=== PATIENT | male | born 1955 | race Caucasian/White ===

== ENCOUNTER 2017-12-06 13:31 | Emergency (ER) | payer OTHER ==
[~2017-12-06] VITALS: Ht 193 cm; Wt 115.0 kg
[2017-12-06 13:33] VITALS: BP 158/78; PULSE 86; RESP 16; TEMP 98.6; O2SAT 96
[2017-12-06] MEDS ORDERED: SODIUM CHLOR 0.9% 1000 ML INJ 1,000 ML IV ONE (14:57)
[2017-12-06] MEDS ORDERED: diphenhydrAMINE HCL 50 MG/ML VIAL IVP ONE (15:00)
[2017-12-06] MEDS ORDERED: SODIUM CHLORIDE 0.9% FLUSH 10 ML FLUSH IVF PRN (15:00)
[2017-12-06] MEDS ORDERED: PROCHLORPERAZINE INJ 10 MG/2 ML VIAL IVP ONE (15:00)
[2017-12-06] MEDS ORDERED: KETOROLAC TROMETHAMINE 30 MG/ML (IVP) VIAL IVP ONE (15:00)
--- NOTE | 2017-12-06 15:38 | RADRPT ---
EXAM DATE/TIME: 12/06/2017 15:30 [facility] COMPARISON: No previous studies available for comparison. INDICATIONS : Fall onto head today. RADIATION DOSE: 37.86 CTDIvol (mGy) MEDICAL HISTORY : None SURGICAL HISTORY : None. ENCOUNTER: Initial ACUITY: 1 day PAIN SCALE: 7/10 LOCATION: Bilateral head TECHNIQUE: Multiple contiguous axial images were obtained of the head. Using automated exposure control and adj ustment of the mA and/or kV according to patient size, radiation dose was kept as low as reasonably a chievable to obtain optimal diagnostic quality images. DICOM format image data is available electro nically for review and comparison. FINDINGS: CEREBRUM: The ventricles are normal for age. No evidence of midline shift, mass lesion, hemorrhage or acute in farction. No extra-axial fluid collections are seen. POSTERIOR FOSSA: The cerebellum and brainstem are intact. The 4th ventricle is midline. The cerebellopontine angle i s unremarkable. EXTRACRANIAL: The visualized portion of the orbits is intact. SKULL: The calvaria is intact. No evidence of skull fracture. CONCLUSION: Negative noncontrast CT Bruce Augustin MD on December 06, 2017 at 15:35 Board Certified Radiologist. This report was verified electronically.
[2017-12-06] MEDS ORDERED: ROBA750T PO (16:15)
--- NOTE | 2017-12-06 16:15 | PD ---
HPI Chief Complaint: Fall Time Seen by Provider: 14:54 Travel History International Travel<30 days: No Contact w/Intl Traveler<30days: No Traveled to known affect area: No History of Present Illness HPI 61 yo M who 3 days prior the patient had a fall at work landing on the back of his head with his feet upright. Since then he has had a headache predominantly in the frontal area with some pain radiating down the right cervical distribution. No numbness tingling weakness. No nausea vomiting. No visual change. Zxrd-ixr-[id number] analgesics have been somewhat beneficial. The pain comes and goes. Severity is moderate at worst. PFSH Past Medical History Medical History: Denies Significant Hx Past Surgical History Abdominal Surgery: Yes Social History Alcohol Use: Yes (occ) Tobacco Use: No Substance Use: No Allergies-Medications (Allergen,Severity, Reaction): Coded Allergies: No Known Allergies (Unverified , 12/06/17) Reported Meds & Prescriptions Reported Meds & Active Scripts Active No Active Prescriptions or Reported Medications Review of Systems Except as stated in HPI: all other systems reviewed are Neg General / Constitutional: No: Fever Physical Exam Narrative GENERAL: Well-nourished well-developed 61-year-old male pleasant no acute distress SKIN: Warm and dry. HEAD: Atraumatic. Normocephalic. EYES: Pupils equal and round. No scleral icterus. No injection or drainage. ENT: No nasal bleeding or discharge. Mucous membranes pink and moist. NECK: Trachea midline. No JVD. No tenderness about the cervical spine or paracervical musculature. CARDIOVASCULAR: Regular rate and rhythm. RESPIRATORY: No accessory muscle use. Clear to auscultation. Breath sounds equal bilaterally. GASTROINTESTINAL: Abdomen soft, non-tender, nondistended. Hepatic and splenic margins not palpable. MUSCULOSKELETAL: Extremities without clubbing, cyanosis, or edema. No obvious deformities. NEUROLOGICAL: Awake and alert. No obvious cranial nerve deficits. Motor grossly within normal limits. Five out of 5 muscle strength in the arms and legs. Normal speech. PSYCHIATRIC: Appropriate mood and affect; insight and judgment normal. Data Data Last Documented VS Vital Signs Date Time Temp Pulse Resp B/P (MAP) Pulse Ox O2 Delivery O2 Flow Rate FiO2 12/06/17 13:33 98.6 86 16 158/78 (104) 96 Room Air . Signs reviewed Orders Orders Ct Brain W/O Iv Contrast(Rout) (12/06/17 14:57) Ecg Monitoring (12/06/17 14:57) Iv Access Insert/Monitor (12/06/17 14:57) Oximetry (12/06/17 14:57) Sodium Chloride 0.9% Flush (Ns Flush) (12/06/17 15:00) Ketorolac Inj (Toradol Inj) (12/06/17 15:00) Prochlorperazine Inj (Compazine Inj) (12/06/17 15:00) Diphenhydramine Inj (Benadryl Inj) (12/06/17 15:00) Sodium Chlor 0.9% 1000 Ml Inj (Ns 1000 M (12/06/17 14:57) MDM Medical Decision Making Medical Screen Exam Complete: Yes Emergency Medical Condition: Yes Medical Record Reviewed: Yes Differential Diagnosis Intracranial hemorrhage, contusion, tension headache, cervicalgia Narrative Course Last Impressions Head CT 12/06/17 1457 Signed Impressions: Service Date/Time: Wednesday, December 06, 2017 15:30 - CONCLUSION: Negative noncontrast CT Bruce Augustin MD Patient received abortive therapy with excellent effect. He is ready for discharge. Robitussin as needed with precautions discussed at bedside. Diagnosis Primary Impression: Cervicalgia of epbgwmrs-badlpgy-huitm region Additional Impressions: Migraine Qualified Codes: G43.909 - Migraine, unspecified, not intractable, without status migrainosus Fall Qualified Codes: W19.XXXA - Unspecified fall, initial encounter Referrals: Primary Care Physician Med/Other Pt SpecificInfo: Prescription(s) given Scripts Methocarbamol (Robaxin) 750 Mg Tab 1500 MG PO BID for Muscle Spasm, #30 TAB 0 Refills Prov: Isael Garcia MD 12/06/17 Disposition: 01 DISCHARGE HOME Condition: Stable Isael Garcia MD Dec 06, 2017 16:15
== END 2017-12-06 16:27 | disposition home or self-care (01) ==
LOC: NEPD 13:31
DX: M54.2 Cervicalgia (principal); G43.909 Migraine, unspecified, not intractable, without status migrainosus; W19.XXXA Unspecified fall, initial encounter; Y99.0 Civilian activity done for income or pay
CPT/HCPCS: 70450; 96361; 96374; 96375; 99285; J0780; J1200; J1885; J7030

== ENCOUNTER 2018-01-10 18:57 | Inpatient (IN) | payer OTHER ==
[~2018-01-10] VITALS: Ht 193 cm; Wt 120.1 kg
[~2018-01-10 18:57] MED LIST: ROBA750T PO
[2018-01-10 19:09] VITALS: BP 191/103; PULSE 99; RESP 18; TEMP 98; O2SAT 99
--- NOTE | 2018-01-10 19:14 | PD ---
HPI Chief Complaint: Bite or Sting Time Seen by Provider: 19:13 Travel History International Travel<30 days: No Contact w/Intl Traveler<30days: No Traveled to known affect area: No History of Present Illness HPI 62-year-old male came to the emergency room with history of a dog bite that happened one week ago. This was his neighbor's dog. Patient says that he never came to the emergency room or see any doctor for it. He has been applying peroxide but today his leg has been hurting. Meanwhile as I'm talking to him there is an intense foul odor coming from him. Vital signs are relatively stable. Patient claims to be otherwise healthy. He is not on any medications. The dog is still alive. [facility] Past Medical History Narrative Medical List of his past medical, surgical, social and family history is reviewed from the nursing note. ?: Not Past Surgical History Abdominal Surgery: Yes Social History Alcohol Use: Yes (occ) Tobacco Use: No Substance Use: No Allergies-Medications (Allergen,Severity, Reaction): Coded Allergies: No Known Allergies (Unverified , 01/10/18) Comments No known drug allergies. Reported Meds & Prescriptions Reported Meds & Active Scripts Active No Active Prescriptions or Reported Medications Narrative Medication List of his home medications reviewed from the nursing note. Review of Systems Except as stated in HPI: all other systems reviewed are Neg Physical Exam Narrative GENERAL: Awake, alert, moderate distress SKIN: Focused skin assessment warm/dry. Large gangrene his wound on the left leg mid calf posteriorly. The muscle belly is partially exposed in the overlying skin is black and necrotic in color. Intense foul odor from the wound. There are few other scabs on the rest of the leg posteriorly and proximally to this plan. The calf wound is 5 x 7 cm. HEAD: Atraumatic. Normocephalic. EYES: Pupils equal and round. No scleral icterus. No injection or drainage. ENT: No nasal bleeding or discharge. Mucous membranes pink and moist. NECK: Trachea midline. No JVD. CARDIOVASCULAR: Regular rate and rhythm. No murmur appreciated. RESPIRATORY: No accessory muscle use. Clear to auscultation. Breath sounds equal bilaterally. GASTROINTESTINAL: Abdomen soft, non-tender, nondistended. Hepatic and splenic margins not palpable. MUSCULOSKELETAL: No obvious deformities. No clubbing. No cyanosis. No edema. NEUROLOGICAL: Awake and alert. No obvious cranial nerve deficits. Motor grossly within normal limits. Normal speech. PSYCHIATRIC: Appropriate mood and affect; insight and judgment normal. Data Data Last Documented VS Vital Signs Date Time Temp Pulse Resp B/P (MAP) Pulse Ox O2 Delivery O2 Flow Rate FiO2 01/10/18 20:44 82 18 158/100 (119) 99 Room Air 01/10/18 19:09 98.0 Orders Orders Sepsis Workup Initiated (01/10/18 ) Complete Blood Count With Diff (01/10/18 19:25) Comprehensive Metabolic Panel (01/10/18:25) Prothrombin Time / Inr (Pt) (01/10/18 19:25) Lactic Acid Sepsis Protocol (01/10/18 19:25) Urinalysis - C+S If Indicated (01/10/18 19:25) Blood Culture (01/10/18 19:25) Wound Culture And Gram Stain (01/10/18 19:25) Blood Glucose (01/10/18:25) Ecg Monitoring (01/10/18:25) Iv Access Insert/Monitor (01/10/18 19:25) Oximetry (01/10/18 19:25) Oxygen Administration (01/10/18:25) Piperacil-Tazo 4.5 Gm Premix (Zosyn 4.5 (01/10/18 19:25) Vancomycin Inj (Vancomycin Inj) (01/10/18 19:25) Tibia/Fibula (Ap/Lat) (01/10/18 ) Sodium Chlor 0.9% 1000 Ml Inj (Ns 1000 M (01/10/18 19:30) Vancomycin Consult Pharmacy (Vancomycin (01/10/18 20:45) Piperacil-Tazo 4.5 Gm Premix (Zosyn 4.5 (01/11/18 02:00) Admit To Inpatient (01/10/18 ) Vital Signs (Adult) Q4H (01/10/18 20:45) Activity Oob With Assistance (01/10/18 20:45) Intake + Output LEE.QSHIFT (01/10/18 20:45) Sodium Chlor 0.9% 1000 Ml Inj (Ns 1000 M (01/10/18 20:45) Sodium Chloride 0.9% Flush (Ns Flush) (01/10/18 20:45) Sodium Chloride 0.9% Flush (Ns Flush) (01/10/18 21:00) Ondansetron Inj (Zofran Inj) (01/10/18 20:45) Comprehensive Metabolic Panel (01/11/18 06:00) Complete Blood Count With Diff (01/11/18 06:00) Mechanical Contraindication (01/10/18 20:45) Acetaminophen (Tylenol) (01/10/18 20:45) Acetamin-Hydrocod 325-5 Mg ([place] 5-325 (01/10/18 20:45) Morphine Inj (Morphine Inj) (01/10/18 20:45) Docusate Sodium-Senna (Dang-Colace) (01/10/18 21:00) Magnesium Hydroxide Liq (Milk Of Magnesi (01/10/18 20:45) Sennosides (Senokot) (01/10/18 20:45) Bisacodyl Supp (Dulcolax Supp) (01/10/18 20:45) Lactulose Liq (Lactulose Liq) (01/10/18 20:45) Inpatient Certification (01/10/18 ) Consult Wound / Ostomy Nurse (01/10/18 ) Admit Order (Ed Use Only) (01/10/18 21:14) Npo After Midnight W/ Po Meds (01/11/18 Breakfast) Labs Laboratory Tests Test 01/10/18 19:37 01/10/18 20:05 White Blood Count 6.4 TH/MM3 Red Blood Count 4.56 MIL/MM3 Hemoglobin 13.8 GM/DL Hematocrit 41.7 % Mean Corpuscular Volume 91.4 FL Mean Corpuscular Hemoglobin 30.2 PG Mean Corpuscular Hemoglobin Concent 33.0 % Red Cell Distribution Width 13.3 % Platelet Count 154 TH/MM3 Mean Platelet Volume 9.5 FL Neutrophils (%) (Auto) 74.9 % Lymphocytes (%) (Auto) 14.1 % Monocytes (%) (Auto) 6.5 % Eosinophils (%) (Auto) 3.9 % Basophils (%) (Auto) 0.6 % Neutrophils # (Auto) 4.9 TH/MM3 Lymphocytes # (Auto) 0.9 TH/MM3 Monocytes # (Auto) 0.4 TH/MM3 Eosinophils # (Auto) 0.2 TH/MM3 Basophils # (Auto) 0.0 TH/MM3 CBC Comment DIFF FINAL Differential Comment Prothrombin Time 10.0 SEC Prothromb Time International Ratio 1.0 RATIO Blood Urea Nitrogen 16 MG/DL Creatinine 1.50 MG/DL Random Glucose 98 MG/DL Total Protein 7.3 GM/DL Albumin 3.3 GM/DL Calcium Level 8.0 MG/DL Alkaline Phosphatase 60 U/L Aspartate Amino Transf (AST/SGOT) 15 U/L Alanine Aminotransferase (ALT/SGPT) 13 U/L Total Bilirubin 0.5 MG/DL Sodium Level 140 MEQ/L Potassium Level 4.3 MEQ/L Chloride Level 108 MEQ/L Carbon Dioxide Level 25.5 MEQ/L Anion Gap 7 MEQ/L Estimat Glomerular Filtration Rate 48 ML/MIN Lactic Acid Level 1.5 mmol/L Urine Color YELLOW Urine Turbidity CLEAR Urine pH 6.0 Urine Specific [place] 1.010 Urine Protein NEG mg/dL Urine Glucose (UA) NEG mg/dL Urine Ketones NEG mg/dL Urine Occult Blood NEG Urine Nitrite NEG Urine Bilirubin NEG Urine Leukocyte Esterase NEG Urine RBC 0-2 /hpf Urine WBC 0-2 /hpf Urine Squamous Epithelial Cells 0-5 /hpf Urine Bacteria NONE /hpf Microscopic Urinalysis Comment CULT NOT INDICATED MDM Medical Decision Making Medical Screen Exam Complete: Yes Emergency Medical Condition: Yes Medical Record Reviewed: Yes Differential Diagnosis Dog Bite, wound gangrene Narrative Course 8:20 PM blood test results of back and within acceptable limits. Patient is getting IV Zosyn and vancomycin. Given the clinical appearance of the wound I' m really concerned for gangrene. Patient needs to be admitted so that he can be seen by a surgeon. The wound will require extensive debridement. 9:16 PM case was discussed with general surgeon Dr. Flores who will take the patient to the OR for debridement at 8 in the morning tomorrow. He wants the patient nothing by mouth after midnight. Patient will be admitted to [facility] since the surgery can be performed in [place] OR. Procedures EKG Prior to Arrival: No Physician Communication Physician Communication Dr. Flores Diagnosis Primary Impression: Infected dog bite of lower leg Qualified Codes: S81.852A - Open bite, left lower leg, initial encounter; L08.9 - Local infection of the skin and subcutaneous tissue, unspecified; W54.0XXA - Bitten by dog, initial encounter Additional Impressions: Gangrene Renal insufficiency Admitting Information Admitting Physician Requests: Admit Scripts No Active Prescriptions or Reported Meds Shantel Marley MD Jan 10, 2018 19:14
[2018-01-10] MEDS ORDERED: PIPERACIL-TAZO 4.5 GM PREMIX 100 ML IV STA (19:25)
[2018-01-10] MEDS ORDERED: VANCOMYCIN INJ 1,000 MG in SODIUM CHLOR 0.9% 250 ML INJ 250 ML IV STA (19:25)
[2018-01-10] MEDS ORDERED: SODIUM CHLOR 0.9% 1000 ML INJ 1,000 ML IV ONE (19:30)
[2018-01-10 19:50] VITALS: O2SAT 99
[2018-01-10 19:58] LABS: AUTOMATED NEUTROPHIL # 4.9 TH/MM3 (1.8-7.7); BASOPHIL % 0.6 % (0.0-2.0); EOSINOPHIL # 0.2 TH/MM3 (0-0.4); EOSINOPHIL % 3.9 % (0.0-4.0); HEMATOCRIT 41.7 % (39.0-51.0); HEMOGLOBIN 13.8 GM/DL (13.0-17.0); LYMPH % 14.1 % (9.0-44.0); LYMPHOCYTE # 0.9 TH/MM3 (1.0-4.8); MEAN CELL VOLUME 91.4 FL (80.0-100.0); MEAN CORPUSCULAR HEMOGLOBIN 30.2 PG (27.0-34.0); MEAN PLATELET VOLUME 9.5 FL (7.0-11.0); MONO % 6.5 % (0.0-8.0); MONOCYTE # 0.4 TH/MM3 (0-0.9); NEUT % 74.9 % (16.0-70.0); PLATELET COUNT 154 TH/MM3 (150-450); RED BLOOD COUNT 4.56 MIL/MM3 (4.50-5.90); RED CELL DISTRIBUTION WIDTH 13.3 % (11.6-17.2); WHITE BLOOD COUNT 6.4 TH/MM3 (4.0-11.0)
[2018-01-10 20:04] LABS: CHLORIDE 108 MEQ/L (98-107); SODIUM (NA) 140 MEQ/L (136-145)
[2018-01-10 20:09] LABS: ALBUMIN 3.3 GM/DL (3.4-5.0); BICARBONATE 25.5 MEQ/L (21.0-32.0); BLOOD UREA NITROGEN 16 MG/DL (7-18); GLUCOSE,RANDOM 98 MG/DL (74-106)
[2018-01-10 20:12] LABS: ALT (GPT) 13 U/L (12-78); AST (GOT) 15 U/L (15-37); GLOMERULAR FILTRATION RATE 48 ML/MIN (>89)
[2018-01-10 20:14] LABS: TOTAL BILIRUBIN ADULT 0.5 MG/DL (0.2-1.0); TOTAL PROTEIN 7.3 GM/DL (6.4-8.2)
[2018-01-10 20:15] LABS: ALKALINE PHOSPHATASE 60 U/L (45-117)
[2018-01-10 20:18] LABS: BILIRUBIN, URINE NEG (NEG); BLOOD, URINE NEG (NEG); GLUCOSE,URINE NEG (NEG); KETONE, URINE NEG (NEG); NITRITE,URINE NEG (NEG); URINE LEUKOCYTE ESTERASE NEG (NEG)
[2018-01-10 20:28] LABS: URINE COLOR YELLOW (YELLW/STRAW)
[2018-01-10 20:29] LABS: RBC, URINE 0-2 /hpf (0-3); SQUAMOUS EPITHELIAL CELL URINE 0-5 /hpf (0-5); WBC, URINE 0-2 /hpf (0-5)
--- NOTE | 2018-01-10 20:38 | RADRPT ---
EXAM DATE/TIME: 01/10/2018 20:11 [facility] COMPARISON: No previous studies available for comparison. INDICATIONS : Dog bite one week ago- Gangrene. MEDICAL HISTORY : None. SURGICAL HISTORY : None. ENCOUNTER: Initial ACUITY: 1 week PAIN SCORE: 10/10 LOCATION: Left Lower leg. FINDINGS: 4 views of the left leg demonstrate a wound on the posterior slightly medial mid calf region. There i s subcutaneous edema. The tibia and fibula demonstrate no abnormality. No radiopaque foreign body is identified. There is mild osteoarthritis at the knee joint. CONCLUSION: There is an open wound on the posterior medial aspect of the mid calf region with subcutaneous edema in the adjacent tissue. No radiopaque foreign body is identified. Christian Kay MD on January 10, 2018 at 20:35 Board Certified Radiologist. This report was verified electronically.
[2018-01-10 20:44] VITALS: BP 158/100; PULSE 82; RESP 18; O2SAT 99
[2018-01-10] MEDS ORDERED: LACTULOSE SYRUP 20 GM/30 ML CUP PO PRN (20:45)
[2018-01-10] MEDS ORDERED: Vancomycin Consult Pharmacy 1 EA OTHER SCH (20:45)
[2018-01-10] MEDS ORDERED: ONDANSETRON HCL 4 MG/2 ML VIAL IVP PRN (20:45)
[2018-01-10] MEDS ORDERED: BISACODYL 10 MG SUPP RECTAL PRN (20:45)
[2018-01-10] MEDS ORDERED: ACETAMINOPHEN 325 MG TAB PO PRN (20:45)
[2018-01-10] MEDS ORDERED: SENNOSIDES 8.6 MG TAB PO PRN (20:45)
[2018-01-10] MEDS ORDERED: ACETAMINOPHEN/HYDROcodone 325 MG/5 MG TAB PO PRN (20:45)
[2018-01-10] MEDS ORDERED: MAGNESIUM HYDROXIDE SUSP 30 ML CUP PO PRN (20:45)
[2018-01-10] MEDS: SODIUM CHLORIDE 0.9% FLUSH 10 ML FLUSH IV FLUSH SCH (21:47)
[2018-01-10] MEDS: SODIUM CHLOR 0.9% 1000 ML INJ 1,000 ML IV SCH (21:48)
[2018-01-10] MEDS: DOCUSATE SODIUM 50 MG/SENNA 8.6 MG TAB PO SCH (21:48)
[2018-01-10] MEDS: MORPHINE SULFATE 2 MG/ML INJ IV PUSH PRN (21:52)
[2018-01-10 22:01] VITALS: BP 160/100; PULSE 76; RESP 18; O2SAT 97
[2018-01-10 23:13] VITALS: BP 152/94
[2018-01-11] MEDS: MORPHINE SULFATE 2 MG/ML INJ IV PUSH PRN ×5 (00:25→20:18)
[2018-01-11 00:44] VITALS: BP 141/86; PULSE 76; RESP 18; TEMP 98.9; O2SAT 95
[2018-01-11] MEDS: PIPERACIL-TAZO 4.5 GM PREMIX 100 ML IV SCH ×4 (02:20→20:08)
[2018-01-11] MEDS ORDERED: BUPIVACAINE HCL PF 0.5% 30 ML VIAL ONE (06:41)
[2018-01-11] MEDS: VANCOMYCIN 1,000 MG/NS 250 ML IV SCH ×4 (07:24→21:54)
[2018-01-11] MEDS: DOCUSATE SODIUM 50 MG/SENNA 8.6 MG TAB PO SCH ×2 (07:25→20:09)
[2018-01-11] MEDS: SODIUM CHLORIDE 0.9% FLUSH 10 ML FLUSH IV FLUSH SCH ×2 (07:25→20:09)
--- NOTE | 2018-01-11 07:29 | PD.CONS ---
HPI Service General Surgery Consult Requested By Dr. Marley Reason for Consult necrotic wound left leg Primary Care Physician No Primary Care Physician History of Present Illness 62 yo M s/p dog bite about one week ago to left leg. He has undergone no treatment and seen no physician regarding it. It has been increasingly painful and he has been putting peroxide on it. Yesterday he came to the ED and it was noted to be foul smelling. His vitals and WBC are normal. He received vancomycin and zosyn in the ED. I have been requested to evaluate for debridement. Review of Systems Constitutional: DENIES: Fever, Chills Eyes: DENIES: Eye inflammation, Eye pain Ears, nose, mouth, throat: DENIES: Oral lesions, Throat pain Respiratory: DENIES: Cough Cardiovascular: DENIES: Chest pain, Palpitations Gastrointestinal: DENIES: Abdominal pain, Nausea Musculoskeletal: DENIES: Muscle aches, Back pain Integumentary: DENIES: Pruritus, Rash Neurologic: DENIES: Paresthesias, Seizures Past Family Social History Past Medical History None- goes [facility] Past Surgical History Right knee surgery Inguinal hernia repair Reported Medications Reported Meds & Active Scripts Active No Active Prescriptions or Reported Medications Allergies: Coded Allergies: No Known Allergies (Unverified , 01/10/18) Active Ordered Medications Current Medications Medications (Trade) Dose Ordered Sig/Jenni Route Start Time Stop Time Status Last Admin Pharmacy Profile Note 0 ml @ 0 mls/hr UNSCH OTHER 01/10/18 20:45 Piperacillin Sod/ Tazobactam Sod 100 ml @ 200 mls/hr Q6H IV 01/11/18 02:00 01/11/18 02:20 Sodium Chloride 1,000 ml @ 100 mls/hr Q10H IV 01/10/18 20:45 01/10/18 21:48 (NS Flush) 2 ml UNSCH PRN IV FLUSH 01/10/18 20:45 (NS Flush) 2 ml BID IV FLUSH 01/10/18 21:00 01/10/18 21:47 (Zofran Inj) 4 mg Q6H PRN IVP 01/10/18 20:45 01/10/18 21:51 (Tylenol) 650 mg Q6H PRN PO 01/10/18 20:45 ([place] 5-325 Mg) 1 tab Q4H PRN PO 01/10/18 20:45 (Morphine Inj) 2 mg Q3H PRN IV PUSH 01/10/18 20:45 01/11/18 05:36 (Dang-Colace) 1 tab BID PO 01/10/18 21:00 01/10/18 21:48 (Milk Of Magnesia Liq) 30 ml Q12H PRN PO 01/10/18 20:45 (Senokot) 17.2 mg Q12H PRN PO 01/10/18 20:45 (Dulcolax Supp) 10 mg DAILY PRN RECTAL 01/10/18 20:45 (Lactulose Liq) 30 ml DAILY PRN PO 01/10/18 20:45 Vancomycin HCl 1000 mg/Sodium Chloride 250 ml @ 250 mls/hr Q12H IV 01/11/18 09:00 Miscellaneous Information SPECIFIC LAB TO BE ... ONCE ONCE .XX 01/12/18 08:45 01/12/18 08:46 Family History Noncontributory Social History Occ ETOH. He had two beers yesterday afternoon. No tobacco or drug use. Physical Exam Vital Signs Vital Signs Date Time Temp Pulse Resp B/P (MAP) Pulse Ox O2 Delivery O2 Flow Rate FiO2 01/11/18 04:52 01/11/18 00:44 98.9 76 18 141/86 (104) 95 01/10/18 23:13 73 16 152/94 (113) 97 01/10/18 22:01 76 18 160/100 (120) 97 Room Air 01/10/18 20:44 82 18 158/100 (119) 99 Room Air 01/10/18 19:50 99 Room Air 01/10/18 19:50 99 Room Air 01/10/18 19:13 99 18 01/10/18 19:09 98.0 99 18 191/103 (132) 99 Physical Exam General: alert and oriented, cooperative, no distress HEENT: PERRL, no scleral icterus Lungs: CTAB, nonlabored respirations CV: RRR Ext: left lower extremity edema Skin: mild erythema left lower left and above knee, approx 8x10 cm necrotic foul smelling wound posterior calf; smaller scabbed wounds upper calf and lower thigh with surrounding ecchymoses Laboratory Laboratory Tests Test 01/10/18 19:37 01/10/18 20:05 White Blood Count 6.4 Red Blood Count 4.56 Hemoglobin 13.8 Hematocrit 41.7 Mean Corpuscular Volume 91.4 Mean Corpuscular Hemoglobin 30.2 Mean Corpuscular Hemoglobin Concent 33.0 Red Cell Distribution Width 13.3 Platelet Count 154 Mean Platelet Volume 9.5 Neutrophils (%) (Auto) 74.9 Lymphocytes (%) (Auto) 14.1 Monocytes (%) (Auto) 6.5 Eosinophils (%) (Auto) 3.9 Basophils (%) (Auto) 0.6 Neutrophils # (Auto) 4.9 Lymphocytes # (Auto) 0.9 Monocytes # (Auto) 0.4 Eosinophils # (Auto) 0.2 Basophils # (Auto) 0.0 CBC Comment DIFF FINAL Differential Comment Prothrombin Time 10.0 Prothromb Time International Ratio 1.0 Blood Urea Nitrogen 16 Creatinine 1.50 Random Glucose 98 Total Protein 7.3 Albumin 3.3 Calcium Level 8.0 Alkaline Phosphatase 60 Aspartate Amino Transf (AST/SGOT) 15 Alanine Aminotransferase (ALT/SGPT) 13 Total Bilirubin 0.5 Sodium Level 140 Potassium Level 4.3 Chloride Level 108 Carbon Dioxide Level 25.5 Anion Gap 7 Estimat Glomerular Filtration Rate 48 Lactic Acid Level 1.5 Urine Color YELLOW Urine Turbidity CLEAR Urine pH 6.0 Urine Specific [place] 1.010 Urine Protein NEG Urine Glucose (UA) NEG Urine Ketones NEG Urine Occult Blood NEG Urine Nitrite NEG Urine Bilirubin NEG Urine Leukocyte Esterase NEG Urine RBC 0-2 Urine WBC 0-2 Urine Squamous Epithelial Cells 0-5 Urine Bacteria NONE Microscopic Urinalysis Comment CULT NOT INDICATED Date/Time Source Procedure Growth Status 01/10/18 19:43 Blood Peripheral Aerobic Blood Culture Pending Received 01/10/18 19:43 Blood Peripheral Anaerobic Blood Culture Pending Received 01/10/18 20:09 Wound Leg Gram Stain Pending Received 01/10/18 20:09 Wound Leg Wound Culture Pending Received Result Diagram: 01/10/18193601/10/181936 Assessment and Plan Assessment and Plan 62 yo M necrotic left lower extremity calf wound after dog bite one week ago. Proceed to OR this morning for debridement of left lower extremity wound, possible wound vac placement. Romulo Flores MD Jan 11, 2018 07:29
[2018-01-11 07:51] LABS: BASOPHIL % 0.8 % (0.0-2.0); EOSINOPHIL # 0.2 TH/MM3 (0-0.4); EOSINOPHIL % 4.5 % (0.0-4.0); HEMATOCRIT 38.7 % (39.0-51.0); HEMOGLOBIN 13.2 GM/DL (13.0-17.0); LYMPH % 16.3 % (9.0-44.0); LYMPHOCYTE # 0.9 TH/MM3 (1.0-4.8); MEAN CELL VOLUME 90.4 FL (80.0-100.0); MEAN CORPUSCULAR HEMOGLOBIN 30.9 PG (27.0-34.0); MEAN CORPUSCULAR HGB CONC 34.2 % (32.0-36.0); MEAN PLATELET VOLUME 9.8 FL (7.0-11.0); MONO % 8.7 % (0.0-8.0); MONOCYTE # 0.5 TH/MM3 (0-0.9); NEUT % 69.7 % (16.0-70.0); PLATELET COUNT 132 TH/MM3 (150-450); RED BLOOD COUNT 4.28 MIL/MM3 (4.50-5.90); RED CELL DISTRIBUTION WIDTH 13.2 % (11.6-17.2); WHITE BLOOD COUNT 5.6 TH/MM3 (4.0-11.0)
[2018-01-11 07:58] LABS: CHLORIDE 108 MEQ/L (98-107); SODIUM (NA) 140 MEQ/L (136-145)
[2018-01-11 08:01] LABS: CALCIUM 7.9 MG/DL (8.5-10.1)
[2018-01-11 08:02] LABS: ALBUMIN 2.9 GM/DL (3.4-5.0); BICARBONATE 27.9 MEQ/L (21.0-32.0); BLOOD UREA NITROGEN 13 MG/DL (7-18); GLUCOSE,RANDOM 89 MG/DL (74-106)
[2018-01-11 08:05] LABS: ALT (GPT) 12 U/L (12-78); AST (GOT) 13 U/L (15-37); GLOMERULAR FILTRATION RATE 56 ML/MIN (>89)
[2018-01-11 08:07] LABS: TOTAL BILIRUBIN ADULT 0.8 MG/DL (0.2-1.0); TOTAL PROTEIN 6.5 GM/DL (6.4-8.2)
[2018-01-11 08:08] LABS: ALKALINE PHOSPHATASE 52 U/L (45-117)
[2018-01-11] MEDS ORDERED: LACTATED RINGER'S 1000 ML INJ 1,000 ML ONE (08:11)
--- NOTE | 2018-01-11 08:45 | PD.OP ---
cc: Romulo Flores MD Operative Report Date of Surgery: Jan 11, 2018 Preoperative Diagnosis: (1) Infected dog bite of lower leg Postoperative Diagnosis: (1) Wound of left lower extremity (2) Infected dog bite of lower leg Procedure: Debridement skin and subcutaneous tissue 6x7 cm left posterior calf wound Wound vac placement Anesthesia: Gen Surgeon: Romulo Flores Second Crusher(s): Mateus Chakraborty Operation and Findings: EBL: 10cc Operative findings: Necrotic skin and subcutaneous tissue in left posterior calf wound 6x7 cm Procedure in detail: The patient was taken to the operating room placed in supine position. Gen. anesthesia was induced. He was then placed in the lateral position using a beanbag. Surgical timeout was performed to verify correct patient procedure and site. The left lower extremity was prepped and draped in usual sterile fashion. The patient had an approximately 6 x 7 cm area of necrotic skin and subcutaneous tissue. This was sharply debrided and all of the skin in this area was necrotic and was removed. The subcutaneous tissue was debrided sharply and with a curette until healthy fat was present. Hemostasis was achieved. The wound was irrigated. A small wound VAC sponge was cut to size and placed to -125 mm continuous medium intensity suction. There was good seal. The patient tolerated the procedure well was extubated and taken to PACU in stable condition. Romulo Flores MD Jan 11, 2018 08:45
[2018-01-11 08:53] VITALS: PULSE 71
[2018-01-11] MEDS ORDERED: *MEPERIDINE 25 MG INJ VIAL PERIprocedural Use ONLY ONE (08:57)
[2018-01-11] MEDS ORDERED: *HYDROmorphone PF 1 MG VIAL PERIprocedural Use ONLY ONE (09:25)
[2018-01-11] MEDS ORDERED: *Lactated Ringer's INJ 1,000 ML ONE (09:34)
[2018-01-11 09:45] VITALS: PULSE 63
[2018-01-11 12:00] VITALS: BP 126/82; PULSE 70; RESP 18; TEMP 97.2; O2SAT 95
--- NOTE | 2018-01-11 12:33 | HHI.HP ---
[facility] No Primary Care Physician Admission Diagnosis infected dog bite wound, gangrenous wound Diagnoses: (1) Wound of left lower extremity Diagnosis: Principal (2) Infected dog bite of lower leg Diagnosis: Principal (3) Renal insufficiency Diagnosis: Principal Chief Complaint: Dog bite left lower extremity Travel History International Travel<30 Days: No Contact w/Intl Traveler <30 Da: No Traveled to Known Affected Are: No History of Present Illness This is a 62 year-old male with no chronic medical illnesses who presented to the hospital because of a infected dog bite of his left lower extremity. Patient states that he was attacked by his landlord's pitbull on 09/10. Patient did not know that it was effective at time. He cannot see it that well because on the posterior aspect of his calf. He states that he try to keep it clean with peroxide and applying triple antibiotic cream. However because the leg at significantly swollen and painful he came to the emergency department for evaluation. Because of the extensive soft tissue abnormality which was concerning for gangrene the ER physician recommended that the patient be admitted for surgical consultation. ER physician did consult surgery who indicated that he would perform debridement in the morning. Patient was admitted with empirical antibiotics and surgery consult. Patient denied any fever, chills, any signs of sepsis. Review of Systems Cardiovascular: COMPLAINS OF: Lower Extremity Edema Except as stated in HPI: all other systems reviewed are Neg Past Family Social History Past Medical History No chronic medical illnesses Past Surgical History Right knee surgery Ventral hernia repair Vein stripping of his left lower extremity Reported Medications Reported Meds & Active Scripts Active No Active Prescriptions or Reported Medications Allergies: Coded Allergies: No Known Allergies (Unverified , 01/10/18) Family History Reviewed and unremarkable Social History Patient denies any tobacco or illicit drug use. Does use alcohol occasionally Physical Exam Vital Signs Vital Signs Date Time Temp Pulse Resp B/P (MAP) Pulse Ox O2 Delivery O2 Flow Rate FiO2 01/11/18 09:45 97.7 63 14 111/70 (84) 93 Room Air 01/11/18 09:45 63 01/11/18 09:30 64 14 115/71 (86) 93 Room Air 01/11/18 09:15 65 14 120/72 (88) 94 Room Air 01/11/18 09:00 68 14 127/83 (98) 93 Room Air 01/11/18 08:53 97.8 71 14 139/81 (100) 97 Room Air 01/11/18 08:53 71 01/11/18 04:52 01/11/18 00:44 98.9 76 18 141/86 (104) 95 01/10/18 23:13 73 16 152/94 (113) 97 01/10/18 22:01 76 18 160/100 (120) 97 Room Air 01/10/18 20:44 82 18 158/100 (119) 99 Room Air 01/10/18 19:50 99 Room Air 01/10/18 19:50 99 Room Air 01/10/18 19:13 99 18 01/10/18 19:09 98.0 99 18 191/103 (132) 99 Physical Exam GENERAL: Well-developed, well-nourished, in no acute distress. alert and orientated HEENT: Head is normocephalic without any lesions or masses noted. Facial features are symmetric. Eyes: Pupils equal round reactive to light. Extraocular muscles are intact. Conjunctivae were clear. Oropharyngeal: Pharynx without any erythema edema. Tongue is midline without deviation. Buccal mucosa is moist without any masses or lesions NECK: Supple without any masses. Trachea midline no deviation. No JVD, no bruits are appreciated CARDIAC: Regular rhythm, regular rate. S1/S2 are heard. No murmurs gallops or rubs. LUNGS: Clear to auscultation bilaterally. No wheeze, rhonchi or rales. No use of accessory muscles on inspiration or expiration. ABDOMEN: Soft, nontender. Nondistended. Bowel sounds heard in all 4 quadrants. No organomegaly or masses. Negative rebound, negative guarding EXTREMITIES: No edema, pulses are equal bilaterally. No cyanosis or clubbing NEUROLOGY: Mood and affect appear appropriate. Cranial nerves II through XII grossly intact. Muscle strength 5/5 in upper and lower extremities bilaterally. Deep tendon reflexes are 2+ in upper and lower extremities bilaterally. LEFT LOWER EXTREMITY: Patient does have wound noted on the posterior aspect of his left calf. Wound VAC is in place. Laboratory Laboratory Tests Test 01/10/18 19:37 01/10/18 20:05 01/11/18 07:15 White Blood Count 6.4 5.6 Red Blood Count 4.56 4.28 Hemoglobin 13.8 13.2 Hematocrit 41.7 38.7 Mean Corpuscular Volume 91.4 90.4 Mean Corpuscular Hemoglobin 30.2 30.9 Mean Corpuscular Hemoglobin Concent 33.0 34.2 Red Cell Distribution Width 13.3 13.2 Platelet Count 154 132 Mean Platelet Volume 9.5 9.8 Neutrophils (%) (Auto) 74.9 69.7 Lymphocytes (%) (Auto) 14.1 16.3 Monocytes (%) (Auto) 6.5 8.7 Eosinophils (%) (Auto) 3.9 4.5 Basophils (%) (Auto) 0.6 0.8 Neutrophils # (Auto) 4.9 4.0 Lymphocytes # (Auto) 0.9 0.9 Monocytes # (Auto) 0.4 0.5 Eosinophils # (Auto) 0.2 0.2 Basophils # (Auto) 0.0 0.0 CBC Comment DIFF FINAL DIFF FINAL Differential Comment Prothrombin Time 10.0 Prothromb Time International Ratio 1.0 Blood Urea Nitrogen 16 13 Creatinine 1.50 1.30 Random Glucose 98 89 Total Protein 7.3 6.5 Albumin 3.3 2.9 Calcium Level 8.0 7.9 Alkaline Phosphatase 60 52 Aspartate Amino Transf (AST/SGOT) 15 13 Alanine Aminotransferase (ALT/SGPT) 13 12 Total Bilirubin 0.5 0.8 Sodium Level 140 140 Potassium Level 4.3 4.3 Chloride Level 108 108 Carbon Dioxide Level 25.5 27.9 Anion Gap 7 4 Estimat Glomerular Filtration Rate 48 56 Lactic Acid Level 1.5 Urine Color YELLOW Urine Turbidity CLEAR Urine pH 6.0 Urine Specific [place] 1.010 Urine Protein NEG Urine Glucose (UA) NEG Urine Ketones NEG Urine Occult Blood NEG Urine Nitrite NEG Urine Bilirubin NEG Urine Leukocyte Esterase NEG Urine RBC 0-2 Urine WBC 0-2 Urine Squamous Epithelial Cells 0-5 Urine Bacteria NONE Microscopic Urinalysis Comment CULT NOT INDICATED Date/Time Source Procedure Growth Status 01/10/18 19:43 Blood Peripheral Aerobic Blood Culture - Preliminary NO GROWTH IN 1 DAY Resulted 01/10/18 19:43 Blood Peripheral Anaerobic Blood Culture - Preliminary NO GROWTH IN 1 DAY Resulted 01/10/18 20:09 Wound Leg Gram Stain - Final Resulted 01/10/18 20:09 Wound Leg Wound Culture Pending Resulted Result Diagram: 01/11/18 0715 01/11/18 0715 Imaging Last Impressions Tibia/Fibula X-Ray 01/10/18 0000 Signed Impressions: Service Date/Time: Wednesday, January 10, 2018 20:11 - CONCLUSION: There is an open wound on the posterior medial aspect of the mid calf region with subcutaneous edema in the adjacent tissue. No radiopaque foreign body is identified. MD Roberto Alexandra VTE Risk Assessment [place] VTE Risk Assessment: Mod/High Risk (score >= 2) Caprini Risk Assessment Model Point Value = 1 Point Value = 2 Point Value = 3 Point Value = 5 Age 41-60 Minor surgery BMI > 25 kg/m2 Swollen legs Varicose veins or History of unexplained or recurrent spontaneous Oral contraceptives or hormone replacement Sepsis (< 1 month) Serious lung disease, including pneumonia (< 1 month) Abnormal pulmonary function Acute myocardial infarction Congestive heart failure (< 1 month) History of inflammatory bowel disease Medical patient at bed rest Age 61-74 Arthroscopic surgery Major open surgery (> 45 min) Laparoscopic surgery (> 45 min) Malignancy Confined to bed (> 72 hours) Immobilizing plaster cast Central venous access Age >= 75 History of VTE Family history of VTE Factor V Leiden Prothrombin [id number] Lupus anticoagulant Anticardiolipin antibodies Elevated serum homocysteine Heparin-induced thrombocytopenia Other congenital or acquired thrombophilia Stroke (< 1 month) Elective arthroplasty Hip, pelvis, or leg fracture Acute spinal cord injury (< 1 month) Prophylaxis Regimen Total Risk Factor Score Risk Level Prophylaxis Regimen 0-1 Low Early ambulation 2 Moderate Order ONE of the following: *Sequential Compression Device (SCD) *Heparin 5000 units SQ BID 3-4 Higher Order ONE of the following medications: *Heparin 5000 units SQ TID *Enoxaparin/Lovenox 40 mg SQ daily (WT < 150 kg, CrCl > 30 mL/min) *Enoxaparin/Lovenox 30 mg SQ daily (WT < 150 kg, CrCl > 10-29 mL/min) *Enoxaparin/Lovenox 30 mg SQ BID (WT < 150 kg, CrCl > 30 mL/min) AND/OR *Sequential Compression Device (SCD) 5 or more Highest Order ONE of the following medications: *Heparin 5000 units SQ TID (Preferred with Epidurals) *Enoxaparin/Lovenox 40 mg SQ daily (WT < 150 kg, CrCl > 30 mL/min) *Enoxaparin/Lovenox 30 mg SQ daily (WT < 150 kg, CrCl > 10-29 mL/min) *Enoxaparin/Lovenox 30 mg SQ BID (WT < 150 kg, CrCl > 30 mL/min) AND *Sequential Compression Device (SCD) Assessment and Plan Assessment and Plan Left lower extremity wound secondary to dogbite Patient has been started on empirical antibiotics to include vancomycin, Zosyn Gen. surgery has been consulted and has taken to the OR for debridement and wound VAC placement Follow cultures for appropriate antibiotics Continue pain management Azotemia Unknown whether chronic versus acute Continue IV fluids Monitor renal function DVT prevention Subcutaneous heparin Physician Certification 2 Midnight Certification Type: Admission for Inpatient Services Order for Inpatient Services The services are ordered in accordance with Medicare regulations or non- Medicare payer requirements, as applicable. In the case of services not specified as inpatient-only, they are appropriately provided as inpatient services in accordance with the 2-midnight benchmark. Estimated LOS (days): 3 days is the estimated time the patient will need to remain in the hospital, assuming treatment plan goals are met and no additional complications. Post-Hospital Plan: Not yet determined Problem Qualifiers (1) Infected dog bite of lower leg: Qualified Codes: S81.852A - Open bite, left lower leg, initial encounter; L08.9 - Local infection of the skin and subcutaneous tissue, unspecified; W54.0XXA - Bitten by dog, initial encounter Rl Cruz Jan 11, 2018 12:33
[2018-01-11] MEDS: ACETAMINOPHEN/HYDROcodone 325 MG/5 MG TAB PO PRN ×2 (13:13→17:19)
[2018-01-11] MEDS: SODIUM CHLOR 0.9% 1000 ML INJ 1,000 ML IV SCH (13:14)
--- NOTE | 2018-01-11 14:37 | EKG ---
Date Performed: 01/10/2018 Time Performed: 23:55:14 PTAGE: 62 years EKG: Sinus rhythm MODERATE VOLTAGE CRITERIA FOR LVH, CONSIDER NORMAL VARIANT BORDERLINE ECG NO PREVIOUS TRACING DOCTOR: Aguilar Castillo Interpretating Date/Time 01/11/2018 14:36:14
[2018-01-11 16:00] VITALS: BP 109/68; PULSE 58; RESP 20; TEMP 97.4; O2SAT 96
[2018-01-11] MEDS: HEPARIN SODIUM - SQ 10,000 UNITS/ML VIAL SQ SCH (20:10)
[2018-01-11 20:33] VITALS: BP 113/73; PULSE 61; RESP 20; TEMP 97.3; O2SAT 96
[2018-01-12 00:35] VITALS: BP 132/89; PULSE 68; RESP 20; TEMP 96.6; O2SAT 96
[2018-01-12] MEDS: ACETAMINOPHEN/HYDROcodone 325 MG/5 MG TAB PO PRN ×5 (01:25→20:31)
[2018-01-12] MEDS: PIPERACIL-TAZO 4.5 GM PREMIX 100 ML IV SCH ×4 (01:25→20:34)
[2018-01-12] MEDS: SODIUM CHLOR 0.9% 1000 ML INJ 1,000 ML IV SCH ×3 (01:26→21:03)
[2018-01-12 07:34] LABS: AUTOMATED NEUTROPHIL # 4.4 TH/MM3 (1.8-7.7); BASOPHIL # 0.1 TH/MM3 (0-0.2); BASOPHIL % 0.8 % (0.0-2.0); EOSINOPHIL # 0.3 TH/MM3 (0-0.4); EOSINOPHIL % 4.1 % (0.0-4.0); HEMATOCRIT 39.6 % (39.0-51.0); HEMOGLOBIN 13.4 GM/DL (13.0-17.0); LYMPH % 15.5 % (9.0-44.0); MEAN CELL VOLUME 92.5 FL (80.0-100.0); MEAN CORPUSCULAR HEMOGLOBIN 31.3 PG (27.0-34.0); MEAN CORPUSCULAR HGB CONC 33.8 % (32.0-36.0); MEAN PLATELET VOLUME 10.1 FL (7.0-11.0); MONO % 7.8 % (0.0-8.0); MONOCYTE # 0.5 TH/MM3 (0-0.9); NEUT % 71.8 % (16.0-70.0); PLATELET COUNT 134 TH/MM3 (150-450); RED BLOOD COUNT 4.28 MIL/MM3 (4.50-5.90); RED CELL DISTRIBUTION WIDTH 13.2 % (11.6-17.2); WHITE BLOOD COUNT 6.3 TH/MM3 (4.0-11.0)
[2018-01-12 07:44] LABS: CALCIUM 7.8 MG/DL (8.5-10.1)
[2018-01-12 07:45] LABS: BICARBONATE 26.8 MEQ/L (21.0-32.0); MAGNESIUM 2.3 MG/DL (1.5-2.5)
[2018-01-12 07:48] LABS: CREATININE 1.6 MG/DL (0.60-1.30)
[2018-01-12 08:00] VITALS: BP 157/102; PULSE 73; RESP 16; TEMP 97.8; O2SAT 94
--- NOTE | 2018-01-12 08:07 | HHI.PR ---
Subjective Remarks Patient seen and examined today for follow up on left leg wound. Patient doing well, States pain meds are not covering pain completely. Vitals are stable, remains afebrile Objective Vitals Vital Signs Date Time Temp Pulse Resp B/P (MAP) Pulse Ox O2 Delivery O2 Flow Rate FiO2 01/12/18 00:35 96.6 68 20 132/89 (103) 96 01/11/18 20:33 97.3 61 20 113/73 (86) 96 01/11/18 16:00 97.4 58 20 109/68 (82) 96 01/11/18 12:00 97.2 70 18 126/82 (97) 95 01/11/18 09:45 97.7 63 14 111/70 (84) 93 Room Air 01/11/18 09:45 63 01/11/18 09:30 64 14 115/71 (86) 93 Room Air 01/11/18 09:15 65 14 120/72 (88) 94 Room Air 01/11/18 09:00 68 14 127/83 (98) 93 Room Air 01/11/18 08:53 97.8 71 14 139/81 (100) 97 Room Air 01/11/18 08:53 71 I/O 01/11/18 01/11/18 01/11/18 01/12/18 01/12/18 01/12/18 07:00 15:00 23:00 07:00 15:00 23:00 Intake Total 217 ml 3100 ml 100 ml Output Total 300 ml Balance -83 ml 3100 ml 100 ml Intake Oral 650 ml IV Total 217 ml 2450 ml 100 ml Output Urine Total 300 ml # Voids 1 4 1 1 Result Diagram: 01/12/18 0655 01/12/18 0655 Objective Remarks GENERAL: Well-developed, well-nourished, in no acute distress. alert and orientated HEENT: Head is normocephalic without any lesions or masses noted. Facial features are symmetric. Eyes: Extraocular muscles are intact. Conjunctivae were clear. NECK: Supple without any masses. Trachea midline no deviation. No JVD, CARDIAC: Regular rhythm, regular rate. S1/S2 are heard. No murmurs gallops or rubs. LUNGS: Clear to auscultation bilaterally. No wheeze, rhonchi or rales. No use of accessory muscles on inspiration or expiration. ABDOMEN: Soft, nontender. Nondistended. Bowel sounds heard in all 4 quadrants. No organomegaly or masses. Negative rebound, negative guarding EXTREMITIES: No edema, pulses are equal bilaterally. No cyanosis or clubbing NEUROLOGY: Mood and affect appear appropriate. Cranial nerves II through XII grossly intact. Moving all extremities, Speech is clear LEFT LOWER EXTREMITY: Patient does have wound noted on the posterior aspect of his left calf. Wound VAC is in place. Urinary Catheter: No Vascular Central Line Catheter: No A/P Assessment and Plan Left lower extremity wound secondary to dogbite Patient has been started on empirical antibiotics to include vancomycin, Zosyn Gen. surgery has been consulted and has taken to the OR for debridement and wound VAC placement Wound culture showing Heavy growth with mixed priyank and gram negative rods Blood cultures are negative for 1 day Continue pain management Azotemia Unknown whether chronic versus acute Continue IV fluids Monitor renal function DVT prevention Subcutaneous heparin Rl Cruz Jan 12, 2018 08:07
[2018-01-12] MEDS: MORPHINE SULFATE 2 MG/ML INJ IV PUSH PRN ×4 (08:24→21:24)
[2018-01-12] MEDS: DOCUSATE SODIUM 50 MG/SENNA 8.6 MG TAB PO SCH ×2 (08:24→20:29)
[2018-01-12] MEDS: SODIUM CHLORIDE 0.9% FLUSH 10 ML FLUSH IV FLUSH SCH ×2 (08:25→20:28)
[2018-01-12] MEDS: HEPARIN SODIUM - SQ 10,000 UNITS/ML VIAL SQ SCH ×2 (08:25→20:29)
[2018-01-12] MEDS ORDERED: PHARMACY ORDERED LAB ONE (08:45)
[2018-01-12] MEDS: VANCOMYCIN 1,000 MG/NS 250 ML IV SCH ×4 (09:57→20:35)
[2018-01-12] MEDS ORDERED: MIDAZOLAM HCL 2 MG/2 ML VIAL IV ONE (12:00)
[2018-01-12] MEDS ORDERED: SUCCINYLCHOLINE CHLORIDE 200 MG/10 ML VIAL IV ONE (12:00)
[2018-01-12] MEDS ORDERED: LIDOCAINE HCL 1% PF 5 ML SYRINGE OTHER ONE (12:00)
[2018-01-12] MEDS ORDERED: KETOROLAC TROMETHAMINE 30 MG/ML (IVP) VIAL IV PUSH ONE (12:00)
[2018-01-12] MEDS ORDERED: PROPOFOL 200 MG/20 ML AMP IV ONE (12:00)
[2018-01-12] MEDS ORDERED: ONDANSETRON HCL 4 MG/2 ML VIAL IV PUSH ONE (12:00)
[2018-01-12 13:00] VITALS: BP 153/100; PULSE 82; TEMP 98; O2SAT 93
[2018-01-12 16:00] VITALS: BP 168/99; PULSE 85; RESP 18; TEMP 95.4; O2SAT 95
[2018-01-12 21:00] VITALS: BP 157/96; PULSE 85; RESP 18; TEMP 97.8; O2SAT 91
[2018-01-13] VITALS: BP 146/86; PULSE 76; RESP 16; TEMP 97.2; O2SAT 91
[2018-01-13] MEDS: ACETAMINOPHEN/HYDROcodone 325 MG/5 MG TAB PO PRN ×6 (00:43→23:48)
[2018-01-13 00:48] VITALS: TEMP 97.5
[2018-01-13] MEDS: MORPHINE SULFATE 2 MG/ML INJ IV PUSH PRN ×5 (01:48→20:27)
[2018-01-13] MEDS: PIPERACIL-TAZO 4.5 GM PREMIX 100 ML IV SCH ×3 (02:17→14:04)
[2018-01-13 07:04] LABS: BICARBONATE 24.8 MEQ/L (21.0-32.0); CREATININE 1.5 MG/DL (0.60-1.30)
[2018-01-13] MEDS: SODIUM CHLOR 0.9% 1000 ML INJ 1,000 ML IV SCH (07:43)
[2018-01-13] MEDS: SODIUM CHLORIDE 0.9% FLUSH 10 ML FLUSH IV FLUSH SCH ×2 (07:45→20:26)
[2018-01-13] MEDS: VANCOMYCIN 1,000 MG/NS 250 ML IV SCH ×2 (07:45)
[2018-01-13] MEDS: HEPARIN SODIUM - SQ 10,000 UNITS/ML VIAL SQ SCH ×2 (07:48→20:26)
[2018-01-13] MEDS: DOCUSATE SODIUM 50 MG/SENNA 8.6 MG TAB PO SCH ×2 (07:48→20:26)
[2018-01-13 08:00] VITALS: BP_SYST 174; BP_SYST 175; BP_SYST 201; BP_DIAS 114; BP_DIAS 116; PULSE 73; RESP 20; TEMP 96.6; O2SAT 94
[2018-01-13] MEDS: cloNIDine HCL 0.1 MG TAB PO PRN ×2 (10:12→18:24)
--- NOTE | 2018-01-13 10:39 | HHI.PR ---
Subjective Remarks Follow-up left leg wound. Patient seen and examined, lying in bed comfortably. Pain is well-controlled. Wound VAC placement yesterday. Tolerated well. Vital signs are stable. Afebrile. Eating well, denies any abdominal pain, nausea or vomiting. Denies any diarrhea. Objective Vitals Vital Signs Date Time Temp Pulse Resp B/P (MAP) Pulse Ox O2 Delivery O2 Flow Rate FiO2 01/13/18 08:00 96.6 73 20 201/116 (144) 94 174/116 (135) 175/114 (134) 01/13/18 00:48 97.5 01/13/18 00:00 97.2 76 16 146/86 (106) 91 01/12/18 21:31 18 01/12/18 21:31 18 01/12/18 21:00 97.8 85 18 157/96 (116) 91 01/12/18 16:00 95.4 85 18 168/99 (122) 95 01/12/18 13:00 98.0 82 153/100 (117) 93 I/O 01/12/18 01/12/18 01/12/18 01/13/18 01/13/18 01/13/18 07:00 15:00 23:00 07:00 15:00 23:00 Intake Total 830 ml 550 ml 640 ml Output Total 600 ml 200 ml Balance 230 ml 350 ml 640 ml Intake Oral 480 ml 640 ml IV Total 350 ml 550 ml Output Urine Total 600 ml 200 ml # Voids 1 1 3 # Bowel Movements 0 Result Diagram: 01/12/18 0655 01/13/18 0615 Imaging Last Impressions Tibia/Fibula X-Ray 01/10/18 0000 Signed Impressions: Service Date/Time: Wednesday, January 10, 2018 20:11 - CONCLUSION: There is an open wound on the posterior medial aspect of the mid calf region with subcutaneous edema in the adjacent tissue. No radiopaque foreign body is identified. Christian Kay MD Objective Remarks GENERAL: Well-nourished, well-developed patient in NAD. SKIN: Warm and dry. No rash. Left leg wound with wound VAC. HEAD: Normocephalic. Atraumatic. EYES: Pupils equal and round. No scleral icterus. No injection or drainage. ENT: No nasal bleeding or discharge. Mucous membranes pink and moist. NECK: Supple. Trachea midline. CARDIOVASCULAR: Regular rate and rhythm. S1, S2 noted. No murmur appreciated. RESPIRATORY: No accessory muscle use. Clear to auscultation. Breath sounds equal bilaterally. GASTROINTESTINAL: Abdomen soft, non-tender, nondistended. Normoactive bowel sounds x4. MUSCULOSKELETAL: No obvious deformities. Extremities without clubbing, cyanosis , or edema. NEUROLOGICAL: Awake and alert. No obvious cranial nerve deficits. Motor grossly within normal limits. 5/5 muscle strength in bilateral upper and lower extremities. Normal speech. PSYCHIATRIC: Appropriate mood and affect; insight and judgment normal. A/P Problem List: (1) Wound of left lower extremity ICD Code: S81.802A - Unspecified open wound, left lower leg, initial encounter (2) Infected dog bite of lower leg ICD Code: S81.859A - Open bite, unspecified lower leg, initial encounter; L08.9 - Local infection of the skin and subcutaneous tissue, unspecified; W54.0XXA - Bitten by dog, initial encounter Status: Acute (3) Renal insufficiency ICD Code: N28.9 - Disorder of kidney and ureter, unspecified; L08.9 - Local infection of the skin and subcutaneous tissue, unspecified; W54.0XXA - Bitten by dog, initial encounter Status: Acute Assessment and Plan Left lower extremity wound secondary to dog-bite Patient has been started on empirical antibiotics to include vancomycin, Zosyn. Wound culture growing group B beta strep, vancomycin discontinued. Continue Zosyn. Gen. surgery has been consulted and has taken to the OR for debridement and wound VAC placement. Awaiting further surgical recommendations. Blood cultures negative to date. Continue to follow. Continue pain management Azotemia, improving. Unknown whether chronic versus acute Creatinine 1.5 today. Check labs in a.m. Continue IV fluids Monitor renal function Hypertension suspect secondary to pain versus IV hydration Clonidine when necessary as needed. Continue to monitor BP trends. DVT prevention Subcutaneous heparin Problem Qualifiers (1) Infected dog bite of lower leg: Qualified Codes: S81.852A - Open bite, left lower leg, initial encounter; L08.9 - Local infection of the skin and subcutaneous tissue, unspecified; W54.0XXA - Bitten by dog, initial encounter Iris Tavarez Jan 13, 2018 10:39
[2018-01-13] MEDS ORDERED: HYDROmorphone HCL PF 2 MG/ML VIAL IV PUSH ONE (11:00)
[2018-01-13 12:00] VITALS: BP 144/99; PULSE 72; RESP 14; TEMP 97; O2SAT 93
--- NOTE | 2018-01-13 15:29 | HHI.PR ---
Subjective Subjective Notes No complaints. Objective Vitals/I&O Vital Signs Date Time Temp Pulse Resp B/P (MAP) Pulse Ox O2 Delivery O2 Flow Rate FiO2 01/13/18 12:00 97.0 72 14 144/99 (114) 93 01/11/18 09:45 Room Air Labs Laboratory Tests Test 01/13/18 06:15 Blood Urea Nitrogen 12 Creatinine 1.50 Random Glucose 83 Calcium Level 8.0 Sodium Level 140 Potassium Level 4.1 Chloride Level 108 Carbon Dioxide Level 24.8 Anion Gap 7 Estimat Glomerular Filtration Rate 48 Date/Time Source Procedure Growth Status 01/10/18 19:43 Blood Peripheral Aerobic Blood Culture - Preliminary NO GROWTH IN 3 DAYS Resulted 01/10/18 19:43 Blood Peripheral Anaerobic Blood Culture - Preliminary NO GROWTH IN 3 DAYS Resulted 01/10/18 20:09 Wound Leg Gram Stain - Final Complete 01/10/18 20:09 Wound Culture - Final Group B Beta Strep Complete Narrative Exam NAD Ian LE edema Left lower ext wound vac changed- 6x7 cm wound beginning to granulate, kellogg and pink wound bed, new vac placed with good seal, no surrounding cellulitis A/P Assessment and Plan 62 yo M POD 2 s/p LLE wound debridement. WIll need continued vac changes. Eventually likely benefit from plastic surgery consult and possible split thickness skin graft. Romulo Flores MD Jan 13, 2018 15:29
[2018-01-13 16:00] VITALS: BP 168/104; PULSE 87; RESP 14; TEMP 96.5; O2SAT 93
[2018-01-13] MEDS: AMPICILLIN-SULBACTAM INJ 1,500 MG in SODIUM CHLORIDE 0.9% INJ 100 ML IV SCH ×2 (17:21→23:37)
[2018-01-13 20:00] VITALS: BP 153/106; PULSE 84; RESP 20; TEMP 97.3; O2SAT 93
[2018-01-13] MEDS: SODIUM CHLORIDE 0.9% FLUSH 10 ML FLUSH IV FLUSH PRN (23:38)
[2018-01-14] VITALS: BP 155/91; PULSE 80; RESP 20; TEMP 98.5; O2SAT 91
[2018-01-14] MEDS: MORPHINE SULFATE 2 MG/ML INJ IV PUSH PRN ×3 (03:38→20:33)
[2018-01-14] MEDS: SODIUM CHLORIDE 0.9% FLUSH 10 ML FLUSH IV FLUSH PRN ×2 (03:38→05:38)
[2018-01-14] MEDS: AMPICILLIN-SULBACTAM INJ 1,500 MG in SODIUM CHLORIDE 0.9% INJ 100 ML IV SCH ×4 (05:38→18:44)
[2018-01-14 06:45] LABS: CALCIUM 8.1 MG/DL (8.5-10.1)
[2018-01-14 06:46] LABS: BICARBONATE 23.4 MEQ/L (21.0-32.0)
[2018-01-14 06:49] LABS: CREATININE 1.2 MG/DL (0.60-1.30)
[2018-01-14 08:31] VITALS: BP 178/116; PULSE 96; RESP 22; TEMP 97.6; O2SAT 96
[2018-01-14] MEDS: ACETAMINOPHEN/HYDROcodone 325 MG/5 MG TAB PO PRN ×3 (08:36→17:54)
[2018-01-14] MEDS: HEPARIN SODIUM - SQ 10,000 UNITS/ML VIAL SQ SCH ×2 (08:36→20:33)
[2018-01-14] MEDS: cloNIDine HCL 0.1 MG TAB PO PRN (08:36)
[2018-01-14] MEDS: DOCUSATE SODIUM 50 MG/SENNA 8.6 MG TAB PO SCH ×2 (08:36→20:33)
[2018-01-14] MEDS: SODIUM CHLORIDE 0.9% FLUSH 10 ML FLUSH IV FLUSH SCH ×2 (08:37→20:14)
--- NOTE | 2018-01-14 09:29 | HHI.PR ---
Subjective Remarks Follow-up left leg wound. Patient seen and examined, states he slept well. Denies any new acute complaints overnight. Pain well controlled. Wound vac changed yesterday, general surgery following. Eating and drinking well. Afebrile. BP elevated today, PRN medications given. Will monitor. Continued IV antibiotics for now. Objective Vitals Vital Signs Date Time Temp Pulse Resp B/P (MAP) Pulse Ox O2 Delivery O2 Flow Rate FiO2 01/14/18 08:31 97.6 96 22 178/116 (136) 96 01/14/18 04:38 20 01/14/18 00:00 98.5 80 20 155/91 (112) 91 01/13/18 20:24 20 01/13/18 20:00 97.3 84 20 153/106 (122) 93 01/13/18 16:00 96.5 87 14 168/104 (125) 93 01/13/18 12:00 97.0 72 14 144/99 (114) 93 I/O 01/13/18 01/13/18 01/13/18 01/14/18 01/14/18 01/14/18 07:00 15:00 23:00 07:00 15:00 23:00 Intake Total 640 ml 1250 ml 450 ml 240 ml Output Total 500 ml Balance 640 ml 1250 ml 450 ml -260 ml Intake Oral 640 ml 240 ml IV Total 1250 ml 450 ml Output Urine Total 500 ml # Voids 3 3 # Bowel Movements 0 1 Result Diagram: 01/12/18 0655 01/14/18 0605 Imaging Last Impressions Tibia/Fibula X-Ray 01/10/18 0000 Signed Impressions: Service Date/Time: Wednesday, January 10, 2018 20:11 - CONCLUSION: There is an open wound on the posterior medial aspect of the mid calf region with subcutaneous edema in the adjacent tissue. No radiopaque foreign body is identified. Christian Kay MD Objective Remarks GENERAL: Well-nourished, well-developed patient in NAD. SKIN: Warm and dry. No rash. Left leg wound with wound VAC. HEAD: Normocephalic. Atraumatic. EYES: Pupils equal and round. No scleral icterus. No injection or drainage. ENT: No nasal bleeding or discharge. Mucous membranes pink and moist. NECK: Supple. Trachea midline. CARDIOVASCULAR: Regular rate and rhythm. S1, S2 noted. No murmur appreciated. RESPIRATORY: No accessory muscle use. Clear to auscultation. Breath sounds equal bilaterally. GASTROINTESTINAL: Abdomen soft, non-tender, nondistended. Normoactive bowel sounds x4. MUSCULOSKELETAL: No obvious deformities. Extremities without clubbing, cyanosis , or edema. NEUROLOGICAL: Awake and alert. No obvious cranial nerve deficits. Motor grossly within normal limits. 5/5 muscle strength in bilateral upper and lower extremities. Normal speech. PSYCHIATRIC: Appropriate mood and affect; insight and judgment normal. A/P Problem List: (1) Wound of left lower extremity ICD Code: S81.802A - Unspecified open wound, left lower leg, initial encounter (2) Infected dog bite of lower leg ICD Code: S81.859A - Open bite, unspecified lower leg, initial encounter; L08.9 - Local infection of the skin and subcutaneous tissue, unspecified; W54.0XXA - Bitten by dog, initial encounter Status: Acute (3) Renal insufficiency ICD Code: N28.9 - Disorder of kidney and ureter, unspecified; L08.9 - Local infection of the skin and subcutaneous tissue, unspecified; W54.0XXA - Bitten by dog, initial encounter Status: Acute Assessment and Plan Left lower extremity wound secondary to dog-bite Patient has been started on empirical antibiotics to include vancomycin, Zosyn. Wound culture growing group B beta strep, vancomycin and Zosyn discontinued. Started Unasyn. Gen. surgery has been consulted and has taken to the OR for debridement and wound VAC placement. Wound vac changed 01/13, will assess on . Possible need for skin graft and consult to plastic surgery. Recs to follow. Blood cultures negative to date. Continue to follow. Continue pain management, Morphine IV available. Azotemia, improving. Unknown whether chronic versus acute Creatinine 1.2 today. DC IVF. Tolerating PO intake. Monitor renal function. Hypertension suspect secondary to pain versus IV hydration Clonidine when necessary as needed. Still elevated today, possibly 2/2 IVF and pain. IVF DCd. Given PRN clonidine. May need to start scheduled BP medication. Continue to monitor BP trends. DVT prevention Subcutaneous heparin Problem Qualifiers (1) Infected dog bite of lower leg: Qualified Codes: S81.852A - Open bite, left lower leg, initial encounter; L08.9 - Local infection of the skin and subcutaneous tissue, unspecified; W54.0XXA - Bitten by dog, initial encounter Iris Tavarez Jan 14, 2018 09:28
[2018-01-14 10:00] VITALS: BP 158/84; PULSE 95
[2018-01-14 11:50] VITALS: BP 147/87; PULSE 77; RESP 20; TEMP 96.6; O2SAT 95
[2018-01-14 15:50] VITALS: BP 152/88; PULSE 75; RESP 20; TEMP 97.3; O2SAT 94
[2018-01-14 20:00] VITALS: BP 159/96; PULSE 84; RESP 20; TEMP 98.9; O2SAT 92
[2018-01-15] VITALS: BP 172/93; PULSE 90; RESP 20; TEMP 97.5; O2SAT 93
[2018-01-15] MEDS: AMPICILLIN-SULBACTAM INJ 1,500 MG in SODIUM CHLORIDE 0.9% INJ 100 ML IV SCH ×4 (00:21→18:04)
[2018-01-15] MEDS: cloNIDine HCL 0.1 MG TAB PO PRN ×2 (00:24→10:00)
[2018-01-15] MEDS: ACETAMINOPHEN/HYDROcodone 325 MG/5 MG TAB PO PRN ×5 (00:24→18:03)
[2018-01-15 07:50] VITALS: BP 179/105; PULSE 84; RESP 20; TEMP 97.6; O2SAT 90
[2018-01-15] MEDS ORDERED: HYDROmorphone HCL PF 2 MG/ML VIAL IV PUSH ONE (08:45)
[2018-01-15] MEDS: DOCUSATE SODIUM 50 MG/SENNA 8.6 MG TAB PO SCH ×2 (10:00→20:51)
[2018-01-15] MEDS: HEPARIN SODIUM - SQ 10,000 UNITS/ML VIAL SQ SCH ×2 (10:00→20:51)
[2018-01-15] MEDS: SODIUM CHLORIDE 0.9% FLUSH 10 ML FLUSH IV FLUSH SCH ×2 (10:05→20:51)
--- NOTE | 2018-01-15 10:49 | HHI.PR ---
Subjective Remarks Follow-up left leg wound. Patient seen and examined, lying comfortably in bed. General surgery at bedside to change wound VAC. Tolerated well. Plastic surgery consulted awaiting further recommendations. JAIDA improved. BP still elevated, start medications. Eating well, denies any abdominal pain, nausea or vomiting. Vital signs are stable. Afebrile. Objective Vitals Vital Signs Date Time Temp Pulse Resp B/P (MAP) Pulse Ox O2 Delivery O2 Flow Rate FiO2 01/15/18 07:50 97.6 84 20 179/105 (129) 90 01/15/18 00:00 97.5 90 20 172/93 (119) 93 01/14/18 20:00 98.9 84 20 159/96 (117) 92 01/14/18 15:50 97.3 75 20 152/88 (109) 94 01/14/18 11:50 96.6 77 20 147/87 (107) 95 I/O 01/14/18 01/14/18 01/14/18 01/15/18 01/15/18 01/15/18 06:59 14:59 22:59 06:59 14:59 22:59 Intake Total 240 ml 1000 ml Output Total 500 ml 1300 ml Balance -260 ml -300 ml Intake Oral 240 ml 1000 ml Output Urine Total 500 ml 1300 ml # Voids 3 # Bowel Movements 0 Result Diagram: 01/12/18 0655 01/14/18 0605 Imaging Last Impressions Tibia/Fibula X-Ray 01/10/18 0000 Signed Impressions: Service Date/Time: Wednesday, January 10, 2018 20:11 - CONCLUSION: There is an open wound on the posterior medial aspect of the mid calf region with subcutaneous edema in the adjacent tissue. No radiopaque foreign body is identified. Christian Kay MD Objective Remarks GENERAL: Well-nourished, well-developed patient in NAD. SKIN: Warm and dry. No rash. Left leg wound with wound VAC. HEAD: Normocephalic. Atraumatic. EYES: Pupils equal and round. No scleral icterus. No injection or drainage. ENT: No nasal bleeding or discharge. Mucous membranes pink and moist. NECK: Supple. Trachea midline. CARDIOVASCULAR: Regular rate and rhythm. S1, S2 noted. No murmur appreciated. RESPIRATORY: No accessory muscle use. Clear to auscultation. Breath sounds equal bilaterally. GASTROINTESTINAL: Abdomen soft, non-tender, nondistended. Normoactive bowel sounds x4. MUSCULOSKELETAL: No obvious deformities. Extremities without clubbing, cyanosis , or edema. NEUROLOGICAL: Awake and alert. No obvious cranial nerve deficits. Motor grossly within normal limits. 5/5 muscle strength in bilateral upper and lower extremities. Normal speech. PSYCHIATRIC: Appropriate mood and affect; insight and judgment normal. A/P Problem List: (1) Wound of left lower extremity ICD Code: S81.802A - Unspecified open wound, left lower leg, initial encounter (2) Infected dog bite of lower leg ICD Code: S81.859A - Open bite, unspecified lower leg, initial encounter; L08.9 - Local infection of the skin and subcutaneous tissue, unspecified; W54.0XXA - Bitten by dog, initial encounter Status: Acute (3) Renal insufficiency ICD Code: N28.9 - Disorder of kidney and ureter, unspecified; L08.9 - Local infection of the skin and subcutaneous tissue, unspecified; W54.0XXA - Bitten by dog, initial encounter Status: Acute Assessment and Plan Left lower extremity wound secondary to dog-bite Patient has been started on empirical antibiotics to include vancomycin, Zosyn. Wound culture growing group B beta strep, vancomycin and Zosyn discontinued. Continue Unasyn. Gen. surgery has been consulted and has taken to the OR for debridement and wound VAC placement. Wound vac changed today by general surgery, plastic surgery to see patient today. Recs to follow. Blood cultures negative to date. Continue to follow. Continue pain management, Morphine IV available. Azotemia, improved. Creatinine 1.2. DC IVF. Will give dose of Lasix. Blood pressure elevated. Tolerating PO intake. Monitor renal function. Hypertension suspect secondary to pain versus IV hydration Clonidine when necessary as needed. BP still elevated today, start on amlodipine. Will give IV Lasix 1. Monitor response. IVF DCd. Given PRN clonidine. Continue to monitor BP trends. DVT prevention Subcutaneous heparin Problem Qualifiers (1) Infected dog bite of lower leg: Qualified Codes: S81.852A - Open bite, left lower leg, initial encounter; L08.9 - Local infection of the skin and subcutaneous tissue, unspecified; W54.0XXA - Bitten by dog, initial encounter Iris Tavarez Jan 15, 2018 10:49
[2018-01-15 11:00] VITALS: BP 159/99; PULSE 105; RESP 20; TEMP 97.8; O2SAT 90
--- NOTE | 2018-01-15 11:58 | HHI.PR ---
Subjective Subjective Notes Persistent lower ext swelling. Objective Vitals/I&O Vital Signs Date Time Temp Pulse Resp B/P (MAP) Pulse Ox O2 Delivery O2 Flow Rate FiO2 01/15/18 07:50 97.6 84 20 179/105 (129) 90 01/11/18 09:45 Room Air Labs Date/Time Source Procedure Growth Status 01/10/18 19:43 Blood Peripheral Aerobic Blood Culture - Final NO GROWTH IN 5 DAYS Complete 01/10/18 19:43 Blood Peripheral Anaerobic Blood Culture - Final NO GROWTH IN 5 DAYS Complete 01/10/18 20:09 Wound Leg Gram Stain - Final Complete 01/10/18 20:09 Wound Culture - Final Group B Beta Strep Complete Narrative Exam NAD Ian LE edema Left lower ext wound vac changed- 6x7 cm wound granulating well, pink wound bed A/P Assessment and Plan 62 yo M POD 3 s/p LLE wound debridement. Wound vac changed at bedside by me. Granulating well now. Not infected at this point. Consult plastic surgery to consider STSG. D/w Dr. Bishop. MarkRomulo MD Jan 15, 2018 11:58
[2018-01-15] MEDS ORDERED: FUROSEMIDE 40 MG/4 ML VIAL IV PUSH ONE (13:00)
[2018-01-15] MEDS: amLODIPine BESYLATE 5 MG TAB PO SCH (13:34)
[2018-01-15] MEDS: MORPHINE SULFATE 2 MG/ML INJ IV PUSH PRN ×2 (14:40→20:52)
[2018-01-15 16:39] VITALS: BP 148/90; PULSE 95; RESP 16; TEMP 97.3; O2SAT 92
[2018-01-15 20:00] VITALS: BP 152/92; PULSE 71; RESP 20; TEMP 98.9; O2SAT 94
[2018-01-16] VITALS: BP 147/82; PULSE 90; RESP 18; TEMP 97.6; O2SAT 94
[2018-01-16] MEDS: AMPICILLIN-SULBACTAM INJ 1,500 MG in SODIUM CHLORIDE 0.9% INJ 100 ML IV SCH ×4 (00:36→17:31)
[2018-01-16] MEDS: ACETAMINOPHEN/HYDROcodone 325 MG/5 MG TAB PO PRN ×4 (00:37→17:36)
[2018-01-16 08:00] VITALS: BP 158/88; PULSE 77; RESP 18; TEMP 96.8; O2SAT 96
[2018-01-16] MEDS: DOCUSATE SODIUM 50 MG/SENNA 8.6 MG TAB PO SCH ×2 (08:36→21:04)
[2018-01-16] MEDS: amLODIPine BESYLATE 5 MG TAB PO SCH (08:36)
[2018-01-16] MEDS: SODIUM CHLORIDE 0.9% FLUSH 10 ML FLUSH IV FLUSH SCH ×2 (08:37→21:07)
[2018-01-16] MEDS: HEPARIN SODIUM - SQ 10,000 UNITS/ML VIAL SQ SCH ×2 (08:38→21:08)
--- NOTE | 2018-01-16 11:24 | HHI.PR ---
Subjective Remarks Follow-up left leg wound. Patient seen and examined, lying awake in bed. Denies any pain. Well controlled. Denies any acute complaints. Awaiting plastic surgery recommendations for skin graft. Has been eating well denies any chest pain, abdominal pain, nausea or vomiting. Vital signs are stable. Objective Vitals Vital Signs Date Time Temp Pulse Resp B/P (MAP) Pulse Ox O2 Delivery O2 Flow Rate FiO2 01/16/18 08:00 96.8 77 18 158/88 (111) 96 01/16/18 00:00 97.6 90 18 147/82 (103) 94 01/15/18 20:00 98.9 71 20 152/92 (112) 94 01/15/18 16:39 97.3 95 16 148/90 (109) 92 I/O 01/15/18 01/15/18 01/15/18 01/16/18 01/16/18 01/16/18 07:00 15:00 23:00 07:00 15:00 23:00 Intake Total 100 ml 782 ml 780 ml Output Total 3300 ml 1950 ml Balance 100 ml -2518 ml -1170 ml Intake Oral 682 ml 580 ml IV Total 100 ml 100 ml 200 ml Output Urine Total 3300 ml 1950 ml # Bowel Movements 1 0 Result Diagram: 01/12/18 0655 01/14/18 0605 Imaging Last Impressions Tibia/Fibula X-Ray 01/10/18 0000 Signed Impressions: Service Date/Time: Wednesday, January 10, 2018 20:11 - CONCLUSION: There is an open wound on the posterior medial aspect of the mid calf region with subcutaneous edema in the adjacent tissue. No radiopaque foreign body is identified. Christian Kay MD Objective Remarks GENERAL: Well-nourished, well-developed patient in [facility]. SKIN: Warm and dry. No rash. Left leg wound with wound VAC. HEAD: Normocephalic. Atraumatic. EYES: Pupils equal and round. No scleral icterus. No injection or drainage. ENT: No nasal bleeding or discharge. Mucous membranes pink and moist. NECK: Supple. Trachea midline. CARDIOVASCULAR: Regular rate and rhythm. S1, S2 noted. No murmur appreciated. RESPIRATORY: No accessory muscle use. Clear to auscultation. Breath sounds equal bilaterally. GASTROINTESTINAL: Abdomen soft, non-tender, nondistended. Normoactive bowel sounds x4. MUSCULOSKELETAL: No obvious deformities. Extremities without clubbing, cyanosis , or edema. NEUROLOGICAL: Awake and alert. No obvious cranial nerve deficits. Motor grossly within normal limits. 5/5 muscle strength in bilateral upper and lower extremities. Normal speech. PSYCHIATRIC: Appropriate mood and affect; insight and judgment normal. A/P Problem List: (1) Wound of left lower extremity ICD Code: S81.802A - Unspecified open wound, left lower leg, initial encounter (2) Infected dog bite of lower leg ICD Code: S81.859A - Open bite, unspecified lower leg, initial encounter; L08.9 - Local infection of the skin and subcutaneous tissue, unspecified; W54.0XXA - Bitten by dog, initial encounter Status: Acute (3) Renal insufficiency ICD Code: N28.9 - Disorder of kidney and ureter, unspecified; L08.9 - Local infection of the skin and subcutaneous tissue, unspecified; W54.0XXA - Bitten by dog, initial encounter Status: Acute Assessment and Plan Left lower extremity wound secondary to dog-bite Patient has been started on empirical antibiotics to include vancomycin, Zosyn. Wound culture growing group B beta strep, vancomycin and Zosyn discontinued. Continue Unasyn while in the hospital. Gen. surgery has been consulted and has taken to the OR for debridement and wound VAC placement. Wound vac changed 01/15 by general surgery, plan is for plastic surgery to perform skin graft. Awaiting final date for surgery. Blood cultures negative 5 days. Continue pain management, Morphine IV available. [place] available p.o. per pain scale. Azotemia, improved. Creatinine 1.2. DC IVF. Will give dose of Lasix. Blood pressure elevated. Tolerating PO intake. Monitor renal function. Hypertension, new onset Also suspect secondary to IV fluid hydration Started on amlodipine. Diuresed well after IV Lasix 1. Monitor response. IVF DCd. Given PRN clonidine. Continue to monitor BP trends. DVT prevention Subcutaneous heparin. Problem Qualifiers (1) Infected dog bite of lower leg: Qualified Codes: S81.852A - Open bite, left lower leg, initial encounter; L08.9 - Local infection of the skin and subcutaneous tissue, unspecified; W54.0XXA - Bitten by dog, initial encounter Iris Tavarez Jan 16, 2018 11:24
[2018-01-16 12:00] VITALS: BP 157/90; PULSE 80; RESP 18; TEMP 98.8; O2SAT 92
[2018-01-16] MEDS: MORPHINE SULFATE 2 MG/ML INJ IV PUSH PRN (14:12)
[2018-01-16 16:00] VITALS: BP 167/100; PULSE 87; RESP 18; TEMP 98.9; O2SAT 96
--- NOTE | 2018-01-16 16:26 | PD.CONS ---
History of Present Illness Service Plastic surgery Consult Requested By Gen. surgery Reason for Consult Left posterior calf dog bite wound, requesting skin graft Primary Care Physician No Primary Care Physician Diagnoses: History of Present Illness 62-year-old male came to the emergency room with history of a dog bite that happened over one week ago by his landlords dog, which he lives with. Pt was trying to treat the wound by himself until it became necrotic/infected. During his hospital admission patient has been undergoing serial debridements and wound Vac'ing by general surgery. At his last debridement, the wound bed looked clean per general surgery, and it was felt ready for skin grafting PSH/PMH denies except for inguinal hernia Outpt Meds denies SH occ EtOH NKDA Review of Systems Review of systems otherwise noncontributory to presenting complaint Past Family Social History Allergies: Coded Allergies: No Known Allergies (Unverified , 01/10/18) Physical Exam Vital Signs Vital Signs Date Time Temp Pulse Resp B/P (MAP) Pulse Ox O2 Delivery O2 Flow Rate FiO2 01/16/18 12:00 98.8 80 18 157/90 (112) 92 01/16/18 08:00 96.8 77 18 158/88 (111) 96 01/16/18 00:00 97.6 90 18 147/82 (103) 94 01/15/18 20:00 98.9 71 20 152/92 (112) 94 01/15/18 16:39 97.3 95 16 148/90 (109) 92 Physical Exam No acute distress alert and oriented 3 moist mucous membranes PERRLA skin without rash respirations nonlabored no gross neurologic deficits Left posterior calf with roughly 8 cm wound with overlying VAC dressing with good suction No surrounding erythema Palpable DP PT distally Sensation intact light touch distally Laboratory Date/Time Source Procedure Growth Status 01/10/18 19:43 Blood Peripheral Aerobic Blood Culture - Final NO GROWTH IN 5 DAYS Complete 01/10/18 19:43 Blood Peripheral Anaerobic Blood Culture - Final NO GROWTH IN 5 DAYS Complete 01/10/18 20:09 Wound Leg Gram Stain - Final Complete 01/10/18 20:09 Wound Culture - Final Group B Beta Strep Complete Result Diagram: 01/12/18 0655 01/14/18 0605 Assessment and Plan Problem List: (1) Wound of left lower extremity ICD Codes: S81.802A - Unspecified open wound, left lower leg, initial encounter Assessment and Plan From 01/15/18 ~1800, 62-year-old male who presents status post serial debridement of left posterior calf wound by general surgery, now deemed ready for skin grafting, currently being vac'd by general surgery Discussed the risks benefits and alternative treatments with the patient All questions answered Patient expresses understanding Patient elects to assume the risks of split-thickness skin graft to close his left posterior calf wound The patient expresses understanding that he will need to remain inpatient for 5 days while the skin graft is taking and that afterwards he must be very careful with the skin graft for several months as it is vulnerable to shearing/ excessive dependency Because there is no OR availability at [place], please have the patient transferred to a medicine service at [facility] Please have the patient undergo a VAC change this Friday, which may be done by bedside nurses, either at [facility] if he is still there, or at [facility] Please continue Unasyn Patient is on OR schedule for this Friday at [facility] Doni Macedo MD Jan 16, 2018 16:26
[2018-01-16 20:00] VITALS: BP 154/92; PULSE 88; RESP 22; TEMP 99.3; O2SAT 96
[2018-01-17] VITALS: BP 166/99; PULSE 89; RESP 22; TEMP 96.9; O2SAT 94
[2018-01-17] MEDS: AMPICILLIN-SULBACTAM INJ 1,500 MG in SODIUM CHLORIDE 0.9% INJ 100 ML IV SCH ×5 (00:15→22:48)
[2018-01-17] MEDS: MORPHINE SULFATE 2 MG/ML INJ IV PUSH PRN ×3 (00:16→17:48)
[2018-01-17] MEDS: ACETAMINOPHEN/HYDROcodone 325 MG/5 MG TAB PO PRN ×4 (06:22→22:47)
[2018-01-17 08:00] VITALS: BP 164/95; PULSE 89; RESP 18; TEMP 98.3; O2SAT 93
[2018-01-17 08:37] LABS: AUTOMATED NEUTROPHIL # 6.1 TH/MM3 (1.8-7.7); BASOPHIL % 0.3 % (0.0-2.0); EOSINOPHIL # 0.3 TH/MM3 (0-0.4); EOSINOPHIL % 4.1 % (0.0-4.0); HEMATOCRIT 42.3 % (39.0-51.0); HEMOGLOBIN 14.5 GM/DL (13.0-17.0); LYMPH % 7.3 % (9.0-44.0); LYMPHOCYTE # 0.6 TH/MM3 (1.0-4.8); MEAN CELL VOLUME 90.1 FL (80.0-100.0); MEAN CORPUSCULAR HGB CONC 34.4 % (32.0-36.0); MEAN PLATELET VOLUME 8.8 FL (7.0-11.0); MONO % 9.3 % (0.0-8.0); MONOCYTE # 0.7 TH/MM3 (0-0.9); PLATELET COUNT 194 TH/MM3 (150-450); RED BLOOD COUNT 4.69 MIL/MM3 (4.50-5.90); RED CELL DISTRIBUTION WIDTH 13.5 % (11.6-17.2); WHITE BLOOD COUNT 7.7 TH/MM3 (4.0-11.0)
[2018-01-17] MEDS: DOCUSATE SODIUM 50 MG/SENNA 8.6 MG TAB PO SCH ×2 (08:56→21:00)
[2018-01-17] MEDS: HEPARIN SODIUM - SQ 10,000 UNITS/ML VIAL SQ SCH ×2 (08:57→21:00)
[2018-01-17] MEDS: SODIUM CHLORIDE 0.9% FLUSH 10 ML FLUSH IV FLUSH SCH ×2 (08:57→22:46)
[2018-01-17 09:02] LABS: BICARBONATE 26.3 MEQ/L (21.0-32.0); CALCIUM 8.7 MG/DL (8.5-10.1); CREATININE 1.1 MG/DL (0.60-1.30)
[2018-01-17 12:00] VITALS: BP 146/93; PULSE 92; PULSE 95; RESP 18; TEMP 98; TEMP 98.5; O2SAT 92
--- NOTE | 2018-01-17 12:36 | HHI.PR ---
Subjective Remarks Follow-up left leg wound. Patient seen and examined, lying up in bed comfortably. States he slept well. No acute events overnight. Pain is well controlled. Eating well. Ambulating. Patient does state that he feels his legs are more swollen today, states he felt better after diuretic yesterday. Positive bowel movement. Urinating well. Vital signs stable. Plan for wound VAC change today by bedside RN. Objective Vitals Vital Signs Date Time Temp Pulse Resp B/P (MAP) Pulse Ox O2 Delivery O2 Flow Rate FiO2 01/17/18 08:00 98.3 89 18 164/95 (118) 93 01/17/18 00:00 96.9 89 22 166/99 (121) 94 01/16/18 20:00 99.3 88 22 154/92 (112) 96 01/16/18 16:00 98.9 87 18 167/100 (122) 96 I/O 01/16/18 01/16/18 01/16/18 01/17/18 01/17/18 01/17/18 07:00 15:00 23:00 07:00 15:00 23:00 Intake Total 780 ml 100 ml 100 ml 340 ml Output Total 1950 ml 600 ml Balance -1170 ml 100 ml 100 ml -260 ml Intake Oral 580 ml 240 ml IV Total 200 ml 100 ml 100 ml 100 ml Output Urine Total 1950 ml 600 ml # Bowel Movements 0 Result Diagram: 01/17/18 0805 01/17/18 0805 Imaging Last Impressions Tibia/Fibula X-Ray 01/10/18 0000 Signed Impressions: Service Date/Time: Wednesday, January 10, 2018 20:11 - CONCLUSION: There is an open wound on the posterior medial aspect of the mid calf region with subcutaneous edema in the adjacent tissue. No radiopaque foreign body is identified. Christian Kay MD Objective Remarks GENERAL: Well-nourished, well-developed patient in NAD. SKIN: Warm and dry. No rash. Left leg wound with wound VAC. HEAD: Normocephalic. Atraumatic. EYES: Pupils equal and round. No scleral icterus. No injection or drainage. ENT: No nasal bleeding or discharge. Mucous membranes pink and moist. NECK: Supple. Trachea midline. CARDIOVASCULAR: Regular rate and rhythm. S1, S2 noted. No murmur appreciated. RESPIRATORY: No accessory muscle use. Clear to auscultation. Breath sounds equal bilaterally. GASTROINTESTINAL: Abdomen soft, non-tender, nondistended. Normoactive bowel sounds x4. MUSCULOSKELETAL: No obvious deformities. Extremities without clubbing, cyanosis , or edema. NEUROLOGICAL: Awake and alert. No obvious cranial nerve deficits. Motor grossly within normal limits. 5/5 muscle strength in bilateral upper and lower extremities. Normal speech. PSYCHIATRIC: Appropriate mood and affect; insight and judgment normal. A/P Problem List: (1) Wound of left lower extremity ICD Code: S81.802A - Unspecified open wound, left lower leg, initial encounter (2) Infected dog bite of lower leg ICD Code: S81.859A - Open bite, unspecified lower leg, initial encounter; L08.9 - Local infection of the skin and subcutaneous tissue, unspecified; W54.0XXA - Bitten by dog, initial encounter Status: Acute (3) Renal insufficiency ICD Code: N28.9 - Disorder of kidney and ureter, unspecified; L08.9 - Local infection of the skin and subcutaneous tissue, unspecified; W54.0XXA - Bitten by dog, initial encounter Status: Acute Assessment and Plan Left lower extremity wound secondary to dog-bite Wound culture growing group B beta strep, vancomycin and Zosyn discontinued. Continue Unasyn while in the hospital. Gen. surgery has been consulted and has taken to the OR for debridement and wound VAC placement. Wound vac due for change today 01/17 by bedside RN. Plan is for plastic surgery to perform skin graft on Friday at [facility] 01/19/18. Order placed for transfer. Awaiting bed placement. Blood cultures negative 5 days. Continue pain management, Morphine IV available. [place] available p.o. per pain scale. Azotemia, improved. Creatinine 1.1. Continue to monitor renal function. Hypertension, new onset Started on amlodipine initially, will change to Lisinopril/HCTZ due to improvement seen after diuretic yesterday, will need diuretic at home. Lasix IV x 1 today. Assess response. PRN clonidine. Continue to monitor BP trends. DVT prevention Subcutaneous heparin. Problem Qualifiers (1) Infected dog bite of lower leg: Qualified Codes: S81.852A - Open bite, left lower leg, initial encounter; L08.9 - Local infection of the skin and subcutaneous tissue, unspecified; W54.0XXA - Bitten by dog, initial encounter Iris Tavarez Jan 17, 2018 12:36
[2018-01-17] MEDS ORDERED: HYDROmorphone HCL PF 1 MG/ML VIAL IV PUSH ONE (13:00)
[2018-01-17] MEDS ORDERED: POTASSIUM CHLORIDE 20 MEQ CONTROLLED RELEASE TAB PO ONE (13:30)
[2018-01-17] MEDS ORDERED: FUROSEMIDE 40 MG/4 ML VIAL IV PUSH ONE (13:30)
[2018-01-17] MEDS: HYDROCHLOROTHIAZIDE 12.5 MG CAP PO SCH (14:38)
[2018-01-17] MEDS: LISINOPRIL 10 MG TAB PO SCH (14:39)
[2018-01-17] MEDS ORDERED: HYDROmorphone HCL PF 2 MG/ML VIAL IV PUSH ONE (16:45)
[2018-01-17 18:00] VITALS: BP 157/92; PULSE 107; RESP 18; TEMP 99.9; O2SAT 95
[2018-01-17 20:00] VITALS: BP 147/84; PULSE 108; RESP 20; TEMP 98.7; O2SAT 94
[2018-01-18] VITALS: BP 144/92; PULSE 111; RESP 20; TEMP 100; O2SAT 93
[2018-01-18] MEDS: ACETAMINOPHEN/HYDROcodone 325 MG/5 MG TAB PO PRN ×5 (03:00→20:01)
[2018-01-18 04:00] VITALS: PULSE 96; RESP 20; TEMP 98; O2SAT 93
[2018-01-18] MEDS: SODIUM CHLORIDE 0.9% FLUSH 10 ML FLUSH IV FLUSH PRN ×2 (06:18→22:06)
[2018-01-18] MEDS: AMPICILLIN-SULBACTAM INJ 1,500 MG in SODIUM CHLORIDE 0.9% INJ 100 ML IV SCH ×3 (06:18→18:26)
[2018-01-18] MEDS: MORPHINE SULFATE 2 MG/ML INJ IV PUSH PRN ×4 (06:18→22:06)
[2018-01-18] MEDS: DOCUSATE SODIUM 50 MG/SENNA 8.6 MG TAB PO SCH ×2 (07:19→20:01)
[2018-01-18] MEDS: LISINOPRIL 10 MG TAB PO SCH (07:20)
[2018-01-18] MEDS: HYDROCHLOROTHIAZIDE 12.5 MG CAP PO SCH (07:20)
[2018-01-18] MEDS: SODIUM CHLORIDE 0.9% FLUSH 10 ML FLUSH IV FLUSH SCH ×2 (07:21→20:01)
[2018-01-18 08:00] VITALS: BP 137/81; PULSE 94; RESP 18; TEMP 98.6; O2SAT 94
[2018-01-18 09:00] LABS: BICARBONATE 29.4 MEQ/L (21.0-32.0)
[2018-01-18 09:04] LABS: CREATININE 1.2 MG/DL (0.60-1.30)
[2018-01-18 11:58] LABS: BASOPHIL % 0.6 % (0.0-2.0); EOSINOPHIL # 0.3 TH/MM3 (0-0.4); EOSINOPHIL % 4.3 % (0.0-4.0); HEMATOCRIT 45.8 % (39.0-51.0); HEMOGLOBIN 16.2 GM/DL (13.0-17.0); LYMPH % 10.4 % (9.0-44.0); LYMPHOCYTE # 0.8 TH/MM3 (1.0-4.8); MEAN CELL VOLUME 91.1 FL (80.0-100.0); MEAN CORPUSCULAR HEMOGLOBIN 32.2 PG (27.0-34.0); MEAN CORPUSCULAR HGB CONC 35.4 % (32.0-36.0); MEAN PLATELET VOLUME 8.5 FL (7.0-11.0); MONO % 9.2 % (0.0-8.0); MONOCYTE # 0.7 TH/MM3 (0-0.9); NEUT % 75.5 % (16.0-70.0); PLATELET COUNT 172 TH/MM3 (150-450); RED BLOOD COUNT 5.02 MIL/MM3 (4.50-5.90); RED CELL DISTRIBUTION WIDTH 13.7 % (11.6-17.2); WHITE BLOOD COUNT 7.8 TH/MM3 (4.0-11.0)
--- NOTE | 2018-01-18 11:59 | HHI.PR ---
Subjective Remarks Follow-up left leg wound. Patient seen and examined, denies any new acute events overnight. Slept well. Awaiting skin graft tomorrow afternoon with plastic surgery. Patient did have a temperature of 100.0 overnight. Labs pending. Continue to follow. Objective Vitals Vital Signs Date Time Temp Pulse Resp B/P (MAP) Pulse Ox O2 Delivery O2 Flow Rate FiO2 01/18/18 08:00 98.6 94 18 137/81 (99) 94 01/18/18 04:00 98.0 96 20 93 01/18/18 00:00 100.0 111 20 144/92 (109) 93 01/17/18 20:00 98.7 108 20 147/84 (105) 94 01/17/18 18:00 99.9 107 18 157/92 (113) 95 01/17/18 12:00 98.0 92 18 146/93 (110) 92 01/17/18 12:00 98.5 95 18 146/93 (110) 92 I/O 01/17/18 01/17/18 01/17/18 01/18/18 01/18/18 01/18/18 07:00 15:00 23:00 07:00 15:00 23:00 Intake Total 340 ml 200 ml 100 ml 240 ml Output Total 600 ml 1800 ml 250 ml Balance -260 ml 200 ml -1700 ml -10 ml Intake Oral 240 ml 240 ml IV Total 100 ml 200 ml 100 ml Output Urine Total 600 ml 1800 ml 250 ml # Bowel Movements 1 Result Diagram: 01/17/18 0805 01/18/18 0749 Imaging Last Impressions Tibia/Fibula X-Ray 01/10/18 0000 Signed Impressions: Service Date/Time: Wednesday, January 10, 2018 20:11 - CONCLUSION: There is an open wound on the posterior medial aspect of the mid calf region with subcutaneous edema in the adjacent tissue. No radiopaque foreign body is identified. Christian Kay MD Objective Remarks GENERAL: Well-nourished, well-developed patient in NAD. SKIN: Warm and dry. No rash. Left leg wound with wound VAC. HEAD: Normocephalic. Atraumatic. EYES: Pupils equal and round. No scleral icterus. No injection or drainage. ENT: No nasal bleeding or discharge. Mucous membranes pink and moist. NECK: Supple. Trachea midline. CARDIOVASCULAR: Regular rate and rhythm. S1, S2 noted. No murmur appreciated. RESPIRATORY: No accessory muscle use. Clear to auscultation. Breath sounds equal bilaterally. GASTROINTESTINAL: Abdomen soft, non-tender, nondistended. Normoactive bowel sounds x4. MUSCULOSKELETAL: No obvious deformities. Extremities without clubbing, cyanosis , or edema. NEUROLOGICAL: Awake and alert. No obvious cranial nerve deficits. Motor grossly within normal limits. 5/5 muscle strength in bilateral upper and lower extremities. Normal speech. PSYCHIATRIC: Appropriate mood and affect; insight and judgment normal. A/P Problem List: (1) Wound of left lower extremity ICD Code: S81.802A - Unspecified open wound, left lower leg, initial encounter (2) Infected dog bite of lower leg ICD Code: S81.859A - Open bite, unspecified lower leg, initial encounter; L08.9 - Local infection of the skin and subcutaneous tissue, unspecified; W54.0XXA - Bitten by dog, initial encounter Status: Acute (3) Renal insufficiency ICD Code: N28.9 - Disorder of kidney and ureter, unspecified; L08.9 - Local infection of the skin and subcutaneous tissue, unspecified; W54.0XXA - Bitten by dog, initial encounter Status: Acute Assessment and Plan Left lower extremity wound secondary to dog-bite Wound culture growing group B beta strep, vancomycin and Zosyn discontinued. Continue Unasyn while in the hospital. Gen. surgery has been consulted and has taken to the OR for debridement and wound VAC placement. Wound vac due for changed 01/17 by bedside RN. Plan is for plastic surgery to perform skin graft on Friday [facility] . Order placed for transfer. Awaiting bed placement. Blood cultures negative to date. Continue pain management, Morphine IV available. [place] available p.o. per pain scale. Azotemia, improved. Creatinine 1.1. Continue to monitor renal function. Hypertension, new onset Started on amlodipine initially, will change to Lisinopril/HCTZ, will need diuretic at home. PRN clonidine. Continue to monitor BP trends. DVT prevention Subcutaneous heparin. Problem Qualifiers (1) Infected dog bite of lower leg: Qualified Codes: S81.852A - Open bite, left lower leg, initial encounter; L08.9 - Local infection of the skin and subcutaneous tissue, unspecified; W54.0XXA - Bitten by dog, initial encounter Iris Tavarez Jan 18, 2018 11:59
[2018-01-18 12:00] VITALS: BP 138/74; PULSE 89; RESP 18; TEMP 99.6; O2SAT 96
[2018-01-18] MEDS ORDERED: POTASSIUM CHLORIDE 10 MEQ CONTROLLED RELEASE TAB PO ONE (13:30)
[2018-01-18 16:00] VITALS: BP 145/85; PULSE 101; RESP 18; TEMP 97.8; O2SAT 96
[2018-01-18 20:00] VITALS: BP 149/85; PULSE 98; RESP 20; TEMP 99.9; O2SAT 94
[2018-01-18] MEDS ORDERED: LACTATED RINGER'S 1000 ML IV PRN (23:30)
[2018-01-18] MEDS ORDERED: METOPROLOL TARTRATE 25 MG TAB PO PRN (23:30)
[2018-01-18] MEDS ORDERED: CHLORHEXIDINE GLUCONATE 2 % 1 PACK (2 CLOTHS) TOPICAL PRN (23:30)
[2018-01-18] MEDS ORDERED: POVIDONE IODINE 5% (ANTISEPSIS KIT) 4 APPLICATIONS EACH NARE PRN (23:30)
[2018-01-19] VITALS: BP 138/83; PULSE 94; RESP 20; TEMP 99.9; O2SAT 93
[2018-01-19] MEDS: SODIUM CHLORIDE 0.9% FLUSH 10 ML FLUSH IV FLUSH PRN ×5 (00:39→10:00)
[2018-01-19] MEDS: AMPICILLIN-SULBACTAM INJ 1,500 MG in SODIUM CHLORIDE 0.9% INJ 100 ML IV SCH ×5 (00:39→23:19)
[2018-01-19] MEDS: ACETAMINOPHEN/HYDROcodone 325 MG/5 MG TAB PO PRN ×3 (00:56→08:49)
[2018-01-19] MEDS: MORPHINE SULFATE 2 MG/ML INJ IV PUSH PRN ×4 (01:51→20:06)
[2018-01-19 08:00] VITALS: BP 129/77; PULSE 84; RESP 17; TEMP 97.2; O2SAT 96
[2018-01-19] MEDS: LISINOPRIL 10 MG TAB PO SCH (08:32)
[2018-01-19] MEDS: HYDROCHLOROTHIAZIDE 12.5 MG CAP PO SCH (08:32)
[2018-01-19] MEDS: DOCUSATE SODIUM 50 MG/SENNA 8.6 MG TAB PO SCH ×2 (08:32→20:05)
[2018-01-19] MEDS: SODIUM CHLORIDE 0.9% FLUSH 10 ML FLUSH IV FLUSH SCH ×2 (08:32→20:05)
--- NOTE | 2018-01-19 08:56 | HHI.PR ---
Subjective Remarks in no acute distress. complaining of moderate to severe pain to the left leg. wound vac in place. low grade fever earlier. for skin graft today. d/w the RN. Objective Vitals Vital Signs Date Time Temp Pulse Resp B/P (MAP) Pulse Ox O2 Delivery O2 Flow Rate FiO2 01/19/18 00:00 99.9 94 20 138/83 (101) 93 01/18/18 20:00 99.9 98 20 149/85 (106) 94 01/18/18 16:47 18 01/18/18 16:00 97.8 101 18 145/85 (105) 96 01/18/18 12:00 99.6 89 18 138/74 (95) 96 I/O 01/18/18 01/18/18 01/18/18 01/19/18 01/19/18 01/19/18 07:00 15:00 23:00 07:00 15:00 23:00 Intake Total 240 ml 100 ml 100 ml Output Total 250 ml 50 ml 0 ml Balance -10 ml 100 ml -50 ml 100 ml Intake Oral 240 ml IV Total 100 ml 100 ml Output Urine Total 250 ml Drainage Total 50 ml 0 ml # Voids 6 Result Diagram: 01/18/18 1140 01/18/18 0749 Imaging Last Impressions Tibia/Fibula X-Ray 01/10/18 0000 Signed Impressions: Service Date/Time: Wednesday, January 10, 2018 20:11 - CONCLUSION: There is an open wound on the posterior medial aspect of the mid calf region with subcutaneous edema in the adjacent tissue. No radiopaque foreign body is identified. Christian Kay MD Objective Remarks GENERAL: This is a well-nourished, well-developed patient, in no apparent distress. CARDIOVASCULAR: Regular rate and regular rhythm without murmurs, gallops, or rubs. RESPIRATORY: Clear to auscultation. Breath sounds equal bilaterally. No wheezes , rales, or rhonchi. GASTROINTESTINAL: Abdomen soft, non-tender, nondistended. Normal, active bowel sounds MUSCULOSKELETAL: wound vac in place - left leg. NEURO: Alert & Oriented x4 to person, place, time, situation. Moves all ext x4 Procedures debridement of left posterior calf and wound vac placement. Medications and IVs Inpatient Medications Acetaminophen (Tylenol) 650 mg Q6H PRN PO FEVER/PAIN SCALE 1 TO 2; Start at 20:45 Acetaminophen/ Hydrocodone Bitart ([place] 5-325 Mg) 2 tab Q4H PRN PO PAIN SCALE 6 TO 10 Last administered on 01/19/18at 05:08; Start 01/11/18 at 08:45 Amlodipine Besylate (Norvasc) 10 mg DAILY PO Last administered on 01/17/18at 08: 56; Start 01/17/18 at 09:00; Stop 01/17/18 at 13:19; Status DC Ampicillin Sodium/ Sulbactam Sodium 1500 mg/Sodium Chloride 100 ml @ 200 mls/ hr Q6H IV Last administered on 01/19/18at 05:07; Start 01/13/18 at 18:00 Bisacodyl (Dulcolax Supp) 10 mg DAILY PRN RECTAL SEVERE CONSITIPATION; Start at 20:45 Chlorhexidine Gluconate (Chlorhexidine 2% Cloth) 3 pack CHOIR TEACHER PRN TOPICAL SEE LABEL COMMENTS; Start 01/18/18 at 23:30; Stop 01/21/18 at 23:29 Clonidine (Catapres) 0.1 mg Q6H PRN PO sys >160 or carlos >90 Last administered on 01/15/18at 10:00; Start 01/13/18 at 10:00 Furosemide (Lasix Inj) 40 mg ONCE ONCE IV PUSH Last administered on 01/17/18at 14:42; Start 01/17/18 at 13:30; Stop 01/17/18 at 13:35; Status DC Heparin Sodium (Porcine) (Heparin Inj) 5,000 units Q12HR SQ Last administered on 01/17/18at 08:57; Start 01/11/18 at 21:00; Status Future Hold Hydrochlorothiazide (Microzide) 12.5 mg DAILY PO Last administered on at 08:32; Start 01/17/18 at 13:30 Hydromorphone HCl (Dilaudid Pf Inj) 1 mg ONCE ONCE IV PUSH Last administered on 01/17/18at 17:22; Start 01/17/18 at 16:45; Stop 01/17/18 at 16:46; Status DC Lactated Ringer's 1,000 ml @ 30 mls/hr Q24H PRN IV SEE LABEL COMMENTS Last administered on 01/19/18at 08:33; Start 01/18/18 at 23:30; Stop 01/21/18 at 23:29 Lactulose (Lactulose Liq) 30 ml DAILY PRN PO SEVERE CONSITIPATION; Start at 20:45 Lisinopril (Prinivil) 10 mg DAILY PO Last administered on 01/19/18at 08:32; Start 01/17/18 at 13:30 Magnesium Hydroxide (Milk Of Magnesia Liq) 30 ml Q12H PRN PO Mild constipation ; Start 01/10/18 at 20:45 Metoprolol Tartrate (Lopressor) 25 mg CHOIR TEACHER PRN PO SEE LABEL COMMENTS; Start 01/18/18 at 23:30; Stop 01/21/18 at 23:29 Miscellaneous Information SPECIFIC LAB TO BE ... ONCE ONCE .XX Last administered on 01/12/18at 08:45; Start 01/12/18 at 08:45; Stop 01/12/18 at 08:46 ; Status DC Morphine Sulfate (Morphine Inj) 2 mg Q3H PRN IV PUSH BREAKTHROUGH PAIN Last administered on 01/19/18at 06:11; Start 01/10/18 at 20:45 Ondansetron HCl (Zofran Inj) 4 mg Q6H PRN IVP NAUSEA OR VOMITING Last administered on 01/10/18at 21:51; Start 01/10/18 at 20:45 Pharmacy Profile Note 0 ml @ 0 mls/hr UNSCH OTHER ; Start 01/10/18 at 20:45; Stop 01/13/18 at 12:28; Status DC Piperacillin Sod/ Tazobactam Sod 100 ml @ 200 mls/hr Q6H IV Last administered on 01/13/18at 14:04; Start 01/11/18 at 02:00; Stop 01/13/18 at 15:55; Status DC Potassium Chloride (KCl) 30 meq ONCE ONCE PO Last administered on 01/18/18at 14 :10; Start 01/18/18 at 13:30; Stop 01/18/18 at 13:31; Status DC Povidone Iodine (Betadine 5% Antisepsis Kit) 1 applic CHOIR TEACHER PRN EACH NARE SEE LABEL COMMENTS; Start 01/18/18 at 23:30; Stop 01/21/18 at 23:29 Senna/Docusate Sodium (Dnag-Colace) 1 tab BID PO Last administered on at 08:32; Start 01/10/18 at 21:00 Sennosides (Senokot) 17.2 mg Q12H PRN PO Moderate constipation; Start 01/10/18 at 20:45 Sodium Chloride (NS Flush) 2 ml BID IV FLUSH Last administered on 01/19/18at 08: 32; Start 01/10/18 at 21:00 Vancomycin HCl 1000 mg/Sodium Chloride 250 ml @ 250 mls/hr Q12H IV Last administered on 01/13/18at 07:45; Start 01/11/18 at 09:00; Stop 01/13/18 at 12:28 ; Status DC A/P Problem List: (1) Wound of left lower extremity ICD Code: S81.802A - Unspecified open wound, left lower leg, initial encounter (2) Infected dog bite of lower leg ICD Code: S81.859A - Open bite, unspecified lower leg, initial encounter; L08.9 - Local infection of the skin and subcutaneous tissue, unspecified; W54.0XXA - Bitten by dog, initial encounter Status: Acute (3) Renal insufficiency ICD Code: N28.9 - Disorder of kidney and ureter, unspecified; L08.9 - Local infection of the skin and subcutaneous tissue, unspecified; W54.0XXA - Bitten by dog, initial encounter Status: Acute Assessment and Plan Left lower extremity wound secondary to dog-bite Wound culture growing group B beta strep, vancomycin and Zosyn discontinued. Continue Unasyn while in the hospital. Gen. surgery has been consulted and has taken to the OR for debridement and wound VAC placement. Wound vac due for changed 01/17 by bedside RN. Plan is for plastic surgery to perform skin graft today. Blood cultures negative to date. Continue pain management, Morphine IV available. [place] available p.o. per pain scale. acute kidney injury; resolved. Continue to monitor renal function. Hypertension, new onset continue Lisinopril/HCTZ. PRN clonidine. Continue to monitor BP trends. DVT prevention Subcutaneous heparin ( on hold for planned procedure). Problem Qualifiers (1) Infected dog bite of lower leg: Qualified Codes: S81.852A - Open bite, left lower leg, initial encounter; L08.9 - Local infection of the skin and subcutaneous tissue, unspecified; W54.0XXA - Bitten by dog, initial encounter Ivone Mccabe MD Jan 19, 2018 08:56
[2018-01-19] MEDS ORDERED: SODIUM CHLOR 0.9% 1000 ML INJ 1,000 ML IV ONE (09:00)
[2018-01-19] MEDS ORDERED: ACETAMINOPHEN/HYDROcodone 325 MG/7.5 MG TAB PO PRN (10:00)
--- NOTE | 2018-01-19 10:02 | RADRPT ---
EXAM DATE/TIME: 01/19/2018 09:09 [place] COMPARISON: No previous studies available for comparison. INDICATIONS : Right leg pain. MEDICAL HISTORY : Hearing problem. SURGICAL HISTORY : Hernia repair. Meniscus right knee repair. Vein stripping to left leg. Skin graft. ENCOUNTER: Initial ACUITY: 1 day PAIN SCORE: 5/10 LOCATION: Right Leg. TECHNIQUE: Venous ultrasound of the leg was performed from the inguinal ligament to the proximal calf. Real-shania e, color Doppler and spectral tracing, compression and augmentation techniques were used. FINDINGS: There is normal compressibility of the deep venous system from the inguinal region to the proximal ca lf. No echogenic clot is seen in the lumen of the common femoral, femoral, popliteal, and posterior tibial veins. There is a normal response of the venous system to proximal and distal augmentation an d respiration. CONCLUSION: Negative for deep venous thrombosis. Jesse Casey MD FACR on January 19, 2018 at 10:01 Board Certified Radiologist. This report was verified electronically.
[2018-01-19] MEDS ORDERED: MORPHINE SULFATE 2 MG/ML INJ IV PUSH PRN (11:45)
[2018-01-19 12:00] VITALS: BP 143/77; PULSE 82; RESP 19; TEMP 96.8; O2SAT 95
[2018-01-19] MEDS ORDERED: PROPOFOL 200 MG/20 ML AMP IV ONE (12:00)
[2018-01-19] MEDS ORDERED: PHENYLEPH/NS 1000 MCG/10 ML SYR IV ONE (12:00)
[2018-01-19] MEDS ORDERED: GLYCOPYRROLATE 1 MG/5 ML SYRINGE IV PUSH ONE (12:00)
[2018-01-19] MEDS ORDERED: ROCURONIUM INJ 50 MG/5 ML SYRINGE IV PUSH ONE (12:00)
[2018-01-19] MEDS ORDERED: NEOSTIGMINE 5 MG/5 ML SYRINGE IV PUSH ONE (12:00)
[2018-01-19] MEDS ORDERED: LIDOCAINE HCL 1% PF 5 ML SYRINGE OTHER ONE (12:00)
[2018-01-19] MEDS ORDERED: MINERAL OIL 10 ML VIAL ONE ×2 (13:58→15:34)
[2018-01-19] MEDS ORDERED: BUPIVACAINE/EPINEPHRINE 0.25% 50 ML VIAL ONE (13:58)
[2018-01-19] MEDS ORDERED: EPINEPHrine HCL (1:1000) 1 MG/ML VIAL ONE (13:58)
[2018-01-19] MEDS ORDERED: SODIUM CHLOR 0.9% 250 ML INJ 250 ML ONE (13:59)
[2018-01-19] MEDS ORDERED: MIDAZOLAM HCL 2 MG/2 ML VIAL ONE (16:29)
[2018-01-19] MEDS ORDERED: *MEPERIDINE 25 MG INJ VIAL PERIprocedural Use ONLY ONE (16:31)
[2018-01-19] MEDS ORDERED: *morphine SULFATE 8 MG/ML PERIprocedure ONLY ONE (16:32)
[2018-01-19] MEDS ORDERED: DO NOT ADM ANY ANTICOAGULANT DRUGS PRN (17:00)
[2018-01-19 17:21] VITALS: BP 118/81; PULSE 91; RESP 19; TEMP 98.1; O2SAT 96
[2018-01-19] MEDS: ACETAMINOPHEN/HYDROcodone 325 MG/7.5 MG TAB PO PRN ×2 (18:40→23:19)
[2018-01-19 20:54] VITALS: BP 125/78; PULSE 102; RESP 20; TEMP 100; O2SAT 95
[2018-01-19] MEDS: HEPARIN SODIUM - SQ 10,000 UNITS/ML VIAL SQ SCH (22:28)
[2018-01-20] VITALS: BP 127/69; PULSE 105; RESP 22; TEMP 99.8; O2SAT 95
[2018-01-20] MEDS: MORPHINE SULFATE 2 MG/ML INJ IV PUSH PRN ×6 (00:32→21:09)
[2018-01-20] MEDS: ACETAMINOPHEN/HYDROcodone 325 MG/7.5 MG TAB PO PRN ×5 (03:10→19:55)
[2018-01-20 04:00] VITALS: BP 129/78; PULSE 89; RESP 20; TEMP 99.3; O2SAT 94
[2018-01-20] MEDS: HEPARIN SODIUM - SQ 10,000 UNITS/ML VIAL SQ SCH ×3 (05:33→19:56)
[2018-01-20] MEDS: AMPICILLIN-SULBACTAM INJ 1,500 MG in SODIUM CHLORIDE 0.9% INJ 100 ML IV SCH ×3 (05:34→17:12)
[2018-01-20 08:00] VITALS: BP 114/68; PULSE 75; RESP 19; TEMP 97.4; O2SAT 94
[2018-01-20] MEDS: SODIUM CHLORIDE 0.9% FLUSH 10 ML FLUSH IV FLUSH SCH ×2 (08:34→19:56)
[2018-01-20] MEDS: LISINOPRIL 10 MG TAB PO SCH (08:34)
[2018-01-20] MEDS: DOCUSATE SODIUM 50 MG/SENNA 8.6 MG TAB PO SCH ×2 (08:34→19:56)
[2018-01-20] MEDS: HYDROCHLOROTHIAZIDE 12.5 MG CAP PO SCH (08:34)
[2018-01-20 12:00] VITALS: BP 105/57; PULSE 77; RESP 19; TEMP 97; O2SAT 94
--- NOTE | 2018-01-20 14:37 | HHI.PR ---
Subjective Remarks Follow-up left lower extremity wound 01/20/18-patient seen and examined, as any significant left lower extremity pain. Status post skin graft 01/19/18. Currently afebrile. Objective Vitals Vital Signs Date Time Temp Pulse Resp B/P (MAP) Pulse Ox O2 Delivery O2 Flow Rate FiO2 01/20/18 12:00 97.0 77 19 105/57 (73) 94 01/20/18 08:00 97.4 75 19 114/68 (83) 94 01/20/18 04:34 20 01/20/18 04:10 20 01/20/18 04:00 99.3 89 20 129/78 (95) 94 01/20/18 00:00 99.8 105 22 127/69 (88) 95 01/19/18 20:54 100.0 102 20 125/78 (94) 95 01/19/18 17:21 98.1 91 19 118/81 (93) 96 01/19/18 17:00 92 18 127/71 (89) 95 Nasal Cannula 2 01/19/18 16:45 91 18 136/74 (94) 95 Nasal Cannula 2 01/19/18 16:30 108 16 130/64 (86) 97 Nasal Cannula 2 01/19/18 16:22 97.5 99 16 129/79 (96) 98 Nasal Cannula 2 01/19/18 14:46 91 119/72 I/O 01/19/18 01/19/18 01/19/18 01/20/18 01/20/18 01/20/18 07:00 15:00 23:00 07:00 15:00 23:00 Intake Total 200 ml 300 ml 1640 ml 820 ml Output Total 0 ml 910 ml 1200 ml Balance 200 ml 300 ml 730 ml -380 ml Intake Oral 240 ml 720 ml IV Total 200 ml 300 ml 1400 ml 100 ml Output Urine Total 850 ml 1200 ml Drainage Total 0 ml 50 ml 0 ml Estimated Blood Loss 10 ml Result Diagram: 01/18/18 1140 01/18/18 0749 Imaging Last Impressions Lower Extremity Ultrasound 01/19/18 0000 Signed Impressions: Service Date/Time: Friday, January 19, 2018 09:09 - CONCLUSION: Negative for deep venous thrombosis. Jesse Casey MD FACR Tibia/Fibula X-Ray 01/10/18 0000 Signed Impressions: Service Date/Time: Wednesday, January 10, 2018 20:11 - CONCLUSION: There is an open wound on the posterior medial aspect of the mid calf region with subcutaneous edema in the adjacent tissue. No radiopaque foreign body is identified. Christian Kay MD Objective Remarks GENERAL: NAD SKIN: Warm and dry. HEAD: Normocephalic. EYES: No scleral icterus. No injection or drainage. NECK: Supple, trachea midline. No JVD or lymphadenopathy. CARDIOVASCULAR: Regular rate and rhythm without murmurs, gallops, or rubs. RESPIRATORY: Breath sounds equal bilaterally. No accessory muscle use. GASTROINTESTINAL: Abdomen soft, non-tender, nondistended. MUSCULOSKELETAL: No cyanosis, or edema. dressing over left posterior leg with wound vac in place BACK: Nontender without obvious deformity. No CVA tenderness. Procedures debridement of left posterior calf and wound vac placement. A/P Problem List: (1) Wound of left lower extremity ICD Code: S81.802A - Unspecified open wound, left lower leg, initial encounter (2) Infected dog bite of lower leg ICD Code: S81.859A - Open bite, unspecified lower leg, initial encounter; L08.9 - Local infection of the skin and subcutaneous tissue, unspecified; W54.0XXA - Bitten by dog, initial encounter Status: Acute (3) Renal insufficiency ICD Code: N28.9 - Disorder of kidney and ureter, unspecified; L08.9 - Local infection of the skin and subcutaneous tissue, unspecified; W54.0XXA - Bitten by dog, initial encounter Status: Acute Assessment and Plan 62-year-old man with Left lower extremity wound secondary to dog-bite Wound culture positive for group B strep s/p debridement and wound VAC placement. s/p Skin graft 01/19/18 Currently on Unasyn Acute kidney injury; resolved. Hypertension continue Lisinopril/HCTZ. PRN clonidine. DVT prevention Subcutaneous heparin Problem Qualifiers (1) Infected dog bite of lower leg: Qualified Codes: S81.852A - Open bite, left lower leg, initial encounter; L08.9 - Local infection of the skin and subcutaneous tissue, unspecified; W54.0XXA - Bitten by dog, initial encounter Trent Dowell MD Jan 20, 2018 14:37
[2018-01-20 16:00] VITALS: BP 118/63; PULSE 85; RESP 19; TEMP 98.5; O2SAT 95
[2018-01-20 20:00] VITALS: BP 136/77; PULSE 91; RESP 18; TEMP 99.6; O2SAT 96
[2018-01-21] VITALS: BP 136/77; PULSE 88; RESP 18; TEMP 101.2; O2SAT 95
[2018-01-21] MEDS: ACETAMINOPHEN/HYDROcodone 325 MG/7.5 MG TAB PO PRN ×6 (00:12→21:44)
[2018-01-21] MEDS: AMPICILLIN-SULBACTAM INJ 1,500 MG in SODIUM CHLORIDE 0.9% INJ 100 ML IV SCH ×4 (00:16→17:50)
[2018-01-21] MEDS: MORPHINE SULFATE 2 MG/ML INJ IV PUSH PRN ×6 (01:17→23:07)
[2018-01-21 04:00] VITALS: TEMP 97.7
[2018-01-21] MEDS: HEPARIN SODIUM - SQ 10,000 UNITS/ML VIAL SQ SCH ×3 (06:28→21:45)
[2018-01-21 08:00] VITALS: BP 136/83; PULSE 72; RESP 18; TEMP 99.2; O2SAT 96
[2018-01-21] MEDS: DOCUSATE SODIUM 50 MG/SENNA 8.6 MG TAB PO SCH ×2 (09:19→21:00)
[2018-01-21] MEDS: SODIUM CHLORIDE 0.9% FLUSH 10 ML FLUSH IV FLUSH SCH ×2 (09:20→21:00)
[2018-01-21] MEDS: HYDROCHLOROTHIAZIDE 12.5 MG CAP PO SCH (09:20)
[2018-01-21] MEDS: LISINOPRIL 10 MG TAB PO SCH (09:20)
[2018-01-21 12:00] VITALS: BP 125/72; PULSE 84; RESP 17; TEMP 100; O2SAT 95
--- NOTE | 2018-01-21 13:57 | HHI.PR ---
Subjective Remarks Follow-up left lower extremity wound 01/20/18-patient seen and examined, as any significant left lower extremity pain. Status post skin graft 01/19/18. Currently afebrile. 01/21/18-patient seen and examined, spiking fevers, denies any significant LLE pain. No acute event overnight. Objective Vitals Vital Signs Date Time Temp Pulse Resp B/P (MAP) Pulse Ox O2 Delivery O2 Flow Rate FiO2 01/21/18 12:00 100.0 84 17 125/72 (89) 95 01/21/18 08:00 99.2 72 18 136/83 (100) 96 01/21/18 04:00 97.7 01/21/18 00:00 101.2 88 18 136/77 (96) 95 01/20/18 20:00 99.6 91 18 136/77 (96) 96 01/20/18 16:00 98.5 85 19 118/63 (81) 95 I/O 01/20/18 01/20/18 01/20/18 01/21/18 01/21/18 01/21/18 07:00 15:00 23:00 07:00 15:00 23:00 Intake Total 820 ml 100 ml 860 ml 460 ml Output Total 1200 ml 725 ml Balance -380 ml 100 ml 860 ml -265 ml Intake Oral 720 ml 760 ml 360 ml IV Total 100 ml 100 ml 100 ml 100 ml Output Urine Total 1200 ml 725 ml Drainage Total 0 ml # Voids 5 # Bowel Movements 1 0 Result Diagram: 01/18/18 1140 01/18/18 0749 Objective Remarks GENERAL: NAD SKIN: Warm and dry. HEAD: Normocephalic. EYES: No scleral icterus. No injection or drainage. NECK: Supple, trachea midline. No JVD or lymphadenopathy. CARDIOVASCULAR: Regular rate and rhythm without murmurs, gallops, or rubs. RESPIRATORY: Breath sounds equal bilaterally. No accessory muscle use. GASTROINTESTINAL: Abdomen soft, non-tender, nondistended. MUSCULOSKELETAL: No cyanosis, or edema. dressing over left posterior leg with wound vac in place BACK: Nontender without obvious deformity. No CVA tenderness. Procedures debridement of left posterior calf and wound vac placement. A/P Problem List: (1) Wound of left lower extremity ICD Code: S81.802A - Unspecified open wound, left lower leg, initial encounter (2) Infected dog bite of lower leg ICD Code: S81.859A - Open bite, unspecified lower leg, initial encounter; L08.9 - Local infection of the skin and subcutaneous tissue, unspecified; W54.0XXA - Bitten by dog, initial encounter Status: Acute (3) Renal insufficiency ICD Code: N28.9 - Disorder of kidney and ureter, unspecified; L08.9 - Local infection of the skin and subcutaneous tissue, unspecified; W54.0XXA - Bitten by dog, initial encounter Status: Acute Assessment and Plan 62-year-old man with Left lower extremity wound secondary to dog-bite Wound culture positive for group B strep s/p debridement and wound VAC placement. Wound VAC change per protocol s/p Skin graft 01/19/18 Currently on Unasyn. Patient may need to 7 days of IV antibiotic Acute kidney injury; resolved. Hypertension continue Lisinopril/HCTZ. PRN clonidine. DVT prevention Subcutaneous heparin Problem Qualifiers (1) Infected dog bite of lower leg: Qualified Codes: S81.852A - Open bite, left lower leg, initial encounter; L08.9 - Local infection of the skin and subcutaneous tissue, unspecified; W54.0XXA - Bitten by dog, initial encounter Trent Dowell MD Jan 21, 2018 13:57
[2018-01-21 16:00] VITALS: BP 106/55; PULSE 81; RESP 16; TEMP 98.2; O2SAT 93
--- NOTE | 2018-01-21 17:53 | HHI.PR ---
Subjective Remarks Feels well. Pain controlled. No new complaints. Fever to 101.2 last night at midnight Objective Vital Signs Date Time Temp Pulse Resp B/P (MAP) Pulse Ox O2 Delivery O2 Flow Rate FiO2 01/21/18 16:00 98.2 81 16 106/55 (72) 93 01/21/18 12:00 100.0 84 17 125/72 (89) 95 01/21/18 08:00 99.2 72 18 136/83 (100) 96 01/21/18 04:00 97.7 01/21/18 00:00 101.2 88 18 136/77 (96) 95 01/20/18 20:00 99.6 91 18 136/77 (96) 96 I/O 01/20/18 01/20/18 01/20/18 01/21/18 01/21/18 01/21/18 07:00 15:00 23:00 07:00 15:00 23:00 Intake Total 820 ml 100 ml 860 ml 460 ml Output Total 1200 ml 725 ml Balance -380 ml 100 ml 860 ml -265 ml Intake Oral 720 ml 760 ml 360 ml IV Total 100 ml 100 ml 100 ml 100 ml Output Urine Total 1200 ml 725 ml Drainage Total 0 ml # Voids 5 # Bowel Movements 1 0 Result Diagram: 01/18/18 1140 01/18/18 0749 Objective Remarks VAC w/ good sxn SILT distally No surrounding erythema of donor or recipient site Assessment and Plan Problem List: (1) Wound of left lower extremity ICD Codes: S81.802A - Unspecified open wound, left lower leg, initial encounter Assessment and Plan Doing well Unasyn VAC change on Friday Strict bedrest Heparin SQ tid Doni Macedo MD Jan 21, 2018 17:53
[2018-01-21 20:00] VITALS: BP 121/65; PULSE 81; RESP 20; TEMP 99.2; O2SAT 95
[2018-01-21] MEDS: SODIUM CHLORIDE 0.9% FLUSH 10 ML FLUSH IV FLUSH PRN (23:08)
[2018-01-22] VITALS: BP_SYST 122; BP_SYST 137; BP_DIAS 56; BP_DIAS 78; PULSE 77; PULSE 92; RESP 18; RESP 20; TEMP 101.9; TEMP 97.1; O2SAT 95; O2SAT 98
[2018-01-22] MEDS: AMPICILLIN-SULBACTAM INJ 1,500 MG in SODIUM CHLORIDE 0.9% INJ 100 ML IV SCH ×5 (00:03→23:22)
[2018-01-22] MEDS: ACETAMINOPHEN/HYDROcodone 325 MG/7.5 MG TAB PO PRN ×5 (02:07→21:50)
[2018-01-22] MEDS: SODIUM CHLORIDE 0.9% FLUSH 10 ML FLUSH IV FLUSH PRN ×2 (03:09→23:23)
[2018-01-22] MEDS: MORPHINE SULFATE 2 MG/ML INJ IV PUSH PRN ×5 (03:09→23:23)
[2018-01-22 04:00] VITALS: BP 125/69; PULSE 73; RESP 20; TEMP 98.2; O2SAT 93
[2018-01-22] MEDS: HEPARIN SODIUM - SQ 10,000 UNITS/ML VIAL SQ SCH ×3 (05:29→21:48)
[2018-01-22 08:00] VITALS: BP 124/79; PULSE 74; RESP 17; TEMP 97.1; O2SAT 95
[2018-01-22] MEDS: SODIUM CHLORIDE 0.9% FLUSH 10 ML FLUSH IV FLUSH SCH ×2 (08:09→21:48)
[2018-01-22] MEDS: HYDROCHLOROTHIAZIDE 12.5 MG CAP PO SCH (08:09)
[2018-01-22] MEDS: DOCUSATE SODIUM 50 MG/SENNA 8.6 MG TAB PO SCH ×2 (08:09→21:00)
[2018-01-22] MEDS: LISINOPRIL 10 MG TAB PO SCH (08:09)
--- NOTE | 2018-01-22 10:47 | HHI.PR ---
Subjective Remarks Follow-up left lower extremity wound 01/20/18-patient seen and examined, as any significant left lower extremity pain. Status post skin graft 01/19/18. Currently afebrile. 01/21/18-patient seen and examined, spiking fevers, denies any significant LLE pain. No acute event overnight. 01/22/18-patient seen and examined, Tmax 101.9 over currently afebrile. No other issues Objective Vitals Vital Signs Date Time Temp Pulse Resp B/P (MAP) Pulse Ox O2 Delivery O2 Flow Rate FiO2 01/22/18 08:00 97.1 74 17 124/79 (94) 95 01/22/18 04:00 98.2 73 20 125/69 (87) 93 01/22/18 00:00 101.9 92 20 137/78 (97) 95 01/21/18 20:00 99.2 81 20 121/65 (83) 95 01/21/18 16:00 98.2 81 16 106/55 (72) 93 01/21/18 12:00 100.0 84 17 125/72 (89) 95 I/O 01/21/18 01/21/18 01/21/18 01/22/18 01/22/18 01/22/18 07:00 15:00 23:00 07:00 15:00 23:00 Intake Total 460 ml 800 ml 560 ml Output Total 725 ml 800 ml 2550 ml Balance -265 ml 0 ml -1990 ml Intake Oral 360 ml 800 ml 360 ml IV Total 100 ml 200 ml Output Urine Total 725 ml 800 ml 2550 ml Drainage Total 0 ml # Bowel Movements 0 0 0 Result Diagram: 01/18/18 1140 01/18/18 0749 Objective Remarks GENERAL: NAD SKIN: Warm and dry. HEAD: Normocephalic. EYES: No scleral icterus. No injection or drainage. NECK: Supple, trachea midline. No JVD or lymphadenopathy. CARDIOVASCULAR: Regular rate and rhythm without murmurs, gallops, or rubs. RESPIRATORY: Breath sounds equal bilaterally. No accessory muscle use. GASTROINTESTINAL: Abdomen soft, non-tender, nondistended. MUSCULOSKELETAL: No cyanosis, or edema. dressing over left posterior leg with wound vac in place BACK: Nontender without obvious deformity. No CVA tenderness. Procedures debridement of left posterior calf and wound vac placement. A/P Problem List: (1) Wound of left lower extremity ICD Code: S81.802A - Unspecified open wound, left lower leg, initial encounter (2) Infected dog bite of lower leg ICD Code: S81.859A - Open bite, unspecified lower leg, initial encounter; L08.9 - Local infection of the skin and subcutaneous tissue, unspecified; W54.0XXA - Bitten by dog, initial encounter Status: Acute (3) Renal insufficiency ICD Code: N28.9 - Disorder of kidney and ureter, unspecified; L08.9 - Local infection of the skin and subcutaneous tissue, unspecified; W54.0XXA - Bitten by dog, initial encounter Status: Acute Assessment and Plan 62-year-old man with Left lower extremity wound secondary to dog-bite Wound culture positive for group B strep s/p debridement and wound VAC placement. Wound VAC change per protocol 01/26 s/p Skin graft 01/19/18 Currently on Unasyn. Acute kidney injury; resolved. Hypertension continue Lisinopril/HCTZ. PRN clonidine. DVT prevention Subcutaneous heparin Problem Qualifiers (1) Infected dog bite of lower leg: Qualified Codes: S81.852A - Open bite, left lower leg, initial encounter; L08.9 - Local infection of the skin and subcutaneous tissue, unspecified; W54.0XXA - Bitten by dog, initial encounter Trent Dowell MD Jan 22, 2018 10:47
[2018-01-22 12:00] VITALS: BP 114/65; PULSE 73; RESP 16; TEMP 97.6; O2SAT 98
[2018-01-22 16:00] VITALS: BP 118/68; PULSE 74; RESP 16; TEMP 97.9; O2SAT 96
[2018-01-22 20:00] VITALS: BP 143/73; PULSE 75; RESP 18; TEMP 98; O2SAT 95
[2018-01-23] VITALS: BP 138/78; PULSE 75; RESP 18; TEMP 97.7; O2SAT 94
[2018-01-23] MEDS: ACETAMINOPHEN/HYDROcodone 325 MG/7.5 MG TAB PO PRN ×5 (02:03→20:30)
[2018-01-23] MEDS: SODIUM CHLORIDE 0.9% FLUSH 10 ML FLUSH IV FLUSH PRN (03:51)
[2018-01-23] MEDS: MORPHINE SULFATE 2 MG/ML INJ IV PUSH PRN ×5 (03:52→21:38)
[2018-01-23 05:06] LABS: AUTOMATED NEUTROPHIL # 2.1 TH/MM3 (1.8-7.7); BASOPHIL # 0.1 TH/MM3 (0-0.2); BASOPHIL % 2.1 % (0.0-2.0); EOSINOPHIL # 0.3 TH/MM3 (0-0.4); EOSINOPHIL % 7.3 % (0.0-4.0); HEMATOCRIT 36.2 % (39.0-51.0); HEMOGLOBIN 12.6 GM/DL (13.0-17.0); LYMPH % 22.4 % (9.0-44.0); LYMPHOCYTE # 0.9 TH/MM3 (1.0-4.8); MEAN CELL VOLUME 89.4 FL (80.0-100.0); MEAN CORPUSCULAR HEMOGLOBIN 31.2 PG (27.0-34.0); MEAN CORPUSCULAR HGB CONC 34.8 % (32.0-36.0); MEAN PLATELET VOLUME 9.6 FL (7.0-11.0); MONO % 16.9 % (0.0-8.0); MONOCYTE # 0.7 TH/MM3 (0-0.9); NEUT % 51.3 % (16.0-70.0); PLATELET COUNT 229 TH/MM3 (150-450); RED BLOOD COUNT 4.04 MIL/MM3 (4.50-5.90); RED CELL DISTRIBUTION WIDTH 13.4 % (11.6-17.2); WHITE BLOOD COUNT 4.1 TH/MM3 (4.0-11.0)
[2018-01-23 05:17] LABS: BICARBONATE 26.9 MEQ/L (21.0-32.0); CALCIUM 8.7 MG/DL (8.5-10.1); CREATININE 1.15 MG/DL (0.60-1.30)
[2018-01-23] MEDS: AMPICILLIN-SULBACTAM INJ 1,500 MG in SODIUM CHLORIDE 0.9% INJ 100 ML IV SCH ×4 (06:07→23:47)
[2018-01-23] MEDS: HEPARIN SODIUM - SQ 10,000 UNITS/ML VIAL SQ SCH ×3 (06:08→21:43)
[2018-01-23 08:00] VITALS: BP 126/74; PULSE 65; RESP 17; TEMP 96.5; O2SAT 93
[2018-01-23] MEDS: DOCUSATE SODIUM 50 MG/SENNA 8.6 MG TAB PO SCH ×2 (08:20→20:30)
[2018-01-23] MEDS: SODIUM CHLORIDE 0.9% FLUSH 10 ML FLUSH IV FLUSH SCH ×2 (08:20→20:32)
[2018-01-23] MEDS: HYDROCHLOROTHIAZIDE 12.5 MG CAP PO SCH (08:20)
[2018-01-23] MEDS: LISINOPRIL 10 MG TAB PO SCH (08:20)
--- NOTE | 2018-01-23 10:17 | HHI.PR ---
Subjective Remarks Follow-up left lower extremity wound 01/20/18-patient seen and examined, as any significant left lower extremity pain. Status post skin graft 01/19/18. Currently afebrile. 01/21/18-patient seen and examined, spiking fevers, denies any significant LLE pain. No acute event overnight. 01/22/18-patient seen and examined, Tmax 101.9 over currently afebrile. No other issues 01/23/18-patient seen and examined, Afebrile and no complaint. Stable Objective Vitals Vital Signs Date Time Temp Pulse Resp B/P (MAP) Pulse Ox O2 Delivery O2 Flow Rate FiO2 01/23/18 08:00 96.5 65 17 126/74 (91) 93 01/23/18 00:00 97.7 75 18 138/78 (98) 94 01/22/18 20:00 98.0 75 18 143/73 (96) 95 01/22/18 16:00 97.9 74 16 118/68 (85) 96 01/22/18 12:00 97.6 73 16 114/65 (81) 98 I/O 01/22/18 01/22/18 01/22/18 01/23/18 01/23/18 01/23/18 07:00 15:00 23:00 07:00 15:00 23:00 Intake Total 560 ml 100 ml 1000 ml 200 ml Output Total 2550 ml 1200 ml 1100 ml Balance -1990 ml 100 ml -200 ml -900 ml Intake Oral 360 ml 900 ml IV Total 200 ml 100 ml 100 ml 200 ml Output Urine Total 2550 ml 1200 ml 1100 ml Drainage Total 0 ml 0 ml 0 ml # Bowel Movements 0 0 1 Result Diagram: 01/23/18 0340 01/23/18 0340 Objective Remarks GENERAL: NAD SKIN: Warm and dry. HEAD: Normocephalic. EYES: No scleral icterus. No injection or drainage. NECK: Supple, trachea midline. No JVD or lymphadenopathy. CARDIOVASCULAR: Regular rate and rhythm without murmurs, gallops, or rubs. RESPIRATORY: Breath sounds equal bilaterally. No accessory muscle use. GASTROINTESTINAL: Abdomen soft, non-tender, nondistended. MUSCULOSKELETAL: No cyanosis, or edema. dressing over left posterior leg with wound vac in place BACK: Nontender without obvious deformity. No CVA tenderness. Procedures debridement of left posterior calf and wound vac placement. A/P Problem List: (1) Wound of left lower extremity ICD Code: S81.802A - Unspecified open wound, left lower leg, initial encounter (2) Infected dog bite of lower leg ICD Code: S81.859A - Open bite, unspecified lower leg, initial encounter; L08.9 - Local infection of the skin and subcutaneous tissue, unspecified; W54.0XXA - Bitten by dog, initial encounter Status: Acute (3) Renal insufficiency ICD Code: N28.9 - Disorder of kidney and ureter, unspecified; L08.9 - Local infection of the skin and subcutaneous tissue, unspecified; W54.0XXA - Bitten by dog, initial encounter Status: Acute Assessment and Plan 62-year-old man with Left lower extremity wound secondary to dog-bite Wound culture positive for group B strep s/p debridement and wound VAC placement. Wound VAC change per protocol 01/26 s/p Skin graft 01/19/18 Currently on Unasyn. Acute kidney injury; resolved. Hypertension continue Lisinopril/HCTZ. PRN clonidine. DVT prevention Subcutaneous heparin Problem Qualifiers (1) Infected dog bite of lower leg: Qualified Codes: S81.852A - Open bite, left lower leg, initial encounter; L08.9 - Local infection of the skin and subcutaneous tissue, unspecified; W54.0XXA - Bitten by dog, initial encounter Trent Dowell MD Jan 23, 2018 10:17
[2018-01-23 12:00] VITALS: BP 118/68; PULSE 75; RESP 18; TEMP 97.1; O2SAT 95
[2018-01-23 16:00] VITALS: BP 127/81; PULSE 73; RESP 19; TEMP 97.4; O2SAT 96
--- NOTE | 2018-01-23 17:52 | HHI.PR ---
Subjective Remarks Feels well. Pain controlled. No new complaints. Objective Vital Signs Date Time Temp Pulse Resp B/P (MAP) Pulse Ox O2 Delivery O2 Flow Rate FiO2 01/23/18 16:00 97.4 73 19 127/81 (96) 96 01/23/18 12:00 97.1 75 18 118/68 (85) 95 01/23/18 08:00 96.5 65 17 126/74 (91) 93 01/23/18 00:00 97.7 75 18 138/78 (98) 94 01/22/18 20:00 98.0 75 18 143/73 (96) 95 I/O 01/22/18 01/22/18 01/22/18 01/23/18 01/23/18 01/23/18 06:59 14:59 22:59 06:59 14:59 22:59 Intake Total 560 ml 100 ml 1000 ml 200 ml Output Total 2550 ml 1200 ml 1100 ml Balance -1990 ml 100 ml -200 ml -900 ml Intake Oral 360 ml 900 ml IV Total 200 ml 100 ml 100 ml 200 ml Output Urine Total 2550 ml 1200 ml 1100 ml Drainage Total 0 ml 0 ml 0 ml # Bowel Movements 0 0 1 Result Diagram: 01/23/18 0340 01/23/18 0340 Objective Remarks VAC w/ good sxn SILT distally No surrounding erythema of donor or recipient site Assessment and Plan Problem List: (1) Wound of left lower extremity ICD Codes: S81.802A - Unspecified open wound, left lower leg, initial encounter Assessment and Plan Doing well Unasyn VAC change on Friday Strict bedrest Heparin SQ tid Doni Macedo MD Jan 23, 2018 17:52
[2018-01-23 20:00] VITALS: BP 128/79; PULSE 70; RESP 21; TEMP 97.6; O2SAT 96
--- NOTE | 2018-01-23 20:21 | PD.OP ---
Operative Report Date of Surgery: Jan 19, 2018 Preoperative Diagnosis: (1) Wound of left lower extremity Postoperative Diagnosis: (1) Wound of left lower extremity Procedure: Split thickness skin graft from left posterior thigh to left posterior calf wound ([id number]) Surgeon: Doni Bishop Piece Hand(s): . Operation and Findings: The patient is a 62-year-old male who sustained a dog bite to the posterior calf. He presented in a delayed fashion, and had been undergoing serial debridements by the general surgery team, who now felt that the wound bed was ready for closure. Risks benefits and alternative treatments were discussed with the patient. All questions answered. Patient expressed understanding. Patient elected to assume the risks of a split-thickness skin graft for closure of this wound. Informed consent was obtained. The patient had already been on antibiotics. The surgical site was marked preoperatively. The patient was taken to the operating room. All pressure points were padded. A surgical timeout was performed. After the smooth induction of general anesthesia, the wound VAC was removed. The donor and recipient sites were instilled with quarter percent Marcaine with epinephrine. The wound bed was gently debrided using a Bovie scratch pad. The wound was then pulse lavaged using 3 L of antibiotic irrigation. Hemostasis was ensured. Telfa soaked in 1-100,000 epinephrine was placed over the wound bed. Attention was then turned to the donor site. A skin graft measuring roughly 9 x 9 cm was excised at a thickness of 20 one thousandths of an inch. Telfa soaked in 1-100,000 epinephrine was placed over the donor site. The recipient site was again examined and hemostasis ensured. The skin graft was sutured in place using a running 4-0 chromic. Xeroform gauze was placed over the skin graft. A VAC dressing was applied. Lastly the recipient site was examined and hemostasis was excellent. This was dressed with Tegaderms. The VAC was placed to -125 mmHg continuous. The patient was awoken from anesthesia and arrived stable doing well to the PACU. All needle sponge and spent counts were correct 2. Doni Bishop MD Jan 23, 2018 20:21
[2018-01-24 00:19] VITALS: BP 125/67; PULSE 81; RESP 21; TEMP 98.7; O2SAT 93
[2018-01-24] MEDS: ACETAMINOPHEN/HYDROcodone 325 MG/7.5 MG TAB PO PRN ×6 (00:33→20:46)
[2018-01-24] MEDS: AMPICILLIN-SULBACTAM INJ 1,500 MG in SODIUM CHLORIDE 0.9% INJ 100 ML IV SCH ×4 (06:18→22:27)
[2018-01-24] MEDS: HEPARIN SODIUM - SQ 10,000 UNITS/ML VIAL SQ SCH ×3 (06:18→22:27)
[2018-01-24] MEDS: MORPHINE SULFATE 2 MG/ML INJ IV PUSH PRN ×4 (06:18→22:27)
[2018-01-24 08:00] VITALS: BP 150/88; PULSE 68; RESP 19; TEMP 95.9; O2SAT 97
[2018-01-24] MEDS: SODIUM CHLORIDE 0.9% FLUSH 10 ML FLUSH IV FLUSH SCH ×2 (08:15→19:26)
[2018-01-24] MEDS: DOCUSATE SODIUM 50 MG/SENNA 8.6 MG TAB PO SCH ×2 (08:16→19:25)
[2018-01-24] MEDS: HYDROCHLOROTHIAZIDE 12.5 MG CAP PO SCH (08:16)
[2018-01-24] MEDS: LISINOPRIL 10 MG TAB PO SCH (08:17)
--- NOTE | 2018-01-24 11:17 | HHI.PR ---
Subjective Remarks Follow-up left lower extremity wound 01/20/18-patient seen and examined, as any significant left lower extremity pain. Status post skin graft 01/19/18. Currently afebrile. 01/21/18-patient seen and examined, spiking fevers, denies any significant LLE pain. No acute event overnight. 01/22/18-patient seen and examined, Tmax 101.9 over currently afebrile. No other issues 01/23/18-patient seen and examined, Afebrile and no complaint. Stable 01/24/18-patient seen and examined, no complaint and when well. Vitals stable Objective Vitals Vital Signs Date Time Temp Pulse Resp B/P (MAP) Pulse Ox O2 Delivery O2 Flow Rate FiO2 01/24/18 08:00 95.9 68 19 150/88 (108) 97 01/24/18 00:19 98.7 81 21 125/67 (86) 93 01/23/18 20:00 97.6 70 21 128/79 (95) 96 01/23/18 16:00 97.4 73 19 127/81 (96) 96 01/23/18 12:00 97.1 75 18 118/68 (85) 95 I/O 01/23/18 01/23/18 01/23/18 01/24/18 01/24/18 01/24/18 07:00 15:00 23:00 07:00 15:00 23:00 Intake Total 200 ml 1300 ml 1100 ml Output Total 1100 ml 1500 ml 650 ml Balance -900 ml -200 ml 450 ml Intake Oral 1200 ml 1000 ml IV Total 200 ml 100 ml 100 ml Output Urine Total 1100 ml 1500 ml 650 ml Drainage Total 0 ml # Bowel Movements 1 1 Result Diagram: 01/23/18 0340 01/23/18 0340 Objective Remarks GENERAL: NAD SKIN: Warm and dry. HEAD: Normocephalic. EYES: No scleral icterus. No injection or drainage. NECK: Supple, trachea midline. No JVD or lymphadenopathy. CARDIOVASCULAR: Regular rate and rhythm without murmurs, gallops, or rubs. RESPIRATORY: Breath sounds equal bilaterally. No accessory muscle use. GASTROINTESTINAL: Abdomen soft, non-tender, nondistended. MUSCULOSKELETAL: No cyanosis, or edema. dressing over left posterior leg with wound vac in place BACK: Nontender without obvious deformity. No CVA tenderness. Procedures debridement of left posterior calf and wound vac placement. A/P Problem List: (1) Wound of left lower extremity ICD Code: S81.802A - Unspecified open wound, left lower leg, initial encounter (2) Infected dog bite of lower leg ICD Code: S81.859A - Open bite, unspecified lower leg, initial encounter; L08.9 - Local infection of the skin and subcutaneous tissue, unspecified; W54.0XXA - Bitten by dog, initial encounter Status: Acute (3) Renal insufficiency ICD Code: N28.9 - Disorder of kidney and ureter, unspecified; L08.9 - Local infection of the skin and subcutaneous tissue, unspecified; W54.0XXA - Bitten by dog, initial encounter Status: Acute Assessment and Plan 62-year-old man with Left lower extremity wound secondary to dog-bite Doing well Wound culture positive for group B strep s/p debridement and wound VAC placement. Wound VAC change per protocol 01/26 s/p Skin graft 01/19/18 Currently on Unasyn. Acute kidney injury; resolved. Hypertension continue Lisinopril/HCTZ. PRN clonidine. DVT prevention Subcutaneous heparin Problem Qualifiers (1) Infected dog bite of lower leg: Qualified Codes: S81.852A - Open bite, left lower leg, initial encounter; L08.9 - Local infection of the skin and subcutaneous tissue, unspecified; W54.0XXA - Bitten by dog, initial encounter Trent Dowell MD Jan 24, 2018 11:17
[2018-01-24 12:00] VITALS: BP 138/75; PULSE 68; RESP 19; TEMP 96.9; O2SAT 98
[2018-01-24 16:00] VITALS: BP 146/74; PULSE 86; RESP 20; TEMP 97; O2SAT 94
[2018-01-24 20:00] VITALS: BP 134/65; PULSE 75; RESP 20; TEMP 97.3; O2SAT 94
[2018-01-25] VITALS: BP 145/86; PULSE 72; RESP 17; TEMP 96.7; O2SAT 96
[2018-01-25] MEDS: ACETAMINOPHEN/HYDROcodone 325 MG/7.5 MG TAB PO PRN ×6 (00:45→22:39)
[2018-01-25] MEDS: MORPHINE SULFATE 2 MG/ML INJ IV PUSH PRN ×6 (03:36→23:51)
[2018-01-25] MEDS: HEPARIN SODIUM - SQ 10,000 UNITS/ML VIAL SQ SCH ×3 (04:31→22:50)
[2018-01-25] MEDS: AMPICILLIN-SULBACTAM INJ 1,500 MG in SODIUM CHLORIDE 0.9% INJ 100 ML IV SCH ×4 (04:32→23:50)
[2018-01-25 08:00] VITALS: BP 152/89; PULSE 66; RESP 16; TEMP 96.8; O2SAT 96
[2018-01-25] MEDS: SODIUM CHLORIDE 0.9% FLUSH 10 ML FLUSH IV FLUSH SCH ×2 (08:02→19:35)
[2018-01-25] MEDS: LISINOPRIL 10 MG TAB PO SCH (08:02)
[2018-01-25] MEDS: DOCUSATE SODIUM 50 MG/SENNA 8.6 MG TAB PO SCH ×2 (08:03→19:35)
[2018-01-25] MEDS: HYDROCHLOROTHIAZIDE 12.5 MG CAP PO SCH (08:03)
--- NOTE | 2018-01-25 10:22 | HHI.PR ---
Subjective Remarks Follow-up left lower extremity wound 01/20/18-patient seen and examined, as any significant left lower extremity pain. Status post skin graft 01/19/18. Currently afebrile. 01/21/18-patient seen and examined, spiking fevers, denies any significant LLE pain. No acute event overnight. 01/22/18-patient seen and examined, Tmax 101.9 over currently afebrile. No other issues 01/23/18-patient seen and examined, Afebrile and no complaint. Stable 01/24/18-patient seen and examined, no complaint and when well. Vitals stable 01/25/18-patient seen and examined, doing well and afebrile. Pain control and denies any significant LLE swelling Objective Vitals Vital Signs Date Time Temp Pulse Resp B/P (MAP) Pulse Ox O2 Delivery O2 Flow Rate FiO2 01/25/18 08:00 96.8 66 16 152/89 (110) 96 01/25/18 05:34 18 01/25/18 03:41 18 01/25/18 00:00 96.7 72 17 145/86 (105) 96 01/24/18 20:00 97.3 75 20 134/65 (88) 94 01/24/18 16:00 97.0 86 20 146/74 (98) 94 01/24/18 12:00 96.9 68 19 138/75 (96) 98 I/O 01/24/18 01/24/18 01/24/18 01/25/18 01/25/18 01/25/18 07:00 15:00 23:00 07:00 15:00 23:00 Intake Total 1200 ml 100 ml 1400 ml 600 ml Output Total 650 ml 1925 ml 150 ml Balance 550 ml 100 ml -525 ml 450 ml Intake Oral 1000 ml 1200 ml 500 ml IV Total 200 ml 100 ml 200 ml 100 ml Output Urine Total 650 ml 1925 ml 150 ml Drainage Total 0 ml 0 ml # Bowel Movements 1 Result Diagram: 01/23/18 0340 01/23/18 0340 Objective Remarks GENERAL: NAD SKIN: Warm and dry. HEAD: Normocephalic. EYES: No scleral icterus. No injection or drainage. NECK: Supple, trachea midline. No JVD or lymphadenopathy. CARDIOVASCULAR: Regular rate and rhythm without murmurs, gallops, or rubs. RESPIRATORY: Breath sounds equal bilaterally. No accessory muscle use. GASTROINTESTINAL: Abdomen soft, non-tender, nondistended. MUSCULOSKELETAL: No cyanosis, or edema. dressing over left posterior leg with wound vac in place BACK: Nontender without obvious deformity. No CVA tenderness. Procedures debridement of left posterior calf and wound vac placement. A/P Problem List: (1) Wound of left lower extremity ICD Code: S81.802A - Unspecified open wound, left lower leg, initial encounter (2) Infected dog bite of lower leg ICD Code: S81.859A - Open bite, unspecified lower leg, initial encounter; L08.9 - Local infection of the skin and subcutaneous tissue, unspecified; W54.0XXA - Bitten by dog, initial encounter Status: Acute (3) Renal insufficiency ICD Code: N28.9 - Disorder of kidney and ureter, unspecified; L08.9 - Local infection of the skin and subcutaneous tissue, unspecified; W54.0XXA - Bitten by dog, initial encounter Status: Acute Assessment and Plan 62-year-old man with Left lower extremity wound secondary to dog-bite Doing well Wound culture positive for group B strep s/p debridement and wound VAC placement. Wound VAC change per protocol tomorrow 01/26/18 s/p Skin graft 01/19/18 Currently on Unasyn. Acute kidney injury; resolved. Hypertension continue Lisinopril/HCTZ. PRN clonidine. DVT prevention Subcutaneous heparin Problem Qualifiers (1) Infected dog bite of lower leg: Qualified Codes: S81.852A - Open bite, left lower leg, initial encounter; L08.9 - Local infection of the skin and subcutaneous tissue, unspecified; W54.0XXA - Bitten by dog, initial encounter Trent Dowell MD Jan 25, 2018 10:22
[2018-01-25] MEDS ORDERED: BACITRACIN TOP OINT 15 GM TUBE TOPICAL PRN (11:30)
[2018-01-25 12:00] VITALS: BP 127/72; PULSE 69; RESP 18; TEMP 97.1; O2SAT 95
[2018-01-25 16:00] VITALS: BP 143/76; PULSE 70; RESP 18; TEMP 96.2; O2SAT 96
[2018-01-25 20:00] VITALS: BP 142/77; PULSE 72; RESP 18; TEMP 97.7; O2SAT 97
[2018-01-26] VITALS: BP 148/78; PULSE 89; RESP 18; TEMP 97.5; O2SAT 92
[2018-01-26] MEDS: ACETAMINOPHEN/HYDROcodone 325 MG/7.5 MG TAB PO PRN ×5 (02:34→23:21)
[2018-01-26] MEDS: MORPHINE SULFATE 2 MG/ML INJ IV PUSH PRN ×3 (05:20→15:30)
[2018-01-26] MEDS: AMPICILLIN-SULBACTAM INJ 1,500 MG in SODIUM CHLORIDE 0.9% INJ 100 ML IV SCH ×4 (05:20→23:21)
[2018-01-26] MEDS: HEPARIN SODIUM - SQ 10,000 UNITS/ML VIAL SQ SCH ×3 (05:24→23:00)
[2018-01-26 08:00] VITALS: BP 176/97; PULSE 79; RESP 18; TEMP 97.1; O2SAT 94
[2018-01-26] MEDS: cloNIDine HCL 0.1 MG TAB PO PRN (08:18)
[2018-01-26] MEDS: LISINOPRIL 10 MG TAB PO SCH (09:15)
[2018-01-26] MEDS: HYDROCHLOROTHIAZIDE 12.5 MG CAP PO SCH (09:15)
[2018-01-26] MEDS: DOCUSATE SODIUM 50 MG/SENNA 8.6 MG TAB PO SCH ×2 (09:15→21:34)
--- NOTE | 2018-01-26 10:47 | HHI.PR ---
Subjective Remarks Follow-up left lower extremity wound 01/20/18-patient seen and examined, as any significant left lower extremity pain. Status post skin graft 01/19/18. Currently afebrile. 01/21/18-patient seen and examined, spiking fevers, denies any significant LLE pain. No acute event overnight. 01/22/18-patient seen and examined, Tmax 101.9 over currently afebrile. No other issues 01/23/18-patient seen and examined, Afebrile and no complaint. Stable 01/24/18-patient seen and examined, no complaint and when well. Vitals stable 01/25/18-patient seen and examined, doing well and afebrile. Pain control and denies any significant LLE swelling 01/26/18-patient seen and examined, PLan for wound vac changed today. Afebrile and no other issue Objective Vitals Vital Signs Date Time Temp Pulse Resp B/P (MAP) Pulse Ox O2 Delivery O2 Flow Rate FiO2 01/26/18 05:25 18 01/26/18 03:34 18 01/26/18 00:00 97.5 89 18 148/78 (101) 92 01/25/18 20:00 97.7 72 18 142/77 (98) 97 01/25/18 16:00 96.2 70 18 143/76 (98) 96 01/25/18 12:00 97.1 69 18 127/72 (90) 95 I/O 01/25/18 01/25/18 01/25/18 01/26/18 01/26/18 01/26/18 07:00 15:00 23:00 07:00 15:00 23:00 Intake Total 600 ml 100 ml 1900 ml 440 ml Output Total 150 ml 1800 ml 0 ml Balance 450 ml 100 ml 100 ml 440 ml Intake Oral 500 ml 1800 ml 240 ml IV Total 100 ml 100 ml 100 ml 200 ml Output Urine Total 150 ml 1800 ml Drainage Total 0 ml 0 ml # Voids 2 # Bowel Movements 1 0 Result Diagram: 01/23/18 0340 01/23/18 0340 Objective Remarks GENERAL: NAD SKIN: Warm and dry. HEAD: Normocephalic. EYES: No scleral icterus. No injection or drainage. NECK: Supple, trachea midline. No JVD or lymphadenopathy. CARDIOVASCULAR: Regular rate and rhythm without murmurs, gallops, or rubs. RESPIRATORY: Breath sounds equal bilaterally. No accessory muscle use. GASTROINTESTINAL: Abdomen soft, non-tender, nondistended. MUSCULOSKELETAL: No cyanosis, or edema. dressing over left posterior leg with wound vac in place BACK: Nontender without obvious deformity. No CVA tenderness. Procedures debridement of left posterior calf and wound vac placement. A/P Problem List: (1) Wound of left lower extremity ICD Code: S81.802A - Unspecified open wound, left lower leg, initial encounter (2) Infected dog bite of lower leg ICD Code: S81.859A - Open bite, unspecified lower leg, initial encounter; L08.9 - Local infection of the skin and subcutaneous tissue, unspecified; W54.0XXA - Bitten by dog, initial encounter Status: Acute (3) Renal insufficiency ICD Code: N28.9 - Disorder of kidney and ureter, unspecified; L08.9 - Local infection of the skin and subcutaneous tissue, unspecified; W54.0XXA - Bitten by dog, initial encounter Status: Acute Assessment and Plan 62-year-old man with Left lower extremity wound secondary to dog-bite Doing well Wound culture positive for group B strep s/p debridement and wound VAC placement. Wound VAC change per protocol today 01/26/18 s/p Skin graft 01/19/18 Currently on Unasyn. Acute kidney injury; resolved. Hypertension continue Lisinopril/HCTZ. PRN clonidine. DVT prevention Subcutaneous heparin Problem Qualifiers (1) Infected dog bite of lower leg: Qualified Codes: S81.852A - Open bite, left lower leg, initial encounter; L08.9 - Local infection of the skin and subcutaneous tissue, unspecified; W54.0XXA - Bitten by dog, initial encounter Trent Dowell MD Jan 26, 2018 10:47
[2018-01-26 12:00] VITALS: BP 128/75; PULSE 67; RESP 16; TEMP 96.8; O2SAT 95
[2018-01-26 16:00] VITALS: BP 132/72; PULSE 56; RESP 18; TEMP 97.2; O2SAT 93
[2018-01-26] MEDS: SODIUM CHLORIDE 0.9% FLUSH 10 ML FLUSH IV FLUSH SCH ×2 (17:24→21:35)
--- NOTE | 2018-01-26 18:16 | HHI.PR ---
Subjective Remarks Feels well. Pain controlled. No new complaints. Objective Vital Signs Date Time Temp Pulse Resp B/P (MAP) Pulse Ox O2 Delivery O2 Flow Rate FiO2 01/26/18 16:00 97.2 56 18 132/72 (92) 93 01/26/18 12:00 96.8 67 16 128/75 (92) 95 01/26/18 08:00 97.1 79 18 176/97 (123) 94 01/26/18 05:25 18 01/26/18 03:34 18 01/26/18 00:00 97.5 89 18 148/78 (101) 92 01/25/18 20:00 97.7 72 18 142/77 (98) 97 I/O 01/25/18 01/25/18 01/25/18 01/26/18 01/26/18 01/26/18 07:00 15:00 23:00 07:00 15:00 23:00 Intake Total 600 ml 100 ml 1900 ml 440 ml 840 ml Output Total 150 ml 1800 ml 0 ml 800 ml 1000 ml Balance 450 ml 100 ml 100 ml 440 ml -800 ml -160 ml Intake Oral 500 ml 1800 ml 240 ml 840 ml IV Total 100 ml 100 ml 100 ml 200 ml Output Urine Total 150 ml 1800 ml 800 ml 1000 ml Drainage Total 0 ml 0 ml # Voids 2 # Bowel Movements 1 0 1 Result Diagram: 01/23/18 0340 01/23/18 0340 Objective Remarks VAC removed Skin graft with 100%take No signs lower leg infection donor site tegaderm dressing removed as buttock and area around donor site appears to have a fungal infection Assessment and Plan Problem List: (1) Wound of left lower extremity ICD Codes: S81.802A - Unspecified open wound, left lower leg, initial encounter Assessment and Plan Doing well Unasyn per primary Heparin SQ tid Bacitracin/xeroform/gauze/abd pad/deuce/silvia wrap to left thigh and calf bid Miconazole antifungal cream to buttocks bid PT eval in am Pt may be off bedrest and ambulate but only less than 20 minutes per time, up to 3xs daily Pt should immediately return to bed and elevate L foot above heart if the LLE becomes cyanotic/feels heavy/tingling/swollen. If this occurs, pt may attempt ambulation again after 3 hours of L foot elevation Doni Macedo MD Jan 26, 2018 18:16
[2018-01-26 20:00] VITALS: BP 140/84; PULSE 69; RESP 20; TEMP 96.8; O2SAT 98
[2018-01-26] MEDS: BACITRACIN TOP OINT 15 GM TUBE TOPICAL SCH (21:00)
[2018-01-26] MEDS: MORPHINE SULFATE 4 MG/ML INJ IV PUSH PRN (21:35)
[2018-01-26] MEDS: MICONAZOLE NITRATE 2% OINT 5 OZ TUBE TOPICAL SCH (23:20)
[2018-01-27] VITALS: BP 134/72; PULSE 72; RESP 20; TEMP 97.4; O2SAT 97
[2018-01-27] MEDS: ACETAMINOPHEN/HYDROcodone 325 MG/7.5 MG TAB PO PRN ×4 (04:15→21:14)
[2018-01-27] MEDS: HEPARIN SODIUM - SQ 10,000 UNITS/ML VIAL SQ SCH ×3 (05:18→23:00)
[2018-01-27] MEDS: AMPICILLIN-SULBACTAM INJ 1,500 MG in SODIUM CHLORIDE 0.9% INJ 100 ML IV SCH ×3 (05:18→17:53)
[2018-01-27] MEDS: MORPHINE SULFATE 4 MG/ML INJ IV PUSH PRN ×3 (05:19→17:53)
[2018-01-27 08:00] VITALS: BP 140/82; PULSE 65; RESP 18; TEMP 97.2; O2SAT 95
[2018-01-27] MEDS: BACITRACIN TOP OINT 15 GM TUBE TOPICAL SCH ×2 (09:00→21:31)
[2018-01-27] MEDS: HYDROCHLOROTHIAZIDE 12.5 MG CAP PO SCH (09:24)
[2018-01-27] MEDS: LISINOPRIL 10 MG TAB PO SCH (09:24)
[2018-01-27] MEDS: DOCUSATE SODIUM 50 MG/SENNA 8.6 MG TAB PO SCH ×2 (09:25→21:14)
[2018-01-27] MEDS: SODIUM CHLORIDE 0.9% FLUSH 10 ML FLUSH IV FLUSH SCH ×2 (09:25→21:31)
[2018-01-27] MEDS: MICONAZOLE NITRATE 2% OINT 5 OZ TUBE TOPICAL SCH ×2 (09:25→21:31)
--- NOTE | 2018-01-27 10:25 | HHI.PR ---
Subjective Remarks Follow-up left lower extremity wound 01/20/18-patient seen and examined, as any significant left lower extremity pain. Status post skin graft 01/19/18. Currently afebrile. 01/21/18-patient seen and examined, spiking fevers, denies any significant LLE pain. No acute event overnight. 01/22/18-patient seen and examined, Tmax 101.9 over currently afebrile. No other issues 01/23/18-patient seen and examined, Afebrile and no complaint. Stable 01/24/18-patient seen and examined, no complaint and when well. Vitals stable 01/25/18-patient seen and examined, doing well and afebrile. Pain control and denies any significant LLE swelling 01/26/18-patient seen and examined, PLan for wound vac changed today. Afebrile and no other issue 01/27/18-patient seen and examined, Wound vac was removed yesterday. No acute event overnight. Afebrile Objective Vitals Vital Signs Date Time Temp Pulse Resp B/P (MAP) Pulse Ox O2 Delivery O2 Flow Rate FiO2 01/27/18 08:00 97.2 65 18 140/82 (101) 95 01/27/18 00:00 97.4 72 20 134/72 (92) 97 01/26/18 20:00 96.8 69 20 140/84 (102) 98 01/26/18 16:00 97.2 56 18 132/72 (92) 93 01/26/18 12:00 96.8 67 16 128/75 (92) 95 I/O 01/26/18 01/26/18 01/26/18 01/27/18 01/27/18 01/27/18 07:00 15:00 23:00 07:00 15:00 23:00 Intake Total 440 ml 100 ml 940 ml 440 ml Output Total 0 ml 800 ml 1000 ml 1300 ml Balance 440 ml -700 ml -60 ml -860 ml Intake Oral 240 ml 840 ml 240 ml IV Total 200 ml 100 ml 100 ml 200 ml Output Urine Total 800 ml 1000 ml 1300 ml Drainage Total 0 ml # Voids 2 # Bowel Movements 0 1 Result Diagram: 01/23/18 0340 01/23/18 0340 Imaging Last Impressions Lower Extremity Ultrasound 2/26/18 0000 Signed Impressions: Service Date/Time: Friday, January 19, 2018 09:09 - CONCLUSION: Negative for deep venous thrombosis. Jesse Casey MD FA[facility] Tibia/Fibula X-Ray 01/10/18 0000 Signed Impressions: Service Date/Time: Wednesday, January 10, 2018 20:11 - CONCLUSION: There is an open wound on the posterior medial aspect of the mid calf region with subcutaneous edema in the adjacent tissue. No radiopaque foreign body is identified. Christian Kay MD Objective Remarks GENERAL: NAD SKIN: Warm and dry. HEAD: Normocephalic. EYES: No scleral icterus. No injection or drainage. NECK: Supple, trachea midline. No JVD or lymphadenopathy. CARDIOVASCULAR: Regular rate and rhythm without murmurs, gallops, or rubs. RESPIRATORY: Breath sounds equal bilaterally. No accessory muscle use. GASTROINTESTINAL: Abdomen soft, non-tender, nondistended. MUSCULOSKELETAL: No cyanosis, or edema. dressing over left posterior leg BACK: Nontender without obvious deformity. No CVA tenderness. Procedures debridement of left posterior calf and wound vac placement. A/P Problem List: (1) Wound of left lower extremity ICD Code: S81.802A - Unspecified open wound, left lower leg, initial encounter (2) Infected dog bite of lower leg ICD Code: S81.859A - Open bite, unspecified lower leg, initial encounter; L08.9 - Local infection of the skin and subcutaneous tissue, unspecified; W54.0XXA - Bitten by dog, initial encounter Status: Acute (3) Renal insufficiency ICD Code: N28.9 - Disorder of kidney and ureter, unspecified; L08.9 - Local infection of the skin and subcutaneous tissue, unspecified; W54.0XXA - Bitten by dog, initial encounter Status: Acute Assessment and Plan 62-year-old man with Left lower extremity wound secondary to dog-bite Wound culture positive for group B strep s/p debridement and wound VAC placement. Wound VAC removed 01/26/18 s/p Skin graft 01/19/18 Currently on Unasyn. Likely discharge on PO Augmentin Activity per Plastic surgery's instruction Acute kidney injury; resolved. Hypertension continue Lisinopril/HCTZ. PRN clonidine. DVT prevention Subcutaneous heparin Discharge Planning Likely discharge on 01/30/16 Problem Qualifiers (1) Infected dog bite of lower leg: Qualified Codes: S81.852A - Open bite, left lower leg, initial encounter; L08.9 - Local infection of the skin and subcutaneous tissue, unspecified; W54.0XXA - Bitten by dog, initial encounter Trent Dowell MD Jan 27, 2018 10:25
--- NOTE | 2018-01-27 10:28 | HHI.FF ---
Face to Face Verification Diagnosis: (1) Wound of left lower extremity (2) Infected dog bite of lower leg Home Health Nursing Order: Wound care and dressing changes I have seen patient Reginald Ceron on 01/27/18. My clinical findings support the need for the requested home health care services because: Deconditioned w/ increased weakness I certify that my clinical findings support that this patient is homebound because: Unsteady gait/balance Trent Dowell MD Jan 27, 2018 10:28
[2018-01-27 12:00] VITALS: BP 119/62; PULSE 80; RESP 16; TEMP 97.7; O2SAT 96
[2018-01-27 16:00] VITALS: BP 124/67; PULSE 75; RESP 16; TEMP 97.3; O2SAT 96
[2018-01-27 20:00] VITALS: BP 147/80; PULSE 71; RESP 17; TEMP 96.8; O2SAT 96
[2018-01-27] MEDS ORDERED: BACITRACIN TOP OINT 15 GM TUBE TOPICAL PRN (20:00)
[2018-01-28] VITALS: BP 124/71; PULSE 70; RESP 17; TEMP 96.2; O2SAT 96
[2018-01-28] MEDS: MORPHINE SULFATE 4 MG/ML INJ IV PUSH PRN ×4 (00:31→21:05)
[2018-01-28] MEDS: AMPICILLIN-SULBACTAM INJ 1,500 MG in SODIUM CHLORIDE 0.9% INJ 100 ML IV SCH ×4 (00:31→17:45)
[2018-01-28] MEDS: ACETAMINOPHEN/HYDROcodone 325 MG/7.5 MG TAB PO PRN ×5 (05:19→18:05)
[2018-01-28] MEDS: HEPARIN SODIUM - SQ 10,000 UNITS/ML VIAL SQ SCH ×3 (05:20→21:07)
[2018-01-28 08:00] VITALS: BP 151/92; PULSE 79; RESP 17; TEMP 96.9; O2SAT 98
[2018-01-28] MEDS: HYDROCHLOROTHIAZIDE 12.5 MG CAP PO SCH (08:56)
[2018-01-28] MEDS: LISINOPRIL 10 MG TAB PO SCH (08:56)
[2018-01-28] MEDS: DOCUSATE SODIUM 50 MG/SENNA 8.6 MG TAB PO SCH ×2 (08:56→21:06)
[2018-01-28] MEDS: BACITRACIN TOP OINT 15 GM TUBE TOPICAL SCH ×2 (08:57→21:00)
[2018-01-28] MEDS: SODIUM CHLORIDE 0.9% FLUSH 10 ML FLUSH IV FLUSH SCH ×2 (08:57→21:00)
[2018-01-28] MEDS: MICONAZOLE NITRATE 2% OINT 5 OZ TUBE TOPICAL SCH ×2 (08:57→21:06)
--- NOTE | 2018-01-28 11:25 | HHI.PR ---
Subjective Remarks Follow-up left lower extremity wound 01/20/18-patient seen and examined, as any significant left lower extremity pain. Status post skin graft 01/19/18. Currently afebrile. 01/21/18-patient seen and examined, spiking fevers, denies any significant LLE pain. No acute event overnight. 01/22/18-patient seen and examined, Tmax 101.9 over currently afebrile. No other issues 01/23/18-patient seen and examined, Afebrile and no complaint. Stable 01/24/18-patient seen and examined, no complaint and when well. Vitals stable 01/25/18-patient seen and examined, doing well and afebrile. Pain control and denies any significant LLE swelling 01/26/18-patient seen and examined, PLan for wound vac changed today. Afebrile and no other issue 01/27/18-patient seen and examined, Wound vac was removed yesterday. No acute event overnight. Afebrile 01/28/18-patient seen and examined, complains of pain to his left ankle and knee ;states he is having difficulty putting weight on the LLE. otherwise afebrile Objective Vitals Vital Signs Date Time Temp Pulse Resp B/P (MAP) Pulse Ox O2 Delivery O2 Flow Rate FiO2 01/28/18 08:00 96.9 79 17 151/92 (111) 98 01/28/18 00:00 96.2 70 17 124/71 (88) 96 01/27/18 20:00 96.8 71 17 147/80 (102) 96 01/27/18 16:00 97.3 75 16 124/67 (86) 96 01/27/18 12:00 97.7 80 16 119/62 (81) 96 I/O 01/27/18 01/27/18 01/27/18 01/28/18 01/28/18 01/28/18 07:00 15:00 23:00 07:00 15:00 23:00 Intake Total 440 ml 100 ml 1100 ml 340 ml 100 ml Output Total 1300 ml 1250 ml 1200 ml Balance -860 ml 100 ml -150 ml -860 ml 100 ml Intake Oral 240 ml 1000 ml 240 ml IV Total 200 ml 100 ml 100 ml 100 ml 100 ml Output Urine Total 1300 ml 1250 ml 1200 ml # Bowel Movements 1 Objective Remarks GENERAL: NAD SKIN: Warm and dry. HEAD: Normocephalic. EYES: No scleral icterus. No injection or drainage. NECK: Supple, trachea midline. No JVD or lymphadenopathy. CARDIOVASCULAR: Regular rate and rhythm without murmurs, gallops, or rubs. RESPIRATORY: Breath sounds equal bilaterally. No accessory muscle use. GASTROINTESTINAL: Abdomen soft, non-tender, nondistended. MUSCULOSKELETAL: No cyanosis, or edema. dressing over left posterior leg BACK: Nontender without obvious deformity. No CVA tenderness. Procedures debridement of left posterior calf and wound vac placement. A/P Problem List: (1) Wound of left lower extremity ICD Code: S81.802A - Unspecified open wound, left lower leg, initial encounter (2) Infected dog bite of lower leg ICD Code: S81.859A - Open bite, unspecified lower leg, initial encounter; L08.9 - Local infection of the skin and subcutaneous tissue, unspecified; W54.0XXA - Bitten by dog, initial encounter Status: Acute (3) Renal insufficiency ICD Code: N28.9 - Disorder of kidney and ureter, unspecified; L08.9 - Local infection of the skin and subcutaneous tissue, unspecified; W54.0XXA - Bitten by dog, initial encounter Status: Acute Assessment and Plan 62-year-old man with Left lower extremity wound secondary to dog-bite Wound culture positive for group B strep s/p debridement and wound VAC placement. Wound VAC removed 01/26/18 s/p Skin graft 01/19/18 Currently on Unasyn. Likely discharge on PO Augmentin tomorrow 01/29/18 Activity per Plastic surgery's instruction Acute kidney injury; resolved. Hypertension continue Lisinopril/HCTZ. PRN clonidine. DVT prevention Subcutaneous heparin Discharge Planning Likely discharge on 01/30/16 Problem Qualifiers (1) Infected dog bite of lower leg: Qualified Codes: S81.852A - Open bite, left lower leg, initial encounter; L08.9 - Local infection of the skin and subcutaneous tissue, unspecified; W54.0XXA - Bitten by dog, initial encounter Trent Dowell MD Jan 28, 2018 11:25
[2018-01-28 12:00] VITALS: BP 130/71; PULSE 68; RESP 17; TEMP 96.9; O2SAT 94
[2018-01-28 16:00] VITALS: BP 109/65; PULSE 78; RESP 17; TEMP 97.8; O2SAT 94
[2018-01-28 20:00] VITALS: BP 120/69; PULSE 71; RESP 18; TEMP 97.9; O2SAT 97
[2018-01-28 23:58] VITALS: BP 143/77; PULSE 72; RESP 18; TEMP 97.3; O2SAT 96
[2018-01-29] MEDS: AMPICILLIN-SULBACTAM INJ 1,500 MG in SODIUM CHLORIDE 0.9% INJ 100 ML IV SCH ×2 (00:09→05:57)
[2018-01-29] MEDS: ACETAMINOPHEN/HYDROcodone 325 MG/7.5 MG TAB PO PRN ×4 (04:31→20:21)
[2018-01-29] MEDS: MORPHINE SULFATE 4 MG/ML INJ IV PUSH PRN ×3 (05:56→17:52)
[2018-01-29] MEDS: HEPARIN SODIUM - SQ 10,000 UNITS/ML VIAL SQ SCH ×3 (05:57→21:24)
[2018-01-29 08:00] VITALS: BP 153/83; PULSE 77; RESP 16; TEMP 96.9; O2SAT 97
[2018-01-29] MEDS: AMOXICILLIN/CLAVULANATE K 875 MG TAB PO SCH ×2 (09:00→20:17)
[2018-01-29] MEDS: MICONAZOLE NITRATE 2% OINT 5 OZ TUBE TOPICAL SCH ×2 (09:00→20:17)
[2018-01-29] MEDS: HYDROCHLOROTHIAZIDE 12.5 MG CAP PO SCH (09:52)
[2018-01-29] MEDS: LISINOPRIL 10 MG TAB PO SCH (09:52)
[2018-01-29] MEDS: DOCUSATE SODIUM 50 MG/SENNA 8.6 MG TAB PO SCH ×2 (09:52→20:17)
[2018-01-29] MEDS: BACITRACIN TOP OINT 15 GM TUBE TOPICAL SCH ×2 (09:53→20:17)
[2018-01-29] MEDS: SODIUM CHLORIDE 0.9% FLUSH 10 ML FLUSH IV FLUSH SCH ×2 (09:53→20:16)
--- NOTE | 2018-01-29 11:09 | HHI.PR ---
Subjective Remarks Follow-up left lower extremity wound 01/20/18-patient seen and examined, as any significant left lower extremity pain. Status post skin graft 01/19/18. Currently afebrile. 01/21/18-patient seen and examined, spiking fevers, denies any significant LLE pain. No acute event overnight. 01/22/18-patient seen and examined, Tmax 101.9 over currently afebrile. No other issues 01/23/18-patient seen and examined, Afebrile and no complaint. Stable 01/24/18-patient seen and examined, no complaint and when well. Vitals stable 01/25/18-patient seen and examined, doing well and afebrile. Pain control and denies any significant LLE swelling 01/26/18-patient seen and examined, PLan for wound vac changed today. Afebrile and no other issue 01/27/18-patient seen and examined, Wound vac was removed yesterday. No acute event overnight. Afebrile 01/28/18-patient seen and examined, complains of pain to his left ankle and knee ;states he is having difficulty putting weight on the LLE. otherwise afebrile 01/29/18-patient seen and examined, still with pain to the left ankle and knee but no swelling. Afebrile Objective Vitals Vital Signs Date Time Temp Pulse Resp B/P (MAP) Pulse Ox O2 Delivery O2 Flow Rate FiO2 01/29/18 08:00 96.9 77 16 153/83 (106) 97 01/28/18 23:58 97.3 72 18 143/77 (99) 96 01/28/18 20:00 97.9 71 18 120/69 (86) 97 01/28/18 16:00 97.8 78 17 109/65 (80) 94 01/28/18 12:00 96.9 68 17 130/71 (90) 94 I/O 01/28/18 01/28/18 01/28/18 01/29/18 01/29/18 01/29/18 07:00 15:00 23:00 07:00 15:00 23:00 Intake Total 340 ml 100 ml 2084 ml 720 ml Output Total 1200 ml 1050 ml 1450 ml Balance -860 ml 100 ml 1034 ml -730 ml Intake Oral 240 ml 1884 ml 720 ml IV Total 100 ml 100 ml 200 ml Output Urine Total 1200 ml 1050 ml 1450 ml # Bowel Movements 0 0 Imaging Last Impressions Lower Extremity Ultrasound 01/19/18 0000 Signed Impressions: Service Date/Time: Friday, January 19, 2018 09:09 - CONCLUSION: Negative for deep venous thrombosis. Jesse Casey MD FACR Tibia/Fibula X-Ray 01/10/18 0000 Signed Impressions: Service Date/Time: Wednesday, January 10, 2018 20:11 - CONCLUSION: There is an open wound on the posterior medial aspect of the mid calf region with subcutaneous edema in the adjacent tissue. No radiopaque foreign body is identified. Christian Kay MD Objective Remarks GENERAL: NAD SKIN: Warm and dry. HEAD: Normocephalic. EYES: No scleral icterus. No injection or drainage. NECK: Supple, trachea midline. No JVD or lymphadenopathy. CARDIOVASCULAR: Regular rate and rhythm without murmurs, gallops, or rubs. RESPIRATORY: Breath sounds equal bilaterally. No accessory muscle use. GASTROINTESTINAL: Abdomen soft, non-tender, nondistended. MUSCULOSKELETAL: No cyanosis, or edema. dressing over left posterior leg BACK: Nontender without obvious deformity. No CVA tenderness. Procedures debridement of left posterior calf and wound vac placement. A/P Problem List: (1) Wound of left lower extremity ICD Code: S81.802A - Unspecified open wound, left lower leg, initial encounter (2) Infected dog bite of lower leg ICD Code: S81.859A - Open bite, unspecified lower leg, initial encounter; L08.9 - Local infection of the skin and subcutaneous tissue, unspecified; W54.0XXA - Bitten by dog, initial encounter Status: Acute (3) Renal insufficiency ICD Code: N28.9 - Disorder of kidney and ureter, unspecified; L08.9 - Local infection of the skin and subcutaneous tissue, unspecified; W54.0XXA - Bitten by dog, initial encounter Status: Acute Assessment and Plan 62-year-old man with Left lower extremity wound secondary to dog-bite Wound culture positive for group B strep s/p debridement and wound VAC placement. Wound VAC removed 01/26/18 s/p Skin graft 01/19/18 s/p Unasyn. Discharge on PO Augmentin Activity as well as wound care per Plastic surgery's instruction Acute kidney injury; resolved. Hypertension continue Lisinopril/HCTZ. PRN clonidine. DVT prevention Subcutaneous heparin Discharge Planning Likely discharge on 01/30/16 Problem Qualifiers (1) Infected dog bite of lower leg: Qualified Codes: S81.852A - Open bite, left lower leg, initial encounter; L08.9 - Local infection of the skin and subcutaneous tissue, unspecified; W54.0XXA - Bitten by dog, initial encounter Trent Dowell MD Jan 29, 2018 11:09
[2018-01-29] MEDS ORDERED: AMOX875T2 PO (11:13)
[2018-01-29] MEDS ORDERED: PERI PO (11:13)
[2018-01-29] MEDS ORDERED: LISI10TA3 PO (11:13)
[2018-01-29] MEDS ORDERED: [UNRECOGNIZED DRUG - CODE] TOPICAL (11:13)
[2018-01-29] MEDS ORDERED: HYDR-3580 PO (11:13)
[2018-01-29] MEDS ORDERED: QC B500O TOPICAL ×2 (11:13)
[2018-01-29] MEDS ORDERED: HYDR12.57 PO (11:13)
--- NOTE | 2018-01-29 11:16 | HHI.DS ---
Discharge Summary Admission Date Jan 10, 2018 at 21:17 Discharge Date: Jan 29, 2018 Admitting Diagnosis infected dog bite wound, gangrenous wound (1) Wound of left lower extremity ICD Code: S81.802A - Unspecified open wound, left lower leg, initial encounter Diagnosis: Principal (2) Infected dog bite of lower leg ICD Code: S81.859A - Open bite, unspecified lower leg, initial encounter; L08.9 - Local infection of the skin and subcutaneous tissue, unspecified; W54.0XXA - Bitten by dog, initial encounter Diagnosis: Principal Status: Acute (3) Renal insufficiency ICD Code: N28.9 - Disorder of kidney and ureter, unspecified; L08.9 - Local infection of the skin and subcutaneous tissue, unspecified; W54.0XXA - Bitten by dog, initial encounter Diagnosis: Principal Status: Acute Procedures debridement of left posterior calf and wound vac placement. Brief History - From Admission This is a 62 year-old male with no chronic medical illnesses who presented to the hospital because of a infected dog bite of his left lower extremity. Patient states that he was attacked by his landlord's pitbull on 09/10. Patient did not know that it was effective at time. He cannot see it that well because on the posterior aspect of his calf. He states that he try to keep it clean with peroxide and applying triple antibiotic cream. However because the leg at significantly swollen and painful he came to the emergency department for evaluation. Because of the extensive soft tissue abnormality which was concerning for gangrene the ER physician recommended that the patient be admitted for surgical consultation. ER physician did consult surgery who indicated that he would perform debridement in the morning. Patient was admitted with empirical antibiotics and surgery consult. Patient denied any fever, chills, any signs of sepsis. Imaging Last Impressions Lower Extremity Ultrasound 01/19/18 0000 Signed Impressions: Service Date/Time: Friday, January 19, 2018 09:09 - CONCLUSION: Negative for deep venous thrombosis. Jesse Casey MD FACR Tibia/Fibula X-Ray 01/10/18 0000 Signed Impressions: Service Date/Time: Wednesday, January 10, 2018 20:11 - CONCLUSION: There is an open wound on the posterior medial aspect of the mid calf region with subcutaneous edema in the adjacent tissue. No radiopaque foreign body is identified. Christian Kay MD PE at Discharge GENERAL: NAD SKIN: Warm and dry. HEAD: Normocephalic. EYES: No scleral icterus. No injection or drainage. NECK: Supple, trachea midline. No JVD or lymphadenopathy. CARDIOVASCULAR: Regular rate and rhythm without murmurs, gallops, or rubs. RESPIRATORY: Breath sounds equal bilaterally. No accessory muscle use. GASTROINTESTINAL: Abdomen soft, non-tender, nondistended. MUSCULOSKELETAL: No cyanosis, or edema. dressing over left posterior leg BACK: Nontender without obvious deformity. No CVA tenderness. Hospital Course While in the hospital, patient was treated for: Left lower extremity wound secondary to dog-bite Wound culture positive for group B strep s/p debridement and wound VAC placement. Wound VAC removed 01/26/18 s/p Skin graft 01/19/18 s/p Unasyn. Discharge on PO Augmentin Activity as well as wound care per Plastic surgery's instruction Acute kidney injury; resolved post IVF hydration. Hypertension Treated with Lisinopril/HCTZ. PRN clonidine. DVT prevention Subcutaneous heparin Pt Condition on Discharge: Good Discharge Disposition: Discharge to SNF Discharge Time: > 30 minutes Discharge Instructions DIET: Follow Instructions for: Heart Healthy Diet Activities you can perform: Weight Bearing as [place] Follow up Referrals: PCP Follow-up - 2-3 Days Plastic Surgery - 2 Weeks with Doni Macedo MD New Medications: Amoxicillin-Clavulanate (Amoxicillin-Clavulanate) 875-125 mg Tab 875 MG PO Q12HR for Infection, #10 TAB not for use in CrCl <30 mL/minute Bacitracin (Topical) (Qc Bacitracin) 500 Unit/Gram Oin 7.5 APPLIC TOPICAL UNSCH PRN for DRESSING CHANGE, #1 TUBE Bacitracin (Topical) (Qc Bacitracin) 500 Unit/Gram Oin 1 APPLIC TOPICAL Q12HR for Infection, #1 TUBE Hydrochlorothiazide (Hydrochlorothiazide) 12.5 Mg Cap 12.5 MG PO DAILY for Blood Pressure Management, #30 CAP Hydrocodone/Acetaminophen (Hydrocodone-Acetamin 7.5-325) 7.5 Mg-325 Mg Tablet 1 TAB PO Q4H PRN for PAIN <5, #10 TAB Lisinopril (Lisinopril) 10 Mg Tab 10 MG PO DAILY for Blood Pressure Management, #30 TAB 11 Refills Miconazole Nitrate (Topical) (Critic-Aid Clear AF) 2 % Oin 1 APPLIC TOPICAL BID for Infection, #1 TUBE Sennosides-Docusate Sodium (Gnp Senna Plus 8.6-50 mg) 8.6 Mg-50 Mg Tab 1 TAB PO BID for Bowel Management, #20 TAB Trent Dowell MD Jan 29, 2018 11:16
[2018-01-29 12:00] VITALS: BP 132/81; PULSE 85; RESP 17; TEMP 97.9; O2SAT 94
[2018-01-29 16:00] VITALS: BP 121/64; PULSE 74; RESP 18; TEMP 97.6; O2SAT 97
[2018-01-29 20:00] VITALS: BP 134/68; PULSE 85; RESP 22; TEMP 98.6; O2SAT 97
[2018-01-30] VITALS: BP 140/73; PULSE 78; RESP 20; TEMP 96.9; O2SAT 97
[2018-01-30] MEDS: ACETAMINOPHEN/HYDROcodone 325 MG/7.5 MG TAB PO PRN ×4 (00:28→16:58)
[2018-01-30] MEDS: MORPHINE SULFATE 4 MG/ML INJ IV PUSH PRN ×2 (04:15→14:24)
[2018-01-30] MEDS: HEPARIN SODIUM - SQ 10,000 UNITS/ML VIAL SQ SCH ×2 (05:05→17:00)
[2018-01-30 08:00] VITALS: BP 133/74; PULSE 69; RESP 18; TEMP 96.3; O2SAT 96
[2018-01-30] MEDS: SODIUM CHLORIDE 0.9% FLUSH 10 ML FLUSH IV FLUSH SCH (09:56)
[2018-01-30] MEDS: AMOXICILLIN/CLAVULANATE K 875 MG TAB PO SCH (09:57)
[2018-01-30] MEDS: HYDROCHLOROTHIAZIDE 12.5 MG CAP PO SCH (09:57)
[2018-01-30] MEDS: DOCUSATE SODIUM 50 MG/SENNA 8.6 MG TAB PO SCH (09:57)
[2018-01-30] MEDS: BACITRACIN TOP OINT 15 GM TUBE TOPICAL SCH (09:58)
[2018-01-30] MEDS: MICONAZOLE NITRATE 2% OINT 5 OZ TUBE TOPICAL SCH (09:58)
[2018-01-30] MEDS: LISINOPRIL 10 MG TAB PO SCH (09:58)
--- NOTE | 2018-01-30 10:57 | HHI.PR ---
Subjective Remarks Follow-up left lower extremity wound 01/20/18-patient seen and examined, as any significant left lower extremity pain. Status post skin graft 01/19/18. Currently afebrile. 01/21/18-patient seen and examined, spiking fevers, denies any significant LLE pain. No acute event overnight. 01/22/18-patient seen and examined, Tmax 101.9 over currently afebrile. No other issues 01/23/18-patient seen and examined, Afebrile and no complaint. Stable 01/24/18-patient seen and examined, no complaint and when well. Vitals stable 01/25/18-patient seen and examined, doing well and afebrile. Pain control and denies any significant LLE swelling 01/26/18-patient seen and examined, PLan for wound vac changed today. Afebrile and no other issue 01/27/18-patient seen and examined, Wound vac was removed yesterday. No acute event overnight. Afebrile 01/28/18-patient seen and examined, complains of pain to his left ankle and knee ;states he is having difficulty putting weight on the LLE. otherwise afebrile 01/29/18-patient seen and examined, still with pain to the left ankle and knee but no swelling. Afebrile 03/02/18-patient seen and examined, still complained of pain to left ankle and knee and states Aleve works better for him. no other issues Objective Vitals Vital Signs Date Time Temp Pulse Resp B/P (MAP) Pulse Ox O2 Delivery O2 Flow Rate FiO2 01/30/18 08:00 96.3 69 18 133/74 (93) 96 01/30/18 00:00 96.9 78 20 140/73 (95) 97 01/29/18 20:00 98.6 85 22 134/68 (90) 97 01/29/18 16:00 97.6 74 18 121/64 (83) 97 01/29/18 12:00 97.9 85 17 132/81 (98) 94 I/O 01/29/18 01/29/18 01/29/18 01/30/18 01/30/18 01/30/18 07:00 15:00 23:00 07:00 15:00 23:00 Intake Total 820 ml 575 ml 720 ml Output Total 1450 ml 750 ml 800 ml Balance -630 ml -175 ml -80 ml Intake Oral 720 ml 575 ml 720 ml IV Total 100 ml Output Urine Total 1450 ml 750 ml 800 ml # Bowel Movements 0 1 0 Objective Remarks GENERAL: NAD SKIN: Warm and dry. HEAD: Normocephalic. EYES: No scleral icterus. No injection or drainage. NECK: Supple, trachea midline. No JVD or lymphadenopathy. CARDIOVASCULAR: Regular rate and rhythm without murmurs, gallops, or rubs. RESPIRATORY: Breath sounds equal bilaterally. No accessory muscle use. GASTROINTESTINAL: Abdomen soft, non-tender, nondistended. MUSCULOSKELETAL: No cyanosis, or edema. dressing over left posterior leg BACK: Nontender without obvious deformity. No CVA tenderness. Procedures debridement of left posterior calf and wound vac placement. A/P Problem List: (1) Wound of left lower extremity ICD Code: S81.802A - Unspecified open wound, left lower leg, initial encounter (2) Infected dog bite of lower leg ICD Code: S81.859A - Open bite, unspecified lower leg, initial encounter; L08.9 - Local infection of the skin and subcutaneous tissue, unspecified; W54.0XXA - Bitten by dog, initial encounter Status: Acute (3) Renal insufficiency ICD Code: N28.9 - Disorder of kidney and ureter, unspecified; L08.9 - Local infection of the skin and subcutaneous tissue, unspecified; W54.0XXA - Bitten by dog, initial encounter Status: Acute Assessment and Plan 62-year-old man with Left lower extremity wound secondary to dog-bite Wound culture positive for group B strep s/p debridement and wound VAC placement. Wound VAC removed 01/26/18 s/p Skin graft 01/19/18 s/p Unasyn. Discharge on PO Augmentin Activity as well as wound care per Plastic surgery's instruction Add Aleve for pain Acute kidney injury; resolved. Hypertension continue Lisinopril/HCTZ. PRN clonidine. DVT prevention Subcutaneous heparin Discharge Planning Likely discharge on 01/30/16 Problem Qualifiers (1) Wound of left lower extremity: Qualified Codes: S81.802A - Unspecified open wound, left lower leg, initial encounter (2) Infected dog bite of lower leg: Qualified Codes: S81.852A - Open bite, left lower leg, initial encounter; L08.9 - Local infection of the skin and subcutaneous tissue, unspecified; W54.0XXA - Bitten by dog, initial encounter Trent Dowell MD Jan 30, 2018 10:57
[2018-01-30] MEDS ORDERED: NAPR5TAB5 PO (10:58)
[2018-01-30] MEDS ORDERED: NAPROXEN SODIUM 550 MG TAB PO SCH (11:15)
[2018-01-30 12:00] VITALS: BP 115/61; PULSE 77; RESP 19; TEMP 96.4; O2SAT 95
--- NOTE | 2018-01-30 13:52 | HHI.PR ---
Subjective Remarks Feels well. Pain controlled. No new complaints. Objective Vital Signs Date Time Temp Pulse Resp B/P (MAP) Pulse Ox O2 Delivery O2 Flow Rate FiO2 01/30/18 12:00 96.4 77 19 115/61 (79) 95 01/30/18 08:00 96.3 69 18 133/74 (93) 96 01/30/18 00:00 96.9 78 20 140/73 (95) 97 01/29/18 20:00 98.6 85 22 134/68 (90) 97 01/29/18 16:00 97.6 74 18 121/64 (83) 97 I/O 01/29/18 01/29/18 01/29/18 01/30/18 01/30/18 01/30/18 07:00 15:00 23:00 07:00 15:00 23:00 Intake Total 820 ml 575 ml 720 ml Output Total 1450 ml 750 ml 800 ml Balance -630 ml -175 ml -80 ml Intake Oral 720 ml 575 ml 720 ml IV Total 100 ml Output Urine Total 1450 ml 750 ml 800 ml # Bowel Movements 0 1 0 Objective Remarks Dressing removed Skin graft still with 100% take No signs lower leg infection donor site erythema improved Assessment and Plan Problem List: (1) Wound of left lower extremity ICD Codes: S81.802A - Unspecified open wound, left lower leg, initial encounter Assessment and Plan Doing well Bacitracin/xeroform/gauze/abd pad/deuce/silvia wrap to left thigh and calf bid Miconazole antifungal cream to buttocks bid Pt may be off bedrest and ambulate but only less than 20 minutes per time, up to 3xs daily Pt should immediately return to bed and elevate L foot above heart if the LLE becomes cyanotic/feels heavy/tingling/swollen. If this occurs, pt may attempt ambulation again after 3 hours of L foot elevation Transfer to rehab facility per primary Please have patient return to my plastic surgery clinic Patient was given my card Problem Qualifiers (1) Wound of left lower extremity: Qualified Codes: S81.802A - Unspecified open wound, left lower leg, initial encounter Doni Macedo MD Jan 30, 2018 13:52
[2018-01-30 16:00] VITALS: BP 115/65; PULSE 71; RESP 16; TEMP 96.9; O2SAT 97
== END 2018-01-30 19:17 | DRG 264 ==
LOC: PHED 18:57 → PHEDA 21:17 → PH3A 23:21 → N07A 01-18 16:51
PROVIDERS: ADMIT Hospitalist; ATTEND Hospitalist
PROC: 0JBP0ZZ Excision of Left Lower Leg Subcutaneous Tissue and Fascia, Open Approach (ICD-10-PCS; 2018-01-11)
PROC: 0HBJXZZ Excision of Left Upper Leg Skin, External Approach (ICD-10-PCS; 2018-01-19)
PROC: 0HRLX74 Replacement of Left Lower Leg Skin with Autologous Tissue Substitute, Partial Thickness, External Approach (ICD-10-PCS; principal; 2018-01-19 14:16)
DX: I96 Gangrene, not elsewhere classified (principal); N17.9 Acute kidney failure, unspecified; S81.852A Open bite, left lower leg, initial encounter; I10 Essential (primary) hypertension; B95.1 Streptococcus, group B, as the cause of diseases classified elsewhere; M25.572 Pain in left ankle and joints of left foot; R50.9 Fever, unspecified; W54.0XXA Bitten by dog, initial encounter
CPT/HCPCS: 73590; 76937; 80048; 80053; 80202; 81001; 83605; 83735; 85025; 85610; 87040; 87070; 87205; 93005; 93971; 94150; 96365; 96367; J0171; J0295; J0330; J1170; J1644; J1885; J1940; J2175; J2250; J2270; J2370; J2405; J2543; J2710; J3010; J3370; J7030; J7050; J7120

== ENCOUNTER 2018-10-07 09:16 | Inpatient (IN) ==
[2018-10-07 09:59] LABS: Baso # (Auto) 0.1 th/mm3 (0.0-0.2); Eos # (Auto) 0.2 th/mm3 (0.0-0.4); Eos % (Auto) 1.7 % (0.0-4.0); Hematocrit 47.7 % (39.0-51.0); Hemoglobin 16.9 gm/dL (13.0-17.0); Lymph # (Auto) 1.1 th/mm3 (1.0-4.8); Lymph % (Auto) 11.8 % (9.0-44.0); Mean Corpuscular HGB Conc 35.4 % (32.0-36.0); Mean Corpuscular Hemoglobin 33.4 pg (27.0-34.0); Mean Corpuscular Volume 94.4 fL (80.0-100.0); Mean Platelet Volume 9.6 fL (7.0-11.0); Mono # (Auto) 0.8 th/mm3 (0.0-0.9); Mono % (Auto) 8.2 % (0.0-8.0); Neut # (Auto) 7.2 th/mm3 (1.8-7.7); Neut % (Auto) 77.3 % (16.0-70.0); Platelet Count 195 th/mm3 (150-450); Red Blood Count 5.05 mil/mm3 (4.50-5.90); Red Cell Distribution Width 14.5 % (11.6-17.2); White Blood Count 9.3 th/mm3 (4.0-11.0)
[2018-10-07 10:19] LABS: Alanine Aminotransferase 22 U/L (12-78); Albumin 4.1 g/dL (3.4-5.0); Anion Gap 7 meq/L (5-15); Aspartate Aminotransferase 18 U/L (15-37); Blood Urea Nitrogen 25 mg/dL (7-18); Calcium 9.2 mg/dL (8.5-10.1); Carbon Dioxide 31.7 meq/L (21.0-32.0); Chloride 101 meq/L (98-107); Glomerular Filtration Rate 41 mL/min (>89); Glucose,Random 93 mg/dL (74-106); Potassium 3.5 meq/L (3.5-5.1); Sodium 140 meq/L (136-145)
[2018-10-07 10:23] LABS: Alkaline Phosphatase 80 U/L (45-117); Total Protein 8.6 g/dL (6.4-8.2)
[2018-10-07 10:24] LABS: Activated Partial Thrombo Time 29.9 sec (23.4-31.7)
[2018-10-07 10:25] LABS: D-Dimer 4.92 mg/L FEU (0.00-0.50)
[2018-10-07] MEDS ORDERED: Sod Chloride 0.9% Inj 1,000 ML IV.SIG SCH (10:30)
--- NOTE | 2018-10-07 10:32 | ED ---
HPI General Chief complaint: Arrhythmia / Palpitations Stated complaint: cardiac complaint Time Seen by Provider: 10/07/18 09:29 History of Present Illness HPI narrative: Patient is a 8-year-old male presents emergency department for and taking his vital signs and noticed that his heart rate was elevated in the EMS was called to transport him here for further evaluation. On transport here the patient was sinus rhythm with a rate of 80, he is having intermittent regular rhythm narrow complex tachycardia could be SVT or atrial flutter. Patient states he is just been having some intermittent palpitations as well as some numbness and tingling down his left arm without any chest pain but does endorse some mild shortness of breath. Patient has significant history of being admitted for a dog bite on the left leg in January which did have some gangrene component. He also thinks that he tore his ACL and has been having some mild decreased activity and is wearing a knee brace on the right knee. No fevers no cough no congestion, no history of ACS no stenting no cardiac catheterization or stress testing in the past. No history of long periods of stasis. Related Data Home Medications Medication Instructions Recorded Confirmed Bp Med PO DAILY NEB 10/07/18 Previous Rx's Medication Instructions Recorded aspirin 81 mg PO DAILY #30 tab 10/07/18 metoprolol tartrate 25 mg PO BID #60 tab 10/07/18 Allergies Allergy/AdvReac Type Severity Reaction Status Date / Time No Known Allergies Allergy Verified 10/07/18 09:29 Review of Systems ROS: all other systems reviewed are [facility] Social History Social History Substance History: No History of Abuse Second Hand Smoke Exposure: No Smoking Status: Never smoker How Often Do You Have a Drink Containing Alcohol: Never Recent Travel in [facility] within the Last 8 Weeks: No Recent Out of Country Travel within the Last 8 Weeks: No Immunization History Tetanus Immunization: <5 Years Course Initial Documented Vital Signs Temperature 97.8 F 10/07/18 09:20 Pulse Rate 122 H 10/07/18 09:20 Respiratory Rate 24 10/07/18 09:20 Blood Pressure 142/83 H 10/07/18 09:20 Pulse Oximetry 100 10/07/18 09:20 Last Documented Vital Signs Temperature 98 F 10/11/18 16:00 Pulse Rate 60 10/11/18 16:00 Respiratory Rate 20 10/11/18 16:00 Blood Pressure 115/70 10/11/18 16:00 Pulse Oximetry 96 10/11/18 16:00 Medical Decision Making MDM Narrative Medical decision making narrative: Differential diagnosis includes sick sinus syndrome, tachydysrhythmia, tachybradycardia syndrome, SVT, atrial fibrillation , atrial flutter. What his chest patient continues to have tachycardic episodes some sinus tach with clear P waves at the rate of about 120 and then has rates much higher in the high 150s with no obvious P wave was still narrow complex. Patient remains a symptomatic during these episodes. Initial workup including CT PE protocol, DVT extremity studies of both lower extremities negative, troponin negative, elect lites within normal limits. Added a dose of Cardizem, TSH. Discussed the patient with [facility] for further cardiac workup as an inpatient. Medical Screen Exam Complete: Yes Emergency Medical Condition: Yes Lab Data Result diagrams: 10/07/18 09:40 10/11/18 08:45 Lab Results 10/07/18 10/07/18 10/07/18 Range/Units 09:40 09:40 09:40 WBC 9.3 (4.0-11.0) th/mm3 RBC 5.05 (4.50-5.90) mil/mm3 Hgb 16.9 (13.0-17.0) gm/dL Hct 47.7 (39.0-51.0) % MCV 94.4 (80.0-100.0) fL MCH 33.4 (27.0-34.0) pg MCHC 35.4 (32.0-36.0) % RDW 14.5 (11.6-17.2) % Plt Count 195 (150-450) th/mm3 MPV 9.6 (7.0-11.0) fL Neut % (Auto) 77.3 H (16.0-70.0) % Lymph % (Auto) 11.8 (9.0-44.0) % [place] % (Auto) 8.2 H (0.0-8.0) % Eos % (Auto) 1.7 (0.0-4.0) % Baso % (Auto) 1.0 (0.0-2.0) % Neut # (Auto) 7.2 (1.8-7.7) th/mm3 Lymph # (Auto) 1.1 (1.0-4.8) th/mm3 [place] # (Auto) 0.8 (0.0-0.9) th/mm3 Eos # (Auto) 0.2 (0.0-0.4) th/mm3 Baso # (Auto) 0.1 (0.0-0.2) th/mm3 WBC Differential . Differential Comment Auto diff final ESR (0-20) mm/hr PT 10.0 (9.8-11.6) sec INR 1.0 Ratio APTT 29.9 (23.4-31.7) sec D-Dimer Quant (PE/DVT) 4.92 H (0.00-0.50) mg/L FEU Sodium 140 (136-145) meq/L Potassium 3.5 (3.5-5.1) meq/L Chloride 101 (98-107) meq/L Carbon Dioxide 31.7 (21.0-32.0) meq/L Anion Gap 7 (5-15) meq/L BUN 25 H (7-18) mg/dL Creatinine 1.71 H (0.60-1.30) mg/dL Estimated GFR 41 L (>89) mL/min Random Glucose 93 (74-106) mg/dL Uric Acid (2.6-7.2) mg/dl Calcium 9.2 (8.5-10.1) mg/dL Total Bilirubin 1.0 (0.2-1.0) mg/dL AST 18 (15-37) U/L ALT 22 (12-78) U/L Alkaline Phosphatase 80 (45-117) U/L Total Creatine Kinase (39-308) U/L Troponin I Less than 0.02 L (0.02-0.05) ng/mL C-Reactive Protein (0.00-0.30) mg/dL Total Protein 8.6 H (6.4-8.2) g/dL Albumin 4.1 (3.4-5.0) g/dL Triglycerides (42-150) mg/dL Cholesterol (120-200) mg/dL LDL Cholesterol, Calc (0-99) mg/dL HDL Cholesterol (40.0-60.0) mg/dL Cholesterol/HDL Ratio Ratio TSH (0.358-3.740) uIU/mL Urine Color (Yellw/Straw) Urine Clarity (Clear) Urine pH (5.0-8.5) Ur Specific [place] (1.002-1.035) Urine Protein (Neg-Trace) mg/dL Urine Glucose (UA) (Negative) mg/dL Urine Ketones (Negative) mg/dL Urine Occult Blood (Negative) Urine Nitrate (Negative) Urine Bilirubin (Negative) Urine Urobilinogen (Less than 2) mg/dL Ur Leukocyte Esterase (Negative) Urine RBC (0-3) /hpf Urine WBC (0-5) /hpf Urine Mucus (Occasional) /lpf Micro UA Comment Ur Microscopic Review Urine Culture Comments Synovial Color (Straw) Synovial Appearance (Clear) Synovial RBC (0-0) /mm3 Synovial Nuc Cells (0-200) /mm3 Synovial Neutrophils (0-25) % Synovial Lymphocytes % Synovial Crystals (None) Synovial Glucose mg/dL Synovial Total Protein (1.0-3.0) g/dL Urine Opiates Screen (Neg) Ur Barbiturates Screen (Neg) Ur Amphetamines Screen (Neg) U Benzodiazepines Scrn (Neg) Urine Cocaine Screen (Neg) U Cannabinoids Screen (Neg) Rheumatoid Factor Scrn (Negative) Rheumatoid Factor Titer (0.0-14.9) IU/mL CHARLES Screen (Neg) 10/07/18 10/07/18 10/07/18 Range/Units 09:40 09:40 21:53 WBC (4.0-11.0) th/mm3 RBC (4.50-5.90) mil/mm3 Hgb (13.0-17.0) gm/dL Hct (39.0-51.0) % MCV (80.0-100.0) fL MCH (27.0-34.0) pg MCHC (32.0-36.0) % RDW (11.6-17.2) % Plt Count (150-450) th/mm3 MPV (7.0-11.0) fL Neut % (Auto) (16.0-70.0) % Lymph % (Auto) (9.0-44.0) % [place] % (Auto) (0.0-8.0) % Eos % (Auto) (0.0-4.0) % Baso % (Auto) (0.0-2.0) % Neut # (Auto) (1.8-7.7) th/mm3 Lymph # (Auto) (1.0-4.8) th/mm3 [place] # (Auto) (0.0-0.9) th/mm3 Eos # (Auto) (0.0-0.4) th/mm3 Baso # (Auto) (0.0-0.2) th/mm3 WBC Differential Differential Comment ESR (0-20) mm/hr PT (9.8-11.6) sec INR Ratio APTT (23.4-31.7) sec D-Dimer Quant (PE/DVT) (0.00-0.50) mg/L FEU Sodium (136-145) meq/L Potassium (3.5-5.1) meq/L Chloride (98-107) meq/L Carbon Dioxide (21.0-32.0) meq/L Anion Gap (5-15) meq/L BUN (7-18) mg/dL Creatinine (0.60-1.30) mg/dL Estimated GFR (>89) mL/min Random Glucose (74-106) mg/dL Uric Acid (2.6-7.2) mg/dl Calcium (8.5-10.1) mg/dL Total Bilirubin (0.2-1.0) mg/dL AST (15-37) U/L ALT (12-78) U/L Alkaline Phosphatase (45-117) U/L Total Creatine Kinase 46 (39-308) U/L Troponin I (0.02-0.05) ng/mL C-Reactive Protein (0.00-0.30) mg/dL Total Protein (6.4-8.2) g/dL Albumin (3.4-5.0) g/dL Triglycerides (42-150) mg/dL Cholesterol (120-200) mg/dL LDL Cholesterol, Calc (0-99) mg/dL HDL Cholesterol (40.0-60.0) mg/dL Cholesterol/HDL Ratio Ratio TSH 0.986 (0.358-3.740) uIU/mL Urine Color (Yellw/Straw) Urine Clarity (Clear) Urine pH (5.0-8.5) Ur Specific [place] (1.002-1.035) Urine Protein (Neg-Trace) mg/dL Urine Glucose (UA) (Negative) mg/dL Urine Ketones (Negative) mg/dL Urine Occult Blood (Negative) Urine Nitrate (Negative) Urine Bilirubin (Negative) Urine Urobilinogen (Less than 2) mg/dL Ur Leukocyte Esterase (Negative) Urine RBC (0-3) /hpf Urine WBC (0-5) /hpf Urine Mucus (Occasional) /lpf Micro UA Comment Ur Microscopic Review Urine Culture Comments Synovial Color (Straw) Synovial Appearance (Clear) Synovial RBC (0-0) /mm3 Synovial Nuc Cells (0-200) /mm3 Synovial Neutrophils (0-25) % Synovial Lymphocytes % Synovial Crystals (None) Synovial Glucose mg/dL Synovial Total Protein (1.0-3.0) g/dL Urine Opiates Screen Neg (Neg) Ur Barbiturates Screen Neg (Neg) Ur Amphetamines Screen Neg (Neg) U Benzodiazepines Scrn Neg (Neg) Urine Cocaine Screen Neg (Neg) U Cannabinoids Screen Neg (Neg) Rheumatoid Factor Scrn (Negative) Rheumatoid Factor Titer (0.0-14.9) IU/mL CHARLES Screen (Neg) 10/07/18 10/08/18 10/08/18 Range/Units 21:53 10:47 10:47 WBC (4.0-11.0) th/mm3 RBC (4.50-5.90) mil/mm3 Hgb (13.0-17.0) gm/dL Hct (39.0-51.0) % MCV (80.0-100.0) fL MCH (27.0-34.0) pg MCHC (32.0-36.0) % RDW (11.6-17.2) % Plt Count (150-450) th/mm3 MPV (7.0-11.0) fL Neut % (Auto) (16.0-70.0) % Lymph % (Auto) (9.0-44.0) % [place] % (Auto) (0.0-8.0) % Eos % (Auto) (0.0-4.0) % Baso % (Auto) (0.0-2.0) % Neut # (Auto) (1.8-7.7) th/mm3 Lymph # (Auto) (1.0-4.8) th/mm3 [place] # (Auto) (0.0-0.9) th/mm3 Eos # (Auto) (0.0-0.4) th/mm3 Baso # (Auto) (0.0-0.2) th/mm3 WBC Differential Differential Comment ESR 10 (0-20) mm/hr PT (9.8-11.6) sec INR Ratio APTT (23.4-31.7) sec D-Dimer Quant (PE/DVT) (0.00-0.50) mg/L FEU Sodium 139 (136-145) meq/L Potassium 3.6 (3.5-5.1) meq/L Chloride 101 (98-107) meq/L Carbon Dioxide 30.7 (21.0-32.0) meq/L Anion Gap 7 (5-15) meq/L BUN 18 (7-18) mg/dL Creatinine 1.29 (0.60-1.30) mg/dL Estimated GFR 57 L (>89) mL/min Random Glucose 105 (74-106) mg/dL Uric Acid (2.6-7.2) mg/dl Calcium 8.6 (8.5-10.1) mg/dL Total Bilirubin (0.2-1.0) mg/dL AST (15-37) U/L ALT (12-78) U/L Alkaline Phosphatase (45-117) U/L Total Creatine Kinase (39-308) U/L Troponin I (0.02-0.05) ng/mL C-Reactive Protein (0.00-0.30) mg/dL Total Protein (6.4-8.2) g/dL Albumin (3.4-5.0) g/dL Triglycerides 78 (42-150) mg/dL Cholesterol 125 (120-200) mg/dL LDL Cholesterol, Calc 62 (0-99) mg/dL HDL Cholesterol 47.4 (40.0-60.0) mg/dL Cholesterol/HDL Ratio 2.63 Ratio TSH (0.358-3.740) uIU/mL Urine Color Yellow (Yellw/Straw) Urine Clarity Clear (Clear) Urine pH 6.0 (5.0-8.5) Ur Specific [place] 1.042 H (1.002-1.035) Urine Protein Negative (Neg-Trace) mg/dL Urine Glucose (UA) Negative (Negative) mg/dL Urine Ketones Negative (Negative) mg/dL Urine Occult Blood Negative (Negative) Urine Nitrate Negative (Negative) Urine Bilirubin Negative (Negative) Urine Urobilinogen 2.0 H (Less than 2) mg/dL Ur Leukocyte Esterase Negative (Negative) Urine RBC 2 (0-3) /hpf Urine WBC 1 (0-5) /hpf Urine Mucus Few H (Occasional) /lpf Micro UA Comment Culture not ind Ur Microscopic Review Not Reportable Urine Culture Comments Culture not ind Synovial Color (Straw) Synovial Appearance (Clear) Synovial RBC (0-0) /mm3 Synovial Nuc Cells (0-200) /mm3 Synovial Neutrophils (0-25) % Synovial Lymphocytes % Synovial Crystals (None) Synovial Glucose mg/dL Synovial Total Protein (1.0-3.0) g/dL Urine Opiates Screen (Neg) Ur Barbiturates Screen (Neg) Ur Amphetamines Screen (Neg) U Benzodiazepines Scrn (Neg) Urine Cocaine Screen (Neg) U Cannabinoids Screen (Neg) Rheumatoid Factor Scrn (Negative) Rheumatoid Factor Titer (0.0-14.9) IU/mL CHARLES Screen (Neg) 10/08/18 10/08/18 10/08/18 Range/Units 10:47 10:47 10:47 WBC (4.0-11.0) th/mm3 RBC (4.50-5.90) mil/mm3 Hgb (13.0-17.0) gm/dL Hct (39.0-51.0) % MCV (80.0-100.0) fL MCH (27.0-34.0) pg MCHC (32.0-36.0) % RDW (11.6-17.2) % Plt Count (150-450) th/mm3 MPV (7.0-11.0) fL Neut % (Auto) (16.0-70.0) % Lymph % (Auto) (9.0-44.0) % [place] % (Auto) (0.0-8.0) % Eos % (Auto) (0.0-4.0) % Baso % (Auto) (0.0-2.0) % Neut # (Auto) (1.8-7.7) th/mm3 Lymph # (Auto) (1.0-4.8) th/mm3 [place] # (Auto) (0.0-0.9) th/mm3 Eos # (Auto) (0.0-0.4) th/mm3 Baso # (Auto) (0.0-0.2) th/mm3 WBC Differential Differential Comment ESR (0-20) mm/hr PT (9.8-11.6) sec INR Ratio APTT (23.4-31.7) sec D-Dimer Quant (PE/DVT) (0.00-0.50) mg/L FEU Sodium (136-145) meq/L Potassium (3.5-5.1) meq/L Chloride (98-107) meq/L Carbon Dioxide (21.0-32.0) meq/L Anion Gap (5-15) meq/L BUN (7-18) mg/dL Creatinine (0.60-1.30) mg/dL Estimated GFR (>89) mL/min Random Glucose (74-106) mg/dL Uric Acid (2.6-7.2) mg/dl Calcium (8.5-10.1) mg/dL Total Bilirubin (0.2-1.0) mg/dL AST (15-37) U/L ALT (12-78) U/L Alkaline Phosphatase (45-117) U/L Total Creatine Kinase (39-308) U/L Troponin I Less than 0.02 L (0.02-0.05) ng/mL C-Reactive Protein 5.39 H (0.00-0.30) mg/dL Total Protein (6.4-8.2) g/dL Albumin (3.4-5.0) g/dL Triglycerides (42-150) mg/dL Cholesterol (120-200) mg/dL LDL Cholesterol, Calc (0-99) mg/dL HDL Cholesterol (40.0-60.0) mg/dL Cholesterol/HDL Ratio Ratio TSH (0.358-3.740) uIU/mL Urine Color (Yellw/Straw) Urine Clarity (Clear) Urine pH (5.0-8.5) Ur Specific [place] (1.002-1.035) Urine Protein (Neg-Trace) mg/dL Urine Glucose (UA) (Negative) mg/dL Urine Ketones (Negative) mg/dL Urine Occult Blood (Negative) Urine Nitrate (Negative) Urine Bilirubin (Negative) Urine Urobilinogen (Less than 2) mg/dL Ur Leukocyte Esterase (Negative) Urine RBC (0-3) /hpf Urine WBC (0-5) /hpf Urine Mucus (Occasional) /lpf Micro UA Comment Ur Microscopic Review Urine Culture Comments Synovial Color (Straw) Synovial Appearance (Clear) Synovial RBC (0-0) /mm3 Synovial Nuc Cells (0-200) /mm3 Synovial Neutrophils (0-25) % Synovial Lymphocytes % Synovial Crystals (None) Synovial Glucose mg/dL Synovial Total Protein (1.0-3.0) g/dL Urine Opiates Screen (Neg) Ur Barbiturates Screen (Neg) Ur Amphetamines Screen (Neg) U Benzodiazepines Scrn (Neg) Urine Cocaine Screen (Neg) U Cannabinoids Screen (Neg) Rheumatoid Factor Scrn Positive H (Negative) Rheumatoid Factor Titer 16.6 H (0.0-14.9) IU/mL CHARLES Screen Neg (Neg) 10/09/18 10/09/18 10/09/18 Range/Units 08:10 08:10 09:08 WBC (4.0-11.0) th/mm3 RBC (4.50-5.90) mil/mm3 Hgb (13.0-17.0) gm/dL Hct (39.0-51.0) % MCV (80.0-100.0) fL MCH (27.0-34.0) pg MCHC (32.0-36.0) % RDW (11.6-17.2) % Plt Count (150-450) th/mm3 MPV (7.0-11.0) fL Neut % (Auto) (16.0-70.0) % Lymph % (Auto) (9.0-44.0) % [place] % (Auto) (0.0-8.0) % Eos % (Auto) (0.0-4.0) % Baso % (Auto) (0.0-2.0) % Neut # (Auto) (1.8-7.7) th/mm3 Lymph # (Auto) (1.0-4.8) th/mm3 [place] # (Auto) (0.0-0.9) th/mm3 Eos # (Auto) (0.0-0.4) th/mm3 Baso # (Auto) (0.0-0.2) th/mm3 WBC Differential Differential Comment ESR (0-20) mm/hr PT (9.8-11.6) sec INR Ratio APTT (23.4-31.7) sec D-Dimer Quant (PE/DVT) (0.00-0.50) mg/L FEU Sodium 137 (136-145) meq/L Potassium 3.5 (3.5-5.1) meq/L Chloride 99 (98-107) meq/L Carbon Dioxide 31.6 (21.0-32.0) meq/L Anion Gap 6 (5-15) meq/L BUN 15 (7-18) mg/dL Creatinine 1.43 H (0.60-1.30) mg/dL Estimated GFR 50 L (>89) mL/min Random Glucose 97 (74-106) mg/dL Uric Acid 9.5 H (2.6-7.2) mg/dl Calcium 8.2 L (8.5-10.1) mg/dL Total Bilirubin (0.2-1.0) mg/dL AST (15-37) U/L ALT (12-78) U/L Alkaline Phosphatase (45-117) U/L Total Creatine Kinase (39-308) U/L Troponin I (0.02-0.05) ng/mL C-Reactive Protein (0.00-0.30) mg/dL Total Protein (6.4-8.2) g/dL Albumin (3.4-5.0) g/dL Triglycerides (42-150) mg/dL Cholesterol (120-200) mg/dL LDL Cholesterol, Calc (0-99) mg/dL HDL Cholesterol (40.0-60.0) mg/dL Cholesterol/HDL Ratio Ratio TSH (0.358-3.740) uIU/mL Urine Color (Yellw/Straw) Urine Clarity (Clear) Urine pH (5.0-8.5) Ur Specific [place] (1.002-1.035) Urine Protein (Neg-Trace) mg/dL Urine Glucose (UA) (Negative) mg/dL Urine Ketones (Negative) mg/dL Urine Occult Blood (Negative) Urine Nitrate (Negative) Urine Bilirubin (Negative) Urine Urobilinogen (Less than 2) mg/dL Ur Leukocyte Esterase (Negative) Urine RBC (0-3) /hpf Urine WBC (0-5) /hpf Urine Mucus (Occasional) /lpf Micro UA Comment Ur Microscopic Review Urine Culture Comments Synovial Color Straw (Straw) Synovial Appearance Moderate H (Clear) Synovial RBC 500 H (0-0) /mm3 Synovial Nuc Cells 21649 H (0-200) /mm3 Synovial Neutrophils 99 H (0-25) % Synovial Lymphocytes 1 % Synovial Crystals (None) Synovial Glucose mg/dL Synovial Total Protein (1.0-3.0) g/dL Urine Opiates Screen (Neg) Ur Barbiturates Screen (Neg) Ur Amphetamines Screen (Neg) U Benzodiazepines Scrn (Neg) Urine Cocaine Screen (Neg) U Cannabinoids Screen (Neg) Rheumatoid Factor Scrn (Negative) Rheumatoid Factor Titer (0.0-14.9) IU/mL CHARLES Screen (Neg) 10/09/18 10/09/18 10/09/18 Range/Units 09:08 09:08 09:08 WBC (4.0-11.0) th/mm3 RBC (4.50-5.90) mil/mm3 Hgb (13.0-17.0) gm/dL Hct (39.0-51.0) % MCV (80.0-100.0) fL MCH (27.0-34.0) pg MCHC (32.0-36.0) % RDW (11.6-17.2) % Plt Count (150-450) th/mm3 MPV (7.0-11.0) fL Neut % (Auto) (16.0-70.0) % Lymph % (Auto) (9.0-44.0) % [place] % (Auto) (0.0-8.0) % Eos % (Auto) (0.0-4.0) % Baso % (Auto) (0.0-2.0) % Neut # (Auto) (1.8-7.7) th/mm3 Lymph # (Auto) (1.0-4.8) th/mm3 [place] # (Auto) (0.0-0.9) th/mm3 Eos # (Auto) (0.0-0.4) th/mm3 Baso # (Auto) (0.0-0.2) th/mm3 WBC Differential Differential Comment ESR (0-20) mm/hr PT (9.8-11.6) sec INR Ratio APTT (23.4-31.7) sec D-Dimer Quant (PE/DVT) (0.00-0.50) mg/L FEU Sodium (136-145) meq/L Potassium (3.5-5.1) meq/L Chloride (98-107) meq/L Carbon Dioxide (21.0-32.0) meq/L Anion Gap (5-15) meq/L BUN (7-18) mg/dL Creatinine (0.60-1.30) mg/dL Estimated GFR (>89) mL/min Random Glucose (74-106) mg/dL Uric Acid (2.6-7.2) mg/dl Calcium (8.5-10.1) mg/dL Total Bilirubin (0.2-1.0) mg/dL AST (15-37) U/L ALT (12-78) U/L Alkaline Phosphatase (45-117) U/L Total Creatine Kinase (39-308) U/L Troponin I (0.02-0.05) ng/mL C-Reactive Protein (0.00-0.30) mg/dL Total Protein (6.4-8.2) g/dL Albumin (3.4-5.0) g/dL Triglycerides (42-150) mg/dL Cholesterol (120-200) mg/dL LDL Cholesterol, Calc (0-99) mg/dL HDL Cholesterol (40.0-60.0) mg/dL Cholesterol/HDL Ratio Ratio TSH (0.358-3.740) uIU/mL Urine Color (Yellw/Straw) Urine Clarity (Clear) Urine pH (5.0-8.5) Ur Specific [place] (1.002-1.035) Urine Protein (Neg-Trace) mg/dL Urine Glucose (UA) (Negative) mg/dL Urine Ketones (Negative) mg/dL Urine Occult Blood (Negative) Urine Nitrate (Negative) Urine Bilirubin (Negative) Urine Urobilinogen (Less than 2) mg/dL Ur Leukocyte Esterase (Negative) Urine RBC (0-3) /hpf Urine WBC (0-5) /hpf Urine Mucus (Occasional) /lpf Micro UA Comment Ur Microscopic Review Urine Culture Comments Synovial Color (Straw) Synovial Appearance (Clear) Synovial RBC (0-0) /mm3 Synovial Nuc Cells (0-200) /mm3 Synovial Neutrophils (0-25) % Synovial Lymphocytes % Synovial Crystals Pos-uric acid (None) Synovial Glucose 64 mg/dL Synovial Total Protein 4.0 H (1.0-3.0) g/dL Urine Opiates Screen (Neg) Ur Barbiturates Screen (Neg) Ur Amphetamines Screen (Neg) U Benzodiazepines Scrn (Neg) Urine Cocaine Screen (Neg) U Cannabinoids Screen (Neg) Rheumatoid Factor Scrn (Negative) Rheumatoid Factor Titer (0.0-14.9) IU/mL CHARLES Screen (Neg) 10/11/18 Range/Units 08:45 WBC (4.0-11.0) th/mm3 RBC (4.50-5.90) mil/mm3 Hgb (13.0-17.0) gm/dL Hct (39.0-51.0) % MCV (80.0-100.0) fL MCH (27.0-34.0) pg MCHC (32.0-36.0) % RDW (11.6-17.2) % Plt Count (150-450) th/mm3 MPV (7.0-11.0) fL Neut % (Auto) (16.0-70.0) % Lymph % (Auto) (9.0-44.0) % [place] % (Auto) (0.0-8.0) % Eos % (Auto) (0.0-4.0) % Baso % (Auto) (0.0-2.0) % Neut # (Auto) (1.8-7.7) th/mm3 Lymph # (Auto) (1.0-4.8) th/mm3 [place] # (Auto) (0.0-0.9) th/mm3 Eos # (Auto) (0.0-0.4) th/mm3 Baso # (Auto) (0.0-0.2) th/mm3 WBC Differential Differential Comment ESR (0-20) mm/hr PT (9.8-11.6) sec INR Ratio APTT (23.4-31.7) sec D-Dimer Quant (PE/DVT) (0.00-0.50) mg/L FEU Sodium 136 (136-145) meq/L Potassium 4.1 (3.5-5.1) meq/L Chloride 99 (98-107) meq/L Carbon Dioxide 29.7 (21.0-32.0) meq/L Anion Gap 7 (5-15) meq/L BUN 25 H (7-18) mg/dL Creatinine 1.40 H (0.60-1.30) mg/dL Estimated GFR 52 L (>89) mL/min Random Glucose 124 H (74-106) mg/dL Uric Acid (2.6-7.2) mg/dl Calcium 8.7 (8.5-10.1) mg/dL Total Bilirubin (0.2-1.0) mg/dL AST (15-37) U/L ALT (12-78) U/L Alkaline Phosphatase (45-117) U/L Total Creatine Kinase (39-308) U/L Troponin I (0.02-0.05) ng/mL C-Reactive Protein (0.00-0.30) mg/dL Total Protein (6.4-8.2) g/dL Albumin (3.4-5.0) g/dL Triglycerides (42-150) mg/dL Cholesterol (120-200) mg/dL LDL Cholesterol, Calc (0-99) mg/dL HDL Cholesterol (40.0-60.0) mg/dL Cholesterol/HDL Ratio Ratio TSH (0.358-3.740) uIU/mL Urine Color (Yellw/Straw) Urine Clarity (Clear) Urine pH (5.0-8.5) Ur Specific [place] (1.002-1.035) Urine Protein (Neg-Trace) mg/dL Urine Glucose (UA) (Negative) mg/dL Urine Ketones (Negative) mg/dL Urine Occult Blood (Negative) Urine Nitrate (Negative) Urine Bilirubin (Negative) Urine Urobilinogen (Less than 2) mg/dL Ur Leukocyte Esterase (Negative) Urine RBC (0-3) /hpf Urine WBC (0-5) /hpf Urine Mucus (Occasional) /lpf Micro UA Comment Ur Microscopic Review Urine Culture Comments Synovial Color (Straw) Synovial Appearance (Clear) Synovial RBC (0-0) /mm3 Synovial Nuc Cells (0-200) /mm3 Synovial Neutrophils (0-25) % Synovial Lymphocytes % Synovial Crystals (None) Synovial Glucose mg/dL Synovial Total Protein (1.0-3.0) g/dL Urine Opiates Screen (Neg) Ur Barbiturates Screen (Neg) Ur Amphetamines Screen (Neg) U Benzodiazepines Scrn (Neg) Urine Cocaine Screen (Neg) U Cannabinoids Screen (Neg) Rheumatoid Factor Scrn (Negative) Rheumatoid Factor Titer (0.0-14.9) IU/mL CHARLES Screen (Neg) Imaging Data Radiologist's impression: Head CT 10/07/18 00:00 CONCLUSION: 1. No acute intracranial abnormality. 2. 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 . Knee X-Ray 10/07/18 00:00 CONCLUSION: 1. The osseous structures of the knee are grossly intact. 2. Possible knee effusion. Chest X-Ray 10/07/18 09:47 CONCLUSION: Minimal parental changes right base, nonspecific No overt congestive failure Chest CTA 10/07/18 10:28 CONCLUSION: 1. This study is negative for pulmonary embolism. 2. Tiny bilateral lung nodules which can be followed Venous Doppler Study 10/07/18 10:28 CONCLUSION: Negative for deep venous thrombosis. Jesse Casey MD FACR Myocardial Perfusion Scan Nuc Med 10/08/18 00:00 CONCLUSION: 1. No reversible perfusion defects. 2. Severe global hypokinesis with ejection fraction of 21%. Aspiration 10/09/18 00:00 CONCLUSION: 1. Uncomplicated left knee aspiration as above. Discharge Plan Discharge Disposition Patient Disposition: 30 Still Patient Discharge Condition Condition: Stable Discharge Details Diagnosis: Arrhythmia Physicians Team ED Provider: William Dhillon Primary Care Provider: [facility],Physician 's Attending Provider: Bg Mcacbe Other Providers: Gino Garcia ; Nicole Galicia Hanscy Status ED Status: Left Department Discharge Information Discharge Date/Time: 10/07/18 15:34
--- NOTE | 2018-10-07 10:43 | XR ---
EXAM DATE: 10/07/2018 10:37 AM EST AGE/SEX: 62 years / Male INDICATIONS: Chest discomfort, with pressure and left arm numbness. Irregular heart beat. CLINICAL DATA: This is the patient's initial encounter. Patient reports that signs and symptoms have been present for 1 day and indicates a pain score of 5/10. MEDICAL/SURGICAL HISTORY: None. None. COMPARISON: No prior exams available for comparison. FINDINGS: Minimal parenchymal changes right base. Left lung clear The heart and pulmonary vascularity are normal. The portion of the bony skeleton visualized is unremarkable. CONCLUSION: Minimal parental changes right base, nonspecific No overt congestive failure Electronically signed by: Jesse Casey MD 10/07/2018 10:41 AM EST
--- NOTE | 2018-10-07 11:32 | ECG ---
Date Performed: 10/07/2018 Time Performed: 09:27:04 PTAGE: 62 years EKG: SINUS TACHYCARDIA LEFT VENTRICULAR HYPERTROPHY AND ST-T CHANGE ABNORMAL ECG NO PREVIOUS TRACING DOCTOR: Leonardo Luna Interpretating Date/Time 10/07/2018 11:31:23
--- NOTE | 2018-10-07 11:47 | US ---
EXAM DATE: 10/07/2018 11:43 AM EST AGE/SEX: 62 years / Male INDICATIONS: Leg pain. CLINICAL DATA: This is the patient's initial encounter. Patient reports that signs and symptoms have been present for 3 months and indicates a pain score of 5/10. MEDICAL/SURGICAL HISTORY: Hypertension. None. [place]PAR[place] [facility] [place]19/[place]. . TECHNIQUE: Venous ultrasound of both lower extremities was performed from the inguinal ligament to t he proximal calf. Real-time, color Doppler and spectral tracing, compression and augmentation techni ques were used. FINDINGS: Right Leg: Normal compression of the deep venous system from the inguinal region to the proximal jonathan f. No echogenic clot is seen. Normal response of the venous system to augmentation and respiration. Left Leg: Normal compression of the deep venous system from the inguinal region to the proximal calf . No echogenic clot is seen. Normal response of the venous system to augmentation and respiration. Other: None. CONCLUSION: Negative for deep venous thrombosis. Jesse Casey MD FACR Electronically signed by: Jesse Casey MD 10/07/2018 11:45 AM EST
--- NOTE | 2018-10-07 12:04 | CT ---
EXAM DATE: 10/07/2018 11:21 AM EST AGE/SEX: 62 years / Male INDICATIONS: Shortness of breath and chest pain. CLINICAL DATA: This is the patient's initial encounter. Patient reports that signs and symptoms have been present for 1 day and indicates a pain score of 4/10. MEDICAL/SURGICAL HISTORY: Hypertension. None. RADIATION DOSE: 23.18 CTDI (mGy) COMPARISON: No prior exams available for comparison. TECHNIQUE: Volumetric scanning was performed using a multi-row detector CT scanner during bolus infu laurie of 72 ml Visipaque 320 (iodixanol) nonionic water-soluble contrast as a single exam dose. The d gwyn was post processed with a variety of visualization algorithms including full volume maximum inten sity projection and sliding thin slab reformation. Using automated exposure control and adjustment o f the mA and/or kV according to patient size, radiation dose was kept as low as reasonably achievable to obtain optimal diagnostic quality images. DICOM format image data is available electronically fo r review and comparison. FINDINGS: Pulmonary Arteries: No filling defects are seen in the pulmonary arteries out to the subsegmental ve ssels. The left and right pulmonary arteries are normal in diameter. Lung: There are several tiny bilateral parenchymal lung nodules bilaterally, largest about 7 mm in s ize (see images 60, 66, 67, 71, 86). No evidence of consolidative infiltrate. Effusion: None. Mediastinum: No evidence of mediastinal or hilar adenopathy. Other: The axilla is unremarkable. CONCLUSION: 1. This study is negative for pulmonary embolism. 2. Tiny bilateral lung nodules which can be followed Electronically signed by: Christian Ochoa MD 10/07/2018 12:03 PM EST
[2018-10-07] MEDS ORDERED: Aspirin 325 MG Tablet PO ONE (12:35)
[2018-10-07] MEDS: Sod Chloride 0.9% Inj 1,000 ML IV.CONT SCH (13:06)
--- NOTE | 2018-10-07 16:31 | P.HP ---
History of Present Illness Service: [facility] hospitalist service Primary Care Physician: [facility] Chief Complaint: Palpitations, dizziness History of Present Illness: Patient is a 62-year-old male with known history of hypertension who takes half a pill a day for blood pressure and patient totally does not know what the name of the medication is. He is followed by [place] [facility] and [place] [facility] [place] [facility] [place] [facility] when his PCP during triage his blood heart rate was noted to be elevated. Patient was sent here and for further evaluation. In retrospect patient states that he has been complaining of palpitations on and off with according couple of times a day unrelated to changes in position exertion. Associated with some tingling numbness of the left arm. Episodes would last for few minutes to longer at the time. Does not really complains of any chest pain. Patient states some increasing shortness of breath lately. And leg swelling at the end of the day. Denies any orthopnea. Occasionally patient states that he would feel some numbness of the left arm associated with this lasting for a few minutes. A And this is been going on for about a month now. Patient also states that last week at one time same episode and got dizzy and almost fell- lke a near syncopal episode. Symptoms relieved by rest States he drinks coffee just a couple day. At the ER -admitting EKG shows sinus rhtyhm with occasional PVCs. no acute STTW changes . On telemetry, able to catch him in goes into a burst narrow complex tachycardia rate of about 150 per minute. A CTA was done which was negative for pulmonary embolism Bilateral Doppler of both lower extremities was negative for DVT also complains of left knee pain that started last evening - pain with movement as Stated history of hypertension for which he takes half a pill a day of an unknown medication once a day. He was admitted here in the past December 2017 secondary to a dog bite involving his left lower extremity that required I&D and IV antibiotics and plastic surgery. Inpatient Certification: I certify that the inpatient services were ordered in accordance with Medicare regulations governing the order. This includes certification that hospital inpatient services are reasonable and necessary and in the case of services not specified as inpatient-only under 42 CFR 419.22(n), that they are appropriately provided as inpatient services in accordance to with the 2-midnight benchmark under 43 CFR 412.3(e) Estimated Total Length of Stay (Days): 2 Plans for Post Hospital Care: Not yet determined Review of Systems Denies any fever No headaches no nausea no vomiting Denies any melena or hematochezia No urinary symptoms No bleeding tendencies As stated patient states some on and off leg swelling at the end of the day PMFSH - History History Provided By: Patient - Medical History Medical History: Medical History (Last Reviewed 10/08/18 @ 08:00 by Hailee Strong) Hypertension - Tobacco History Smoking Status: Never smoker - Alcohol History How Often Do You Have a Drink Containing Alcohol: Never - Substance Use History Substance History: No History of Abuse - Travel History Recent Travel in the [place] Within the Last 8 Weeks: No Recent Travel Out of the Country Within the Last 8 Weeks: No - Immunization History Tetanus Immunization: <5 Years Medications and Allergies Active Medications: Active Medications Diltiazem HCl (Cardizem) 30 mg PO QID LIZA Sodium Chloride (Ns Inj) 1,000 mls @ 84 mls/hr IV.CONT .[id number] LIZA Last Admin: 10/07/18 13:06 Dose: 84 mls/hr Metoprolol Tartrate (Lopressor) 25 mg PO TID LIZA Sodium Chloride (Ns Flush) 2 ml IV.FLUSH UNSCH PRN PRN Reason: FLUSH AFTER USING IV ACCESS Last Admin: 10/07/18 12:58 Dose: 2 ml Allergies Allergy/AdvReac Type Severity Reaction Status Date / Time No Known Allergies Allergy Verified 10/07/18 09:29 Home Medications Medication Instructions Recorded Confirmed Type Bp Med PO DAILY NEB 10/07/18 History Exam Vital signs: Vital Signs 10/07/18 09:20 10/07/18 09:48 10/07/18 12:15 Temperature 97.8 F Pulse Rate 122 H 93 H Respiratory Rate 24 18 Blood Pressure 142/83 H 135/70 Pulse Oximetry 100 100 98 10/07/18 13:00 10/07/18 13:08 10/07/18 13:27 Temperature Pulse Rate 123 H 89 73 Respiratory Rate 22 14 Blood Pressure 174/101 H 152/80 H Pulse Oximetry 99 98 10/07/18 14:53 Temperature Pulse Rate Respiratory Rate Blood Pressure Pulse Oximetry 98 Intake & Output 10/06/18 10/07/18 10/07/18 18:59 06:59 18:59 Intake Total 1000 / 1000 Balance 1000 / 1000 Weight 117.934 kg Intake: IV 1000 / 1000 NS Inj 1,000 ML @ 1000 mls/hr 1000 / 1000 IV.SIG [facility] Rx#:[id number] Narrative: Awake alert oriented x3 not in any form of acute distress HEENT exam anicteric sclerae pink palpebral conjunctivae neck was supple no JVD no bruit chest lungs bilateral breath sounds equal no rales no wheezes Currently in regular rhythm no murmur Abdomen is flabby soft nontender with good bowel sounds left knee- with mild suprapatellar swelling r/o effusion no erythema both lower extremities mild trace pitting edema. Well-healed scar on the posterior aspect of the left calf. Good peripheral pulses Neuro exam ANO x3 Cranial nerves grossly intact extraocular muscle full range of motion pupils equally reactive to light tongue midline good gag reflex Grossly no sensory deficit Motor 5/5 in all extremities Results - Labs CBC & Chem 7: 10/07/18 09:40 10/08/18 10:47 Labs: Laboratory Results - last 24 hr 10/07/18 10/07/18 10/07/18 09:40 09:40 09:40 WBC 9.3 RBC 5.05 Hgb 16.9 Hct 47.7 MCV 94.4 MCH 33.4 MCHC 35.4 RDW 14.5 Plt Count 195 MPV 9.6 Neut % (Auto) 77.3 H Lymph % (Auto) 11.8 [place] % (Auto) 8.2 H Eos % (Auto) 1.7 Baso % (Auto) 1.0 Neut # (Auto) 7.2 Lymph # (Auto) 1.1 [place] # (Auto) 0.8 Eos # (Auto) 0.2 Baso # (Auto) 0.1 WBC Differential . Differential Comment Auto diff final PT 10.0 INR 1.0 APTT 29.9 D-Dimer Quant (PE/DVT) 4.92 H Sodium 140 Potassium 3.5 Chloride 101 Carbon Dioxide 31.7 Anion Gap 7 BUN 25 H Creatinine 1.71 H Estimated GFR 41 L Random Glucose 93 Calcium 9.2 Total Bilirubin 1.0 AST 18 ALT 22 Alkaline Phosphatase 80 Troponin I Less than 0.02 L Total Protein 8.6 H Albumin 4.1 TSH 10/07/18 09:40 WBC RBC Hgb Hct MCV MCH MCHC RDW Plt Count MPV Neut % (Auto) Lymph % (Auto) [place] % (Auto) Eos % (Auto) Baso % (Auto) Neut # (Auto) Lymph # (Auto) [place] # (Auto) Eos # (Auto) Baso # (Auto) WBC Differential Differential Comment PT INR APTT D-Dimer Quant (PE/DVT) Sodium Potassium Chloride Carbon Dioxide Anion Gap BUN Creatinine Estimated GFR Random Glucose Calcium Total Bilirubin AST ALT Alkaline Phosphatase Troponin I Total Protein Albumin TSH 0.986 - Imaging Impressions Chest X-Ray 10/07/18 09:47 CONCLUSION: Minimal parental changes right base, nonspecific No overt congestive failure Chest CTA 10/07/18 10:28 CONCLUSION: 1. This study is negative for pulmonary embolism. 2. Tiny bilateral lung nodules which can be followed Venous Doppler Study 10/07/18 10:28 CONCLUSION: Negative for deep venous thrombosis. Jesse Casey MD FACR [place] VTE Risk Assessment Caprini VTE Risk Assessment: No/Low Risk (score <= 1) Caprini Risk Assessment Model: Point Value = 1 Point Value = 2 Point Value = 3 Point Value = 5 Age 41-60 Minor surgery BMI > 25 kg/m2 Swollen legs Varicose veins or History of unexplained or recurrent spontaneous Oral contraceptives or hormone replacement Sepsis (< 1 month) Serious lung disease, including pneumonia (< 1 month) Abnormal pulmonary function Acute myocardial infarction Congestive heart failure (< 1 month) History of inflammatory bowel disease Medical patient at bed rest Age 61-74 Arthroscopic surgery Major open surgery (> 45 min) Laparoscopic surgery (> 45 min) Malignancy Confined to bed (> 72 hours) Immobilizing plaster cast Central venous access Age >= 75 History of VTE Family history of VTE Factor V Leiden Prothrombin [id number] Lupus anticoagulant Anticardiolipin antibodies Elevated serum homocysteine Heparin-induced thrombocytopenia Other congenital or acquired thrombophilia Stroke (< 1 month) Elective arthroplasty Hip, pelvis, or leg fracture Acute spinal cord injury (< 1 month) Prophylaxis Regimen: Total Risk Factor Score Risk Level Prophylaxis Regimen 0-1 Low Early ambulation 2 Moderate Order ONE of the following: *Sequential Compression Device (SCD) *Heparin 5000 units SQ BID 3-4 Higher Order ONE of the following medications: *Heparin 5000 units SQ TID *Enoxaparin/Lovenox 40 mg SQ daily (WT < 150 kg, CrCl > 30 mL/min) *Enoxaparin/Lovenox 30 mg SQ daily (WT < 150 kg, CrCl > 10-29 mL/min) *Enoxaparin/Lovenox 30 mg SQ BID (WT < 150 kg, CrCl > 30 mL/min) AND/OR *Sequential Compression Device (SCD) 5 or more Highest Order ONE of the following medications: *Heparin 5000 units SQ TID (Preferred with Epidurals) *Enoxaparin/Lovenox 40 mg SQ daily (WT < 150 kg, CrCl > 30 mL/min) *Enoxaparin/Lovenox 30 mg SQ daily (WT < 150 kg, CrCl > 10-29 mL/min) *Enoxaparin/Lovenox 30 mg SQ BID (WT < 150 kg, CrCl > 30 mL/min) AND *Sequential Compression Device (SCD) Assessment and Plan - Plan 62-year-old male with history of hypertension coming in with on and off palpitations for past week. And on telemetry was able to document runs of narrow complex tachycardia-of about 150/min. Paroxysmal SVT History of hypertension -Admit to telemetry. Troponin negative. -Request for 24-hour Holter monitoring - request for echo to check for EF - mild pitting edema on both legs -Cardiology consult requested will defer to them for further workup-? Need for ischemic workup. Troponin negative. -Twelve-lead EKG shows no acute ST-T wave changes -Start aspirin 325 mg p.o. daily for now. - start Cardizem 30 mg tid -Check a urine tox screen. -Lipid panel in a.m. - get a head CT at least- complains of numbness left side/arm. neuro checks Acute kidney injury- had recent IV contrast study - Start patient on gentle hydration of 40 cc an hour - recheck BMP in a.m. -patient received IV contrast for CTA -I suspect the blood pressure medication he was on was probably a diuretic. - Asked him to have family member bring in the medication. Left knee pain/swelling r/o effusion - Acute -some mild suprapatellar swelling no history of trauma - get an Xray - MRI if + - PT consult Heparin SQ for DVT prophylaxis
--- NOTE | 2018-10-07 16:45 | MB ---
cc: Gino Garcia DO DATE: 10/07/2018 REASON FOR CONSULTATION: Tachyarrhythmia. HISTORY OF PRESENT ILLNESS: Reginald Ceron and is a pleasant 62-year-old male who presented to [facility] at the recommendations of the [facility] due to elevated heart rates. The patient previously was placed on a blood pressure medication, but thought that he was only going to take it for the month that it was given to him as there were no refills. He thought he should check this out with the [facility] and so when he stopped there, he was talking to them about whether the blood pressure medication should be refilled or not and they decided to take his vitals. They felt like his heart rate was somewhat fast and so an EKG was done and apparently he had some PVCs and possibly some elevated heart rates and so he was sent over to the emergency room. While in the emergency room on telemetry, he occasionally has a PVC and he has a narrow complex regular tachycardia, which can be anywhere from 4-15 beats. He states that he has felt this recently and gets palpitations. During the palpitations, he does not seem to get short of breath or lightheaded. He also has had tingling down his left arm, but this has been constant over the past few months. He has also noticed similar type of effects on his left leg, but he blames that on a dog bite that he had in January. PAST MEDICAL HISTORY: Hypertension. PAST SURGICAL HISTORY: 1. Debridement of subcutaneous tissue of the left posterior calf due to a dog bite (01/11/2018). 2. Split-thickness skin graft of left posterior thigh to left posterior calf wound (01/19/2018). ALLERGIES: NO KNOWN DRUG ALLERGIES. MEDICATIONS: Unknown blood pressure medication. FAMILY HISTORY: Denies premature coronary artery disease or sudden cardiac within the family. SOCIAL HISTORY: The patient denies tobacco, alcohol or drug abuse. REVIEW OF SYSTEMS: Fourteen systems were reviewed including osteopathic. Pertinent positives and negatives above, otherwise negative. PHYSICAL EXAMINATION: VITAL SIGNS: Temperature 97.8, heart rate 89, blood pressure 152/80, respirations 14, pulse oximetry 98% on room air. GENERAL: The patient appears well, in no acute distress, alert, awake and oriented x 3. HEENT: Extraocular muscles intact. Mucous membranes moist. NECK: Supple. No JVD at 45 degrees. No carotid bruits heard bilaterally. Carotid upstroke is brisk in nature. HEART: Regular rate and rhythm. Positive first and second heart sounds with no noted murmurs, gallops or rubs. LUNGS: Clear to auscultation bilaterally. No wheezes, rales or rhonchi. ABDOMEN: Soft, nontender, nondistended. No organomegaly noted. EXTREMITIES: Show no clubbing, cyanosis or edema. Femoral and distal pulses intact bilaterally. NEUROLOGIC: No focal deficits. SKIN: Warm, dry and intact. OSTEOPATHIC: No kyphoscoliosis, lordosis or paraspinal tender points. LABORATORY DATA: Hemoglobin 16.9, hematocrit 47.7, platelets 195. Potassium 3.5, BUN 25, creatinine 1.71. Troponin less than 0.02. TSH 0.986. Electrocardiogram (10/07/2018 at 0927): Sinus tachycardia, LVH with secondary ST-T wave changes. IMPRESSION: 1. Palpitations. 2. Tachyarrhythmia, possibly paroxysmal atrial tachycardia. 3. Chronic tingling on his left arm and left leg, which may be due to possible pinched nerve. 4. Hypertension. RECOMMENDATIONS: 1. Mr. Ceron appears to have episodes of tachyarrhythmia, which appear regular with a long RP. This possibly could be paroxysmal atrial tachycardia. 2. He has been started on Cardizem 30 mg q.i.d., which I think is a reasonable option to control both his heart rate and blood pressure. If he is stable on this, he may be discharged on Cardizem CD 120 mg daily. 3. I will check a 2-D echo to look at his overall left ventricular function, cardiac structure and possible valvulopathies. 4. If he continues to have episodes, consideration may be necessary for possible EP study and ablation as necessary. 5. Further recommendations will be made based on the hospital course. Thank you for allowing me to see Reginald Ceron. If there are any questions, please do not hesitate to call. DO BIJAL GuajardoP/kayden , 04:13 PM , 04:28 PM
[2018-10-07] MEDS ORDERED: dilTIAZem 30 MG Tablet PO SCH ×2 (17:00→18:00)
--- NOTE | 2018-10-07 17:55 | ECHRPT ---
Indication: Atrial Fib and Flutter CONCLUSIONS The left ventricular systolic function is severely reduced with an estimated ejection fraction in th e range of 25-30%. Mild concentric left ventricular hypertrophy. Mildly dilated left ventricle. Trace mitral valve regurgitation. Trace aortic valve regurgitation. There is trace tricuspid valve regurgitation. BP: / HR: Rhythm: MEASUREMENTS (Male / Female) Normal Values Technical Quality:Fair 2D ECHO LV Diastolic Diameter PLAX 6.7 cm 4.2 - 5.9 / 3.9 - 5.3 cm LV Systolic Diameter PLAX 5.3 cm IVS Diastolic Thickness 1.2 cm 0.6 - 1.0 / 0.6 - 0.9 cm LVPW Diastolic Thickness 1.2 cm 0.6 - 1.0 / 0.6 - 0.9 cm LV Relative Wall Thickness 0.3 RV Internal Dim ED PLAX 2.7 cm LVOT Diameter 2.4 cm Aortic Root Diameter 3.1 cm LA Systolic Diameter LX 3.9 cm 3.0 - 4.0 / 2.7 - 3.8 cm DOPPLER AV Peak Velocity 136.0 cm/s AV Peak Gradient 7.4 mmHg AI Peak Velocity 375.0 cm/s AI Peak Gradient 56.3 mmHg AI Pressure Half Time 543.0 ms LVOT Peak Velocity 84.9 cm/s LVOT Peak Gradient 2.9 mmHg AV Area Cont Eq pk 2.8 cm Mitral E Point Velocity 72.6 cm/s Mitral A Point Velocity 58.2 cm/s Mitral E to A Ratio 1.2 LV E' Lateral Velocity 5.9 cm/s Mitral E to LV E' Lateral Ratio 12.2 LV E' Septal Velocity 7.2 cm/s Mitral E to LV E' Septal Ratio 10.1 TR Peak Velocity 187.0 cm/s TR Peak Gradient 14.0 mmHg Right Atrial Pressure 10.0 mmHg Pulmonary Artery Systolic Pressu 24.0 mmHg Right Ventricular Systolic Press 24.0 mmHg PV Peak Velocity 73.3 cm/s PV Peak Gradient 2.1 mmHg FINDINGS LEFT VENTRICLE Mildly dilated left ventricle. Mild concentric left ventricular hypertrophy. The left ventricular systolic function is severely reduced with an estimated ejection fraction in th e range of 25-30%. RIGHT VENTRICLE Normal right ventricular size and systolic function. LEFT ATRIUM The left atrial size is mildly dilated. RIGHT ATRIUM The right atrial size is normal. ATRIAL SEPTUM Normal atrial septal thickness AORTA The aortic root and proximal ascending aorta are normal in size on limited imaging. MITRAL VALVE Structurally normal mitral valve. Trace mitral valve regurgitation. No mitral valve stenosis. AORTIC VALVE Trileaflet aortic valve. Trace aortic valve regurgitation. No aortic valve stenosis. TRICUSPID VALVE Structurally normal tricuspid valve. There is trace tricuspid valve regurgitation. The estimated pulmonary arterial pressure is 24 mmHg. PULMONARY VALVE No pulmonary valve regurgitation or stenosis. VESSELS The inferior vena cava is normal in size. PERICARDIUM No pericardial effusion. Gino Garcia DO (Electronically Signed) Final Date:07 October 2018 17:55
[2018-10-07] MEDS ORDERED: Metoprolol Tartrate 25 MG Tablet PO SCH (18:00)
--- NOTE | 2018-10-07 19:21 | XR ---
EXAM DATE: 10/07/2018 6:37 PM EST AGE/SEX: 62 years / Male INDICATIONS: Left knee pain. No known injury. CLINICAL DATA: This is the patient's initial encounter. Patient reports that signs and symptoms have been present for 2 days and indicates a pain score of 7/10. MEDICAL/SURGICAL HISTORY: None. None. COMPARISON: [facility], TIBIA/FIBULA LEFT (AP/LAT), 01/10/2018. . FINDINGS: Bone density is normal. The osseous structures are in normal alignment. No fracture or periosteal yessi ction. There is some density seen in the suprapatellar region without distention, nonspecific in appe arance. There is some irregularity of the soft tissues of the medial calf without evidence of gas or radiopaque foreign body.. CONCLUSION: 1. The osseous structures of the knee are grossly intact. 2. Possible knee effusion. Electronically signed by: Fransisco Singh MD 10/07/2018 7:20 PM EST
--- NOTE | 2018-10-07 21:46 | CT ---
EXAM DATE: 10/07/2018 9:42 PM EST AGE/SEX: 62 years / Male INDICATIONS: Dizziness. CLINICAL DATA: This is the patient's initial encounter. Patient reports that signs and symptoms have been present for 1 day and indicates a pain score of 0/10. MEDICAL/SURGICAL HISTORY: Hypertension. None. RADIATION DOSE: 40.23 CTDI (mGy) COMPARISON: No prior exams available for comparison. TECHNIQUE: CT of the head without contrast. Using automated exposure control and adjustment of the mA and/or kV according to patient size, radiation dose was kept as low as reasonably achievable to ob tain optimal diagnostic quality images. DICOM format image data is available electronically for revi ew and comparison. FINDINGS: Cerebrum: The ventricles are normal for age. No evidence of midline shift, mass lesion, hemorrhage or acute infarction. No extraaxial fluid collections are seen. Posterior Fossa: The cerebellum and brainstem are intact. The 4th ventricle is midline. The cerebe llopontine angle is unremarkable. 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 Extracranial: The visualized portion of the orbits is intact. Skull: The calvaria is intact. No evidence of skull fracture. CONCLUSION: 1. No acute intracranial abnormality. 2. 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 . Electronically signed by: Trent Basurto MD 10/07/2018 9:44 PM EST
[2018-10-07] MEDS: Heparin - SQ 10,000 UNITS/ML Vial SQ SCH (21:48)
[2018-10-07] MEDS: Metoprolol Tartrate 25 MG Tablet PO SCH (21:50)
--- NOTE | 2018-10-07 22:30 | P.PN ---
Subjective Interval history: NOT SEEN Physical Exam Vital signs: Vital Signs 10/07/18 09:20 10/07/18 09:48 10/07/18 12:15 Temperature 97.8 F Pulse Rate 122 H 93 H Respiratory Rate 24 18 Blood Pressure 142/83 H 135/70 Pulse Oximetry 100 100 98 10/07/18 13:00 10/07/18 13:08 10/07/18 13:27 Temperature Pulse Rate 123 H 89 73 Respiratory Rate 22 14 Blood Pressure 174/101 H 152/80 H Pulse Oximetry 99 98 10/07/18 14:53 10/07/18 19:46 Temperature 98.8 F Pulse Rate 78 Respiratory Rate 17 Blood Pressure 119/77 Pulse Oximetry 98 98 Intake & Output 10/07/18 10/07/18 10/08/18 06:59 18:59 06:59 Intake Total 1000 / 1000 Balance 1000 / 1000 Weight 121.109 kg Intake: IV 1000 / 1000 NS Inj 1,000 ML @ 1000 mls/hr 1000 / 1000 IV.SIG BOLUS LIZA Rx#:[id number] Other: Date of Last Bowel Movement 10/07/18 Weight On Admission 121.109 kg Narrative: Awake alert oriented x3 not in any form of acute distress HEENT exam anicteric sclerae pink palpebral conjunctivae neck was supple no JVD no bruit chest lungs bilateral breath sounds equal no rales no wheezes Currently in regular rhythm no murmur Abdomen is flabby soft nontender with good bowel sounds left knee- with mild suprapatella swelling, no erythema both lower extremities mild trace pitting edema. Well-healed scar on the posterior aspect of the left calf. Good peripheral pulses Neuro exam ANO x3 Cranial nerves grossly intact extraocular muscle full range of motion pupils equally reactive to light tongue midline good gag reflex Grossly no sensory deficit Motor 5/5 in all extremities Results - Labs CBC & Chem 7: 10/07/18 09:40 10/07/18 09:40 Laboratory Results - last 24 hr 10/07/18 10/07/18 10/07/18 09:40 09:40 09:40 WBC 9.3 RBC 5.05 Hgb 16.9 Hct 47.7 MCV 94.4 MCH 33.4 MCHC 35.4 RDW 14.5 Plt Count 195 MPV 9.6 Neut % (Auto) 77.3 H Lymph % (Auto) 11.8 [place] % (Auto) 8.2 H Eos % (Auto) 1.7 Baso % (Auto) 1.0 Neut # (Auto) 7.2 Lymph # (Auto) 1.1 [place] # (Auto) 0.8 Eos # (Auto) 0.2 Baso # (Auto) 0.1 WBC Differential . Differential Comment Auto diff final PT 10.0 INR 1.0 APTT 29.9 D-Dimer Quant (PE/DVT) 4.92 H Sodium 140 Potassium 3.5 Chloride 101 Carbon Dioxide 31.7 Anion Gap 7 BUN 25 H Creatinine 1.71 H Estimated GFR 41 L Random Glucose 93 Calcium 9.2 Total Bilirubin 1.0 AST 18 ALT 22 Alkaline Phosphatase 80 Troponin I Less than 0.02 L Total Protein 8.6 H Albumin 4.1 TSH 10/07/18 09:40 WBC RBC Hgb Hct MCV MCH MCHC RDW Plt Count MPV Neut % (Auto) Lymph % (Auto) [place] % (Auto) Eos % (Auto) Baso % (Auto) Neut # (Auto) Lymph # (Auto) [place] # (Auto) Eos # (Auto) Baso # (Auto) WBC Differential Differential Comment PT INR APTT D-Dimer Quant (PE/DVT) Sodium Potassium Chloride Carbon Dioxide Anion Gap BUN Creatinine Estimated GFR Random Glucose Calcium Total Bilirubin AST ALT Alkaline Phosphatase Troponin I Total Protein Albumin TSH 0.986 - Imaging Impressions Head CT 10/07/18 00:00 CONCLUSION: 1. No acute intracranial abnormality. 2. 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 . Knee X-Ray 10/07/18 00:00 CONCLUSION: 1. The osseous structures of the knee are grossly intact. 2. Possible knee effusion. Chest X-Ray 10/07/18 09:47 CONCLUSION: Minimal parental changes right base, nonspecific No overt congestive failure Chest CTA 10/07/18 10:28 CONCLUSION: 1. This study is negative for pulmonary embolism. 2. Tiny bilateral lung nodules which can be followed Venous Doppler Study 10/07/18 10:28 CONCLUSION: Negative for deep venous thrombosis. Jesse Casey MD FACR - Procedures none Assessment and Plan - Plan 62-year-old male with history of hypertension coming in with on and off palpitations for past week. And on telemetry was able to document runs of narrow complex tachycardia-of about 150/min. Paroxysmal PAT History of hypertension CMP EF 25% -Admit to telemetry. Troponin negative. -Request for 24-hour Holter monitoring -Cardiology consult requested will defer to them for further workup- Need for ischemic workup Lexiscan ordered. Troponin negative. -Twelve-lead EKG shows no acute ST-T wave changes -Start aspirin 81 mg p.o. daily for now. -switch Cardizem to Lopressor -Check a urine tox screen. -Lipid panel in a.m. -head CT w/o acute changes Acute kidney injury - Start patient on gentle hydration of 40 cc an hour - recheck BMP in a.m. Check UA and CPK - patient received IV contrast for CTA - I suspect the blood pressure medication he was on was probably a diuretic. - Asked him to have family member bring in the medication. Left knee pain- Acute -some mild suprapatellar swelling no history of trauma - mild knee effusion consider MRI - PT consult Pulm nodules. O/p follow up Heparin SQ for DVT prophylaxis
[2018-10-07 22:38] LABS: Amphetamine Screen,Urine Neg (Neg); Barbiturate Screen,Urine Neg (Neg); Cannabinoid Screen,Urine Neg (Neg); Cocaine Screen,Urine Neg (Neg)
[2018-10-07 22:42] LABS: Opiate Screen,Urine Neg (Neg)
[2018-10-08 00:59] LABS: Bilirubin,Urine Negative (Negative); Clarity,Urine Clear (Clear); Color,Urine Yellow (Yellw/Straw); Glucose,Urine (UA) Negative (Negative); Leukocyte Esterase,Urine Negative (Negative); Mucus,Urine Few /lpf (Occasional); Nitrite,Urine Negative (Negative); Specific Gravity,Urine 1.042 (1.002-1.035)
[2018-10-08] MEDS: Sod Chloride 0.9% Inj 1,000 ML IV.CONT SCH (02:44)
[2018-10-08] MEDS ORDERED: Sodium Chloride 0.9% 2 ML Flush PRN IV.FLUSH (04:31)
[2018-10-08] MEDS: Metoprolol Tartrate 25 MG Tablet PO SCH ×2 (08:43→21:04)
[2018-10-08] MEDS: Heparin - SQ 10,000 UNITS/ML Vial SQ SCH ×2 (08:44→21:04)
[2018-10-08] MEDS: Sodium Chloride 0.9% 2 ML Flush BID IV.FLUSH SCH ×2 (08:44→21:06)
[2018-10-08] MEDS ORDERED: Naloxone Inj 0.4 MG/ML Vial IV.PUSH PRN (08:52)
[2018-10-08] MEDS ORDERED: Acetaminophen 325 MG Tablet PO PRN (08:52)
--- NOTE | 2018-10-08 10:10 | P.PN ---
Subjective Interval history: Follow-up PAT. Patient has no complaints except for left knee pain denies chest pain, palpitations shortness of breath. Telemetry shows sinus rhythm. Physical Exam Vital signs: Vital Signs 10/07/18 12:15 10/07/18 13:00 10/07/18 13:08 Temperature Pulse Rate 93 H 123 H 89 Respiratory Rate 18 22 14 Blood Pressure 135/70 174/101 H 152/80 H Pulse Oximetry 98 99 98 10/07/18 13:27 10/07/18 14:53 10/07/18 19:46 Temperature 98.8 F Pulse Rate 73 78 Respiratory Rate 17 Blood Pressure 119/77 Pulse Oximetry 98 98 10/08/18 00:00 10/08/18 03:22 10/08/18 07:03 Temperature 98.3 F 97.9 F 98.0 F Pulse Rate 71 79 80 Respiratory Rate 18 18 18 Blood Pressure 125/68 125/84 125/84 Pulse Oximetry 95 96 98 10/08/18 09:00 Temperature Pulse Rate 100 H Respiratory Rate Blood Pressure Pulse Oximetry Intake & Output 10/07/18 10/08/18 10/08/18 18:59 06:59 18:59 Intake Total 1000 / 1000 1000 / 1000 Balance 1000 / 1000 1000 / 1000 Weight 121.109 kg Intake: IV 1000 / 1000 1000 / 1000 NS Inj 1,000 ML @ 40 mls/hr IV. 1000 / 1000 CONT .Q24H LIZA Rx#:[id number] NS Inj 1,000 ML @ 1000 mls/hr 1000 / 1000 IV.SIG BOLUS LIZA Rx#:[id number] Other: Date of Last Bowel Movement 10/07/18 Weight On Admission 121.109 kg Narrative: Awake alert oriented x3 not in any form of acute distress CVS: Currently in regular rhythm no murmur Lungs: Clear to auscultation no crackles abdomen is flabby soft nontender with good bowel sounds left knee- with tender suprapatellar swelling no erythema with limited range of motion both lower extremities mild trace pitting edema. Well-healed scar on the posterior aspect of the left calf. Good peripheral pulses Neuro exam ANO x3 Cranial nerves grossly intact extraocular muscle full range of motion pupils equally reactive to light tongue midline good gag reflex Grossly no sensory deficit Motor 5/5 in all extremities Results - Labs CBC & Chem 7: 10/07/18 09:40 10/08/18 10:47 Laboratory Results - last 24 hr 10/07/18 10/07/18 10/07/18 09:40 09:40 09:40 PT 10.0 INR 1.0 APTT 29.9 D-Dimer Quant (PE/DVT) 4.92 H Sodium 140 Potassium 3.5 Chloride 101 Carbon Dioxide 31.7 Anion Gap 7 BUN 25 H Creatinine 1.71 H Estimated GFR 41 L Random Glucose 93 Calcium 9.2 Total Bilirubin 1.0 AST 18 ALT 22 Alkaline Phosphatase 80 Total Creatine Kinase Troponin I Less than 0.02 L Total Protein 8.6 H Albumin 4.1 TSH 0.986 Urine Color Urine Clarity Urine pH Ur Specific [place] Urine Protein Urine Glucose (UA) Urine Ketones Urine Occult Blood Urine Nitrate Urine Bilirubin Urine Urobilinogen Ur Leukocyte Esterase Urine RBC Urine WBC Urine Mucus Micro UA Comment Ur Microscopic Review Urine Culture Comments Urine Opiates Screen Ur Barbiturates Screen Ur Amphetamines Screen U Benzodiazepines Scrn Urine Cocaine Screen U Cannabinoids Screen 10/07/18 10/07/18 10/07/18 09:40 21:53 21:53 PT INR APTT D-Dimer Quant (PE/DVT) Sodium Potassium Chloride Carbon Dioxide Anion Gap BUN Creatinine Estimated GFR Random Glucose Calcium Total Bilirubin AST ALT Alkaline Phosphatase Total Creatine Kinase 46 Troponin I Total Protein Albumin TSH Urine Color Yellow Urine Clarity Clear Urine pH 6.0 Ur Specific [place] 1.042 H Urine Protein Negative Urine Glucose (UA) Negative Urine Ketones Negative Urine Occult Blood Negative Urine Nitrate Negative Urine Bilirubin Negative Urine Urobilinogen 2.0 H Ur Leukocyte Esterase Negative Urine RBC 2 Urine WBC 1 Urine Mucus Few H Micro UA Comment Culture not ind Ur Microscopic Review Not Reportable Urine Culture Comments Culture not ind Urine Opiates Screen Neg Ur Barbiturates Screen Neg Ur Amphetamines Screen Neg U Benzodiazepines Scrn Neg Urine Cocaine Screen Neg U Cannabinoids Screen Neg - Imaging Impressions Head CT 10/07/18 00:00 CONCLUSION: 1. No acute intracranial abnormality. 2. 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 . Knee X-Ray 10/07/18 00:00 CONCLUSION: 1. The osseous structures of the knee are grossly intact. 2. Possible knee effusion. Chest X-Ray 10/07/18 09:47 CONCLUSION: Minimal parental changes right base, nonspecific No overt congestive failure Chest CTA 10/07/18 10:28 CONCLUSION: 1. This study is negative for pulmonary embolism. 2. Tiny bilateral lung nodules which can be followed Venous Doppler Study 10/07/18 10:28 CONCLUSION: Negative for deep venous thrombosis. Jesse Caesy MD FACR - Procedures none Assessment and Plan - Plan 62-year-old male with history of hypertension coming in with on and off palpitations for past week. And on telemetry was able to document runs of narrow complex tachycardia-of about 150/min. Paroxysmal PAT History of hypertension CMP EF 25% -Admit to telemetry. -Request for 24-hour Holter monitoring -Cardiology consult requested will defer to them for further workup- Need for ischemic workup Lexiscan ordered today. Discussed with cardiology, if negative will consider EPS -Continue aspirin 81 mg p.o. daily for now. -switch Cardizem to Lopressor consider EDDA when renal function -Negative UDS -LDL 62 -head CT w/o acute changes -CHF education, I/O and monitor weight Acute kidney injury - Improved discontinue IV fluid - recheck BMP in a.m. Left knee effusion no history of trauma - Check inflammatory markers and consult orthopedic surgery. Discussed with on- call, aspiration by IR - PT consult Pulm nodules. O/p follow up Heparin SQ for DVT prophylaxis
[2018-10-08 12:03] LABS: Calcium 8.6 mg/dL (8.5-10.1); Carbon Dioxide 30.7 meq/L (21.0-32.0); Potassium 3.6 meq/L (3.5-5.1)
[2018-10-08 12:06] LABS: Chol/HDL Ratio 2.63 Ratio; HDL Cholesterol 47.4 mg/dL (40.0-60.0)
[2018-10-08 12:07] LABS: C-Reactive Protein 5.39 mg/dL (0.00-0.30)
[2018-10-08] MEDS ORDERED: Regadenoson Inj 0.4 MG/5 ML Syringe IV.PUSH ONE (15:13)
[2018-10-08] MEDS: Morphine Inj 4 MG/ML Vial IV.PUSH PRN (16:30)
--- NOTE | 2018-10-08 17:04 | NM ---
EXAM DATE: 10/08/2018 4:57 PM EST AGE/SEX: 62 years / Male INDICATIONS:. . On and off heart palpitations. Narrow runs of tachycardia. CLINICAL DATA: This is the patient's initial encounter. Patient reports that signs and symptoms have been present for 1 day and indicates a pain score of 2/10. MEDICAL/SURGICAL HISTORY: Hypertension. None. COMPARISON: No prior exams available for comparison. DOSE: 11.0 mCi Tc 99m Myoview at rest 33.3 mCi [id number] at stress 0.4 mg Lexiscan STRESS SYMPTOMS: none. EJECTION FRACTION: 21 % TECHNIQUE: The patient underwent pharmacologic stress with infusion of prescribed dose. Continuous ECG tracing was monitored during stress. Gated SPECT imaging was performed after stress and conventi onal SPECT imaging was performed at rest. The examination was performed on a SPECT/CT scanner, both attenuation and non-corrected datasets were reviewed. FINDINGS: Distribution: The maximum perfused segment at stress is in the lateral wall. Perfusion Study: No reversible perfusion defects. Gated Study: Severe global hypokinesis. The ejection fraction is calculated at 21%. RISK CATEGORY: High (>3% Annual Morality Rate) CONCLUSION: 1. No reversible perfusion defects. 2. Severe global hypokinesis with ejection fraction of 21%. Electronically signed by: Andrea Peralta MD 10/08/2018 5:02 PM EST
--- NOTE | 2018-10-08 23:26 | P.PNCA ---
Subjective Interval history: No events overnight Still having a significant amount of regular narrow complex tachycardia Medications and Allergies Active Medications: Active Medications Acetaminophen (Tylenol) 650 mg PO Q6HR PRN PRN Reason: PAIN SCALE 1 TO 2 Hydrocodone Bitart/Acetaminophen ([place] 5/325) 1 tab PO Q4H PRN PRN Reason: PAIN SCALE 3 TO 5 Hydrocodone Bitart/Acetaminophen ([place] 7.5/325) 1 tab PO Q4H PRN PRN Reason: PAIN SCALE 6 TO 10 Last Admin: 10/08/18 22:35 Dose: 1 tab Aspirin (Ecotrin) 81 mg PO DAILY [facility] Last Admin: 10/08/18 08:43 Dose: 81 mg Heparin Sodium (Porcine) (Heparin Inj) 5,000 units SQ Q12HR [facility] Last Admin: 10/08/18 21:04 Dose: 5,000 units Metoprolol Tartrate (Lopressor) 25 mg PO BID [facility] Last Admin: 10/08/18 21:04 Dose: 25 mg Morphine Sulfate (Morphine Inj) 1 mg IV.PUSH Q3H PRN PRN Reason: BREAKTHROUGH PAIN Last Admin: 10/08/18 16:30 Dose: 1 mg Naloxone HCl (Narcan Inj) 0.4 mg IV.PUSH UNSCH PRN PRN Reason: SEE LABEL COMMENTS Sodium Chloride (Ns Flush) 2 ml IV.FLUSH BID [facility] Last Admin: 10/08/18 21:06 Dose: 2 ml Sodium Chloride (Ns Flush) 2 ml IV.FLUSH PRN PRN PRN Reason: FLUSH AFTER USING IV ACCESS Allergies Allergy/AdvReac Type Severity Reaction Status Date / Time No Known Allergies Allergy Verified 10/07/18 09:29 Home Medications Medication Instructions Recorded Confirmed Type Bp Med PO DAILY NEB 10/07/18 History Physical Exam Vital signs: Vital Signs 10/08/18 00:00 10/08/18 03:22 10/08/18 07:03 Temperature 98.3 F 97.9 F 98.0 F Pulse Rate 71 79 80 Respiratory Rate 18 18 18 Blood Pressure 125/68 125/84 125/84 Pulse Oximetry 95 96 98 10/08/18 09:00 10/08/18 12:00 10/08/18 17:55 Temperature 98.2 F 98.5 F Pulse Rate 100 H 83 108 H Respiratory Rate 16 20 Blood Pressure 119/73 171/95 H Pulse Oximetry 97 98 10/08/18 20:00 Temperature 98.6 F Pulse Rate 103 H Respiratory Rate 19 Blood Pressure 135/83 Pulse Oximetry 94 L Intake & Output 10/08/18 10/08/18 10/09/18 06:59 18:59 06:59 Intake Total 1000 / 1000 700 / 700 Output Total 400 / 400 Balance 1000 / 1000 300 / 300 Intake: IV 1000 / 1000 700 / 700 NS Inj 1,000 ML @ 40 mls/hr IV. 1000 / 1000 700 / 700 CONT .Q24H LIZA Rx#:[id number] Output: Urine 400 / 400 Other: # Voids 1 Date of Last Bowel Movement 10/07/18 Narrative: Awake alert oriented x3 not in any form of acute distress CVS: Currently in regular rhythm no murmur Lungs: Clear to auscultation no crackles abdomen is flabby soft nontender with good bowel sounds left knee- with tender suprapatellar swelling no erythema with limited range of motion both lower extremities mild trace pitting edema. Well-healed scar on the posterior aspect of the left calf. Good peripheral pulses Neuro exam ANO x3 Cranial nerves grossly intact extraocular muscle full range of motion pupils equally reactive to light tongue midline good gag reflex Grossly no sensory deficit Motor 5/5 in all extremities Results 10/07/18 09:40 10/08/18 10:47 Cardiac Enzymes 10/07/18 10/08/18 Range/Units 09:40 10:47 AST 18 (15-37) U/L Troponin I Less than 0.02 L Less than 0.02 L (0.02-0.05) ng/mL Coagulation 10/07/18 Range/Units 09:40 PT 10.0 (9.8-11.6) sec APTT 29.9 (23.4-31.7) sec Lipids 10/08/18 Range/Units 10:47 Triglycerides 78 (42-150) mg/dL Cholesterol 125 (120-200) mg/dL HDL Cholesterol 47.4 (40.0-60.0) mg/dL Cholesterol/HDL Ratio 2.63 Ratio CBC 10/07/18 Range/Units 09:40 WBC 9.3 (4.0-11.0) th/mm3 RBC 5.05 (4.50-5.90) mil/mm3 Hgb 16.9 (13.0-17.0) gm/dL Hct 47.7 (39.0-51.0) % Plt Count 195 (150-450) th/mm3 Neut # (Auto) 7.2 (1.8-7.7) th/mm3 Lymph # (Auto) 1.1 (1.0-4.8) th/mm3 [place] # (Auto) 0.8 (0.0-0.9) th/mm3 Eos # (Auto) 0.2 (0.0-0.4) th/mm3 Baso # (Auto) 0.1 (0.0-0.2) th/mm3 Comprehensive Metabolic Panel 10/07/18 10/08/18 Range/Units 09:40 10:47 Sodium 140 139 (136-145) meq/L Potassium 3.5 3.6 (3.5-5.1) meq/L Chloride 101 101 (98-107) meq/L Carbon Dioxide 31.7 30.7 (21.0-32.0) meq/L BUN 25 H 18 (7-18) mg/dL Creatinine 1.71 H 1.29 (0.60-1.30) mg/dL Calcium 9.2 8.6 (8.5-10.1) mg/dL AST 18 (15-37) U/L ALT 22 (12-78) U/L Alkaline Phosphatase 80 (45-117) U/L Total Protein 8.6 H (6.4-8.2) g/dL Albumin 4.1 (3.4-5.0) g/dL Intake and Output 10/08/18 10/08/18 10/09/18 14:59 22:59 06:59 Intake Total 0 / 0 700 / 700 Output Total 400 / 400 Balance -400 / -400 700 / 700 Intake: IV 0 / 0 700 / 700 NS Inj 1,000 ML @ 40 mls/hr IV. 0 / 0 700 / 700 CONT .Q24H LIZA Rx#:[id number] Output: Urine 400 / 400 Other: # Voids 1 - Imaging and Cardiology Imaging: Impressions Head CT 10/07/18 00:00 CONCLUSION: 1. No acute intracranial abnormality. 2. 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 . Knee X-Ray 10/07/18 00:00 CONCLUSION: 1. The osseous structures of the knee are grossly intact. 2. Possible knee effusion. Chest X-Ray 10/07/18 09:47 CONCLUSION: Minimal parental changes right base, nonspecific No overt congestive failure Chest CTA 10/07/18 10:28 CONCLUSION: 1. This study is negative for pulmonary embolism. 2. Tiny bilateral lung nodules which can be followed Venous Doppler Study 10/07/18 10:28 CONCLUSION: Negative for deep venous thrombosis. Jesse Casey MD FACR Myocardial Perfusion Scan Nuc Med 10/08/18 00:00 CONCLUSION: 1. No reversible perfusion defects. 2. Severe global hypokinesis with ejection fraction of 21%. Assessment and Plan - Assessment (1) Atrial tachycardia Code(s): I47.1 - Supraventricular tachycardia Status: Acute (2) NICM (nonischemic cardiomyopathy) Code(s): I42.8 - Other cardiomyopathies Status: Acute - Plan 1) New onset cardiomyopathy Stress test showing patchy take up consistent with cardiomyopathy No areas of ischemia noted 2) Regular narrow complex tachycardia/SVT Probable atrial tachycardia Still with significant amount on BB therapy Will have Dr. Dorsey see the patient Cardiomyopathy possible secondary to tachyarrhythmia NPO after breakfast for possible EP study, Dr. Dorsey to see to evaluate 3) Will be started on heart failure medications for NICM
--- NOTE | 2018-10-09 09:17 | P.RAD ---
Post Procedure Progress Note - Pre Procedure Diagnosis (1) Effusion, left knee - Post Procedure Diagnosis (1) Effusion, left knee - Procedure Information Procedure Date: 10/09/18 Supervising Radiologist: Fransisco Torres Jr, MD Estimated blood loss (mL): 0 Anesthesia: Local - Plan of Activity Patient to Unit: Nursing Unit Patient Condition: Good Additional Comments: US guided left arthrocentesis yielded 2mL of yellow, mildly turbid fluid. See PACS Report for procedural detail/treatment.
[2018-10-09 09:28] LABS: Calcium 8.2 mg/dL (8.5-10.1); Carbon Dioxide 31.6 meq/L (21.0-32.0); Potassium 3.5 meq/L (3.5-5.1)
[2018-10-09] MEDS: Heparin - SQ 10,000 UNITS/ML Vial SQ SCH ×2 (09:55→21:02)
--- NOTE | 2018-10-09 09:56 | P.PNIM ---
Subjective Interval history: f/u; cardiomyopathy in no acute distress. no chest pain or sob. has some pain to the left knee. Physical Exam Vital signs: Vital Signs 10/08/18 12:00 10/08/18 17:55 10/08/18 20:00 Temperature 98.2 F 98.5 F 98.6 F Pulse Rate 83 108 H 103 H Respiratory Rate 16 20 19 Blood Pressure 119/73 171/95 H 135/83 Pulse Oximetry 97 98 94 L 10/09/18 00:00 10/09/18 04:00 10/09/18 08:00 Temperature 98.6 F 99.4 F 98.2 F Pulse Rate 94 H 88 102 H Respiratory Rate 17 18 17 Blood Pressure 136/82 104/72 127/63 Pulse Oximetry 95 96 98 Intake & Output 10/08/18 10/09/18 10/09/18 18:59 06:59 18:59 Intake Total 700 / 700 420 / 420 Output Total 400 / 400 200 / 200 Balance 300 / 300 220 / 220 Weight 113.6 kg Intake: IV 700 / 700 NS Inj 1,000 ML @ 40 mls/hr IV. 700 / 700 CONT .Q24H LIZA Rx#:[id number] Oral 420 / 420 Output: Urine 400 / 400 200 / 200 Stool 0 / 0 Other: # Voids 1 Date of Last Bowel Movement 10/09/18 - Constitutional no acute distress - Routine Respiratory Exam Present: CTA bilaterally - Routine Cardiovascular Exam Present: RRR - Routine Abdominal Exam Present: soft - Routine Extremities Exam Comments: swollen left knee. - Routine Neurological Exam Present: alert, oriented X3 Results - Labs CBC & Chem 7: 10/07/18 09:40 10/09/18 08:10 Laboratory Results - last 24 hr 10/08/18 10/08/18 10/08/18 10:47 10:47 10:47 ESR 10 Sodium 139 Potassium 3.6 Chloride 101 Carbon Dioxide 30.7 Anion Gap 7 BUN 18 Creatinine 1.29 Estimated GFR 57 L Random Glucose 105 Calcium 8.6 Troponin I C-Reactive Protein 5.39 H Triglycerides 78 Cholesterol 125 LDL Cholesterol, Calc 62 HDL Cholesterol 47.4 Cholesterol/HDL Ratio 2.63 Rheumatoid Factor Scrn Positive H Rheumatoid Factor Titer 16.6 H 10/08/18 10/09/18 10:47 08:10 ESR Sodium 137 Potassium 3.5 Chloride 99 Carbon Dioxide 31.6 Anion Gap 6 BUN 15 Creatinine 1.43 H Estimated GFR 50 L Random Glucose 97 Calcium 8.2 L Troponin I Less than 0.02 L C-Reactive Protein Triglycerides Cholesterol LDL Cholesterol, Calc HDL Cholesterol Cholesterol/HDL Ratio Rheumatoid Factor Scrn Rheumatoid Factor Titer - Imaging Impressions Myocardial Perfusion Scan Nuc Med 10/08/18 00:00 CONCLUSION: 1. No reversible perfusion defects. 2. Severe global hypokinesis with ejection fraction of 21%. - Procedures none Assessment and Plan - Plan A/P Paroxysmal PAT History of hypertension CMP EF 25% -Request for 24-hour Holter monitoring -Cardiology consult appreciated. was consulted for possible EP study. -stress test with no reversible ischemia. -Continue aspirin 81 mg p.o. daily for now. -continue Lopressor and EDDA -head CT w/o acute changes -CHF education, I/O and monitor weight Acute kidney injury - Improved after IV hydration. Left knee effusion no history of trauma - Check inflammatory markers and consulted orthopedic surgery. -fluid culture is pending. - PT consulted Pulm nodules. O/p follow up Heparin SQ for DVT prophylaxis Discharge Planning: pending cardiology/ ortho evaluation.
[2018-10-09] MEDS: Lisinopril 5 MG Tablet PO SCH (09:58)
[2018-10-09] MEDS: Metoprolol Tartrate 25 MG Tablet PO SCH ×2 (09:58→21:02)
[2018-10-09] MEDS: Sodium Chloride 0.9% 2 ML Flush BID IV.FLUSH SCH ×2 (10:00→21:02)
--- NOTE | 2018-10-09 10:24 | IR ---
EXAM DATE: 10/09/2018 9:37 AM EST AGE/SEX: 62 years / Male INDICATIONS: Patient presents with pain and effusion in left knee in need of aspiration to collect f luid for evaluation. CLINICAL DATA: This is the patient's initial encounter. Patient reports that signs and symptoms have been present for 2 days and indicates a pain score of 10/10. MEDICAL/SURGICAL HISTORY: Hypertension. None. COMPARISON: . FLUORO TIME (min): 0.1 IMAGE SERIES: 4 DEVICE(S): 22 gauge needle was placed into the Left knee joint RESPONSE: Pain Score Pre Procedure: 10/10 Pain Score Post Procedure: 10 FLUID: Total volume of 3 cc of cloudy, yellow fluid was removed. Fluid was sent to lab for ordered studies. . . PROCEDURE : 1. Ultrasound guided left knee aspiration. The risks, benefits and alternatives to the procedure were explained and verbal and written consent w as obtained. The site was prepped in sterile fashion. Full sterile technique was used, including ca p, mask, sterile gloves and gown and a large sterile sheet. Hand hygiene and 2% chlorhexidine and/or betadine/alcohol prep was utilized per protocol for cutaneous antisepsis. The skin and subcutaneous tissues were infiltrated with local anesthetic solution. Under direct sonographic guidance and utilizing a lateral approach a 22-gauge spinal needle was passe d into the left knee joint. Aspiration yielded 3 mL of yellow mildly turbid fluid. Further aspiration did not yield further fluid. The fluid was sent for evaluation as previously ordered. The patient tolerated the procedure well and there were no complications. CONCLUSION: 1. Uncomplicated left knee aspiration as above. Electronically signed by: Fransisco Torres MD 10/09/2018 10:23 AM EST
[2018-10-09 11:04] LABS: Color,Synovial Fluid Straw (Straw); Lymphocytes,Synovial Fluid 1 %; Neutrophils,Synovial Fluid 99 % (0-25)
[2018-10-09 11:05] LABS: Appearance,Synovial Fluid Moderate (Clear)
--- NOTE | 2018-10-09 16:40 | HM ---
Date Performed: 10/07/2018 Time Performed: 16:38:00 HOOKUP DATE: 10/07/18 04:38:00 PM Wed ANALYSIS START TIME: 10/07/2018 4:43:00 PM ANALYSIS END TIME: 10/08/2018 4:11:13 PM PATIENT AGE: 62 PATIENT HEIGHT: 76 PATIENT WEIGHT: 260 DRUG LIST: ROOM F72 PATIENT DIAGNOSIS: ATRIAL ARRHYTHMIA TEST NARRATIVE: The patient's average heart rate was 91 BPM. Heart rates greater than 120 B PM were noted 14% of the time. No episodes of bradycardia were noted. No pauses exceeding 2.0 se conds were noted. 1452 ventricular ectopics, which represented 1% of the total beat count, were n oted. The highest ventricular ectopic frequency occurred from 06:00 PM to 07:00 PM Wed. During this time 272 VE(s) occurred. Ventricular ectopics were observed as 1330 isolated beat(s), as 52 couplet (s) and as 5 run(s). Some of the ventricular beats occurred in bigeminal cycles. 31378 supravent ricular ectopics, which represented 13% of the total beat count, were noted. The highest supraventri cular ectopic frequency occurred from 04:00 AM to 05:00 AM Ce. During this time 1718 SVE(s) occurre d. Multiple episodes of ST depression (defined as -1.0 mm or more) were noted in channel 1. The maximum depression of -2.8 mm occurred at 02:20:27 PM Ce. No episodes of ST depression (defined as -1.0 mm or more) were noted in channel 2. No episodes of ST depression (defined as -1.0 mm or more) were noted in channel 3. NO SYMPTOMS WERE RECORDED BY THE PATIENT IN THE DIARY PROVIDED. TEST INTERPRETATION: Patient undergoes a holter monitor to evaluate unknown atrial arrhythmia. No diary is provided so it is unknown as to whether he is symptomatic. The patient is in Sinus rhythm throughout the monitoring session but there are frequent bursts of supraventricular tachycardia. No specific atrial flutter or atrial fibrillation is noted, but these bursts of automatic atrial activi ty can be a precursor and/or precipitate episodes of atrial fibrillation. The patient has occasional PVC's and couplets, but there is one 5-beat run of sustained ventricular tachcyardia. No diary provid ed so it is unclear whether patient is symptomatic. No sustatined arrhythmias are noted. CONCLUSION: 1. Abnormal Holter monitor showing bursts of nonsustained supraentricular tachycardia up to heart ra alina of 164bpm. 2. No specific atrial fibrillation or atrial flutter on the expanded strip with only t he expanded strips being subject interpretation. 3. Complex ventricular ectopy including a 5beat epi sode of nonsustained supraentricular tachycardia. 4.No significant wilma arrhythmias noted. 5.No carlos ry provided so unknown whether patient is symptomatic Signed by : Tessa Story
--- NOTE | 2018-10-09 18:17 | P.PNCA ---
Subjective Interval history: No events overnight Left knee drained today, still with pain Medications and Allergies Active Medications: Active Medications Acetaminophen (Tylenol) 650 mg PO Q6HR PRN PRN Reason: PAIN SCALE 1 TO 2 Hydrocodone Bitart/Acetaminophen ([place] 5/325) 1 tab PO Q4H PRN PRN Reason: PAIN SCALE 3 TO 5 Hydrocodone Bitart/Acetaminophen ([place] 7.5/325) 1 tab PO Q4H PRN PRN Reason: PAIN SCALE 6 TO 10 Last Admin: 10/09/18 14:44 Dose: 1 tab Aspirin (Ecotrin) 81 mg PO DAILY [facility] Last Admin: 10/09/18 09:59 Dose: 81 mg Colchicine (Colcrys) 0.6 mg PO BID [facility] Last Admin: 10/09/18 17:56 Dose: 0.6 mg Heparin Sodium (Porcine) (Heparin Inj) 5,000 units SQ Q12HR [facility] Last Admin: 10/09/18 09:55 Dose: 5,000 units Lisinopril (Prinivil) 5 mg PO DAILY [facility] Last Admin: 10/09/18 09:58 Dose: 5 mg Metoprolol Tartrate (Lopressor) 25 mg PO BID [facility] Last Admin: 10/09/18 09:58 Dose: 25 mg Morphine Sulfate (Morphine Inj) 1 mg IV.PUSH Q3H PRN PRN Reason: BREAKTHROUGH PAIN Last Admin: 10/08/18 16:30 Dose: 1 mg Naloxone HCl (Narcan Inj) 0.4 mg IV.PUSH UNSCH PRN PRN Reason: SEE LABEL COMMENTS Sodium Chloride (Ns Flush) 2 ml IV.FLUSH BID [facility] Last Admin: 10/09/18 10:00 Dose: 2 ml Sodium Chloride (Ns Flush) 2 ml IV.FLUSH PRN PRN PRN Reason: FLUSH AFTER USING IV ACCESS Allergies Allergy/AdvReac Type Severity Reaction Status Date / Time No Known Allergies Allergy Verified 10/07/18 09:29 Home Medications Medication Instructions Recorded Confirmed Type Bp Med PO DAILY NEB 10/07/18 History Physical Exam Vital signs: Vital Signs 10/08/18 20:00 10/09/18 00:00 10/09/18 04:00 Temperature 98.6 F 98.6 F 99.4 F Pulse Rate 103 H 94 H 88 Respiratory Rate 19 17 18 Blood Pressure 135/83 136/82 104/72 Pulse Oximetry 94 L 95 96 10/09/18 08:00 10/09/18 09:00 10/09/18 12:00 Temperature 98.2 F 100.4 F H Pulse Rate 102 H 85 82 Respiratory Rate 17 20 Blood Pressure 127/63 115/65 Pulse Oximetry 98 97 10/09/18 16:00 Temperature 100 F H Pulse Rate 101 H Respiratory Rate 20 Blood Pressure 115/83 Pulse Oximetry 98 Intake & Output 10/08/18 10/09/18 10/09/18 18:59 06:59 18:59 Intake Total 700 / 700 420 / 420 480 / 480 Output Total 400 / 400 200 / 200 400 / 400 Balance 300 / 300 220 / 220 80 / 80 Weight 113.6 kg Intake: IV 700 / 700 NS Inj 1,000 ML @ 40 mls/hr IV. 700 / 700 CONT .Q24H [facility] Rx#:[id number] Oral 420 / 420 480 / 480 Output: Urine 400 / 400 200 / 200 400 / 400 Stool 0 / 0 Other: # Voids 1 Date of Last Bowel Movement 10/09/18 10/07/18 Narrative: Awake alert oriented x3 not in any form of acute distress CVS: Currently in regular rhythm no murmur Lungs: Clear to auscultation no crackles abdomen is flabby soft nontender with good bowel sounds left knee- with tender suprapatellar swelling no erythema with limited range of motion both lower extremities mild trace pitting edema. Well-healed scar on the posterior aspect of the left calf. Good peripheral pulses Neuro exam ANO x3 Cranial nerves grossly intact extraocular muscle full range of motion pupils equally reactive to light tongue midline good gag reflex Grossly no sensory deficit Motor 5/5 in all extremities Results 10/07/18 09:40 10/09/18 08:10 Cardiac Enzymes 10/08/18 Range/Units 10:47 Troponin I Less than 0.02 L (0.02-0.05) ng/mL Lipids 10/08/18 Range/Units 10:47 Triglycerides 78 (42-150) mg/dL Cholesterol 125 (120-200) mg/dL HDL Cholesterol 47.4 (40.0-60.0) mg/dL Cholesterol/HDL Ratio 2.63 Ratio Comprehensive Metabolic Panel 10/08/18 10/09/18 Range/Units 10:47 08:10 Sodium 139 137 (136-145) meq/L Potassium 3.6 3.5 (3.5-5.1) meq/L Chloride 101 99 (98-107) meq/L Carbon Dioxide 30.7 31.6 (21.0-32.0) meq/L BUN 18 15 (7-18) mg/dL Creatinine 1.29 1.43 H (0.60-1.30) mg/dL Calcium 8.6 8.2 L (8.5-10.1) mg/dL Intake and Output 10/09/18 10/09/18 10/09/18 06:59 14:59 22:59 Intake Total 420 / 420 480 / 480 Output Total 200 / 200 400 / 400 Balance 220 / 220 80 / 80 Intake: Oral 420 / 420 480 / 480 Output: Urine 200 / 200 400 / 400 Stool 0 / 0 Other: Date of Last Bowel Movement 10/09/18 10/07/18 Weight 113.6 kg - Imaging and Cardiology Imaging: Impressions Head CT 10/07/18 00:00 CONCLUSION: 1. No acute intracranial abnormality. 2. 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 . Knee X-Ray 10/07/18 00:00 CONCLUSION: 1. The osseous structures of the knee are grossly intact. 2. Possible knee effusion. Myocardial Perfusion Scan Nuc Med 10/08/18 00:00 CONCLUSION: 1. No reversible perfusion defects. 2. Severe global hypokinesis with ejection fraction of 21%. Aspiration 10/09/18 00:00 CONCLUSION: 1. Uncomplicated left knee aspiration as above. Assessment and Plan - Assessment (1) Atrial tachycardia Code(s): I47.1 - Supraventricular tachycardia Status: Acute (2) NICM (nonischemic cardiomyopathy) Code(s): I42.8 - Other cardiomyopathies Status: Acute - Plan 1) New onset cardiomyopathy Stress test showing patchy take up consistent with cardiomyopathy No areas of ischemia noted 2) Regular narrow complex tachycardia/SVT Probable atrial tachycardia Still with significant amount on BB therapy Will have Dr. Dorsey see the patient Cardiomyopathy possible secondary to tachyarrhythmia EP study will have to wait until Friday due to left knee being drained 3) Will be started on heart failure medications for NICM 4) Left knee effusion s/p drainage
--- NOTE | 2018-10-09 19:12 | P.CONOP ---
[facility] Orthopedics Consult Note - [facility] Consult date: 10/09/18 Requesting physician: Desmond Campbell Consult reason: joint pain Chief complaint: atrial arrhythmia Narrative: 62 year old male admitted for work up of cardiac issues who subsequently developed left knee pain and swelling. He denies trauma or previous injury. He does report it swelled up on him once before, several years ago. He has a history of gout in the toes. He states movement worsens the pain. No other joint swelling. Review of Systems All other systems reviewed negative except as stated in [facility] - History History Provided By: Patient - Medical History Medical History: Medical History (Last Reviewed 10/09/18 @ 19:07 by Nicole Galicia MD) Hypertension - Social History I have reviewed the patient's Social History: Yes - Tobacco History Second Hand Smoke Exposure: No Smoking Status: Never smoker - Alcohol History How Often Do You Have a Drink Containing Alcohol: Never - Substance Use History Substance History: No History of Abuse - Travel History Recent Travel in the [place] Within the Last 8 Weeks: No Recent Travel Out of the Country Within the Last 8 Weeks: No - Immunization History Tetanus Immunization: <5 Years Hx Influenza Vaccine This Season: No Medications and Allergies Active Medications: Active Medications Acetaminophen (Tylenol) 650 mg PO Q6HR PRN PRN Reason: PAIN SCALE 1 TO 2 Hydrocodone Bitart/Acetaminophen ([place] 5/325) 1 tab PO Q4H PRN PRN Reason: PAIN SCALE 3 TO 5 Hydrocodone Bitart/Acetaminophen ([place] 7.5/325) 1 tab PO Q4H PRN PRN Reason: PAIN SCALE 6 TO 10 Last Admin: 10/09/18 18:39 Dose: 1 tab Aspirin (Ecotrin) 81 mg PO DAILY [facility] Last Admin: 10/09/18 09:59 Dose: 81 mg Colchicine (Colcrys) 0.6 mg PO BID [facility] Last Admin: 10/09/18 17:56 Dose: 0.6 mg Heparin Sodium (Porcine) (Heparin Inj) 5,000 units SQ Q12HR [facility] Last Admin: 10/09/18 09:55 Dose: 5,000 units Lisinopril (Prinivil) 5 mg PO DAILY [facility] Last Admin: 10/09/18 09:58 Dose: 5 mg Metoprolol Tartrate (Lopressor) 25 mg PO BID [facility] Last Admin: 10/09/18 09:58 Dose: 25 mg Morphine Sulfate (Morphine Inj) 1 mg IV.PUSH Q3H PRN PRN Reason: BREAKTHROUGH PAIN Last Admin: 10/08/18 16:30 Dose: 1 mg Naloxone HCl (Narcan Inj) 0.4 mg IV.PUSH UNSCH PRN PRN Reason: SEE LABEL COMMENTS Sodium Chloride (Ns Flush) 2 ml IV.FLUSH BID [facility] Last Admin: 10/09/18 10:00 Dose: 2 ml Sodium Chloride (Ns Flush) 2 ml IV.FLUSH PRN PRN PRN Reason: FLUSH AFTER USING IV ACCESS Allergies Allergy/AdvReac Type Severity Reaction Status Date / Time No Known Allergies Allergy Verified 10/07/18 09:29 Home Medications Medication Instructions Recorded Confirmed Type Bp Med PO DAILY NEB 10/07/18 History Exam Vital signs: Vital Signs 10/08/18 20:00 10/09/18 00:00 10/09/18 04:00 Temperature 98.6 F 98.6 F 99.4 F Pulse Rate 103 H 94 H 88 Respiratory Rate 19 17 18 Blood Pressure 135/83 136/82 104/72 Pulse Oximetry 94 L 95 96 10/09/18 08:00 10/09/18 09:00 10/09/18 12:00 Temperature 98.2 F 100.4 F H Pulse Rate 102 H 85 82 Respiratory Rate 17 20 Blood Pressure 127/63 115/65 Pulse Oximetry 98 97 10/09/18 16:00 Temperature 100 F H Pulse Rate 101 H Respiratory Rate 20 Blood Pressure 115/83 Pulse Oximetry 98 Intake & Output 10/09/18 10/09/18 10/10/18 06:59 18:59 06:59 Intake Total 420 / 420 480 / 480 Output Total 200 / 200 400 / 400 Balance 220 / 220 80 / 80 Weight 113.6 kg Intake: Oral 420 / 420 480 / 480 Output: Urine 200 / 200 400 / 400 Stool 0 / 0 Other: Date of Last Bowel Movement 10/09/18 10/07/18 - Constitutional no acute distress - Routine HEENT Exam Head: Present: normocephalic Eye: Present: EOMI - Routine Respiratory Exam Absent: accessory muscle use - Routine Extremities Exam Comments: Left knee moderate effusion with tenderness to palpation diffusely. He has pain with attempted range of motion. There is no erythema. Neurovascularly intact distally. Remainder of extremities unremarkable. Results - Labs Result Diagrams: 10/07/18 09:40 10/09/18 08:10 Labs: Laboratory Results - last 24 hr 10/08/18 10/09/18 10/09/18 10:47 08:10 08:10 Sodium 137 Potassium 3.5 Chloride 99 Carbon Dioxide 31.6 Anion Gap 6 BUN 15 Creatinine 1.43 H Estimated GFR 50 L Random Glucose 97 Uric Acid 9.5 H Calcium 8.2 L Synovial Color Synovial Appearance Synovial RBC Synovial Nuc Cells Synovial Neutrophils Synovial Lymphocytes Synovial Crystals CHARLES Screen Neg 10/09/18 10/09/18 09:08 09:08 Sodium Potassium Chloride Carbon Dioxide Anion Gap BUN Creatinine Estimated GFR Random Glucose Uric Acid Calcium Synovial Color Straw Synovial Appearance Moderate H Synovial RBC 500 H Synovial Nuc Cells 27349 H Synovial Neutrophils 99 H Synovial Lymphocytes 1 Synovial Crystals Pos-uric acid CHARLES Screen - Diagnostic results Imaging: Impressions Aspiration 10/09/18 00:00 CONCLUSION: 1. Uncomplicated left knee aspiration as above. Assessment and Plan - Assessment and Plan 62 year old male with left knee pain and swelling. Aspiration results consistent with gout. Recommend medical treatment with antiinflammatories. No surgical intervention indicated at this time. Please reconsult orthopedics if further issues arise.
--- NOTE | 2018-10-10 03:20 | MB ---
cc: Sina Dorsey MD DATE: 10/09/2018 REASON FOR CONSULTATION: Tachyarrhythmia, possible atrial tachycardia, congestive heart failure. HISTORY OF PRESENT ILLNESS: Mr. Ceron is a 62-year-old gentleman with a history of palpitations, previously seen at the [place], gout, high blood pressure, obesity, who was admitted to the emergency room due to tachyarrhythmia. Short bursts of palpitations observe. The gentleman's last echocardiogram indicated ejection fraction of around 25%-30%. I was consulted for evaluation and management. The chart was reviewed. The patient was evaluated. ALLERGIES: NONE. SOCIAL HISTORY: Negative for smoking and drinking. FAMILY HISTORY: Noncontributory to his current medical condition. INDICATIONS: This gentleman is currently on: 1. Acetaminophen. 2. Aspirin 81 mg a day. 3. Colchicine 0.6 mg twice a day. 4. [place]. 5. Lisinopril 5 mg a day. 6. Metoprolol 25 mg twice a day. REVIEW OF SYSTEMS: The patient refers no chest pain. Left knee pain. No vomiting. No fever. PHYSICAL EXAMINATION: GENERAL: Alert, fully oriented. VITAL SIGNS: Blood pressure 115/65, pulse 82, respiratory rate 18. LUNGS: Ventilated. CARDIOVASCULAR: S1, S2. Regular. No gallop. ABDOMEN: Soft. No mass. No bruit. EXTREMITIES: With no edema. LABORATORY DATA: Electrocardiogram indicates at sinus rhythm, no acute ST and T-wave changes. ASSESSMENT AND RECOMMENDATIONS: Mr. Ceron has an episode of supraventricular tachyarrhythmia. He has occasional premature ventricular contraction.. Ejection fraction is 20%. The gentleman may be experiencing with a tachyarrhythmia-mediated cardiomyopathy. With tachyarrhythmia present, it may be pulmonary vein tachycardia. Also, it may be atrial tachyarrhythmia coming from the right side. I had a long conversation with him. He had his left knee drained today. Apparently, this is gout. I discussed with him the option of electrophysiology study and ablation if his right side posed an issue. If it is a pulmonary vein tachyarrhythmia, then medication will be initiated, anticoagulation will be initiated also, and the patient will be rescheduled for pulmonary vein isolation. I will keep this gentleman n.p.o. after midnight Friday night. Procedure Friday. MD Rosa Silva , 11:31 PM , 11:40 PM
[2018-10-10] MEDS: Lisinopril 5 MG Tablet PO SCH (08:04)
[2018-10-10] MEDS: Metoprolol Tartrate 25 MG Tablet PO SCH ×2 (08:05→21:16)
[2018-10-10] MEDS: Heparin - SQ 10,000 UNITS/ML Vial SQ SCH ×2 (08:06→21:16)
[2018-10-10] MEDS: Sodium Chloride 0.9% 2 ML Flush BID IV.FLUSH SCH ×2 (08:07→21:17)
--- NOTE | 2018-10-10 08:52 | P.PNIM ---
Subjective Interval history: f/u; cardiomyopathy/ gout in no acute distress. denies chest pain or sob. still with some swelling and pain to the left knee. was febrile last night. Physical Exam Vital signs: Vital Signs 10/09/18 09:00 10/09/18 12:00 10/09/18 16:00 Temperature 100.4 F H 100 F H Pulse Rate 85 82 101 H Respiratory Rate 20 20 Blood Pressure 115/65 115/83 Pulse Oximetry 97 98 10/09/18 20:00 10/10/18 00:00 10/10/18 03:23 Temperature 101.6 F H 99.6 F 98 F Pulse Rate 98 H 82 97 H Respiratory Rate 18 17 18 Blood Pressure 157/59 H 105/50 L 140/69 Pulse Oximetry 96 97 97 10/10/18 04:00 10/10/18 08:00 Temperature 98.5 F Pulse Rate 80 78 Respiratory Rate 17 Blood Pressure 113/52 L Pulse Oximetry 98 Intake & Output 10/09/18 10/10/18 10/10/18 18:59 06:59 18:59 Intake Total 480 / 480 240 / 240 Output Total 400 / 400 700 / 700 Balance 80 / 80 -460 / -460 Weight 112.2 kg Intake: Oral 480 / 480 240 / 240 Output: Urine 400 / 400 700 / 700 Other: Date of Last Bowel Movement 10/07/18 10/07/18 - Constitutional no acute distress - Routine Respiratory Exam Present: CTA bilaterally - Routine Cardiovascular Exam Present: RRR - Routine Abdominal Exam Present: soft - Routine Extremities Exam Comments: swelling of the left knee with decrease in ROM. - Routine Neurological Exam Present: alert, oriented X3 Results - Labs CBC & Chem 7: 10/07/18 09:40 10/09/18 08:10 Laboratory Results - last 24 hr 10/08/18 10/09/18 10/09/18 10:47 08:10 08:10 Sodium 137 Potassium 3.5 Chloride 99 Carbon Dioxide 31.6 Anion Gap 6 BUN 15 Creatinine 1.43 H Estimated GFR 50 L Random Glucose 97 Uric Acid 9.5 H Calcium 8.2 L Synovial Color Synovial Appearance Synovial RBC Synovial Nuc Cells Synovial Neutrophils Synovial Lymphocytes Synovial Crystals CHARLES Screen Neg 10/09/18 10/09/18 09:08 09:08 Sodium Potassium Chloride Carbon Dioxide Anion Gap BUN Creatinine Estimated GFR Random Glucose Uric Acid Calcium Synovial Color Straw Synovial Appearance Moderate H Synovial RBC 500 H Synovial Nuc Cells 85813 H Synovial Neutrophils 99 H Synovial Lymphocytes 1 Synovial Crystals Pos-uric acid CHARLES Screen Microbiology 10/09/18 09:08 Fluid - Synovial Fluid Gram Stain - Final - Imaging Impressions Aspiration 10/09/18 00:00 CONCLUSION: 1. Uncomplicated left knee aspiration as above. - Procedures none Assessment and Plan - Plan A/P Paroxysmal PAT History of hypertension CMP EF 25% -Request for 24-hour Holter monitoring -Cardiology consult appreciated. was consulted for possible EP study. -stress test with no reversible ischemia. -Continue aspirin 81 mg p.o. daily for now. -continue Lopressor and EDDA -head CT w/o acute changes -CHF education, I/O and monitor weight Acute kidney injury - Improved after IV hydration. Left knee effusion/ gout arthritis no history of trauma - joint fluid positive for uric acid/ gram stain negative -will start on Prednisone- will follow the fluid culture -ortho consult appreciated. - PT consulted Pulm nodules. O/p follow up Heparin SQ for DVT prophylaxis Discharge Planning: for EP study on Friday; will dc home when cleared by cardiology.
[2018-10-10] MEDS: predniSONE 20 MG Tablet PO SCH (09:53)
--- NOTE | 2018-10-10 10:18 | P.PNCA ---
Subjective Interval history: Pt feels well, no complaints. Medications and Allergies Active Medications: Active Medications Acetaminophen (Tylenol) 650 mg PO Q6HR PRN PRN Reason: PAIN SCALE 1 TO 2 Hydrocodone Bitart/Acetaminophen ([place] 5/325) 1 tab PO Q4H PRN PRN Reason: PAIN SCALE 3 TO 5 Last Admin: 10/09/18 22:55 Dose: 1 tab Hydrocodone Bitart/Acetaminophen ([place] 7.5/325) 1 tab PO Q4H PRN PRN Reason: PAIN SCALE 6 TO 10 Last Admin: 10/10/18 08:04 Dose: 1 tab Aspirin (Ecotrin) 81 mg PO DAILY [facility] Last Admin: 10/10/18 08:05 Dose: 81 mg Heparin Sodium (Porcine) (Heparin Inj) 5,000 units SQ Q12HR [facility] Last Admin: 10/10/18 08:06 Dose: 5,000 units Lisinopril (Prinivil) 5 mg PO DAILY [facility] Last Admin: 10/10/18 08:04 Dose: 5 mg Metoprolol Tartrate (Lopressor) 25 mg PO BID [facility] Last Admin: 10/10/18 08:05 Dose: 25 mg Morphine Sulfate (Morphine Inj) 1 mg IV.PUSH Q3H PRN PRN Reason: BREAKTHROUGH PAIN Last Admin: 10/08/18 16:30 Dose: 1 mg Naloxone HCl (Narcan Inj) 0.4 mg IV.PUSH UNSCH PRN PRN Reason: SEE LABEL COMMENTS Prednisone (Deltasone) 40 mg PO DAILY [facility] Last Admin: 10/10/18 09:53 Dose: 40 mg Sodium Chloride (Ns Flush) 2 ml IV.FLUSH BID [facility] Last Admin: 10/10/18 08:07 Dose: 2 ml Sodium Chloride (Ns Flush) 2 ml IV.FLUSH PRN PRN PRN Reason: FLUSH AFTER USING IV ACCESS Allergies Allergy/AdvReac Type Severity Reaction Status Date / Time No Known Allergies Allergy Verified 10/07/18 09:29 Home Medications Medication Instructions Recorded Confirmed Type Bp Med PO DAILY NEB 10/07/18 History Physical Exam Vital signs: Vital Signs 10/09/18 12:00 10/09/18 16:00 10/09/18 20:00 Temperature 100.4 F H 100 F H 101.6 F H Pulse Rate 82 101 H 98 H Respiratory Rate 20 20 18 Blood Pressure 115/65 115/83 157/59 H Pulse Oximetry 97 98 96 10/10/18 00:00 10/10/18 03:23 10/10/18 04:00 Temperature 99.6 F 98 F Pulse Rate 82 97 H 80 Respiratory Rate 17 18 Blood Pressure 105/50 L 140/69 Pulse Oximetry 97 97 10/10/18 08:00 Temperature 98.5 F Pulse Rate 78 Respiratory Rate 17 Blood Pressure 113/52 L Pulse Oximetry 98 Intake & Output 10/09/18 10/10/18 10/10/18 18:59 06:59 18:59 Intake Total 480 / 480 240 / 240 Output Total 400 / 400 700 / 700 Balance 80 / 80 -460 / -460 Weight 112.2 kg Intake: Oral 480 / 480 240 / 240 Output: Urine 400 / 400 700 / 700 Other: Date of Last Bowel Movement 10/07/18 10/07/18 - Constitutional no acute distress - Routine HEENT Exam Head: Present: normocephalic Eye: Present: EOMI ENT: Present: mucous membranes moist - Routine Neck Exam Absent: JVD - Routine Respiratory Exam Present: CTA bilaterally. Absent: accessory muscle use - Routine Cardiovascular Exam Present: RRR. Absent: murmur - Routine Extremities Exam Absent: edema Results 10/07/18 09:40 10/09/18 08:10 Cardiac Enzymes 10/08/18 Range/Units 10:47 Troponin I Less than 0.02 L (0.02-0.05) ng/mL Lipids 10/08/18 Range/Units 10:47 Triglycerides 78 (42-150) mg/dL Cholesterol 125 (120-200) mg/dL HDL Cholesterol 47.4 (40.0-60.0) mg/dL Cholesterol/HDL Ratio 2.63 Ratio Comprehensive Metabolic Panel 10/08/18 10/09/18 Range/Units 10:47 08:10 Sodium 139 137 (136-145) meq/L Potassium 3.6 3.5 (3.5-5.1) meq/L Chloride 101 99 (98-107) meq/L Carbon Dioxide 30.7 31.6 (21.0-32.0) meq/L BUN 18 15 (7-18) mg/dL Creatinine 1.29 1.43 H (0.60-1.30) mg/dL Calcium 8.6 8.2 L (8.5-10.1) mg/dL Intake and Output 10/09/18 10/10/18 10/10/18 22:59 06:59 14:59 Intake Total 480 / 480 240 / 240 Output Total 400 / 400 700 / 700 Balance 80 / 80 -460 / -460 Intake: Oral 480 / 480 240 / 240 Output: Urine 400 / 400 700 / 700 Other: Date of Last Bowel Movement 10/07/18 Weight 112.2 kg - Imaging and Cardiology Imaging: Impressions Myocardial Perfusion Scan Nuc Med 10/08/18 00:00 CONCLUSION: 1. No reversible perfusion defects. 2. Severe global hypokinesis with ejection fraction of 21%. Aspiration 10/09/18 00:00 CONCLUSION: 1. Uncomplicated left knee aspiration as above. Assessment and Plan - Assessment (1) Atrial tachycardia Code(s): I47.1 - Supraventricular tachycardia Status: Acute (2) NICM (nonischemic cardiomyopathy) Code(s): I42.8 - Other cardiomyopathies Status: Acute - Plan 1) New onset cardiomyopathy Stress test showing patchy take up consistent with cardiomyopathy No areas of ischemia noted 2) Regular narrow complex tachycardia/SVT Probable atrial tachycardia Still with significant amount on BB therapy Dr. Dorsey plans to EP study the patient Cardiomyopathy possible secondary to tachyarrhythmia EP study will have to wait until Friday due to left knee being drained 3) Will be started on heart failure medications for NICM 4) Left knee effusion s/p drainage
[2018-10-11] MEDS: predniSONE 20 MG Tablet PO SCH (08:20)
[2018-10-11] MEDS: Metoprolol Tartrate 25 MG Tablet PO SCH (08:20)
[2018-10-11] MEDS: Lisinopril 5 MG Tablet PO SCH (08:20)
[2018-10-11] MEDS: Heparin - SQ 10,000 UNITS/ML Vial SQ SCH ×2 (08:21→20:57)
[2018-10-11] MEDS: Sodium Chloride 0.9% 2 ML Flush BID IV.FLUSH SCH ×2 (08:21→20:58)
[2018-10-11 10:04] LABS: Calcium 8.7 mg/dL (8.5-10.1); Carbon Dioxide 29.7 meq/L (21.0-32.0)
[2018-10-11 10:08] LABS: Potassium 4.1 meq/L (3.5-5.1)
--- NOTE | 2018-10-11 10:40 | P.PNIM ---
Subjective Interval history: f/u; cardiomyopathy in no acute distress. denies chest pain or sob. still with swelling/ pain to the left knee and left ankle but better ROM. Physical Exam Vital signs: Vital Signs 10/10/18 12:00 10/10/18 16:00 10/10/18 17:17 Temperature 97.9 F 98.4 F Pulse Rate 75 76 77 Respiratory Rate 18 18 Blood Pressure 100/62 102/75 Pulse Oximetry 96 97 10/10/18 20:00 10/11/18 00:00 10/11/18 04:00 Temperature 97.9 F 97.3 F L 97.6 F Pulse Rate 78 72 77 Respiratory Rate 18 18 17 Blood Pressure 113/74 120/64 117/66 Pulse Oximetry 96 94 L 95 10/11/18 08:00 10/11/18 09:00 Temperature 98 F Pulse Rate 57 L 76 Respiratory Rate 20 Blood Pressure 106/68 Pulse Oximetry 99 Intake & Output 10/10/18 10/11/18 10/11/18 18:59 06:59 18:59 Intake Total 720 / 720 300 / 300 Output Total 475 / 475 1900 / 1900 Balance 245 / 245 -1600 / -1600 Weight 121.109 kg Intake: Oral 720 / 720 300 / 300 Output: Urine 475 / 475 1900 / 1900 Other: Date of Last Bowel Movement 10/08/18 10/08/18 10/10/18 - Constitutional no acute distress - Routine Respiratory Exam Present: CTA bilaterally - Routine Cardiovascular Exam Present: RRR - Routine Abdominal Exam Present: soft - Routine Extremities Exam Comments: swelling of the left knee and left ankle but better ROM. - Routine Neurological Exam Present: alert, oriented X3 Results - Labs CBC & Chem 7: 10/07/18 09:40 10/11/18 08:45 Laboratory Results - last 24 hr 10/09/18 10/09/18 10/11/18 09:08 09:08 08:45 Sodium 136 Potassium 4.1 Chloride 99 Carbon Dioxide 29.7 Anion Gap 7 BUN 25 H Creatinine 1.40 H Estimated GFR 52 L Random Glucose 124 H Calcium 8.7 Synovial Glucose 64 Synovial Total Protein 4.0 H Microbiology 10/09/18 09:08 Fluid - Synovial Fluid Gram Stain - Final 10/09/18 09:08 Fluid - Synovial Fluid Body Fluid Culture - Preliminary No growth in 48 hours - Procedures none Assessment and Plan - Plan A/P Paroxysmal PAT History of hypertension CMP EF 25% -Request for 24-hour Holter monitoring -Cardiology consult appreciated. was consulted for possible EP study. -stress test with no reversible ischemia. -Continue aspirin 81 mg p.o. daily for now. -continue Lopressor and EDDA -head CT w/o acute changes -CHF education, I/O and monitor weight renal insufficiency- likely chronic - Improved after IV hydration. Left knee effusion/ gout arthritis no history of trauma - joint fluid positive for uric acid/ gram stain/culture negative -continue Prednisone- -ortho consult appreciated. - PT consulted Pulm nodules. O/p follow up Heparin SQ for DVT prophylaxis Discharge Planning: for EP study on Friday; will dc home when cleared by cardiology.
--- NOTE | 2018-10-11 11:34 | P.PNCA ---
Subjective Interval history: No complaints Medications and Allergies Active Medications: Active Medications Acetaminophen (Tylenol) 650 mg PO Q6HR PRN PRN Reason: PAIN SCALE 1 TO 2 Hydrocodone Bitart/Acetaminophen ([place] 5/325) 1 tab PO Q4H PRN PRN Reason: PAIN SCALE 3 TO 5 Last Admin: 10/09/18 22:55 Dose: 1 tab Hydrocodone Bitart/Acetaminophen ([place] 7.5/325) 1 tab PO Q4H PRN PRN Reason: PAIN SCALE 6 TO 10 Last Admin: 10/11/18 08:19 Dose: 1 tab Aspirin (Ecotrin) 81 mg PO DAILY [facility] Last Admin: 10/11/18 08:19 Dose: 81 mg Heparin Sodium (Porcine) (Heparin Inj) 5,000 units SQ Q12HR [facility] Last Admin: 10/11/18 08:21 Dose: 5,000 units Lisinopril (Prinivil) 5 mg PO DAILY [facility] Last Admin: 10/11/18 08:20 Dose: 5 mg Metoprolol Tartrate (Lopressor) 25 mg PO BID [facility] Last Admin: 10/11/18 08:20 Dose: 25 mg Morphine Sulfate (Morphine Inj) 1 mg IV.PUSH Q3H PRN PRN Reason: BREAKTHROUGH PAIN Last Admin: 10/08/18 16:30 Dose: 1 mg Naloxone HCl (Narcan Inj) 0.4 mg IV.PUSH UNSCH PRN PRN Reason: SEE LABEL COMMENTS Prednisone (Deltasone) 40 mg PO DAILY [facility] Last Admin: 10/11/18 08:20 Dose: 40 mg Sodium Chloride (Ns Flush) 2 ml IV.FLUSH BID [facility] Last Admin: 10/11/18 08:21 Dose: 2 ml Sodium Chloride (Ns Flush) 2 ml IV.FLUSH PRN PRN PRN Reason: FLUSH AFTER USING IV ACCESS Allergies Allergy/AdvReac Type Severity Reaction Status Date / Time No Known Allergies Allergy Verified 10/07/18 09:29 Home Medications Medication Instructions Recorded Confirmed Type Bp Med PO DAILY NEB 10/07/18 History Physical Exam Vital signs: Vital Signs 10/10/18 12:00 10/10/18 16:00 10/10/18 17:17 Temperature 97.9 F 98.4 F Pulse Rate 75 76 77 Respiratory Rate 18 18 Blood Pressure 100/62 102/75 Pulse Oximetry 96 97 10/10/18 20:00 10/11/18 00:00 10/11/18 04:00 Temperature 97.9 F 97.3 F L 97.6 F Pulse Rate 78 72 77 Respiratory Rate 17 Blood Pressure 113/74 120/64 117/66 Pulse Oximetry 96 94 L 95 10/11/18 08:00 10/11/18 09:00 Temperature 98 F Pulse Rate 57 L 76 Respiratory Rate 20 Blood Pressure 106/68 Pulse Oximetry 99 Intake & Output 10/10/18 10/11/18 10/11/18 18:59 06:59 18:59 Intake Total 720 / 720 300 / 300 Output Total 475 / 475 1900 / 1900 Balance 245 / 245 -1600 / -1600 Weight 121.109 kg Intake: Oral 720 / 720 300 / 300 Output: Urine 475 / 475 1900 / 1900 Other: Date of Last Bowel Movement 10/08/18 10/08/18 10/10/18 - Constitutional no acute distress - Routine HEENT Exam Head: Present: normocephalic Eye: Present: EOMI ENT: Present: mucous membranes moist - Routine Neck Exam Absent: JVD - Routine Respiratory Exam Present: CTA bilaterally - Routine Cardiovascular Exam Present: RRR, S1, S2 - Routine Extremities Exam Absent: edema Results 10/07/18 09:40 10/11/18 08:45 Comprehensive Metabolic Panel 10/11/18 Range/Units 08:45 Sodium 136 (136-145) meq/L Potassium 4.1 (3.5-5.1) meq/L Chloride 99 (98-107) meq/L Carbon Dioxide 29.7 (21.0-32.0) meq/L BUN 25 H (7-18) mg/dL Creatinine 1.40 H (0.60-1.30) mg/dL Calcium 8.7 (8.5-10.1) mg/dL Intake and Output 10/10/18 10/11/18 10/11/18 22:59 06:59 14:59 Intake Total 720 / 720 300 / 300 Output Total 475 / 475 1900 / 1900 Balance 245 / 245 -1600 / -1600 Intake: Oral 720 / 720 300 / 300 Output: Urine 475 / 475 1900 / 1900 Other: Date of Last Bowel Movement 10/08/18 10/10/18 Weight 121.109 kg Assessment and Plan - Assessment (1) Atrial tachycardia Code(s): I47.1 - Supraventricular tachycardia Status: Acute (2) NICM (nonischemic cardiomyopathy) Code(s): I42.8 - Other cardiomyopathies Status: Acute - Plan 1) New onset cardiomyopathy Stress test showing patchy take up consistent with cardiomyopathy No areas of ischemia noted 2) Regular narrow complex tachycardia/SVT Probable atrial tachycardia Still with significant amount on BB therapy Dr. Dorsey plans to EP study the patient Cardiomyopathy possible secondary to tachyarrhythmia EP study will have to wait until Friday due to left knee being drained 3) Will be started on heart failure medications for NICM 4) Left knee effusion s/p drainage No changes, EP study tomorrow by Dr. Dorsey
[2018-10-12] MEDS: Metoprolol Tartrate 25 MG Tablet PO SCH ×2 (04:59→08:52)
[2018-10-12] MEDS: Lisinopril 5 MG Tablet PO SCH (08:52)
[2018-10-12] MEDS: predniSONE 20 MG Tablet PO SCH (08:52)
--- NOTE | 2018-10-12 08:53 | P.PNIM ---
Subjective Interval history: f/u; cardiomyopathy/ gout in no acute distress. denies chest pain or sob. has some pain to the left knee/ left ankle. Physical Exam Vital signs: Vital Signs 10/11/18 09:00 10/11/18 12:00 10/11/18 16:00 Temperature 97.4 F L 98 F Pulse Rate 76 67 60 Respiratory Rate 20 20 Blood Pressure 101/55 L 115/70 Pulse Oximetry 99 96 10/11/18 20:00 10/11/18 22:05 10/12/18 00:00 Temperature 99.0 F 98.2 F Pulse Rate 65 62 Respiratory Rate 16 20 16 Blood Pressure 90/54 L 104/56 L Pulse Oximetry 97 98 10/12/18 04:00 10/12/18 05:30 Temperature 98.4 F Pulse Rate 70 Respiratory Rate 16 20 Blood Pressure 160/67 H Pulse Oximetry 99 Intake & Output 10/11/18 10/12/18 10/12/18 18:59 06:59 18:59 Intake Total 360 / 360 Output Total 550 / 550 Balance -190 / -190 Weight 113.8 kg Intake: Oral 360 / 360 Output: Urine 550 / 550 Other: Date of Last Bowel Movement 10/10/18 - Constitutional no acute distress - Routine Respiratory Exam Present: CTA bilaterally - Routine Cardiovascular Exam Present: RRR - Routine Abdominal Exam Present: soft - Routine Extremities Exam Comments: left knee/ankle swelling but with better ROM. - Routine Neurological Exam Present: alert, oriented X3 Results - Labs CBC & Chem 7: 10/07/18 09:40 10/11/18 08:45 Laboratory Results - last 24 hr 10/11/18 08:45 Sodium 136 Potassium 4.1 Chloride 99 Carbon Dioxide 29.7 Anion Gap 7 BUN 25 H Creatinine 1.40 H Estimated GFR 52 L Random Glucose 124 H Calcium 8.7 Microbiology 10/09/18 09:08 Fluid - Synovial Fluid Gram Stain - Final 10/09/18 09:08 Fluid - Synovial Fluid Body Fluid Culture - Preliminary No growth in 48 hours - Procedures none Assessment and Plan - Plan A/P Paroxysmal PAT History of hypertension CMP EF 25% -Cardiology consult appreciated. was consulted for EP study. -stress test with no reversible ischemia. -Continue aspirin 81 mg p.o. daily for now. -continue Lopressor and EDDA -head CT w/o acute changes -CHF education, I/O and monitor weight renal insufficiency- likely chronic - Improved after IV hydration. Left knee effusion/ gout arthritis no history of trauma - joint fluid positive for uric acid/ gram stain/culture negative -continue Prednisone- -ortho consult appreciated. - PT consulted Pulm nodules. O/p follow up Heparin SQ for DVT prophylaxis Discharge Planning: for EP study today; will dc home when cleared by cardiology.
[2018-10-12] MEDS: Heparin - SQ 10,000 UNITS/ML Vial SQ SCH (11:18)
[2018-10-12] MEDS: Sodium Chloride 0.9% 2 ML Flush BID IV.FLUSH SCH (11:19)
[2018-10-12] MEDS ORDERED: Lidocaine 1% Inj 50 ML Vial ONE (20:14)
[2018-10-12] MEDS ORDERED: Heparin/NS PF Inj 500 ML ONE (20:14)
[2018-10-12] MEDS ORDERED: fentaNYL Citrate Inj 100 MCG/2 ML Ampul ONE (20:23)
[2018-10-12] MEDS ORDERED: Isoproterenol HCl Inj 0.2 MG/ML Ampul ONE (20:52)
--- NOTE | 2018-10-12 21:14 | CATHPROC ---
[employer] HIS Report Study Information Study Number Admission Scheduled Start Study Start [id number] Oct 07 2018 12:58PM 10/12/2018 Oct 12 2018 7:47PM [place] Service Cardiac Pacer/ICD Admit Source Facility Department Other [facility] - Neurology Director Physician and Clinical Staff Initial Sina yL Brim Raiser Ghazal Thacker,RT(R) TECH2 Other Anesthesia, ORDER TO DELIVERY SUPERVISOR Recorder Siomara Hopkins,TULIO Scrub Alison Quiroz,OPHELIA Procedures Performed Procedure Ablation Procedure Equipment Time Television Specialist Description Size Mfg Part Number Used/Scraped [id number] 19:57 [employer] BLANKET,WARM AIR CCL * Used *[id number] 19:57 [employer] PACK, CCL CUSTOM * Used *[id number] 19:57 Echo360 PACER VALENCIA, LIMB * 2530 *[id number] Used [id number] 20:41 [employer] CATHETER, JSN, QUAD FR 5 Used *[id number] 20:41 [employer], JSN, QUAD FR 5 Used *[id number] 20:41 [employer], JSN, QUAD FR 5 Used *[id number] 20:41 [employer] CATHETER, JSN, QUAD FR 5 Used *[id number] 20:41 [employer] SHEATH, EPS, FR5 FAST CATH FR 5 Used *[id number] 20:41 [employer] SHEATH, EPS, FR5 FAST CATH FR 5 Used *[id number] 20:41 [employer] SHE[employer], EPS, FR5 FAST CATH FR 5 Used *[id number] 20:41 [employer] SHE[employer], EPS, FR6 FAST CATH FR 6 Used *[id number] History: Allergies Allergy Reaction No Known Allergies History: Risk Factors Hypertension Yes Labs Hgb (g/dl) Hct (%) RBC (MIL/MM3) WBC (l/cumm) Platelets (thousands) 11.60-17.00 35.00-51.00 4.00-5.90 4.00-11.00 150.00-450.00 16.0 47 5 9.3 195 Glucose (mg/dl) BUN (mg/dl) Creatinine (mg/dl) BUN:Creatinine (1:x) 74.00-106.00 7.00-18.00 0.50-1.30 10.00-20.00 124 25 1.4 17.9 Na (meq/l) K (meq/l) 136.00-145.00 3.50-5.10 136 4.1 INR (PTT:PT) 0.90-1.10 1 Medication Medication Total Dose (Bolus/Oral) Medication Total Dosage/Unit 1% XYLOCAINE 40 mL Medications (Bolus/Oral) Medication Time Given Dosage/Unit Administered By Reason 1% XYLOCAINE 10/12/2018 8:38:37 PM 20 mL Sina Dorsey 20 mL 1% XYLOCAINE given in lab by Sina Dorsey in Left Groin via Subcutaneous. 1% XYLOCAINE 10/12/2018 8:41:38 PM 20 mL Sina Dorsey 20 mL 1% XYLOCAINE given in lab by Sina Dorsey in Right Groin via Subcutaneous. Medication (Drip) Medication Time Given Dosage/Unit Concentration/Unit Diluent (ml) Solution ISUPREL 10/12/2018 8:56:19 PM 4 mcg/min 1 mg 250 NaCl .9 4 mcg/min ISUPREL given in lab by Anesthesia, ORDER TO DELIVERY SUPERVISOR via Peripheral IV. Pump/Drip Flow = 60 ml/hr using NaCl .9 with a concentration of 1 mg in 250 ml. Ordered by Sina Dorsey. Reason: As per physicians verbal order. Initial Case Assessment Cardiovascular HR Rhythm NIBP Chest Pain 70 sr 140/81 0 Edema Present Skin color Skin Moderate Normal Warm Dry Circulatory - Right Pulses Dorsalis Pedis Radial 1 1 Scale (0,1,2,3,4,d) Circulatory - Left Pulses Dorsalis Pedis Radial 1 1 Scale (0,1,2,3,4,d) Circulatory - Lower Extremities Color Lower Right Color Lower Left Normal Normal Neurological State Oriented to time-place- Alert Moves all extremities person Respiration - General Respiration Rate SpO2 (%) (B/min) 20 91 Final Case Assessment Cardiovascular HR Rhythm NIBP Chest Pain 75 sr 99/53 0 Edema Present Skin color Skin Moderate Normal Warm Dry Circulatory - Right Pulses Dorsalis Pedis 1 Scale (0,1,2,3,4,d) Circulatory - Left Pulses Dorsalis Pedis 1 Scale (0,1,2,3,4,d) Circulatory - Lower Extremities Color Lower Right Color Lower Left Normal Normal Neurological State Oriented to time-place- Alert Moves all extremities person Respiration - General Respiration Rate SpO2 (%) (B/min) 18 100 Comment: nrm Chronological Log Time Study Chronological Log 20::45 Patient arrived via Bed. 20::45 Patient Name, D.O.B, / Armband Verified By R.N. 20:09:46 Consent signed by the physician and the patient and verified by the Neurology Director staff. 20::47 Anesthesia at bedside. Assumes care of patient. 20::47 Pre-op and post- op instructions given; patient acknowledges understanding of instructions. 20:09:49 Patient has been NPO for More than 6Hrs. 20:09:49 Skin Breakdown- none per pt 20:10:01 Patient Warmer Placed on the Table. 20:10:02 Disposable Defibrillator Pads Placed On Patient. 20:10:03 Andrea Prominences Protected 20:10:04 A # 22 IV was noted in the Antecubital (right). Grade = 0 0.9ns kvo 20:10:05 A # 20 IV was noted in the Antecubital (left). Grade = 0 0.9ns kvo 20:10:06 History and physical on the chart. Assessment: Initial Case, HR=70 BPM, Rhythm=sr, MDIO=184/81 mmhg, Chest Pain=0, Edema=Mod, [place] r=Normal, Skin = Warm, Dry Right Pulses: Prateek Ped=1, Radial=1 Left Pulses: Prateek Ped=1, Radial=1 20:26:51 Lower Right Extremities: Color=Normal Lower Left Extremities: Color=Normal Neurological: State=Alert, Ox3, [place] Respiration: Resp=20 B/min, SpO2=91 % 20:29:52 Table restraints applied according to hospital policy 20:33:48 Bilateral groins prepped with 2% chlorhexidine, and draped after a 3 minute waiting time. 20:36:13 Reference ECG taken Time Out. Correct patient, procedure, procedure equipment, site and side verified with physicia n present. Time 20:38:00 concurred by MD, individual staff and ORDER TO DELIVERY SUPERVISOR. Time Out #2 - Consents verified, patient in correct position, all results are labled and displa yed, safety precautions 20:38:20 taken, antibiotics administered. Time out concurred by MD, individual staff and ORDER TO DELIVERY SUPERVISOR in procedu re 20:38:35 Case Start 20:38:37 20 mL 1% XYLOCAINE given in lab by Sina Dorsey in Left Groin via Subcutaneous. 20:39:48 Vascular access was obtained in the Fem Vein (left). 20:39:51 Vascular access was obtained in the Fem Vein (left). 20:39:53 Vascular access was obtained in the Fem Vein (left). 20:40:52 A SHEATH, EPS, FR5 FAST CATH FR 5 was advanced into the Fem Vein (left) using the Modified Seldinger technique. 20:41:01 A SHEATH, EPS, FR5 FAST CATH FR 5 was advanced into the Fem Vein (left) using the Modified Seldinger technique. 20:41:03 A SHEATH, EPS, FR5 FAST CATH FR 5 was advanced into the Fem Vein (left) using the Modified Seldinger technique. 20:41:38 20 mL 1% XYLOCAINE given in lab by Sina Dorsey in Right Groin via Subcutaneous. 20:41:51 Vascular access was obtained in the Fem Vein (right). 20:45:46 A SHEATH, EPS, FR6 FAST CATH FR 6 was advanced into the Fem Vein (right) using the Modified Seldinger technique. A CATHETER, JSN, QUAD FR 5 was advanced vis Fem Vein (left) and placed in the HRA. Placement wa s visually 20:45:57 confirmed under fluoroscopy. A CATHETER, JSN, QUAD FR 5 was advanced vis Fem Vein (left) and placed in the HIS. Placement wa s visually 20:46:06 confirmed under fluoroscopy. A CATHETER, JSN, QUAD FR 5 was advanced vis Fem Vein (left) and placed in the RVA. Placement wa s visually 20:46:11 confirmed under fluoroscopy. A CATHETER, JSN, QUAD FR 5 was advanced vis Fem Vein (right) and placed in the CS. Placement wa s visually 20:46:17 confirmed under fluoroscopy. 20:48:13 EPS in progress. 4 mcg/min ISUPREL given in lab by Anesthesia, ORDER TO DELIVERY SUPERVISOR via Peripheral IV. Pump/Drip Flow = 60 ml/hr using NaCl .9 with 20:56:19 a concentration of 1 mg in 250 ml. Ordered by Sina Dorsey. Reason: As per physicians verbal o rder. 21:03:15 Isuprel off 21:04:35 All catheter(s) removed without difficulty 21:09:22 Sheaths removed from left groin; pressure applied to access sites by DC.. 21:10:31 Sheath removed from right groin; pressure applied to access site by HH. 21:11:16 Case End (Physician broke scrub) 21::58 No case complications noted. 21:11:59 Cine recording checked. Assessment: Final Case, HR=75 BPM, Rhythm=sr, NIBP=99/53 mmhg, Chest Pain=0, Edema=Mod, Color= Normal, Skin = Warm, Dry Right Pulses: Prateek Ped=1 Left Pulses: Prateek Ped=1 21:13:01 Lower Right Extremities: Color=Normal Lower Left Extremities: Color=Normal Neurological: State=Alert, Ox3, [place] Respiration: Resp=18 B/min, AiH0=533 %, Comment=nrm 21:13:49 Defibrillator and ground pads removed. Skin intact. 21:15:32 Ablation procedure performed: ~ABLATION TYPE~. eps 21:15:40 EP Procedure was performed. eps 21:18:14 Sterile dressings applied to sites. Sites wnl. 21:23:58 [facility] Study - Contrast Media Used In Study Contrast Total Opened (mL) Total Used (mL) Total Wasted (mL) Unspecified 0 0 0 End Study - Maximum Contrast Load Max Contrast Load (mL) 406.5 End Study - Radiation Exposure Fluoro Time (minutes) 1.0 End Study - Patient Disposition Complications Transferred To Interventional Outcome No Telemetry Bed successful
--- NOTE | 2018-10-12 23:49 | P.PNCA ---
Subjective Interval history: No events overnight Left knee still swollen Medications and Allergies Active Medications: Active Medications Hydrocodone Bitart/Acetaminophen ([place] 5/325) 1 tab PO Q4H PRN PRN Reason: PAIN SCALE 5 Last Admin: 10/12/18 17:50 Dose: 1 tab Hydrocodone Bitart/Acetaminophen ([place] 7.5/325) 1 tab PO Q4H PRN PRN Reason: PAIN SCALE 6 TO 10 Last Admin: 10/12/18 13:40 Dose: 1 tab Aspirin (Ecotrin) 81 mg PO DAILY [facility] Last Admin: 10/12/18 08:52 Dose: 81 mg Heparin Sodium (Porcine) (Heparin Inj) 5,000 units SQ Q12HR [facility] Last Admin: 10/12/18 11:18 Dose: Not Given Lisinopril (Prinivil) 5 mg PO DAILY [facility] Last Admin: 10/12/18 08:52 Dose: 5 mg Metoprolol Tartrate (Lopressor) 25 mg PO BID [facility] Last Admin: 10/12/18 08:52 Dose: 25 mg Morphine Sulfate (Morphine Inj) 1 mg IV.PUSH Q3H PRN PRN Reason: BREAKTHROUGH PAIN Last Admin: 10/08/18 16:30 Dose: 1 mg Naloxone HCl (Narcan Inj) 0.4 mg IV.PUSH UNSCH PRN PRN Reason: SEE LABEL COMMENTS Ondansetron HCl (Zofran Inj) 4 mg IV.PUSH Q4H PRN PRN Reason: NAUSEA Oxycodone/Acetaminophen ([place] 5/325 Mg) 1 tab PO Q4H PRN PRN Reason: PAIN SCALE 1 TO 4 Prednisone (Deltasone) 40 mg PO DAILY [facility] Last Admin: 10/12/18 08:52 Dose: 40 mg Sodium Chloride (Ns Flush) 2 ml IV.FLUSH BID [facility] Last Admin: 10/12/18 11:19 Dose: 2 ml Sodium Chloride (Ns Flush) 2 ml IV.FLUSH PRN PRN PRN Reason: FLUSH AFTER USING IV ACCESS Allergies Allergy/AdvReac Type Severity Reaction Status Date / Time No Known Allergies Allergy Verified 10/07/18 09:29 Home Medications Medication Instructions Recorded Confirmed Type Bp Med PO DAILY NEB 10/07/18 History Physical Exam Vital signs: Vital Signs 10/12/18 00:00 10/12/18 04:00 10/12/18 05:30 Temperature 98.2 F 98.4 F Pulse Rate 62 70 Respiratory Rate 16 16 20 Blood Pressure 104/56 L 160/67 H Pulse Oximetry 98 99 10/12/18 08:00 10/12/18 12:00 10/12/18 16:00 Temperature 98.7 F 97.7 F 97.7 F Pulse Rate 62 67 61 Respiratory Rate 18 18 18 Blood Pressure 135/84 124/60 128/72 Pulse Oximetry 98 96 97 Intake & Output 10/12/18 10/12/18 10/13/18 06:59 18:59 06:59 Intake Total 360 / 360 0 / 0 Output Total 550 / 550 900 / 900 Balance -190 / -190 -900 / -900 Weight 113.8 kg Intake: Oral 360 / 360 0 / 0 Output: Urine 550 / 550 900 / 900 Other: # Bowel Movements 0 Narrative: Awake alert oriented x3 not in any form of acute distress CVS: Currently in regular rhythm no murmur Lungs: Clear to auscultation no crackles abdomen is flabby soft nontender with good bowel sounds left knee- with tender suprapatellar swelling no erythema with limited range of motion both lower extremities mild trace pitting edema. Well-healed scar on the posterior aspect of the left calf. Good peripheral pulses Neuro exam ANO x3 Cranial nerves grossly intact extraocular muscle full range of motion pupils equally reactive to light tongue midline good gag reflex Grossly no sensory deficit Motor 5/5 in all extremities Results 10/07/18 09:40 10/11/18 08:45 Comprehensive Metabolic Panel 10/11/18 Range/Units 08:45 Sodium 136 (136-145) meq/L Potassium 4.1 (3.5-5.1) meq/L Chloride 99 (98-107) meq/L Carbon Dioxide 29.7 (21.0-32.0) meq/L BUN 25 H (7-18) mg/dL Creatinine 1.40 H (0.60-1.30) mg/dL Calcium 8.7 (8.5-10.1) mg/dL Intake and Output 10/12/18 10/12/18 10/13/18 14:59 22:59 06:59 Intake Total 0 / 0 Output Total 900 / 900 Balance -900 / -900 Intake: Oral 0 / 0 Output: Urine 900 / 900 Other: # Bowel Movements 0 Assessment and Plan - Assessment (1) Atrial tachycardia Code(s): I47.1 - Supraventricular tachycardia Status: Acute (2) NICM (nonischemic cardiomyopathy) Code(s): I42.8 - Other cardiomyopathies Status: Acute - Plan 1) New onset cardiomyopathy Stress test showing patchy take up consistent with cardiomyopathy No areas of ischemia noted 2) Regular narrow complex tachycardia/SVT Probable atrial tachycardia Still with significant amount on BB therapy EP study today by Dr. Dorsey 3) Will be started on heart failure medications for NICM Possible tachyarrhythmia induced 4) Left knee effusion s/p drainage, appears to be gout
[2018-10-13] MEDS: Heparin - SQ 10,000 UNITS/ML Vial SQ SCH ×3 (03:13→21:13)
[2018-10-13] MEDS: Metoprolol Tartrate 25 MG Tablet PO SCH ×3 (03:13→21:15)
[2018-10-13] MEDS: Sodium Chloride 0.9% 2 ML Flush BID IV.FLUSH SCH ×3 (03:14→21:16)
[2018-10-13 06:46] LABS: Activated Partial Thrombo Time 30.3 sec (23.4-31.7)
[2018-10-13] MEDS: Lisinopril 5 MG Tablet PO SCH (09:02)
[2018-10-13] MEDS: predniSONE 20 MG Tablet PO SCH (09:02)
--- NOTE | 2018-10-13 13:09 | P.PN ---
Subjective Interval history: Follow-up new onset cardiomyopathy/SVT narrow complex/gout October 13, 2018-patient seen and examined, denies any chest pain or shortness of breath. Complains of left knee pain more than the right. He had ablations done yesterday. Physical Exam Vital signs: Vital Signs 10/12/18 16:00 10/12/18 21:30 10/12/18 21:52 Temperature 97.7 F Pulse Rate 61 68 68 Respiratory Rate 18 16 16 Blood Pressure 128/72 128/68 123/75 Pulse Oximetry 97 100 100 10/12/18 22:22 10/12/18 22:52 10/12/18 23:22 Temperature Pulse Rate 68 70 72 Respiratory Rate 16 16 16 Blood Pressure 123/75 113/67 125/68 Pulse Oximetry 100 100 100 10/12/18 23:52 10/13/18 00:00 10/13/18 00:52 Temperature Pulse Rate 70 58 L 56 L Respiratory Rate 16 16 16 Blood Pressure 105/62 108/54 L 120/63 Pulse Oximetry 100 99 100 10/13/18 01:52 10/13/18 02:52 10/13/18 03:52 Temperature Pulse Rate 69 58 L 53 L Respiratory Rate 16 16 16 Blood Pressure 125/59 L 117/64 120/72 Pulse Oximetry 95 99 97 10/13/18 04:00 10/13/18 07:00 10/13/18 08:00 Temperature Pulse Rate 53 L 58 L 58 L Respiratory Rate 16 Blood Pressure 120/72 Pulse Oximetry 97 10/13/18 08:04 10/13/18 09:00 10/13/18 10:00 Temperature 97.5 F L Pulse Rate 58 L 58 L 60 Respiratory Rate 18 Blood Pressure 130/75 Pulse Oximetry 98 10/13/18 11:00 10/13/18 12:00 Temperature Pulse Rate 63 62 Respiratory Rate 18 Blood Pressure 137/69 Pulse Oximetry 98 Intake & Output 10/12/18 10/13/18 10/13/18 18:59 06:59 18:59 Intake Total 0 / 0 440 / 440 Output Total 900 / 900 425 / 425 Balance -900 / -900 15 / Weight 118.2 kg Intake: Oral 0 / 0 440 / 440 Output: Urine 900 / 900 425 / 425 Other: # Bowel Movements 0 Narrative: GENERAL: NAD SKIN: Warm and dry. HEAD: Atraumatic. Normocephalic. EYES: Pupils equal and round. No scleral icterus. No injection or drainage. ENT: No nasal bleeding or discharge. Mucous membranes pink and moist. NECK: Trachea midline. No JVD. CARDIOVASCULAR: Regular rate and rhythm. RESPIRATORY: No accessory muscle use. Clear to auscultation. Breath sounds equal bilaterally. GASTROINTESTINAL: Abdomen soft, non-tender, nondistended. Hepatic and splenic margins not palpable. MUSCULOSKELETAL: Extremities without clubbing, cyanosis, or edema. No obvious deformities. left knee swollen>R NEUROLOGICAL: Awake and alert. No obvious cranial nerve deficits. Motor grossly within normal limits. Five out of 5 muscle strength in the arms and legs. Normal speech. PSYCHIATRIC: Appropriate mood and affect; insight and judgment normal. Results - Labs CBC & Chem 7: 10/07/18 09:40 10/11/18 08:45 Laboratory Results - last 24 hr 10/13/18 05:37 PT 10.0 INR 1.0 APTT 30.3 Microbiology 10/09/18 09:08 Fluid - Synovial Fluid Gram Stain - Final 10/09/18 09:08 Fluid - Synovial Fluid Body Fluid Culture - Final No growth in 72 hours (aerobically and anaerobically ) - Procedures None Assessment and Plan - Plan 62-year-old man with Regular narrow complex tachycardia /SVT Appreciate input from cardiology, EP Patient had ablation performed October 12, 2018 Continue beta-jabari New onset cardiomyopathy Stress test performed with no area of ischemia noted Appreciate input from cardiology Continue beta-jabari, EDDA inhibitor renal insufficiency- likely chronic Improved after IV hydration. Left knee effusion/ gout arthritis - joint fluid positive for uric acid/ gram stain/culture negative -continue Prednisone- NSAID is currently contraindicated secondary to renal insufficiency -ortho consult appreciated to manage medical management - PT consulted Pulm nodules. O/p follow up Heparin SQ for DVT prophylaxis E-[facility]pert[facility] Prescription Drug Monitoring Database has been queried and verified prior to prescribing the controlled substance. Acute pain exception. This patient has normal, predicted, physiological, and time limited response to an adverse mechanical stimulus associated with surgery, trauma, or acute illness as described in my notes. There is a lack of alternative treatment options other than to include the prescribed narcotic treatment for this condition.
[2018-10-13] MEDS: Morphine Inj 4 MG/ML Vial IV.PUSH PRN ×2 (13:44→21:13)
--- NOTE | 2018-10-13 14:06 | ECG ---
Date Performed: 10/13/2018 Time Performed: 05:29:32 PTAGE: 62 years EKG: Sinus rhythm Prolonged QT interval Compared to previous tracing the criteria for LVH are less convincing. Patient continues to have criteria for left atrial enlargement and possible mitral valve disease. Sinus tach ycardia has resolve. T wave inversion in lead aVL has resolved. Clinical correlation is recommended B orderline ECG PREVIOUS TRACING : 10/07/18 DOCTOR: Tessa Sotry Interpretating Date/Time 10/13/2018 14:06:10
--- NOTE | 2018-10-13 17:48 | P.PN ---
Subjective Interval history: Feeling ok Physical Exam Vital signs: Vital Signs 10/12/18 21:30 10/12/18 21:52 10/12/18 22:22 Temperature Pulse Rate 68 68 68 Respiratory Rate 16 16 16 Blood Pressure 128/68 123/75 123/75 Pulse Oximetry 100 100 100 10/12/18 22:52 10/12/18 23:22 10/12/18 23:52 Temperature Pulse Rate 70 72 70 Respiratory Rate 16 16 16 Blood Pressure 113/67 125/68 105/62 Pulse Oximetry 100 100 100 10/13/18 00:00 10/13/18 00:52 10/13/18 01:52 Temperature Pulse Rate 58 L 56 L 69 Respiratory Rate 16 16 16 Blood Pressure 108/54 L 120/63 125/59 L Pulse Oximetry 99 100 95 10/13/18 02:52 10/13/18 03:52 10/13/18 04:00 Temperature Pulse Rate 58 L 53 L 53 L Respiratory Rate 16 16 16 Blood Pressure 117/64 120/72 120/72 Pulse Oximetry 99 97 97 10/13/18 07:00 10/13/18 08:00 10/13/18 08:04 Temperature 97.5 F L Pulse Rate 58 L 58 L 58 L Respiratory Rate 18 Blood Pressure 130/75 Pulse Oximetry 98 10/13/18 09:00 10/13/18 10:00 10/13/18 11:00 Temperature Pulse Rate 58 L 60 63 Respiratory Rate Blood Pressure Pulse Oximetry 10/13/18 12:00 10/13/18 13:00 10/13/18 14:00 Temperature Pulse Rate 62 62 60 Respiratory Rate 18 Blood Pressure 137/69 Pulse Oximetry 98 10/13/18 15:00 10/13/18 16:00 10/13/18 17:00 Temperature Pulse Rate 62 60 62 Respiratory Rate Blood Pressure Pulse Oximetry Intake & Output 10/12/18 10/13/18 10/13/18 18:59 06:59 18:59 Intake Total 0 / 0 440 / 440 Output Total 900 / 900 425 / 425 Balance -900 / -900 15 15 Weight 118.2 kg Intake: Oral 0 / 0 440 / 440 Output: Urine 900 / 900 425 / 425 Other: # Bowel Movements 0 - Constitutional mild distress - Routine HEENT Exam Eye: Present: PERRL ENT: Present: mucous membranes moist - Routine Respiratory Exam Present: CTA bilaterally - Routine Cardiovascular Exam Present: tachycardia, irregular rhythm - Routine Abdominal Exam Present: soft - Routine Neurological Exam Present: alert, oriented X3 - Detailed Neurological Exam: Coma Scale Eye Opening: Spontaneous Verbal Response: Oriented Motor Response: Obey commands [place] Coma Scale Total: 15 Results - Labs CBC & Chem 7: 10/07/18 09:40 10/11/18 08:45 Laboratory Results - last 24 hr 10/13/18 05:37 PT 10.0 INR 1.0 APTT 30.3 - Procedures None Assessment and Plan - Assessment (1) Atrial tachycardia Code(s): I47.1 - Supraventricular tachycardia Status: Acute Plan: Patient in atrial fibrillation On amio PO,.. Cardizem was added Case Discussed with CV surgery If tolerate , cardizem CD in AM Mediastinal tube in place. If after removing the tube, patient still in afib and rate cannot be controlled , cardioversion should be considered. (2) NICM (nonischemic cardiomyopathy) Code(s): I42.8 - Other cardiomyopathies Status: Acute
--- NOTE | 2018-10-13 17:59 | P.PN ---
Subjective Interval history: Feeling better Physical Exam Vital signs: Vital Signs 10/12/18 21:30 10/12/18 21:52 10/12/18 22:22 Temperature Pulse Rate 68 68 68 Respiratory Rate 16 16 16 Blood Pressure 128/68 123/75 123/75 Pulse Oximetry 100 100 100 10/12/18 22:52 10/12/18 23:22 10/12/18 23:52 Temperature Pulse Rate 70 72 70 Respiratory Rate 16 16 16 Blood Pressure 113/67 125/68 105/62 Pulse Oximetry 100 100 100 10/13/18 00:00 10/13/18 00:52 10/13/18 01:52 Temperature Pulse Rate 58 L 56 L 69 Respiratory Rate 16 16 16 Blood Pressure 108/54 L 120/63 125/59 L Pulse Oximetry 99 100 95 10/13/18 02:52 10/13/18 03:52 10/13/18 04:00 Temperature Pulse Rate 58 L 53 L 53 L Respiratory Rate 16 16 16 Blood Pressure 117/64 120/72 120/72 Pulse Oximetry 99 97 97 10/13/18 07:00 10/13/18 08:00 10/13/18 08:04 Temperature 97.5 F L Pulse Rate 58 L 58 L 58 L Respiratory Rate 18 Blood Pressure 130/75 Pulse Oximetry 98 10/13/18 09:00 10/13/18 10:00 10/13/18 11:00 Temperature Pulse Rate 58 L 60 63 Respiratory Rate Blood Pressure Pulse Oximetry 10/13/18 12:00 10/13/18 13:00 10/13/18 14:00 Temperature Pulse Rate 62 62 60 Respiratory Rate 18 Blood Pressure 137/69 Pulse Oximetry 98 10/13/18 15:00 10/13/18 16:00 10/13/18 17:00 Temperature Pulse Rate 62 60 62 Respiratory Rate Blood Pressure Pulse Oximetry Intake & Output 10/12/18 10/13/18 10/13/18 18:59 06:59 18:59 Intake Total 0 / 0 440 / 440 Output Total 900 / 900 425 / 425 Balance -900 / -900 15 15 Weight 118.2 kg Intake: Oral 0 / 0 440 / 440 Output: Urine 900 / 900 425 / 425 Other: # Bowel Movements 0 - Constitutional no acute distress - Routine HEENT Exam Head: Present: normocephalic Eye: Present: PERRL ENT: Present: mucous membranes moist - Routine Respiratory Exam Present: CTA bilaterally - Routine Cardiovascular Exam Present: RRR, S1, S2 - Routine Abdominal Exam Present: soft - Routine Neurological Exam Present: alert, oriented X3 - Detailed Neurological Exam: Coma Scale Eye Opening: Spontaneous - Routine Psychiatric Exam Present: normal affect Results - Labs CBC & Chem 7: 10/07/18 09:40 10/11/18 08:45 Laboratory Results - last 24 hr 10/13/18 05:37 PT 10.0 INR 1.0 APTT 30.3 - Procedures None Assessment and Plan - Assessment (1) Atrial tachycardia Code(s): I47.1 - Supraventricular tachycardia Status: Acute Plan: In sinus rhythm Doing well Feeling better Pulmonary veins tachycardia Will need anticoagulation berfore ablation Possible tachycardia mediated cardiomyopathy Case discussed with patient Will follow as OP I will be available on a PRN basis (2) NICM (nonischemic cardiomyopathy) Code(s): I42.8 - Other cardiomyopathies Status: Acute Plan: Possible tachycardia mediated Echo will be repeated post ablation
--- NOTE | 2018-10-13 23:32 | P.PNCA ---
Subjective Interval history: No events overnight He's concerned about his knees and not being able to walk up and down stairs Medications and Allergies Active Medications: Active Medications Hydrocodone Bitart/Acetaminophen ([place] 5/325) 1 tab PO Q4H PRN PRN Reason: PAIN SCALE 5 Last Admin: 10/13/18 19:26 Dose: 1 tab Hydrocodone Bitart/Acetaminophen ([place] 7.5/325) 1 tab PO Q4H PRN PRN Reason: PAIN SCALE 6 TO 10 Last Admin: 10/12/18 13:40 Dose: 1 tab Aspirin (Ecotrin) 81 mg PO DAILY [facility] Last Admin: 10/13/18 09:03 Dose: 81 mg Heparin Sodium (Porcine) (Heparin Inj) 5,000 units SQ Q12HR [facility] Last Admin: 10/13/18 21:13 Dose: 5,000 units Lisinopril (Prinivil) 5 mg PO DAILY [facility] Last Admin: 10/13/18 09:02 Dose: 5 mg Metoprolol Tartrate (Lopressor) 25 mg PO BID [facility] Last Admin: 10/13/18 21:15 Dose: 25 mg Morphine Sulfate (Morphine Inj) 1 mg IV.PUSH Q3H PRN PRN Reason: BREAKTHROUGH PAIN Last Admin: 10/13/18 21:13 Dose: 1 mg Naloxone HCl (Narcan Inj) 0.4 mg IV.PUSH UNSCH PRN PRN Reason: SEE LABEL COMMENTS Ondansetron HCl (Zofran Inj) 4 mg IV.PUSH Q4H PRN PRN Reason: NAUSEA Oxycodone/Acetaminophen (Percocet 5/325 Mg) 1 tab PO Q4H PRN PRN Reason: PAIN SCALE 1 TO 4 Prednisone (Deltasone) 40 mg PO DAILY [facility] Last Admin: 10/13/18 09:02 Dose: 40 mg Sodium Chloride (Ns Flush) 2 ml IV.FLUSH BID [facility] Last Admin: 10/13/18 21:16 Dose: 2 ml Sodium Chloride (Ns Flush) 2 ml IV.FLUSH PRN PRN PRN Reason: FLUSH AFTER USING IV ACCESS Allergies Allergy/AdvReac Type Severity Reaction Status Date / Time No Known Allergies Allergy Verified 10/07/18 09:29 Home Medications Medication Instructions Recorded Confirmed Type Bp Med PO DAILY NEB 10/07/18 History Physical Exam Vital signs: Vital Signs 10/12/18 23:52 10/13/18 00:00 10/13/18 00:52 Temperature Pulse Rate 70 58 L 56 L Respiratory Rate 16 16 16 Blood Pressure 105/62 108/54 L 120/63 Pulse Oximetry 100 99 100 10/13/18 01:52 10/13/18 02:52 10/13/18 03:52 Temperature Pulse Rate 69 58 L 53 L Respiratory Rate 16 16 16 Blood Pressure 125/59 L 117/64 120/72 Pulse Oximetry 95 99 97 10/13/18 04:00 10/13/18 07:00 10/13/18 08:00 Temperature Pulse Rate 53 L 58 L 58 L Respiratory Rate 16 Blood Pressure 120/72 Pulse Oximetry 97 10/13/18 08:04 10/13/18 09:00 10/13/18 10:00 Temperature 97.5 F L Pulse Rate 58 L 58 L 60 Respiratory Rate 18 Blood Pressure 130/75 Pulse Oximetry 98 10/13/18 11:00 10/13/18 12:00 10/13/18 13:00 Temperature Pulse Rate 63 62 62 Respiratory Rate 18 Blood Pressure 137/69 Pulse Oximetry 98 10/13/18 14:00 10/13/18 15:00 10/13/18 16:00 Temperature Pulse Rate 60 62 62 Respiratory Rate 20 Blood Pressure 120/70 Pulse Oximetry 98 10/13/18 17:00 10/13/18 18:00 10/13/18 19:00 Temperature Pulse Rate 62 62 62 Respiratory Rate Blood Pressure Pulse Oximetry 10/13/18 20:00 10/13/18 20:05 10/13/18 21:28 Temperature 97.6 F Pulse Rate 64 Respiratory Rate 16 16 16 Blood Pressure 140/83 Pulse Oximetry 98 Intake & Output 10/13/18 10/13/18 10/14/18 06:59 18:59 06:59 Intake Total 440 / 440 780 / 780 Output Total 425 / 425 800 / 800 Balance - Weight 118.2 kg Intake: Oral 440 / 440 780 / 780 Output: Urine 425 / 425 800 / 800 Other: Date of Last Bowel Movement 10/10/18 Narrative: GENERAL: NAD SKIN: Warm and dry. HEAD: Atraumatic. Normocephalic. EYES: Pupils equal and round. No scleral icterus. No injection or drainage. ENT: No nasal bleeding or discharge. Mucous membranes pink and moist. NECK: Trachea midline. No JVD. CARDIOVASCULAR: Regular rate and rhythm. RESPIRATORY: No accessory muscle use. Clear to auscultation. Breath sounds equal bilaterally. GASTROINTESTINAL: Abdomen soft, non-tender, nondistended. Hepatic and splenic margins not palpable. MUSCULOSKELETAL: Extremities without clubbing, cyanosis, or edema. No obvious deformities. left knee swollen>R NEUROLOGICAL: Awake and alert. No obvious cranial nerve deficits. Motor grossly within normal limits. Five out of 5 muscle strength in the arms and legs. Normal speech. PSYCHIATRIC: Appropriate mood and affect; insight and judgment normal. Results 10/07/18 09:40 10/11/18 08:45 Coagulation 10/13/18 Range/Units 05:37 PT 10.0 (9.8-11.6) sec APTT 30.3 (23.4-31.7) sec Intake and Output 10/13/18 10/13/18 10/14/18 14:59 22:59 06:59 Intake Total 780 / 780 Output Total 800 / 800 Balance - Intake: Oral 780 / 780 Output: Urine 800 / 800 Other: Date of Last Bowel Movement 10/10/18 10/10/18 Assessment and Plan - Assessment (1) Atrial tachycardia Code(s): I47.1 - Supraventricular tachycardia Status: Acute (2) NICM (nonischemic cardiomyopathy) Code(s): I42.8 - Other cardiomyopathies Status: Acute - Plan 1) New onset cardiomyopathy Stress test showing patchy take up consistent with cardiomyopathy No areas of ischemia noted 2) Regular narrow complex tachycardia/SVT Pulmonary vein tachycardia by EP study Discussed with Dr. Dorsey Plan on anticoagulation for 3 weeks with follow up with him outpatient Will plan to start on Eliquis 5mg BID 3) Will be started on heart failure medications for NICM Possible tachyarrhythmia induced Repeat echo after ablation 4) Left knee effusion s/p drainage, appears to be gout Concerned about getting around as he has significant knee pain
[2018-10-14] MEDS: predniSONE 20 MG Tablet PO SCH (08:54)
[2018-10-14] MEDS: Metoprolol Tartrate 25 MG Tablet PO SCH ×2 (08:55→20:40)
[2018-10-14] MEDS: Sodium Chloride 0.9% 2 ML Flush BID IV.FLUSH SCH ×2 (08:55→20:40)
[2018-10-14] MEDS: Lisinopril 5 MG Tablet PO SCH (08:55)
--- NOTE | 2018-10-14 11:31 | P.PN ---
Subjective Interval history: Follow-up new onset cardiomyopathy/SVT narrow complex/gout October 13, 2018-patient seen and examined, denies any chest pain or shortness of breath. Complains of left knee pain more than the right. He had ablations done yesterday. October 14, 2018-patient seen and examined, still complains of knee pain mostly on the left. No chest pain or shortness of breath. Case discussed with cardiology this morning. Physical Exam Vital signs: Vital Signs 10/13/18 12:00 10/13/18 13:00 10/13/18 14:00 Temperature Pulse Rate 62 62 60 Respiratory Rate 18 Blood Pressure 137/69 Pulse Oximetry 98 10/13/18 15:00 10/13/18 16:00 10/13/18 17:00 Temperature Pulse Rate 62 62 62 Respiratory Rate 20 Blood Pressure 120/70 Pulse Oximetry 98 10/13/18 18:00 10/13/18 19:00 10/13/18 20:00 Temperature 97.6 F Pulse Rate 62 62 64 Respiratory Rate 16 Blood Pressure 140/83 Pulse Oximetry 98 10/13/18 20:05 10/13/18 21:00 10/13/18 21:28 Temperature Pulse Rate 60 Respiratory Rate 16 16 Blood Pressure Pulse Oximetry 10/13/18 22:00 10/13/18 23:00 10/14/18 00:00 Temperature Pulse Rate 58 L 56 L 57 L Respiratory Rate 16 Blood Pressure 143/87 H Pulse Oximetry 97 10/14/18 01:00 10/14/18 02:00 10/14/18 03:00 Temperature Pulse Rate 57 L 58 L 58 L Respiratory Rate Blood Pressure Pulse Oximetry 10/14/18 04:00 10/14/18 05:00 10/14/18 06:00 Temperature Pulse Rate 54 L 56 L 58 L Respiratory Rate 16 Blood Pressure Pulse Oximetry 98 10/14/18 07:00 10/14/18 07:24 10/14/18 07:28 Temperature 97.8 F Pulse Rate 84 84 66 Respiratory Rate 20 Blood Pressure 86/59 L Pulse Oximetry 99 10/14/18 09:00 10/14/18 10:00 Temperature Pulse Rate 60 74 Respiratory Rate Blood Pressure Pulse Oximetry Intake & Output 10/13/18 10/14/18 10/14/18 18:59 06:59 18:59 Intake Total 780 / 780 480 / 480 Output Total 800 / 800 850 / 850 Balance -20 / -20 -370 / -370 Intake: Oral 780 / 780 480 / 480 Output: Urine 800 / 800 850 / 850 Other: Date of Last Bowel Movement 10/10/18 Narrative: GENERAL: NAD SKIN: Warm and dry. HEAD: Atraumatic. Normocephalic. EYES: Pupils equal and round. No scleral icterus. No injection or drainage. ENT: No nasal bleeding or discharge. Mucous membranes pink and moist. NECK: Trachea midline. No JVD. CARDIOVASCULAR: Regular rate and rhythm. RESPIRATORY: No accessory muscle use. Clear to auscultation. Breath sounds equal bilaterally. GASTROINTESTINAL: Abdomen soft, non-tender, nondistended. Hepatic and splenic margins not palpable. MUSCULOSKELETAL: Extremities without clubbing, cyanosis, or edema. No obvious deformities. left knee swollen>R NEUROLOGICAL: Awake and alert. No obvious cranial nerve deficits. Motor grossly within normal limits. Five out of 5 muscle strength in the arms and legs. Normal speech. PSYCHIATRIC: Appropriate mood and affect; insight and judgment normal. Results - Labs CBC & Chem 7: 10/07/18 09:40 10/11/18 08:45 - Procedures None Assessment and Plan - Plan 62-year-old man with Regular narrow complex tachycardia /SVT Appreciate input from cardiology, EP Continue beta-jabari, Eliquis New onset cardiomyopathy Stress test performed with no area of ischemia noted Appreciate input from cardiology Continue beta-jabari, EDDA inhibitor renal insufficiency- likely chronic Improved after IV hydration. Left knee effusion/ gout arthritis - joint fluid positive for uric acid/ gram stain/culture negative -continue Prednisone- NSAID is currently contraindicated secondary to renal insufficiency -ortho consult appreciated to manage medical management - PT consulted Pulm nodules. O/p follow up Eliquis for DVT prophylaxis E-[id number] Prescription Drug Monitoring Database has been queried and verified prior to prescribing the controlled substance. Acute pain exception. This patient has normal, predicted, physiological, and time limited response to an adverse mechanical stimulus associated with surgery, trauma, or acute illness as described in my notes. There is a lack of alternative treatment options other than to include the prescribed narcotic treatment for this condition.
--- NOTE | 2018-10-14 11:33 | P.DS ---
Date of admission: 10/07/18 12:58 Primary care physician: [facility] Brief History from admission: Patient is a 62-year-old male with known history of hypertension who takes half a pill a day for blood pressure and patient totally does not know what the name of the medication is. He is followed by [facility] and was [facility] today to renew his medications when his PCP during triage his blood heart rate was noted to be elevated. Patient was sent here and for further evaluation. In retrospect patient states that he has been complaining of palpitations on and off with according couple of times a day unrelated to changes in position exertion. Associated with some tingling numbness of the left arm. Episodes would last for few minutes to longer at the time. Does not really complains of any chest pain. Patient states some increasing shortness of breath lately. And leg swelling at the end of the day. Denies any orthopnea. Occasionally patient states that he would feel some numbness of the left arm associated with this lasting for a few minutes. A And this is been going on for about a month now. Patient also states that last week at one time same episode and got dizzy and almost fell- lke a near syncopal episode. Symptoms relieved by rest States he drinks coffee just a couple day. At the ER -admitting EKG shows sinus rhtyhm with occasional PVCs. no acute STTW changes . On telemetry, able to catch him in goes into a burst narrow complex tachycardia rate of about 150 per minute. A CTA was done which was negative for pulmonary embolism Bilateral Doppler of both lower extremities was negative for DVT also complains of left knee pain that started last evening - pain with movement as Stated history of hypertension for which he takes half a pill a day of an unknown medication once a day. He was admitted here in the past December 2017 secondary to a dog bite involving his left lower extremity that required I&D and IV antibiotics and plastic surgery. DS: Medications - Discharge Medications Prescriptions: aspirin 81 mg PO DAILY #30 tab hydrocodone-acetaminophen 1 tab PO Q4H PRN #12 tab PRN Reason: Acute Pain metoprolol tartrate 25 mg PO BID #60 tab DS: Summary Hospital Course: While in hospital, patient was treated for: Regular narrow complex tachycardia /SVT Appreciate input from cardiology, EP Treated with beta-jabari, Eliquis was initiated New onset cardiomyopathy Stress test performed with no area of ischemia noted Appreciate input from cardiology Treated with beta-jabari, EDDA inhibitor renal insufficiency- likely chronic Improved after IV hydration. Left knee effusion/ gout arthritis - joint fluid positive for uric acid/ gram stain/culture negative -Treated with prednisone- NSAID is currently contraindicated secondary to renal insufficiency -ortho consult appreciated to manage medical management - PT consulted Pulm nodules. O/p follow up - Time Spent with Patient Total time spent providing and/or coordinating discharge services: Greater than 30 minutes - Quality: VTE Deep Vein Thrombosis/Pulmonary Embolism Present on Admission: No Exam Vital signs: Vital Signs 10/13/18 12:00 10/13/18 13:00 10/13/18 14:00 Temperature Pulse Rate 62 62 60 Respiratory Rate 18 Blood Pressure 137/69 Pulse Oximetry 98 10/13/18 15:00 10/13/18 16:00 10/13/18 17:00 Temperature Pulse Rate 62 62 62 Respiratory Rate 20 Blood Pressure 120/70 Pulse Oximetry 98 10/13/18 18:00 10/13/18 19:00 10/13/18 20:00 Temperature 97.6 F Pulse Rate 62 62 64 Respiratory Rate 16 Blood Pressure 140/83 Pulse Oximetry 98 10/13/18 20:05 10/13/18 21:00 10/13/18 21:28 Temperature Pulse Rate 60 Respiratory Rate 16 16 Blood Pressure Pulse Oximetry 10/13/18 22:00 10/13/18 23:00 10/14/18 00:00 Temperature Pulse Rate 58 L 56 L 57 L Respiratory Rate 16 Blood Pressure 143/87 H Pulse Oximetry 97 10/14/18 01:00 10/14/18 02:00 10/14/18 03:00 Temperature Pulse Rate 57 L 58 L 58 L Respiratory Rate Blood Pressure Pulse Oximetry 10/14/18 04:00 10/14/18 05:00 10/14/18 06:00 Temperature Pulse Rate 54 L 56 L 58 L Respiratory Rate 16 Blood Pressure Pulse Oximetry 98 10/14/18 07:00 10/14/18 07:24 10/14/18 07:28 Temperature 97.8 F Pulse Rate 84 84 66 Respiratory Rate 20 Blood Pressure 86/59 L Pulse Oximetry 99 10/14/18 09:00 10/14/18 10:00 Temperature Pulse Rate 60 74 Respiratory Rate Blood Pressure Pulse Oximetry Intake & Output 10/13/18 10/14/18 10/14/18 18:59 06:59 18:59 Intake Total 780 / 780 480 / 480 Output Total 800 / 800 850 / 850 Balance -20 / -20 -370 / -370 Intake: Oral 780 / 780 480 / 480 Output: Urine 800 / 800 850 / 850 Other: Date of Last Bowel Movement 10/10/18 Narrative: GENERAL: NAD SKIN: Warm and dry. HEAD: Atraumatic. Normocephalic. EYES: Pupils equal and round. No scleral icterus. No injection or drainage. ENT: No nasal bleeding or discharge. Mucous membranes pink and moist. NECK: Trachea midline. No JVD. CARDIOVASCULAR: Regular rate and rhythm. RESPIRATORY: No accessory muscle use. Clear to auscultation. Breath sounds equal bilaterally. GASTROINTESTINAL: Abdomen soft, non-tender, nondistended. Hepatic and splenic margins not palpable. MUSCULOSKELETAL: Extremities without clubbing, cyanosis, or edema. No obvious deformities. left knee swollen>R NEUROLOGICAL: Awake and alert. No obvious cranial nerve deficits. Motor grossly within normal limits. Five out of 5 muscle strength in the arms and legs. Normal speech. PSYCHIATRIC: Appropriate mood and affect; insight and judgment normal. Results Procedures completed during hospitalization: None - Impressions ITS Impressions Head CT 10/07/18 00:00 CONCLUSION: 1. No acute intracranial abnormality. 2. 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 . Knee X-Ray 10/07/18 00:00 CONCLUSION: 1. The osseous structures of the knee are grossly intact. 2. Possible knee effusion. Chest X-Ray 10/07/18 09:47 CONCLUSION: Minimal parental changes right base, nonspecific No overt congestive failure Chest CTA 10/07/18 10:28 CONCLUSION: 1. This study is negative for pulmonary embolism. 2. Tiny bilateral lung nodules which can be followed Venous Doppler Study 10/07/18 10:28 CONCLUSION: Negative for deep venous thrombosis. Jesse Casey MD FACR Myocardial Perfusion Scan Nuc Med 10/08/18 00:00 CONCLUSION: 1. No reversible perfusion defects. 2. Severe global hypokinesis with ejection fraction of 21%. Aspiration 10/09/18 00:00 CONCLUSION: 1. Uncomplicated left knee aspiration as above. Discharge Plan - Discharge Disposition Patient Disposition: Discharge to SNF - Discharge Condition Condition: Stable - Discharge Order Discharge Orders: Discharge Order (Routine); Ordered 10/14/18 Ordered By: Trent Dowell - Physicians Team Primary Care Provider: [facility]ician 's Attending Provider: Trent Dowell Other Providers: Gino Garcia DO ; Nicole Galicia MD ; Sina Dorsey MD
--- NOTE | 2018-10-14 23:56 | P.PNCA ---
Subjective Interval history: No events overnight Concerned about rehab out of the area Medications and Allergies Active Medications: Active Medications Hydrocodone Bitart/Acetaminophen ([place] 5/325) 1 tab PO Q4H PRN PRN Reason: PAIN SCALE 5 Last Admin: 10/13/18 19:26 Dose: 1 tab Hydrocodone Bitart/Acetaminophen ([place] 7.5/325) 1 tab PO Q4H PRN PRN Reason: PAIN SCALE 6 TO 10 Last Admin: 10/12/18 13:40 Dose: 1 tab Apixaban (Eliquis) 5 mg PO BID [facility] Last Admin: 10/14/18 20:40 Dose: 5 mg Lisinopril (Prinivil) 5 mg PO DAILY [facility] Last Admin: 10/14/18 08:55 Dose: 5 mg Metoprolol Tartrate (Lopressor) 25 mg PO BID [facility] Last Admin: 10/14/18 20:40 Dose: 25 mg Morphine Sulfate (Morphine Inj) 1 mg IV.PUSH Q3H PRN PRN Reason: BREAKTHROUGH PAIN Last Admin: 10/13/18 21:13 Dose: 1 mg Naloxone HCl (Narcan Inj) 0.4 mg IV.PUSH UNSCH PRN PRN Reason: SEE LABEL COMMENTS Ondansetron HCl (Zofran Inj) 4 mg IV.PUSH Q4H PRN PRN Reason: NAUSEA Oxycodone/Acetaminophen (Percocet 5/325 Mg) 1 tab PO Q4H PRN PRN Reason: PAIN SCALE 1 TO 4 Last Admin: 10/14/18 19:40 Dose: 1 tab Prednisone (Deltasone) 40 mg PO DAILY [facility] Last Admin: 10/14/18 08:54 Dose: 40 mg Sodium Chloride (Ns Flush) 2 ml IV.FLUSH BID [facility] Last Admin: 10/14/18 20:40 Dose: 2 ml Sodium Chloride (Ns Flush) 2 ml IV.FLUSH PRN PRN PRN Reason: FLUSH AFTER USING IV ACCESS Allergies Allergy/AdvReac Type Severity Reaction Status Date / Time No Known Allergies Allergy Verified 10/07/18 09:29 Home Medications Medication Instructions Recorded Confirmed Type Bp Med PO DAILY NEB 10/07/18 History Physical Exam Vital signs: Vital Signs 10/14/18 00:00 10/14/18 01:00 10/14/18 02:00 Temperature Pulse Rate 57 L 57 L 58 L Respiratory Rate 16 Blood Pressure 143/87 H Pulse Oximetry 97 10/14/18 03:00 10/14/18 04:00 10/14/18 05:00 Temperature Pulse Rate 58 L 54 L 56 L Respiratory Rate 16 Blood Pressure Pulse Oximetry 98 10/14/18 06:00 10/14/18 07:00 10/14/18 07:24 Temperature Pulse Rate 58 L 84 84 Respiratory Rate Blood Pressure Pulse Oximetry 10/14/18 07:28 10/14/18 09:00 10/14/18 10:00 Temperature 97.8 F Pulse Rate 66 60 74 Respiratory Rate 20 Blood Pressure 86/59 L Pulse Oximetry 99 10/14/18 11:00 10/14/18 12:00 10/14/18 13:00 Temperature 97.8 F Pulse Rate 64 59 L 62 Respiratory Rate 20 Blood Pressure 127/80 Pulse Oximetry 97 10/14/18 14:00 10/14/18 15:00 10/14/18 16:00 Temperature 98.9 F Pulse Rate 60 60 78 Respiratory Rate 20 Blood Pressure 127/80 Pulse Oximetry 98 10/14/18 17:00 10/14/18 18:00 10/14/18 19:00 Temperature Pulse Rate 62 62 62 Respiratory Rate Blood Pressure Pulse Oximetry 10/14/18 20:00 10/14/18 20:10 10/14/18 21:00 Temperature 98.5 F Pulse Rate 58 L 56 L Respiratory Rate 16 16 Blood Pressure 137/80 Pulse Oximetry 96 10/14/18 22:00 10/14/18 23:00 Temperature Pulse Rate 54 L 55 L Respiratory Rate Blood Pressure Pulse Oximetry Intake & Output 10/14/18 10/14/18 10/15/18 06:59 18:59 06:59 Intake Total 480 / 480 1050 / 1050 Output Total 850 / 850 1050 / 1050 Balance -370 / -370 0 / 0 Intake: Oral 480 / 480 1050 / 1050 Output: Urine 850 / 850 1050 / 1050 Other: Date of Last Bowel Movement 10/10/18 10/14/18 10/14/18 Narrative: GENERAL: NAD SKIN: Warm and dry. HEAD: Atraumatic. Normocephalic. EYES: Pupils equal and round. No scleral icterus. No injection or drainage. ENT: No nasal bleeding or discharge. Mucous membranes pink and moist. NECK: Trachea midline. No JVD. CARDIOVASCULAR: Regular rate and rhythm. RESPIRATORY: No accessory muscle use. Clear to auscultation. Breath sounds equal bilaterally. GASTROINTESTINAL: Abdomen soft, non-tender, nondistended. Hepatic and splenic margins not palpable. MUSCULOSKELETAL: Extremities without clubbing, cyanosis, or edema. No obvious deformities. left knee swollen>R NEUROLOGICAL: Awake and alert. No obvious cranial nerve deficits. Motor grossly within normal limits. Five out of 5 muscle strength in the arms and legs. Normal speech. PSYCHIATRIC: Appropriate mood and affect; insight and judgment normal. Results 10/07/18 09:40 10/11/18 08:45 Coagulation 10/13/18 Range/Units 05:37 PT 10.0 (9.8-11.6) sec APTT 30.3 (23.4-31.7) sec Intake and Output 10/14/18 10/14/18 10/15/18 14:59 22:59 06:59 Intake Total 1050 / 1050 Output Total 1050 / 1050 Balance 0 / 0 Intake: Oral 1050 / 1050 Output: Urine 1050 / 1050 Other: Date of Last Bowel Movement 10/14/18 10/14/18 Assessment and Plan - Assessment (1) Atrial tachycardia Code(s): I47.1 - Supraventricular tachycardia Status: Acute (2) NICM (nonischemic cardiomyopathy) Code(s): I42.8 - Other cardiomyopathies Status: Acute - Plan 1) New onset cardiomyopathy Stress test showing patchy take up consistent with cardiomyopathy No areas of ischemia noted 2) Regular narrow complex tachycardia/SVT Pulmonary vein tachycardia by EP study Discussed with Dr. Dorsey Plan on anticoagulation for 3 weeks with follow up with him outpatient Will plan to start on Eliquis 5mg BID 3) Will be started on heart failure medications for NICM Possible tachyarrhythmia induced Repeat echo after ablation 4) Left knee effusion s/p drainage, appears to be gout Concerned about getting around as he has significant knee pain 5) If concerns over the holiday weekend, please call the service for covering physician
[2018-10-15] MEDS: predniSONE 20 MG Tablet PO SCH (09:09)
[2018-10-15] MEDS: Lisinopril 5 MG Tablet PO SCH (09:09)
[2018-10-15] MEDS: Sodium Chloride 0.9% 2 ML Flush BID IV.FLUSH SCH ×2 (09:10→21:21)
[2018-10-15] MEDS: Metoprolol Tartrate 25 MG Tablet PO SCH ×2 (09:10→21:23)
[2018-10-15 12:13] LABS: Calcium 8.6 mg/dL (8.5-10.1); Carbon Dioxide 26.5 meq/L (21.0-32.0)
[2018-10-15] MEDS ORDERED: Senna/Docusate Sodium 8.6/50 MG Tablet PO PRN (12:37)
--- NOTE | 2018-10-15 12:37 | P.PN ---
Subjective Interval history: Follow-up new onset cardiomyopathy/SVT narrow complex/gout October 13, 2018-patient seen and examined, denies any chest pain or shortness of breath. Complains of left knee pain more than the right. He had ablations done yesterday. October 14, 2018-patient seen and examined, still complains of knee pain mostly on the left. No chest pain or shortness of breath. Case discussed with cardiology this morning. October 15, 2018-patient seen and examined, able to bend more both knees. states he is feeling much better today Physical Exam Vital signs: Vital Signs 10/14/18 13:00 10/14/18 14:00 10/14/18 15:00 Temperature Pulse Rate 62 60 60 Respiratory Rate Blood Pressure Pulse Oximetry 10/14/18 16:00 10/14/18 17:00 10/14/18 18:00 Temperature 98.9 F Pulse Rate 78 62 62 Respiratory Rate 20 Blood Pressure 127/80 Pulse Oximetry 98 10/14/18 19:00 10/14/18 20:00 10/14/18 20:10 Temperature 98.5 F Pulse Rate 62 58 L Respiratory Rate 16 16 Blood Pressure 137/80 Pulse Oximetry 96 10/14/18 21:00 10/14/18 22:00 10/14/18 23:00 Temperature Pulse Rate 56 L 54 L 55 L Respiratory Rate Blood Pressure Pulse Oximetry 10/14/18 23:54 10/15/18 00:00 10/15/18 01:00 Temperature Pulse Rate 58 L 52 L 54 L Respiratory Rate 16 Blood Pressure 150/94 H Pulse Oximetry 94 L 10/15/18 02:00 10/15/18 03:00 10/15/18 03:16 Temperature Pulse Rate 54 L 54 L 56 L Respiratory Rate 16 Blood Pressure 141/87 H Pulse Oximetry 100 10/15/18 04:00 10/15/18 05:00 10/15/18 06:00 Temperature Pulse Rate 52 L 54 L 54 L Respiratory Rate Blood Pressure Pulse Oximetry 10/15/18 07:00 10/15/18 07:40 10/15/18 07:48 Temperature 97.1 F L Pulse Rate 55 L 60 60 Respiratory Rate 18 Blood Pressure 150/87 H Pulse Oximetry 96 10/15/18 09:00 10/15/18 10:00 10/15/18 11:00 Temperature Pulse Rate 56 L 54 L 60 Respiratory Rate Blood Pressure Pulse Oximetry 10/15/18 12:00 Temperature Pulse Rate 60 Respiratory Rate 18 Blood Pressure 120/72 Pulse Oximetry 96 Intake & Output 10/14/18 10/15/18 10/15/18 18:59 06:59 18:59 Intake Total 1050 / 1050 480 / 480 Output Total 1050 / 1050 2550 / 2550 Balance 0 / 0 -2069 / -2069 Weight 116.5 kg Intake: Oral 1050 / 1050 480 / 480 Output: Urine 1050 / 1050 2550 / 2550 Other: Date of Last Bowel Movement 10/14/18 10/14/18 10/14/18 Narrative: GENERAL: NAD and sitting in the chair SKIN: Warm and dry. HEAD: Atraumatic. Normocephalic. EYES: Pupils equal and round. No scleral icterus. No injection or drainage. ENT: No nasal bleeding or discharge. Mucous membranes pink and moist. NECK: Trachea midline. No JVD. CARDIOVASCULAR: Regular rate and rhythm. RESPIRATORY: No accessory muscle use. Clear to auscultation. Breath sounds equal bilaterally. GASTROINTESTINAL: Abdomen soft, non-tender, nondistended. Hepatic and splenic margins not palpable. MUSCULOSKELETAL: Extremities without clubbing, cyanosis, or edema. No obvious deformities. left knee swollen>R NEUROLOGICAL: Awake and alert. No obvious cranial nerve deficits. Motor grossly within normal limits. Five out of 5 muscle strength in the arms and legs. Normal speech. PSYCHIATRIC: Appropriate mood and affect; insight and judgment normal. Results - Labs CBC & Chem 7: 10/07/18 09:40 10/15/18 10:22 Laboratory Results - last 24 hr 10/15/18 10:22 Sodium 138 Potassium 4.0 Chloride 104 Carbon Dioxide 26.5 Anion Gap 8 BUN 26 H Creatinine 1.44 H Estimated GFR 50 L Random Glucose 128 H Calcium 8.6 - Procedures None Assessment and Plan - Plan 62-year-old man with Regular narrow complex tachycardia /SVT Appreciate input from cardiology, EP Continue beta-jabari, Eliquis New onset cardiomyopathy Stress test performed with no area of ischemia noted Appreciate input from cardiology Continue beta-jabari, EDDA inhibitor renal insufficiency- likely chronic BMP noted with elevated BUN and creatinine Restart IV fluid hydration Left knee effusion/ gout arthritis - joint fluid positive for uric acid/ gram stain/culture negative -continue Prednisone- NSAID is currently contraindicated secondary to renal insufficiency -ortho consult appreciated to manage medical management - PT consulted Pulm nodules. O/p follow up Eliquis for DVT prophylaxis [facility] Prescription Drug Monitoring Database has been queried and verified prior to prescribing the controlled substance. Acute pain exception. This patient has normal, predicted, physiological, and time limited response to an adverse mechanical stimulus associated with surgery, trauma, or acute illness as described in my notes. There is a lack of alternative treatment options other than to include the prescribed narcotic treatment for this condition.
[2018-10-15] MEDS: Sod Chloride 0.9% Inj 1,000 ML IV.CONT SCH (17:02)
[2018-10-16] MEDS: Sod Chloride 0.9% Inj 1,000 ML IV.CONT SCH ×2 (04:42→20:15)
[2018-10-16] MEDS: Metoprolol Tartrate 25 MG Tablet PO SCH ×2 (09:36→20:55)
[2018-10-16] MEDS: Lisinopril 5 MG Tablet PO SCH (09:36)
[2018-10-16] MEDS: predniSONE 20 MG Tablet PO SCH (09:36)
[2018-10-16] MEDS: Sodium Chloride 0.9% 2 ML Flush BID IV.FLUSH SCH ×2 (09:37→20:56)
--- NOTE | 2018-10-16 11:46 | P.PN ---
Subjective Interval history: Follow-up new onset cardiomyopathy/SVT narrow complex/gout October 13, 2018-patient seen and examined, denies any chest pain or shortness of breath. Complains of left knee pain more than the right. He had ablations done yesterday. October 14, 2018-patient seen and examined, still complains of knee pain mostly on the left. No chest pain or shortness of breath. Case discussed with cardiology this morning. October 15, 2018-patient seen and examined, able to bend more both knees. states he is feeling much better today October 16, 2018-patient seen and examined, states he was able to ambulate yesterday with physical therapy. still with Bilateral knee Pain. Physical Exam Vital signs: Vital Signs 10/15/18 12:00 10/15/18 13:00 10/15/18 14:00 Temperature Pulse Rate 60 66 62 Respiratory Rate 18 Blood Pressure 120/72 Pulse Oximetry 96 10/15/18 15:00 10/15/18 16:00 10/15/18 17:00 Temperature Pulse Rate 60 62 58 L Respiratory Rate 20 Blood Pressure 103/55 L Pulse Oximetry 10/15/18 18:00 10/15/18 19:00 10/15/18 20:00 Temperature 97.7 F Pulse Rate 60 59 L 66 Respiratory Rate 16 Blood Pressure 142/58 H Pulse Oximetry 99 10/15/18 21:00 10/15/18 22:00 10/15/18 23:00 Temperature Pulse Rate 54 L 56 L 52 L Respiratory Rate 16 Blood Pressure Pulse Oximetry 10/16/18 00:00 10/16/18 01:00 10/16/18 02:00 Temperature 97.3 F L Pulse Rate 52 L 52 L 54 L Respiratory Rate 16 Blood Pressure 137/76 Pulse Oximetry 95 10/16/18 03:00 10/16/18 04:00 10/16/18 06:00 Temperature 97.2 F L Pulse Rate 54 L 59 L 54 L Respiratory Rate 16 16 Blood Pressure 138/87 Pulse Oximetry 98 10/16/18 08:00 Temperature 97.4 F L Pulse Rate 80 Respiratory Rate 18 Blood Pressure 129/88 Pulse Oximetry 92 L Intake & Output 10/15/18 10/16/18 10/16/18 18:59 06:59 18:59 Intake Total 1010 / 1010 1480 / 1480 Output Total 1000 / 1000 1875 / 1875 Balance -395 / -395 Weight 122.2 kg Intake: IV 1000 / 1000 NS Inj 1,000 ML @ 70 mls/hr IV. 1000 / 1000 CONT .[id number] Rx#:[id number] Oral 1010 / 1010 480 / 480 Output: Urine 1000 / 1000 1874 Other: Date of Last Bowel Movement 10/15/18 10/15/18 10/15/18 Narrative: GENERAL: NAD and sitting in the chair SKIN: Warm and dry. HEAD: Atraumatic. Normocephalic. EYES: Pupils equal and round. No scleral icterus. No injection or drainage. ENT: No nasal bleeding or discharge. Mucous membranes pink and moist. NECK: Trachea midline. No JVD. CARDIOVASCULAR: Regular rate and rhythm. RESPIRATORY: No accessory muscle use. Clear to auscultation. Breath sounds equal bilaterally. GASTROINTESTINAL: Abdomen soft, non-tender, nondistended. Hepatic and splenic margins not palpable. MUSCULOSKELETAL: Extremities without clubbing, cyanosis, or edema. No obvious deformities. Slightly left knee swollen>R NEUROLOGICAL: Awake and alert. No obvious cranial nerve deficits. Motor grossly within normal limits. Five out of 5 muscle strength in the arms and legs. Normal speech. PSYCHIATRIC: Appropriate mood and affect; insight and judgment normal. Results - Labs CBC & Chem 7: 10/07/18 09:40 10/15/18 10:22 Laboratory Results - last 24 hr 10/15/18 10:22 Sodium 138 Potassium 4.0 Chloride 104 Carbon Dioxide 26.5 Anion Gap 8 BUN 26 H Creatinine 1.44 H Estimated GFR 50 L Random Glucose 128 H Calcium 8.6 - Procedures None Assessment and Plan - Plan 62-year-old man with Regular narrow complex tachycardia /SVT Appreciate input from cardiology, EP Continue beta-jabari, Eliquis New onset cardiomyopathy Stress test performed with no area of ischemia noted Appreciate input from cardiology Continue beta-jabari, EDDA inhibitor renal insufficiency- likely chronic BMP noted with elevated BUN and creatinine Restart IV fluid hydration Left knee effusion/ gout arthritis - joint fluid positive for uric acid/ gram stain/culture negative -continue Prednisone- NSAID is currently contraindicated secondary to renal insufficiency. Will start Allopurinol 100mg daily 10/17/18 -ortho input appreciated and recommended medical management - PT consulted Pulm nodules. O/p follow up Eliquis for DVT prophylaxis [facility] Prescription Drug Monitoring Database has been queried and verified prior to prescribing the controlled substance. Acute pain exception. This patient has normal, predicted, physiological, and time limited response to an adverse mechanical stimulus associated with surgery, trauma, or acute illness as described in my notes. There is a lack of alternative treatment options other than to include the prescribed narcotic treatment for this condition.
[2018-10-17 07:16] LABS: Anion Gap 8 meq/L (5-15); Aspartate Aminotransferase 16 U/L (15-37); Blood Urea Nitrogen 30 mg/dL (7-18); Calcium 8.6 mg/dL (8.5-10.1); Carbon Dioxide 28.6 meq/L (21.0-32.0); Chloride 105 meq/L (98-107); Glomerular Filtration Rate 48 mL/min (>89); Glucose,Random 87 mg/dL (74-106); Potassium 4.5 meq/L (3.5-5.1); Sodium 142 meq/L (136-145)
[2018-10-17 07:21] LABS: Alanine Aminotransferase 33 U/L (12-78); Alkaline Phosphatase 70 U/L (45-117); Total Protein 6.8 g/dL (6.4-8.2)
[2018-10-17] MEDS: Allopurinol 100 MG Tablet PO SCH (08:57)
[2018-10-17] MEDS: Sodium Chloride 0.9% 2 ML Flush BID IV.FLUSH SCH ×2 (08:57→20:38)
[2018-10-17] MEDS: Metoprolol Tartrate 25 MG Tablet PO SCH ×2 (08:57→20:33)
[2018-10-17] MEDS: predniSONE 20 MG Tablet PO SCH (08:57)
[2018-10-17] MEDS: Lisinopril 5 MG Tablet PO SCH (10:23)
--- NOTE | 2018-10-17 11:36 | P.PN ---
Subjective Interval history: Follow-up new onset cardiomyopathy/SVT narrow complex/gout October 17, 2018-patient seen and examined, reports to pain both knees more so without any significant pain. No other issues. Physical Exam Vital signs: Vital Signs 10/16/18 12:00 10/16/18 13:00 10/16/18 14:00 Temperature 97.4 F L Pulse Rate 58 L 56 L 60 Respiratory Rate 16 Blood Pressure 129/86 Pulse Oximetry 92 L 10/16/18 15:00 10/16/18 15:03 10/16/18 16:00 Temperature 97.9 F Pulse Rate 60 59 L 60 Respiratory Rate 16 Blood Pressure 114/72 Pulse Oximetry 95 10/16/18 17:00 10/16/18 17:59 10/16/18 19:00 Temperature Pulse Rate 64 62 61 Respiratory Rate Blood Pressure Pulse Oximetry 10/16/18 20:00 10/16/18 21:00 10/16/18 22:00 Temperature 97.0 F L Pulse Rate 62 58 L 56 L Respiratory Rate 18 Blood Pressure 123/72 Pulse Oximetry 96 10/16/18 23:00 10/16/18 23:44 10/17/18 00:00 Temperature 97.0 F L Pulse Rate 56 L 56 L Respiratory Rate 18 18 Blood Pressure 125/73 Pulse Oximetry 97 10/17/18 01:00 10/17/18 02:00 10/17/18 03:00 Temperature Pulse Rate 52 L 54 L 56 L Respiratory Rate Blood Pressure Pulse Oximetry 10/17/18 04:00 10/17/18 05:00 10/17/18 06:00 Temperature 96.8 F L Pulse Rate 58 L 57 L 56 L Respiratory Rate 18 Blood Pressure 132/78 Pulse Oximetry 97 10/17/18 07:00 10/17/18 08:00 10/17/18 08:50 Temperature 97.2 F L Pulse Rate 58 L 58 L 58 L Respiratory Rate 20 Blood Pressure 130/75 Pulse Oximetry 97 10/17/18 09:00 10/17/18 10:00 10/17/18 11:00 Temperature Pulse Rate 64 62 60 Respiratory Rate Blood Pressure Pulse Oximetry Intake & Output 10/16/18 10/17/18 10/17/18 18:59 06:59 18:59 Intake Total 1420 / 1420 1600 / 1600 Output Total 1280 / 1280 3050 / 3050 Balance 140 / 140 -1450 / -1450 Weight 122.3 kg Intake: IV 1000 / 1000 NS Inj 1,000 ML @ 70 mls/hr IV. 1000 / 1000 CONT .[id number] [facility] Rx#:[id number] Oral 1420 / 1420 600 / 600 Output: Urine 1280 / 1280 3050 / 3050 Other: Date of Last Bowel Movement 10/16/18 10/16/18 # Bowel Movements 1 Narrative: GENERAL: NAD SKIN: Warm and dry. HEAD: Atraumatic. Normocephalic. EYES: Pupils equal and round. No scleral icterus. No injection or drainage. ENT: No nasal bleeding or discharge. Mucous membranes pink and moist. NECK: Trachea midline. No JVD. CARDIOVASCULAR: Regular rate and rhythm. RESPIRATORY: No accessory muscle use. Clear to auscultation. Breath sounds equal bilaterally. GASTROINTESTINAL: Abdomen soft, non-tender, nondistended. Hepatic and splenic margins not palpable. MUSCULOSKELETAL: Extremities without clubbing, cyanosis, or edema. No obvious deformities. Slightly left knee swollen>R NEUROLOGICAL: Awake and alert. No obvious cranial nerve deficits. Motor grossly within normal limits. Five out of 5 muscle strength in the arms and legs. Normal speech. PSYCHIATRIC: Appropriate mood and affect; insight and judgment normal. Results - Labs CBC & Chem 7: 10/07/18 09:40 10/17/18 05:52 Laboratory Results - last 24 hr 10/17/18 05:52 Sodium 142 Potassium 4.5 Chloride 105 Carbon Dioxide 28.6 Anion Gap 8 BUN 30 H Creatinine 1.50 H Estimated GFR 48 L Random Glucose 87 Calcium 8.6 Total Bilirubin 0.3 AST 16 ALT 33 Alkaline Phosphatase 70 Total Protein 6.8 Albumin 3.0 L - Procedures None Assessment and Plan - Plan 62-year-old man with Regular narrow complex tachycardia /SVT Appreciate input from cardiology, EP Continue beta-jabari, Eliquis New onset cardiomyopathy Stress test performed with no area of ischemia noted Appreciate input from cardiology Continue beta-jabari, EDDA inhibitor, however secondary to worsening renal function will hold EDDA inhibitor renal insufficiency- likely chronic BMP noted with elevated BUN and creatinine Continue IV fluid hydration Left knee effusion/ gout arthritis - joint fluid positive for uric acid/ gram stain/culture negative -continue Prednisone- NSAID is currently contraindicated secondary to renal insufficiency. Start allopurinol 100mg daily 10/17/18 -ortho input appreciated and recommended medical management - PT consulted Pulm nodules. O/p follow up Eliquis for DVT prophylaxis [facility] Prescription Drug Monitoring Database has been queried and verified prior to prescribing the controlled substance. Acute pain exception. This patient has normal, predicted, physiological, and time limited response to an adverse mechanical stimulus associated with surgery, trauma, or acute illness as described in my notes. There is a lack of alternative treatment options other than to include the prescribed narcotic treatment for this condition.
[2018-10-17] MEDS: Sod Chloride 0.9% Inj 1,000 ML IV.CONT SCH (12:12)
[2018-10-18] MEDS: Sod Chloride 0.9% Inj 1,000 ML IV.CONT SCH ×2 (08:59→21:42)
[2018-10-18] MEDS: predniSONE 20 MG Tablet PO SCH (09:00)
[2018-10-18] MEDS: Metoprolol Tartrate 25 MG Tablet PO SCH ×2 (09:00→21:41)
[2018-10-18] MEDS: Sodium Chloride 0.9% 2 ML Flush BID IV.FLUSH SCH ×2 (09:01→21:44)
[2018-10-18] MEDS: Allopurinol 100 MG Tablet PO SCH (09:08)
--- NOTE | 2018-10-18 11:17 | P.PN ---
Subjective Interval history: Follow-up new onset cardiomyopathy/SVT narrow complex/gout October 17, 2018-patient seen and examined, reports to pain both knees more so without any significant pain. No other issues. October 18, 2018-patient seen and examined, doing better and able to ambulate however with some difficulties. B-Knee swollen coming down Physical Exam Vital signs: Vital Signs 10/17/18 12:00 10/17/18 12:10 10/17/18 13:00 Temperature 97.1 F L Pulse Rate 58 L 57 L 60 Respiratory Rate 19 Blood Pressure 110/70 Pulse Oximetry 95 10/17/18 14:00 10/17/18 15:00 10/17/18 16:00 Temperature Pulse Rate 62 64 62 Respiratory Rate Blood Pressure Pulse Oximetry 10/17/18 16:27 10/17/18 17:00 10/17/18 18:00 Temperature 97.9 F Pulse Rate 64 60 64 Respiratory Rate 19 Blood Pressure 124/82 Pulse Oximetry 95 10/17/18 19:00 10/17/18 19:46 10/17/18 20:00 Temperature 97.7 F Pulse Rate 60 60 59 L Respiratory Rate 19 Blood Pressure 125/83 Pulse Oximetry 95 10/17/18 21:00 10/17/18 22:00 10/17/18 23:00 Temperature Pulse Rate 58 L 55 L 53 L Respiratory Rate Blood Pressure Pulse Oximetry 10/18/18 00:50 10/18/18 01:00 10/18/18 02:00 Temperature 98.8 F Pulse Rate 52 L 54 L 55 L Respiratory Rate 17 Blood Pressure 126/82 Pulse Oximetry 95 10/18/18 03:00 10/18/18 04:00 10/18/18 05:00 Temperature 98.8 F Pulse Rate 58 L 55 L 54 L Respiratory Rate 18 Blood Pressure 143/86 H Pulse Oximetry 95 10/18/18 06:00 10/18/18 08:00 Temperature 98.0 F Pulse Rate 62 61 Respiratory Rate 18 Blood Pressure 141/90 H Pulse Oximetry 99 Intake & Output 10/17/18 10/18/18 10/18/18 18:59 06:59 18:59 Intake Total 1720 / 1720 1420 / 1420 Output Total 1450 / 1450 1775 / 1775 Balance 270 / 270 -355 / -355 Weight 122.5 kg Intake: IV 1000 / 1000 1000 / 1000 NS Inj 1,000 ML @ 70 mls/hr IV. 1000 / 1000 1000 / 1000 CONT .[id number] [facility] Rx#:[id number] Oral 720 / 720 420 / 420 Output: Urine 1450 / 1450 1775 / 1775 Other: Date of Last Bowel Movement 10/17/18 10/17/18 Narrative: GENERAL: NAD SKIN: Warm and dry. HEAD: Atraumatic. Normocephalic. EYES: Pupils equal and round. No scleral icterus. No injection or drainage. ENT: No nasal bleeding or discharge. Mucous membranes pink and moist. NECK: Trachea midline. No JVD. CARDIOVASCULAR: Regular rate and rhythm. RESPIRATORY: No accessory muscle use. Clear to auscultation. Breath sounds equal bilaterally. GASTROINTESTINAL: Abdomen soft, non-tender, nondistended. Hepatic and splenic margins not palpable. MUSCULOSKELETAL: Extremities without clubbing, cyanosis, or edema. No obvious deformities. Slightly left knee swollen>R NEUROLOGICAL: Awake and alert. No obvious cranial nerve deficits. Motor grossly within normal limits. Five out of 5 muscle strength in the arms and legs. Normal speech. PSYCHIATRIC: Appropriate mood and affect; insight and judgment normal. Results - Labs CBC & Chem 7: 10/07/18 09:40 10/17/18 05:52 - Procedures None Assessment and Plan - Plan 62-year-old man with Regular narrow complex tachycardia /SVT Appreciate input from cardiology, EP Continue beta-jabari, Eliquis New onset cardiomyopathy Stress test performed with no area of ischemia noted Appreciate input from cardiology Continue beta-jabari, EDDA inhibitor, however secondary to worsening renal function will continue to hold EDDA inhibitor renal insufficiency- likely chronic BMP noted with elevated BUN and creatinine Continue IV fluid hydration Left knee effusion/ gout arthritis - joint fluid positive for uric acid/ gram stain/culture negative -continue Prednisone- NSAID is currently contraindicated secondary to renal insufficiency. Continue with allopurinol 100mg daily 10/17/18 -ortho input appreciated and recommended medical management - PT consulted Pulm nodules. O/p follow up Eliquis for DVT prophylaxis [facility] Prescription Drug Monitoring Database has been queried and verified prior to prescribing the controlled substance. Acute pain exception. This patient has normal, predicted, physiological, and time limited response to an adverse mechanical stimulus associated with surgery, trauma, or acute illness as described in my notes. There is a lack of alternative treatment options other than to include the prescribed narcotic treatment for this condition.
[2018-10-19] MEDS: predniSONE 20 MG Tablet PO SCH (08:59)
[2018-10-19] MEDS: Metoprolol Tartrate 25 MG Tablet PO SCH ×2 (09:00→20:05)
[2018-10-19] MEDS: Sodium Chloride 0.9% 2 ML Flush BID IV.FLUSH SCH ×2 (09:00→20:06)
[2018-10-19] MEDS: Allopurinol 100 MG Tablet PO SCH (09:00)
[2018-10-19 09:56] LABS: Calcium 8.6 mg/dL (8.5-10.1); Carbon Dioxide 24.3 meq/L (21.0-32.0); Potassium 3.8 meq/L (3.5-5.1)
--- NOTE | 2018-10-19 11:26 | P.PN ---
Subjective Interval history: Follow-up new onset cardiomyopathy/SVT narrow complex/gout October 17, 2018-patient seen and examined, reports to pain both knees more so without any significant pain. No other issues. October 18, 2018-patient seen and examined, doing better and able to ambulate however with some difficulties. B-Knee swollen coming down October 19, 2018-patient seen and examined, complaining of bilateral lower extremity swelling. Continue to complain of knee pain however able to bend it more and further. Afebrile. Renal indices improving. Case discussed with renal case manager. Physical Exam Vital signs: Vital Signs 10/18/18 12:00 10/18/18 13:00 10/18/18 13:30 Temperature 97.9 F Pulse Rate 58 L 60 Respiratory Rate 18 20 Blood Pressure 111/68 Pulse Oximetry 97 10/18/18 14:00 10/18/18 15:00 10/18/18 16:00 Temperature 98.1 F Pulse Rate 68 55 L 58 L Respiratory Rate 18 Blood Pressure 117/76 Pulse Oximetry 96 10/18/18 17:00 10/18/18 18:00 10/18/18 18:40 Temperature Pulse Rate 69 63 Respiratory Rate 20 Blood Pressure Pulse Oximetry 10/18/18 19:00 10/18/18 20:00 10/18/18 21:00 Temperature 97.8 F Pulse Rate 61 58 L 56 L Respiratory Rate 16 Blood Pressure 148/60 H Pulse Oximetry 95 10/18/18 22:00 10/18/18 23:00 10/18/18 23:51 Temperature Pulse Rate 54 L 53 L 58 L Respiratory Rate 16 Blood Pressure 135/77 Pulse Oximetry 96 10/19/18 00:00 10/19/18 01:00 10/19/18 02:00 Temperature Pulse Rate 52 L 52 L 52 L Respiratory Rate Blood Pressure Pulse Oximetry 10/19/18 03:00 10/19/18 04:00 10/19/18 05:00 Temperature 97.4 F L Pulse Rate 56 L 54 L 58 L Respiratory Rate 16 Blood Pressure 133/84 Pulse Oximetry 97 10/19/18 06:00 10/19/18 07:00 10/19/18 08:00 Temperature 97.6 F Pulse Rate 56 L 61 68 Respiratory Rate 18 Blood Pressure 138/94 H Pulse Oximetry 99 10/19/18 09:00 10/19/18 10:00 Temperature Pulse Rate 69 67 Respiratory Rate Blood Pressure Pulse Oximetry Intake & Output 10/18/18 10/19/18 10/19/18 18:59 06:59 18:59 Intake Total 1200 / 1200 1000 / 1000 Output Total 1200 / 1200 1650 / 1650 Balance 0 / 0 -650 / -650 Weight 121 kg Intake: IV 1000 / 1000 NS Inj 1,000 ML @ 70 mls/hr IV. 1000 / 1000 CONT .[id number] [facility] Rx#:[id number] Oral 1200 / 1200 Output: Urine 1200 / 1200 1650 / 1650 Other: # Voids 2 Date of Last Bowel Movement 10/18/18 10/18/18 # Bowel Movements 2 Narrative: GENERAL: NAD SKIN: Warm and dry. HEAD: Atraumatic. Normocephalic. EYES: Pupils equal and round. No scleral icterus. No injection or drainage. ENT: No nasal bleeding or discharge. Mucous membranes pink and moist. NECK: Trachea midline. No JVD. CARDIOVASCULAR: Regular rate and rhythm. RESPIRATORY: No accessory muscle use. Clear to auscultation. Breath sounds equal bilaterally. GASTROINTESTINAL: Abdomen soft, non-tender, nondistended. Hepatic and splenic margins not palpable. MUSCULOSKELETAL: Extremities without clubbing, cyanosis, or edema. No obvious deformities. Slightly left knee swollen>R NEUROLOGICAL: Awake and alert. No obvious cranial nerve deficits. Motor grossly within normal limits. Five out of 5 muscle strength in the arms and legs. Normal speech. PSYCHIATRIC: Appropriate mood and affect; insight and judgment normal. Results - Labs CBC & Chem 7: 10/07/18 09:40 10/19/18 09:25 Laboratory Results - last 24 hr 10/19/18 09:25 Sodium 137 Potassium 3.8 Chloride 104 Carbon Dioxide 24.3 Anion Gap 9 BUN 25 H Creatinine 1.36 H Estimated GFR 53 L Random Glucose 113 H Calcium 8.6 - Procedures None Assessment and Plan - Plan 62-year-old man with Regular narrow complex tachycardia /SVT Appreciate input from cardiology, EP Continue beta-jabari, Eliquis New onset cardiomyopathy Stress test performed with no area of ischemia noted Appreciate input from cardiology Continue beta-jabari, EDDA inhibitor, however secondary to worsening renal function will continue to hold EDDA inhibitor renal insufficiency- likely chronic Renal indices improving Continue IV fluid hydration Left knee effusion/ gout arthritis - joint fluid positive for uric acid/ gram stain/culture negative -continue Prednisone- NSAID is currently contraindicated secondary to renal insufficiency. Continue with allopurinol 100mg daily 10/17/18 -ortho input appreciated and recommended medical management - PT consulted Pulm nodules. O/p follow up Eliquis for DVT prophylaxis [employer] Prescription Drug Monitoring Database has been queried and verified prior to prescribing the controlled substance. Acute pain exception. This patient has normal, predicted, physiological, and time limited response to an adverse mechanical stimulus associated with surgery, trauma, or acute illness as described in my notes. There is a lack of alternative treatment options other than to include the prescribed narcotic treatment for this condition.
[2018-10-19] MEDS: Sod Chloride 0.9% Inj 1,000 ML IV.CONT SCH ×2 (17:15→18:47)
[2018-10-20] MEDS: predniSONE 20 MG Tablet PO SCH (09:16)
[2018-10-20] MEDS: Metoprolol Tartrate 25 MG Tablet PO SCH (09:16)
[2018-10-20] MEDS: Allopurinol 100 MG Tablet PO SCH (09:16)
[2018-10-20] MEDS: Sodium Chloride 0.9% 2 ML Flush BID IV.FLUSH SCH (09:17)
[2018-10-20] MEDS: Sod Chloride 0.9% Inj 1,000 ML IV.CONT SCH (09:18)
[2018-10-20 09:41] VITALS: RESP 18; O2SAT 95
--- NOTE | 2018-10-20 11:58 | P.PN ---
Subjective Interval history: Follow-up new onset cardiomyopathy/SVT narrow complex/gout October 17, 2018-patient seen and examined, reports to pain both knees more so without any significant pain. No other issues. October 18, 2018-patient seen and examined, doing better and able to ambulate however with some difficulties. B-Knee swollen coming down October 19, 2018-patient seen and examined, complaining of bilateral lower extremity swelling. Continue to complain of knee pain however able to bend it more and further. Afebrile. Renal indices improving. Case discussed with gearcase assembler. October 20, 2018-patient seen and examined, patient was able to walk to the bathroom on his own. Afebrile Physical Exam Vital signs: Vital Signs 10/19/18 12:00 10/19/18 13:00 10/19/18 14:00 Temperature 97.8 F Pulse Rate 67 65 67 Respiratory Rate 18 Blood Pressure 129/85 Pulse Oximetry 97 10/19/18 15:00 10/19/18 16:00 10/19/18 17:00 Temperature 98.3 F Pulse Rate 62 64 70 Respiratory Rate 18 Blood Pressure 128/75 Pulse Oximetry 96 10/19/18 18:00 10/19/18 19:00 10/19/18 20:00 Temperature 97.7 F Pulse Rate 73 66 74 Respiratory Rate 16 Blood Pressure 146/76 H Pulse Oximetry 97 10/19/18 20:40 10/19/18 21:00 10/19/18 22:00 Temperature Pulse Rate 66 68 Respiratory Rate 16 Blood Pressure Pulse Oximetry 10/19/18 23:00 10/19/18 23:47 10/20/18 00:00 Temperature 98.1 F Pulse Rate 62 63 62 Respiratory Rate 16 Blood Pressure 144/81 H Pulse Oximetry 94 L 10/20/18 01:00 10/20/18 02:00 10/20/18 03:00 Temperature Pulse Rate 64 67 65 Respiratory Rate Blood Pressure Pulse Oximetry 10/20/18 03:37 10/20/18 04:00 10/20/18 05:00 Temperature 98.5 F Pulse Rate 69 65 64 Respiratory Rate 16 16 Blood Pressure 146/89 H Pulse Oximetry 98 10/20/18 06:00 10/20/18 07:00 10/20/18 08:00 Temperature 97.7 F Pulse Rate 66 64 68 Respiratory Rate 18 Blood Pressure 151/92 H Pulse Oximetry 95 10/20/18 09:00 10/20/18 10:00 10/20/18 11:00 Temperature Pulse Rate 60 60 61 Respiratory Rate Blood Pressure Pulse Oximetry Intake & Output 10/19/18 10/20/18 10/20/18 18:59 06:59 18:59 Intake Total 2760 / 2760 480 / 480 1000 / 1000 Output Total 1350 / 1350 2049 Balance 1410 / 1410 -1570 / -1570 1000 / 1000 Weight 123.8 kg Intake: IV 1999 1000 / 1000 NS Inj 1,000 ML @ 70 mls/hr IV. 1999 1000 / 1000 CONT .[id number] [facility] Rx#:[id number] Oral 760 / 760 480 / 480 Output: Urine 1350 / 1350 2049 Other: # Voids 1 Date of Last Bowel Movement 10/19/18 # Bowel Movements 0 Narrative: GENERAL: NAD SKIN: Warm and dry. HEAD: Atraumatic. Normocephalic. EYES: Pupils equal and round. No scleral icterus. No injection or drainage. ENT: No nasal bleeding or discharge. Mucous membranes pink and moist. NECK: Trachea midline. No JVD. CARDIOVASCULAR: Regular rate and rhythm. RESPIRATORY: No accessory muscle use. Clear to auscultation. Breath sounds equal bilaterally. GASTROINTESTINAL: Abdomen soft, non-tender, nondistended. Hepatic and splenic margins not palpable. MUSCULOSKELETAL: Extremities without clubbing, cyanosis, or edema. No obvious deformities. NEUROLOGICAL: Awake and alert. No obvious cranial nerve deficits. Motor grossly within normal limits. Five out of 5 muscle strength in the arms and legs. Normal speech. PSYCHIATRIC: Appropriate mood and affect; insight and judgment normal. Results - Labs CBC & Chem 7: 10/07/18 09:40 10/19/18 09:25 - Procedures None Assessment and Plan - Plan 62-year-old man with Regular narrow complex tachycardia /SVT Appreciate input from cardiology, EP Continue beta-jabari, Eliquis New onset cardiomyopathy Stress test performed with no area of ischemia noted Appreciate input from cardiology Continue beta-jabari, EDDA inhibitor, however secondary to worsening renal function will continue to hold EDDA inhibitor renal insufficiency- likely chronic Renal indices improving Continue IV fluid hydration Left knee effusion/ gout arthritis - joint fluid positive for uric acid/ gram stain/culture negative -continue Prednisone- NSAID is currently contraindicated secondary to renal insufficiency. Continue with allopurinol 100mg daily 10/17/18 -ortho input appreciated and recommended medical management - PT consulted Pulm nodules. O/p follow up Eliquis for DVT prophylaxis [facility] Prescription Drug Monitoring Database has been queried and verified prior to prescribing the controlled substance. Acute pain exception. This patient has normal, predicted, physiological, and time limited response to an adverse mechanical stimulus associated with surgery, trauma, or acute illness as described in my notes. There is a lack of alternative treatment options other than to include the prescribed narcotic treatment for this condition.
[2018-10-20 14:25] VITALS: PULSE 62
[2018-10-20 14:26] VITALS: BP 124/70; TEMP 97.8
== END 2018-10-20 14:33 ==
LOC: NEPC 09:16 → NEDA 09:16 → OBSVTOIN 12:59 → NEDA 15:34 → NEPFCDU 15:46 → N04 10-08 18:34 → HCIS 10-12 21:12
PROVIDERS: ADMIT Hospitalist; ATTEND Hospitalist